=== PATIENT | male | born 1955 | race Caucasian/White ===

== ENCOUNTER 2016-07-04 11:09 | Outpatient (CLI) | payer OTHER ==
[2016-07-04 11:52] LABS: eGFR (African) > 60; eGFR (Non-African) > 60
== END 2016-07-04 11:10 ==
LOC: LAB 11:09
PROVIDERS: ATTEND Family Medicine
DX: E11.9 Type 2 diabetes mellitus without complications (principal)
CPT/HCPCS: 36415; 80053; 82043; 83036

== ENCOUNTER 2017-07-17 10:32 | Outpatient (CLI) | payer OTHER ==
[2017-07-17 11:30] LABS: eGFR (African) > 60; eGFR (Non-African) > 60
== END 2017-07-17 10:33 ==
LOC: LAB 10:32
PROVIDERS: ATTEND Family Medicine
DX: E11.9 Type 2 diabetes mellitus without complications (principal); I10 Essential (primary) hypertension; R73.9 Hyperglycemia, unspecified
CPT/HCPCS: 36415; 80053; 80061; 82043; 83036

== ENCOUNTER 2017-11-18 13:50 | Outpatient (CLI) | payer OTHER ==
[2017-11-18 14:02] LABS: BASOPHILS % 0.3 (0.0-1.5); EOSINOPHILS % 0.8 % (0.0-6.8); MEAN CORPUSCULAR HEMOGLOBIN 30.3 pg (28.0-34.0); MEAN CORPUSCULAR VOLUME 90.9 fl (80.0-100.0); MONOCYTES % 5.7 % (0.0-11.0); NEUTROPHILS # 8.9 # k/uL (1.4-7.7)
== END 2017-11-18 13:52 ==
LOC: LAB 13:50
PROVIDERS: ATTEND Family Medicine
DX: L03.115 Cellulitis of right lower limb (principal)
CPT/HCPCS: 36415; 85025

== ENCOUNTER 2017-11-21 11:54 | Inpatient (IN) | payer OTHER ==
[2017-11-21] MEDS ORDERED: INSULIN LISPRO 100 UNIT/ML 3ML VIAL SQ SCH ×2 (12:00→15:15)
[2017-11-21] MEDS ORDERED: LISINOPRIL 5 MG TABLET PO ONE (12:16)
[2017-11-21] MEDS ORDERED: VANCOMYCIN PHARMACY TO DOSE IV SCH ×2 (13:00→14:00)
[2017-11-21] MEDS ORDERED: INSULIN DETEMIR 100 UNIT/ML 3ML PEN.INJCTR SQ SCH (13:00)
[2017-11-21] MEDS: DULoxetine HCL 30 MG CAPSULE.DR PO SCH ×2 (13:41→20:17)
[2017-11-21] MEDS: ENOXAPARIN SODIUM 40 MG/0.4 ML DISP.SYRIN SQ SCH (13:43)
[2017-11-21] MEDS: PRAVASTATIN SODIUM 20 MG TABLET PO SCH ×2 (13:44→20:20)
[2017-11-21] MEDS: FUROSEMIDE 20 MG TABLET PO SCH (13:44)
[2017-11-21 15:52] LABS: BASOPHILS % 0.5 (0.0-1.5); EOSINOPHILS % 2.8 % (0.0-6.8); MEAN CORPUSCULAR HEMOGLOBIN 29.7 pg (28.0-34.0); MEAN CORPUSCULAR VOLUME 87.9 fl (80.0-100.0); NEUTROPHILS # 8.9 # k/uL (1.4-7.7)
[2017-11-21 16:02] LABS: eGFR (African) > 60; eGFR (Non-African) 54
[2017-11-21] MEDS: INSULIN LISPRO 100 UNIT/ML 3ML VIAL SQ SCH (17:04)
[2017-11-21] MEDS: VANCOMYCIN HCL 2 GM in 0.9 % SODIUM CHLORIDE 500 ML IV SCH (17:59)
[2017-11-21 19:56] VITALS: BMI 35.2
[2017-11-21] MEDS: NAPROXEN 250 MG TABLET PO SCH (20:18)
[2017-11-21] MEDS: CARVEDILOL 12.5 MG TABLET PO SCH (20:19)
[2017-11-21] MEDS: GABAPENTIN 100 MG CAPSULE PO SCH (20:19)
[2017-11-21] MEDS: GABAPENTIN 300 MG CAPSULE PO SCH (20:20)
[2017-11-21] MEDS: SALINE FLUSH 10 ML DISP.SYRIN IV SCH (20:24)
[2017-11-21] MEDS: INSULIN DETEMIR 100 UNIT/ML 3ML PEN.INJCTR SQ SCH (20:25)
[2017-11-21] MEDS ORDERED: CARVEDILOL 25 MG TABLET PO SCH (21:00)
[2017-11-22] MEDS: PIPERACILLIN SODIUM/TAZOBACTAM 3.375 GM VIAL IV SCH ×4 (00:04→23:00)
[2017-11-22] MEDS ORDERED: ASPIRIN 81 MG CHEW TAB ONE (00:32)
[2017-11-22] MEDS ORDERED: FUROSEMIDE 40 MG TABLET PO ONE (00:33)
[2017-11-22] MEDS ORDERED: LISINOPRIL 5 MG TABLET ONE (00:36)
[2017-11-22] MEDS ORDERED: CHOLECALCIFEROL (VIT D3) 1,000 UNIT TABLET PO ONE (00:37)
[2017-11-22 07:46] LABS: BASOPHILS % 0.3 (0.0-1.5); EOSINOPHILS % 1.9 % (0.0-6.8); MEAN CORPUSCULAR VOLUME 88.5 fl (80.0-100.0); NEUTROPHILS # 8.2 # k/uL (1.4-7.7)
[2017-11-22] MEDS: INSULIN LISPRO 100 UNIT/ML 3ML VIAL SQ SCH ×2 (07:59→16:55)
[2017-11-22] MEDS: ASPIRIN 81 MG CHEW TAB PO SCH (08:50)
[2017-11-22] MEDS: FUROSEMIDE 40 MG TABLET PO SCH (08:50)
[2017-11-22] MEDS: CARVEDILOL 12.5 MG TABLET PO SCH ×2 (08:50→20:25)
[2017-11-22] MEDS: NAPROXEN 250 MG TABLET PO SCH ×2 (08:50→20:25)
[2017-11-22] MEDS: SALINE FLUSH 10 ML DISP.SYRIN IV SCH ×2 (08:52→20:26)
[2017-11-22] MEDS: GABAPENTIN 100 MG CAPSULE PO SCH ×2 (08:52→20:26)
[2017-11-22] MEDS: LISINOPRIL 5 MG TABLET PO SCH (08:53)
[2017-11-22] MEDS: CHOLECALCIFEROL (VIT D3) 1,000 UNIT TABLET PO SCH (08:54)
--- NOTE | 2017-11-22 08:55 | History and Physical Report ---
History of Present Illnes - History of Present Illness Reason for Visit: cellulitis to RLE History of Present Illness: Patient is a 62-year-old white male who three days prior to admission was seen in the office and started on Levaquin for cellulitis to the right lower extremity. Patient was seen again on the day of admission in the office and stated that he felt that the infection was getting worse. Patient denied having any fever or chills. Patient has been developing some blisters on his leg with some serious thing when a slightly purulent drainage. Patient does have a history of diabetes mellitus. Patient has had problems with venous stasis ulcers healing on his right lower extremity. Patient was subsequently admitted to the hospital for further care and evaluation. Patient will be started on IV antibiotic therapy. 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 negative: Fever, Chills, Weakness Eyes: negative: vision change ENT: negative: Ear Pain, Ear Discharge, Nose Pain, Nose Discharge, Nose Congestion Respiratory: Shortness of Breath, SOB with Excertion. negative: Cough, Dry, Hemoptysis, Pleuritic Pain, Sputum, Wheezing Cardiovascular: Edema. negative: Chest Pain, Palpitations, Orthopnea, Paroxysmal Noc. Dyspnea Gastrointestinal: negative: Nausea, Vomiting, Abdominal Pain, Diarrhea, Constipation, Melena, Hematochezia Genitourinary: negative: Dysuria, Frequency, Incontinence, Hematuria Musculoskeletal: negative: Neck Pain Skin: negative: Rash Neurological: Numbness. negative: Weakness, Incoordination - Medications/Allergies Allergies/Adverse Reactions: Allergies Allergy/AdvReac Type Severity Reaction Status Date / Time No Known Drug Allergies Allergy Unverified 09/23/12 14:42 Current Inpatient Medications: Current Inpatient Medications Aspirin (Aspirin) 81 mg PO DAILY [facility] Carvedilol (Coreg) 37.5 mg PO BID [facility] Last Admin: 11/21/17 20:19 Dose: 37.5 mg Cholecalciferol (Vitamin D-3) 1,000 unit PO DAILY [facility] Duloxetine HCl (Cymbalta) 30 mg PO [facility] Last Admin: 11/21/17 20:17 Dose: 30 mg Enoxaparin Sodium (Lovenox) 40 mg SQ QD [facility] Stop: 12/05/17 12:59 Last Admin: 11/21/17 13:43 Dose: 40 mg Fenofibrate (Tricor) 160 mg PO DAILY [facility] Furosemide (Lasix) 40 mg PO DAILY [facility] Furosemide (Lasix) 20 mg PO 1400 [facility] Last Admin: 11/21/17 13:44 Dose: 20 mg Gabapentin (Neurontin) 100 mg PO BID [facility] Last Admin: 11/21/17 20:19 Dose: 100 mg Gabapentin (Neurontin) 300 mg PO HS [facility] Last Admin: 11/21/17 20:20 Dose: 300 mg Vancomycin HCl 2 gm/ Sodium (Chloride) 500 mls @ 250 mls/hr IV Q24H [facility] Stop: 12/05/17 16:59 Last Admin: 11/21/17 17:59 Dose: 250 mls/hr Insulin Detemir (Levemir Flex-Pen) 80 unit SQ [facility] Last Admin: 11/21/17 20:25 Dose: 80 units Insulin Human Lispro (Humalog) 36 unit SQ 0730 [facility] Last Admin: 11/22/17 07:59 Dose: 36 units Insulin Human Lispro (Humalog) 50 unit SQ 17 [facility] PRN Reason: Protocol Last Admin: 11/21/17 17:04 Dose: 50 units Insulin Human Lispro (Humalog) 36 unit SQ 1200 [facility] Insulin Human Lispro (Humalog) 36 unit SQ 1T [facility] Lisinopril (Prinivil) 10 mg PO DAILY [facility] Magnesium Oxide (Mag-Oxide) 400 mg PO DAILY [facility] Metformin HCl (Glucophage) [place] [id number] [facility] Last Admin: 11/22/17 07:57 Dose: 500 mg Miscellaneous (Chem Sticks) 1 each CHEMQID [facility] Last Admin: 11/22/17 07:43 Dose: 1 each Miscellaneous (Vancomycin Pharmacy To Dose) 1 each IV NOW [facility] Naproxen (Naprosyn) 375 mg PO BID [facility] Last Admin: 11/21/17 20:18 Dose: 375 mg Piperacillin Sod/Tazobactam Sod (Zosyn) 3.375 gm IV Q6 [facility] Last Admin: 11/22/17 06:18 Dose: 3.375 gm Pravastatin Sodium (Pravachol) 80 mg PO HS [facility] Last Admin: 11/21/17 20:20 Dose: 80 mg Sodium Chloride (Normal Saline Flush) 3 ml IV BID [facility] Last Admin: 11/21/17 20:24 Dose: 3 ml Exam - Exam Vital Signs: Vital Signs (72 hours) 11/21/17 11/21/17 11/21/17 12:46 14:00 16:46 Temperature 98.1 F 98.4 F 98.4 F Pulse Rate [ 69 72 72 Apical] Respiratory 16 16 16 Rate Blood Pressure 113/64 115/65 115/65 [Right Arm] O2 Sat by Pulse 97 98 98 Oximetry 11/21/17 11/21/17 11/21/17 18:00 20:00 22:00 Temperature 98.4 F 98.8 F 98.8 F Pulse Rate [ 72 78 78 Apical] Respiratory 16 18 18 Rate Blood Pressure 115/65 137/70 137/70 [Right Arm] O2 Sat by Pulse 98 97 97 Oximetry 11/22/17 11/22/17 11/22/17 00:00 02:00 04:00 Temperature 99.1 F 99.1 F 99.1 F Pulse Rate [ 62 62 62 Apical] Respiratory 14 14 14 Rate Blood Pressure 109/59 109/59 109/59 [Right Arm] O2 Sat by Pulse 97 97 97 Oximetry 11/22/17 06:00 Temperature 99.1 F Pulse Rate [ 62 Apical] Respiratory 14 Rate Blood Pressure 109/59 [Right Arm] O2 Sat by Pulse 97 Oximetry General: Alert, Oriented to Person, Oriented to Place, Oriented to Time, Cooperative, Mild distress HEENT: Atraumatic, PERRLA, EOMI, Mouth Mucous membr. moist/Almyra, Nose Mucous membr. moist/Almyra, Dentition Normal, Hearing Grossly Normal Neck: Normal Range of Motion Carotids: WNL Thyroid: WNL Lungs: Clear to auscultation, Normal air movement, Speaks full Sentences. No: Wheezes, Rales, Rhonchi Cardiovascular: Regular rate, Normal S1, Normal S2, No murmurs. No: Murmur Abdomen: Normal bowel sounds, Soft, No tenderness, No hepatospenomegaly, No masses, Other (obese) Integumentary: Normal, Almyra, Warm, Dry, Cellulitis, Erythema (invilving most fo the Rt lower leg, some blisters noted) Extremities: No clubbing, No cyanosis Neurological: Normal gait, Normal speech, Strength Equal Bilat, Normal tone, Sensation intact, Cranial nerves 3-12 NL, Reflexes 2+ Psych/Mental Status: Mental status NL, Mood NL, Appropriate Affect, Intact Judgment - Laboratory Results Laboratory Results: Laboratory Results 11/21/17 11/21/17 11/22/17 15:45 15:45 07:35 WBC 11.60 10.20 RBC 3.87 L 3.81 L Hgb 11.5 L 11.4 L Hct 34.0 L 33.7 L MCV 87.9 88.5 MCH 29.7 30.0 MCHC 33.8 33.9 RDW 13.4 13.5 Plt Count 346 321 Neut % (Auto) 76.2 80.4 H Lymph % (Auto) 15.1 L 12.1 L Harper % (Auto) 4.0 4.0 Eos % (Auto) 2.8 1.9 Baso % (Auto) 0.5 0.3 Neut # (Auto) 8.9 H 8.2 H Lymph # (Auto) 1.8 1.2 Harper # (Auto) 0.5 0.4 Eos # (Auto) 0.3 0.2 Baso # (Auto) 0.1 0.0 Reactive Lymphs % 1.4 1.3 Reactive Lymphs # 0.2 0.1 Sodium 133 L Potassium 4.6 Chloride 96 L Carbon Dioxide 30 BUN 21 H Creatinine 1.40 H Est GFR ( Amer) > 60 Est GFR (Non-Af Amer) 54 L Glucose 270 H Calcium 9.4 Total Bilirubin 0.4 AST 15 ALT 27 Alkaline Phosphatase 83 Total Protein 8.1 Albumin 3.7 Assessment/Plan - Assessment/Plan (1) Cellulitis of right lower leg Status: Acute Current Visit: Yes Assessment: Patient will have blood cultures drawn. Patient will be started on vancomycin and Zosyn. Will culture the patient blister on his foot. (2) Diabetes type 2, uncontrolled Status: Chronic Current Visit: Yes Qualifiers: Diabetes mellitus alf insulin use: with termite treater use Diabetes mellitus complication status: with neurologic complications Diabetes mellitus complication detail: with polyneuropathy Qualified Code(s): E11.42 - Type 2 diabetes mellitus with diabetic polyneuropathy; E11.65 - Type 2 diabetes mellitus with hyperglycemia; E11.65 - Type 2 diabetes mellitus with hyperglycemia; E11.65 - Type 2 diabetes mellitus with hyperglycemia; E11.65 - Type 2 diabetes mellitus with hyperglycemia; Z79.4 - termite treater (current) use of insulin; Z79.4 - termite treater (current) use of insulin; Z79.4 - termite treater (current ) use of insulin; Z79.4 - termite treater (current) use of insulin Plan: Patient will be continued on his home medications and insulin. Will start the patient on a sliding scale. (3) Chronic kidney disease (CKD) stage G3a/A1, moderately decreased glomerular filtration rate (GFR) between 45-59 mL/min/1.73 square meter and albuminuria creatinine ratio less than 30 mg/g Status: Acute Current Visit: Yes Plan: Will monitor patient renal status. (4) Cardiomyopathy Status: Acute Current Visit: Yes Assessment: Last ejection fraction with 35%. Will continue with home medications. (5) Obesity Status: Acute Current Visit: Yes Qualifiers: Body mass index: BMI 35.0-35.9 (6) Obstructive sleep apnea Status: Acute Current Visit: Yes Assessment: Continue with home CPAP (7) Essential hypertension Status: Chronic Current Visit: Yes Assessment: Continue with home medications. (8) Generalized osteoarthritis Status: Chronic Current Visit: Yes VTE Assessment - RISK FACTOR SCORE VTE RISK FACTOR SCORES: AGE OVER 60 YEARS, ACUTE INFECTION OTHER THEN SEPSIS, ANTICIPATED BED CONFINEMENT OR IMMOBILIZATION > 24 HOURS - RISK VTE HIGH RISK: SCORE OF 3-4 (RISK PROXIMAL DVT 4-8%) PROPHYLAXIS NEEDED
[2017-11-22] MEDS: FENOFIBRATE 160 MG TABLET PO SCH (09:06)
[2017-11-22] MEDS: MAGNESIUM OXIDE 400 MG TABLET PO SCH (09:06)
[2017-11-22] MEDS ORDERED: INSULIN LISPRO 100 UNIT/ML 3ML VIAL SQ SCH (12:00)
[2017-11-22] MEDS: ENOXAPARIN SODIUM 40 MG/0.4 ML DISP.SYRIN SQ SCH (13:14)
[2017-11-22] MEDS: FUROSEMIDE 20 MG TABLET PO SCH (13:14)
[2017-11-22] MEDS: VANCOMYCIN HCL 2 GM in 0.9 % SODIUM CHLORIDE 500 ML IV SCH (17:32)
[2017-11-22] MEDS: DULoxetine HCL 30 MG CAPSULE.DR PO SCH (20:25)
[2017-11-22] MEDS: PRAVASTATIN SODIUM 20 MG TABLET PO SCH (20:26)
[2017-11-22] MEDS: GABAPENTIN 300 MG CAPSULE PO SCH (20:26)
[2017-11-22] MEDS: INSULIN DETEMIR 100 UNIT/ML 3ML PEN.INJCTR SQ SCH (20:30)
[2017-11-23] MEDS: PIPERACILLIN SODIUM/TAZOBACTAM 3.375 GM VIAL IV SCH ×2 (00:12→05:05)
[2017-11-23 05:07] VITALS: BP 109/60
[2017-11-23] MEDS: INSULIN LISPRO 100 UNIT/ML 3ML VIAL SQ SCH (07:32)
--- NOTE | 2017-11-23 08:20 | Inpatient Progress Note ---
Subjective - Required Recertification Statement I anticipate X number of days because-include discharge plan: 2 days - Review of Systems Events since last encounter: Patient leg appears to be improving at the time. Erythema or warmth are starting to resolve some.Diabetes mellitus has been fairly stable. Objective - Exam Vitals and I&O: Vital Signs Temp 98 F 11/23/17 05:05 Pulse 56 L 11/23/17 05:05 Resp 18 11/23/17 05:05 BP 109/60 11/23/17 05:05 Pulse Ox 100 11/23/17 05:05 Intake & Output 11/22/17 11/22/17 11/23/17 11:59 23:59 11:59 Intake Total 540 800 Output Total 600 450 Balance 540 200 -450 Intake: IV 300 Left Forearm 300 Oral 240 800 Output: Urine 600 450 Other: Voiding Method Toilet Toilet Toilet # Voids 2 General: Alert, Oriented to Person, Oriented to Place, Oriented to Time, Cooperative, No acute distress Lungs: Clear to auscultation, Speaks full Sentences. No: Wheezes, Rales, Rhonchi Cardiovascular: Regular rate, Normal S1, Normal S2 Abdomen: Normal bowel sounds Extremities: No clubbing, No cyanosis, No edema Skin: Normal, Earth, Warm, Dry Neurological: Normal gait, Normal speech, Strength Equal Bilat, Normal tone Psych/Mental Status: Mental status NL, Mood NL - Results Results: Laboratory Results WBC 10.20 K/ul (4.00-12.00) 11/22/17 07:35 RBC 3.81 M/ul (3.90-5.20) L 11/22/17 07:35 Hgb 11.4 g/dL (12.0-18.0) L 11/22/17 07:35 Hct 33.7 % (37.0-53.0) L 11/22/17 07:35 MCV 88.5 fl (80.0-100.0) 11/22/17 07:35 MCH 30.0 pg (28.0-34.0) 11/22/17 07:35 MCHC 33.9 g/dL (30.0-36.0) 11/22/17 07:35 RDW 13.5 % (11.3-14.3) 11/22/17 07:35 Plt Count 321 K/mm3 (130-400) 11/22/17 07:35 Neut % (Auto) 80.4 % (39.0-79.0) H 11/22/17 07:35 Lymph % (Auto) 12.1 % (16.0-50.0) L 11/22/17 07:35 Rice % (Auto) 4.0 % (0.0-11.0) 11/22/17 07:35 Eos % (Auto) 1.9 % (0.0-6.8) 11/22/17 07:35 Baso % (Auto) 0.3 (0.0-1.5) 11/22/17 07:35 Neut # (Auto) 8.2 # k/uL (1.4-7.7) H 11/22/17 07:35 Lymph # (Auto) 1.2 # k/uL (0.6-4.0) 11/22/17 07:35 Rice # (Auto) 0.4 # k/uL (0.0-0.9) 11/22/17 07:35 Eos # (Auto) 0.2 # k/uL (0.0-0.6) 11/22/17 07:35 Baso # (Auto) 0.0 # k/uL (0.0-0.5) 11/22/17 07:35 Reactive Lymphs % 1.3 % (0.0-5.0) 11/22/17 07:35 Reactive Lymphs # 0.1 # k/uL (0.0-0.8) 11/22/17 07:35 Sodium 133 mmol/L (136-145) L 11/21/17 15:45 Potassium 4.6 mmol/L (3.5-5.1) 11/21/17 15:45 Chloride 96 mmol/L (98-107) L 11/21/17 15:45 Carbon Dioxide 30 mmol/L (22-30) 11/21/17 15:45 BUN 21 mg/dL (9-20) H 11/21/17 15:45 Creatinine 1.40 mg/dL (0.66-1.25) H 11/21/17 15:45 Est GFR ( Amer) > 60 (60-) 11/21/17 15:45 Est GFR (Non-Af Amer) 54 (60-) L 11/21/17 15:45 Glucose 270 mg/dL (74-106) H 11/21/17 15:45 Calcium 9.4 mg/dL (8.4-10.2) 11/21/17 15:45 Total Bilirubin 0.4 mg/dL (0.2-1.3) 11/21/17 15:45 AST 15 U/L (15-46) 11/21/17 15:45 ALT 27 U/L (13-69) 11/21/17 15:45 Alkaline Phosphatase 83 U/L (38-126) 11/21/17 15:45 Total Protein 8.1 g/dL (6.3-8.2) 11/21/17 15:45 Albumin 3.7 g/dL (3.5-5.0) 11/21/17 15:45 Assessment/Plan - Assessment/Plan (1) Cellulitis of right lower leg Status: Acute Assessment: improved (2) Diabetes type 2, uncontrolled Status: Chronic Qualifiers: Diabetes mellitus crisis worker insulin use: with detention use Diabetes mellitus complication status: with neurologic complications Diabetes mellitus complication detail: with polyneuropathy Qualified Code(s): E11.42 - Type 2 diabetes mellitus with diabetic polyneuropathy; E11.65 - Type 2 diabetes mellitus with hyperglycemia; E11.65 - Type 2 diabetes mellitus with hyperglycemia; E11.65 - Type 2 diabetes mellitus with hyperglycemia; E11.65 - Type 2 diabetes mellitus with hyperglycemia; Z79.4 - car repair supervisor (current) use of insulin; Z79.4 - car repair supervisor (current) use of insulin; Z79.4 - car repair supervisor (current ) use of insulin; Z79.4 - intermediate (current) use of insulin Assessment: stable (3) Chronic kidney disease (CKD) stage G3a/A1, moderately decreased glomerular filtration rate (GFR) between 45-59 mL/min/1.73 square meter and albuminuria creatinine ratio less than 30 mg/g Status: Chronic Assessment: stable (4) Cardiomyopathy Status: Chronic Assessment: stable (5) Obesity Status: Chronic Qualifiers: Body mass index: BMI 35.0-35.9 (6) Obstructive sleep apnea Status: Chronic Assessment: on CPAP (7) Essential hypertension Status: Chronic (8) Generalized osteoarthritis Status: Chronic
--- NOTE | 2017-11-23 08:21 | Discharge Summary ---
Discharge Summary - Discharge Sumary History of Present Illness: Coded Patient is a 62-year-old white male who three days prior to admission was seen in the office and started on Levaquin for cellulitis to the right lower extremity. Patient was seen again on the day of admission in the office and stated that he felt that the infection was getting worse. Patient denied having any fever or chills. Patient has been developing some blisters on his leg with some serious thing when a slightly purulent drainage. Patient does have a history of diabetes mellitus. Patient has had problems with venous stasis ulcers healing on his right lower extremity. Patient was subsequently admitted to the hospital for further care and evaluation. Patient will be started on IV antibiotic therapy. Condition at Discharge: Stable Allergies/Adverse Reactions: Allergies Allergy/AdvReac Type Severity Reaction Status Date / Time No Known Drug Allergies Allergy Verified 11/23/17 14:39 Discharge Summary: Patient was started on vancomycin and Piprocillin to provide wide coverage antibiotics. Blood cultures were drawn was subsequently came back no growth. Over the course of his hospital stay patient cellulitis did improve with decreasing redness erythema and warmth to the right lower extremity. Patient continues to have some swelling but it did improve. Patient was noted to have developed an abscess to the right pre-tibial area. Incision and drainage of the abscess with done. Wound was culturedAnd subsequently throughout a staph aureus species. Patient was transitioned over to an oral antibiotics - Final Diagnosis (1) Cellulitis of right lower leg Problems: improved (2) Diabetes type 2, uncontrolled Problems: stable (3) Chronic kidney disease (CKD) stage G3a/A1, moderately decreased glomerular filtration rate (GFR) between 45-59 mL/min/1.73 square meter and albuminuria creatinine ratio less than 30 mg/g Problems: stable (4) Cardiomyopathy Problems: stable (6) Obstructive sleep apnea Problems: stable (7) Essential hypertension Problems: stable (8) Generalized osteoarthritis Problems: stable
[2017-11-23] MEDS: FUROSEMIDE 40 MG TABLET PO SCH (08:24)
[2017-11-23] MEDS: CHOLECALCIFEROL (VIT D3) 1,000 UNIT TABLET PO SCH (08:24)
[2017-11-23] MEDS: MAGNESIUM OXIDE 400 MG TABLET PO SCH (08:25)
[2017-11-23] MEDS: FENOFIBRATE 160 MG TABLET PO SCH (08:25)
[2017-11-23] MEDS: CARVEDILOL 12.5 MG TABLET PO SCH (08:25)
[2017-11-23] MEDS: GABAPENTIN 100 MG CAPSULE PO SCH (08:25)
[2017-11-23] MEDS: NAPROXEN 250 MG TABLET PO SCH (08:25)
[2017-11-23] MEDS: ASPIRIN 81 MG CHEW TAB PO SCH (08:25)
[2017-11-23] MEDS: LISINOPRIL 5 MG TABLET PO SCH (08:25)
== END 2017-11-23 08:41 | DRG 603 ==
LOC: SOUTH 11:54
PROVIDERS: ADMIT Family Medicine; ATTEND Family Medicine
DX: L03.115 Cellulitis of right lower limb (principal); I13.0 Hypertensive heart and chronic kidney disease with heart failure and stage 1 through stage 4 chronic kidney disease, or unspecified chronic kidney disease; I42.9 Cardiomyopathy, unspecified; E11.42 Type 2 diabetes mellitus with diabetic polyneuropathy; E11.65 Type 2 diabetes mellitus with hyperglycemia; Z79.4 Long term (current) use of insulin; E11.22 Type 2 diabetes mellitus with diabetic chronic kidney disease; N18.3 Chronic kidney disease, stage 3 (moderate); E66.9 Obesity, unspecified; Z68.35 Body mass index [BMI] 35.0-35.9, adult; M17.0 Bilateral primary osteoarthritis of knee
CPT/HCPCS: 36415; 80053; 85025; 87040; 87070; 87186; J1650; J1815; J2543; J3370; J7060; 99223; 99232; 99238; S1016

== ENCOUNTER 2017-11-23 08:45 | Inpatient (IN) | payer OTHER ==
[2017-11-23] MEDS ORDERED: GABAPENTIN 100 MG CAPSULE PO SCH (09:00)
[2017-11-23] MEDS ORDERED: FUROSEMIDE 20 MG TABLET PO SCH (09:00)
[2017-11-23] MEDS ORDERED: VANCOMYCIN HCL 1 GM VIAL IV ONE (12:09)
[2017-11-23] MEDS ORDERED: CARVEDILOL 12.5 MG TABLET PO ONE (12:13)
[2017-11-23] MEDS: ASPIRIN 81 MG CHEW TAB PO SCH (12:41)
[2017-11-23] MEDS: CARVEDILOL 25 MG TABLET PO SCH ×2 (12:42→20:06)
[2017-11-23] MEDS: DULoxetine HCL 30 MG CAPSULE.DR PO SCH ×2 (12:42→20:06)
[2017-11-23] MEDS: INSULIN LISPRO 100 UNIT/ML 3ML VIAL SQ SCH ×3 (12:43→18:07)
[2017-11-23] MEDS: CHOLECALCIFEROL (VIT D3) 1,000 UNIT TABLET PO SCH (12:43)
[2017-11-23] MEDS: SALINE FLUSH 10 ML DISP.SYRIN IV SCH ×2 (12:52→20:07)
[2017-11-23] MEDS: ENOXAPARIN SODIUM 40 MG/0.4 ML DISP.SYRIN SQ SCH (12:52)
[2017-11-23] MEDS: PIPERACILLIN SODIUM/TAZOBACTAM 3.375 GM VIAL IV SCH ×3 (12:52→19:01)
[2017-11-23] MEDS: FUROSEMIDE 20 MG TABLET PO SCH (14:49)
[2017-11-23 15:26] VITALS: BMI 35.2
[2017-11-23] MEDS ORDERED: INSULIN LISPRO 100 UNIT/ML 3ML VIAL SQ SCH ×3 (17:00→21:00)
[2017-11-23 17:07] LABS: eGFR (African) > 60; eGFR (Non-African) 50
[2017-11-23] MEDS: GABAPENTIN 100 MG CAPSULE PO SCH (17:12)
[2017-11-23] MEDS: VANCOMYCIN HCL IV SCH (17:15)
[2017-11-23] MEDS: SODIUM CHLORIDE 0.9% IV SCH (17:15)
[2017-11-23] MEDS: INSULIN DETEMIR 100 UNIT/ML 3ML PEN.INJCTR SQ SCH ×2 (18:06→20:10)
[2017-11-23] MEDS: NAPROXEN 250 MG TABLET PO SCH (20:06)
[2017-11-23] MEDS: GABAPENTIN 300 MG CAPSULE PO SCH (20:06)
[2017-11-24] MEDS: PIPERACILLIN SODIUM/TAZOBACTAM 3.375 GM VIAL IV SCH ×3 (00:12→13:13)
[2017-11-24] MEDS ORDERED: CARVEDILOL 12.5 MG TABLET PO ONE ×2 (01:39→13:16)
[2017-11-24] MEDS: ASPIRIN 81 MG CHEW TAB PO SCH (08:20)
[2017-11-24] MEDS: CARVEDILOL 25 MG TABLET PO SCH ×2 (08:21→20:18)
[2017-11-24] MEDS: FUROSEMIDE 40 MG TABLET PO SCH (08:22)
[2017-11-24] MEDS: MAGNESIUM OXIDE 400 MG TABLET PO SCH (08:22)
[2017-11-24] MEDS: NAPROXEN 250 MG TABLET PO SCH ×2 (08:22→20:18)
[2017-11-24] MEDS: ENOXAPARIN SODIUM 40 MG/0.4 ML DISP.SYRIN SQ SCH (08:22)
[2017-11-24] MEDS: GABAPENTIN 100 MG CAPSULE PO SCH ×3 (08:23→17:36)
[2017-11-24] MEDS: SALINE FLUSH 10 ML DISP.SYRIN IV SCH ×2 (08:23→20:19)
[2017-11-24] MEDS: CHOLECALCIFEROL (VIT D3) 1,000 UNIT TABLET PO SCH (08:24)
[2017-11-24] MEDS: FENOFIBRATE 160 MG TABLET PO SCH (08:24)
[2017-11-24] MEDS: INSULIN LISPRO 100 UNIT/ML 3ML VIAL SQ SCH ×3 (08:25→17:38)
[2017-11-24] MEDS ORDERED: INSULIN REGULAR, HUMAN 100 UNIT/ML 3ML VIAL ONE (08:27)
[2017-11-24] MEDS: FUROSEMIDE 20 MG TABLET PO SCH (13:08)
[2017-11-24] MEDS: VANCOMYCIN HCL IV SCH (13:58)
[2017-11-24] MEDS: SODIUM CHLORIDE 0.9% IV SCH (13:58)
[2017-11-24] MEDS ORDERED: SODIUM CHLORIDE 0.9% IV SCH (17:00)
[2017-11-24] MEDS ORDERED: VANCOMYCIN HCL IV SCH (17:00)
[2017-11-24] MEDS: DULoxetine HCL 30 MG CAPSULE.DR PO SCH (20:18)
[2017-11-24] MEDS: GABAPENTIN 300 MG CAPSULE PO SCH (20:19)
[2017-11-24] MEDS: INSULIN DETEMIR 100 UNIT/ML 3ML PEN.INJCTR SQ SCH (20:22)
[2017-11-25] MEDS: PIPERACILLIN SODIUM/TAZOBACTAM 3.375 GM VIAL IV SCH ×4 (00:06→12:47)
[2017-11-25] MEDS ORDERED: CARVEDILOL 12.5 MG TABLET PO ONE ×2 (01:24→12:50)
[2017-11-25] MEDS: INSULIN LISPRO 100 UNIT/ML 3ML VIAL SQ SCH ×3 (07:36→16:18)
[2017-11-25 07:46] LABS: BASOPHILS % 0.2 (0.0-1.5); EOSINOPHILS % 3.1 % (0.0-6.8); MEAN CORPUSCULAR HEMOGLOBIN 29.7 pg (28.0-34.0); MEAN CORPUSCULAR VOLUME 89.8 fl (80.0-100.0); MONOCYTES % 4.7 % (0.0-11.0); NEUTROPHILS # 4.5 # k/uL (1.4-7.7)
[2017-11-25] MEDS: CHOLECALCIFEROL (VIT D3) 1,000 UNIT TABLET PO SCH (09:03)
[2017-11-25] MEDS: CARVEDILOL 25 MG TABLET PO SCH (09:03)
[2017-11-25] MEDS: FENOFIBRATE 160 MG TABLET PO SCH (09:03)
[2017-11-25] MEDS: ASPIRIN 81 MG CHEW TAB PO SCH (09:03)
[2017-11-25] MEDS: ENOXAPARIN SODIUM 40 MG/0.4 ML DISP.SYRIN SQ SCH (09:03)
[2017-11-25] MEDS: SALINE FLUSH 10 ML DISP.SYRIN IV SCH ×2 (09:04→19:51)
[2017-11-25] MEDS: FUROSEMIDE 40 MG TABLET PO SCH (09:04)
[2017-11-25] MEDS: NAPROXEN 250 MG TABLET PO SCH ×2 (09:04→20:59)
[2017-11-25] MEDS: GABAPENTIN 100 MG CAPSULE PO SCH ×2 (09:04→16:16)
[2017-11-25] MEDS: MAGNESIUM OXIDE 400 MG TABLET PO SCH (09:04)
[2017-11-25] MEDS: FUROSEMIDE 20 MG TABLET PO SCH (12:59)
[2017-11-25] MEDS: VANCOMYCIN HCL 2 GM in 0.9 % SODIUM CHLORIDE 500 ML IV SCH (16:26)
[2017-11-25] MEDS: PIPERACILLIN SODIUM/TAZOBACTAM 3.375 GM in 0.9 % SODIUM CHLORIDE 50 ML IV SCH (18:56)
[2017-11-25] MEDS: DULoxetine HCL 30 MG CAPSULE.DR PO SCH (21:00)
[2017-11-25] MEDS: GABAPENTIN 300 MG CAPSULE PO SCH (21:00)
[2017-11-25] MEDS: CARVEDILOL 12.5 MG TABLET PO SCH (21:00)
[2017-11-25] MEDS: INSULIN DETEMIR 100 UNIT/ML 3ML PEN.INJCTR SQ SCH (21:01)
[2017-11-25] MEDS ORDERED: PIPERACILLIN SODIUM/TAZOBACTAM 3.375 GM VIAL IV ONE (21:18)
[2017-11-26] MEDS: PIPERACILLIN SODIUM/TAZOBACTAM 3.375 GM in 0.9 % SODIUM CHLORIDE 50 ML IV SCH ×5 (00:25→23:29)
[2017-11-26] MEDS: INSULIN LISPRO 100 UNIT/ML 3ML VIAL SQ SCH ×3 (07:33→16:31)
[2017-11-26] MEDS: FENOFIBRATE 160 MG TABLET PO SCH (09:08)
[2017-11-26] MEDS: CARVEDILOL 12.5 MG TABLET PO SCH ×2 (09:08→20:02)
[2017-11-26] MEDS: NAPROXEN 250 MG TABLET PO SCH ×2 (09:09→20:02)
[2017-11-26] MEDS: MAGNESIUM OXIDE 400 MG TABLET PO SCH (09:10)
[2017-11-26] MEDS: GABAPENTIN 100 MG CAPSULE PO SCH ×2 (09:10→16:30)
[2017-11-26] MEDS: FUROSEMIDE 40 MG TABLET PO SCH (09:11)
[2017-11-26] MEDS: ASPIRIN 81 MG CHEW TAB PO SCH (09:11)
[2017-11-26] MEDS: CHOLECALCIFEROL (VIT D3) 1,000 UNIT TABLET PO SCH (09:13)
[2017-11-26] MEDS: ENOXAPARIN SODIUM 40 MG/0.4 ML DISP.SYRIN SQ SCH (09:13)
[2017-11-26] MEDS: SALINE FLUSH 10 ML DISP.SYRIN IV SCH ×2 (09:14→20:04)
[2017-11-26] MEDS: FUROSEMIDE 20 MG TABLET PO SCH (13:56)
[2017-11-26] MEDS: VANCOMYCIN HCL 2 GM in 0.9 % SODIUM CHLORIDE 500 ML IV SCH (16:57)
[2017-11-26] MEDS: DULoxetine HCL 30 MG CAPSULE.DR PO SCH (20:02)
[2017-11-26] MEDS: GABAPENTIN 300 MG CAPSULE PO SCH (20:02)
[2017-11-26] MEDS: INSULIN DETEMIR 100 UNIT/ML 3ML PEN.INJCTR SQ SCH (20:05)
[2017-11-26] MEDS ORDERED: PIPERACILLIN SODIUM/TAZOBACTAM 3.375 GM VIAL IV ONE (23:14)
[2017-11-27] MEDS ORDERED: PIPERACILLIN SODIUM/TAZOBACTAM 3.375 GM VIAL IV ONE ×4 (00:57→21:47)
[2017-11-27] MEDS: PIPERACILLIN SODIUM/TAZOBACTAM 3.375 GM in 0.9 % SODIUM CHLORIDE 50 ML IV SCH ×3 (05:02→20:44)
[2017-11-27] MEDS: INSULIN LISPRO 100 UNIT/ML 3ML VIAL SQ SCH ×3 (08:35→17:16)
[2017-11-27] MEDS: CARVEDILOL 12.5 MG TABLET PO SCH ×2 (08:50→20:42)
[2017-11-27] MEDS: CHOLECALCIFEROL (VIT D3) 1,000 UNIT TABLET PO SCH (08:50)
[2017-11-27] MEDS: MAGNESIUM OXIDE 400 MG TABLET PO SCH (08:50)
[2017-11-27] MEDS: GABAPENTIN 100 MG CAPSULE PO SCH ×2 (08:50→17:15)
[2017-11-27] MEDS: SALINE FLUSH 10 ML DISP.SYRIN IV SCH ×2 (08:51→20:46)
[2017-11-27] MEDS: FENOFIBRATE 160 MG TABLET PO SCH (08:51)
[2017-11-27] MEDS: FUROSEMIDE 40 MG TABLET PO SCH (08:51)
[2017-11-27] MEDS: ASPIRIN 81 MG CHEW TAB PO SCH (08:51)
[2017-11-27] MEDS: ENOXAPARIN SODIUM 40 MG/0.4 ML DISP.SYRIN SQ SCH (08:52)
[2017-11-27] MEDS: NAPROXEN 250 MG TABLET PO SCH ×2 (08:52→20:41)
[2017-11-27] MEDS: FUROSEMIDE 20 MG TABLET PO SCH (13:17)
[2017-11-27] MEDS: VANCOMYCIN HCL 2 GM in 0.9 % SODIUM CHLORIDE 500 ML IV SCH (17:15)
[2017-11-27] MEDS: DULoxetine HCL 30 MG CAPSULE.DR PO SCH (20:41)
[2017-11-27] MEDS: GABAPENTIN 300 MG CAPSULE PO SCH (20:42)
[2017-11-27] MEDS: INSULIN DETEMIR 100 UNIT/ML 3ML PEN.INJCTR SQ SCH (20:46)
[2017-11-28] MEDS: PIPERACILLIN SODIUM/TAZOBACTAM 3.375 GM in 0.9 % SODIUM CHLORIDE 50 ML IV SCH ×2 (00:12→05:36)
[2017-11-28] MEDS: INSULIN LISPRO 100 UNIT/ML 3ML VIAL SQ SCH ×2 (07:23→11:16)
[2017-11-28 08:06] VITALS: BP 140/75
[2017-11-28] MEDS: CHOLECALCIFEROL (VIT D3) 1,000 UNIT TABLET PO SCH (08:46)
[2017-11-28] MEDS: NAPROXEN 250 MG TABLET PO SCH (08:46)
[2017-11-28] MEDS: GABAPENTIN 100 MG CAPSULE PO SCH (08:46)
[2017-11-28] MEDS: FUROSEMIDE 40 MG TABLET PO SCH (08:46)
[2017-11-28] MEDS: ENOXAPARIN SODIUM 40 MG/0.4 ML DISP.SYRIN SQ SCH (08:46)
[2017-11-28] MEDS: MAGNESIUM OXIDE 400 MG TABLET PO SCH (08:46)
[2017-11-28] MEDS: ASPIRIN 81 MG CHEW TAB PO SCH (08:46)
[2017-11-28] MEDS: FENOFIBRATE 160 MG TABLET PO SCH (08:46)
[2017-11-28] MEDS: CARVEDILOL 12.5 MG TABLET PO SCH (08:47)
[2017-11-28] MEDS: SALINE FLUSH 10 ML DISP.SYRIN IV SCH (08:47)
--- NOTE | 2017-12-14 14:26 | Discharge Summary ---
Discharge Summary - Discharge Sumary History of Present Illness: coded (SNF) 62-year-old white male who is developed some erythema swelling along with warmth to the right lower extremity. Patient is a known diabetic. Patient recently has had a wound to the lateral aspect of the right ankle which took a long time to heal but has healed completely. Patient was felt to be developing some cellulitis. Patient was started on oral antibiotic therapy. However cellulitis continue to progress. Patient was subsequently admitted to the hospital for IV antibiotic therapy. Patient was started on vancomycin and pepper saline. Blood cultures were done and were negative. Patient was subsequently transferred to [facility] for further completion of his IV anabiotic. Condition at Discharge: Stable Consultations this Visit: None Procedures this Visit: I & D Allergies/Adverse Reactions: Allergies Allergy/AdvReac Type Severity Reaction Status Date / Time No Known Drug Allergies Allergy Verified 11/23/17 14:39 Discharge Summary: Patient was continued on to pipracillin and and vancomycin for his IV antibiotic therapy. Vancomycin trough levels were followed and dosage was adjusted. Patient was continued on his home medications for of diabetes mellitus and hypertension rhythm which remain stable. Patient did developed a flexion went area to the right pre-tibial area felt to be related to an abscess. Incision and drainage with done. Wound was cultures and subsequently came back staph aureus. Patient was subsequently discharged home on Augmentin. Patient with discharged in stable condition. - Final Diagnosis (1) Cellulitis of right lower leg Problems: Improved, patient with discharged home on Augmentin therapy. (2) Cardiomyopathy Problems: Stable on home medications. (3) Diabetes type 2, uncontrolled Problems: Stable on home medications. (4) Essential hypertension Problems: Stable on home medications. (5) Obstructive sleep apnea Problems: Stable on home medications.
--- NOTE | 2017-12-14 14:27 | History and Physical Report ---
History of Present Illnes - History of Present Illness Reason for Visit: iv antibiotics History of Present Illness: 62-year-old white male who is developed some erythema swelling along with warmth to the right lower extremity. Patient is a known diabetic. Patient recently has had a wound to the lateral aspect of the right ankle which took a long time to heal but has healed completely. Patient was felt to be developing some cellulitis. Patient was started on oral antibiotic therapy. However cellulitis continue to progress. Patient was subsequently admitted to the hospital for IV antibiotic therapy. Patient was started on vancomycin and pepper saline. Blood cultures were done and were negative. Patient was subsequently transferred to [facility] for further completion of his IV anabiotic. 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 Alcohol: None Drugs: None Lives: With Family Domestic Violence: Negative - Health Maintenance Health Maintenance: Cholesterol, Pneumococcal Vaccine Influenza Vaccine: Current for this Influenza Season Pneumonia Vaccine: Yes Resuscitation Status: Resusciation Status Resuscitation Status Full Code - Unable to Obtain History Unable to Obtain: No Review of Systems - Review of Systems Constitutional: negative: Fever, Chills, Sweats, Weakness Eyes: negative: pain, vision change ENT: negative: Ear Pain, Ear Discharge, Nose Pain, Nose Discharge, Nose Congestion, Mouth Pain, Mouth Swelling Respiratory: SOB with Excertion, Other ([place]). negative: Cough, Dry, Shortness of Breath, Hemoptysis, Pleuritic Pain Cardiovascular: negative: Chest Pain, Palpitations, Orthopnea, Edema Gastrointestinal: negative: Nausea, Vomiting, Abdominal Pain, Diarrhea, Constipation, Melena, Hematochezia Genitourinary: negative: Dysuria Musculoskeletal: negative: Neck Pain, Shoulder Pain Skin: negative: Rash Neurological: negative: Weakness, Numbness, Incoordination - Medications/Allergies Allergies/Adverse Reactions: Allergies Allergy/AdvReac Type Severity Reaction Status Date / Time No Known Drug Allergies Allergy Verified 11/23/17 14:39 Exam - Exam General: Alert, Oriented to Person, Oriented to Place, Oriented to Time, Cooperative HEENT: Atraumatic, PERRLA, EOMI, Mouth Mucous membr. moist/[place], Nose Mucous membr. moist/[place] Neck: Normal Range of Motion Carotids: WNL Thyroid: WNL Lungs: Clear to auscultation, Normal air movement, Speaks full Sentences Cardiovascular: Regular rate, Normal S1, Normal S2, No murmurs Abdomen: Normal bowel sounds, Soft, No tenderness, No hepatospenomegaly, No masses Integumentary: Normal, [place], Warm, Dry, Erythema (RLE) Extremities: No clubbing, No cyanosis, Normal pulses, No tenderness/swelling, Other (edema to lower exremeties bilat, R>L) Neurological: Normal gait, Normal speech, Strength Equal Bilat, Normal tone, Sensation intact, Cranial nerves 3-12 NL, Reflexes 2+ Psych/Mental Status: Mental status NL, Mood NL, Appropriate Affect, Intact Judgment - Laboratory Results Laboratory Results: Laboratory Results 11/23/17 11/23/17 11/25/17 16:51 16:51 08:20 WBC 6.50 RBC 3.86 L Hgb 11.5 L Hct 34.7 L MCV 89.8 MCH 29.7 MCHC 33.0 RDW 13.5 Plt Count 404 H Neut % (Auto) 69.6 Lymph % (Auto) 21.5 [place] % (Auto) 4.7 Eos % (Auto) 3.1 Baso % (Auto) 0.2 Neut # (Auto) 4.5 Lymph # (Auto) 1.4 [place] # (Auto) 0.3 Eos # (Auto) 0.2 Baso # (Auto) 0.0 Reactive Lymphs % 0.9 Reactive Lymphs # 0.1 Sodium 136 Potassium 4.0 Chloride 100 Carbon Dioxide 28 BUN 26 H Creatinine 1.50 H Estimated Creat Clear 93 Est GFR ( Amer) > 60 Est GFR (Non-Af Amer) 50 L Glucose 98 Calcium 8.9 Vancomycin Trough 9.8 L Assessment/Plan - Assessment/Plan (1) Cellulitis of right lower leg Status: Acute Plan: Patient will be continued on antibiotic therapy with vancomycin and pipracillin (2) Cardiomyopathy Status: Chronic Qualifiers: Cardiomyopathy type: unspecified Qualified Code(s): I42.9 - Cardiomyopathy , unspecified (3) Chronic kidney disease (CKD) stage G3a/A1, moderately decreased glomerular filtration rate (GFR) between 45-59 mL/min/1.73 square meter and albuminuria creatinine ratio less than 30 mg/g Status: Chronic Assessment: Will monitor patient creatinine BUN. (4) Diabetes type 2, uncontrolled Status: Chronic Qualifiers: Diabetes mellitus [facility] insulin use: with terminal gauger use Diabetes mellitus complication status: with neurologic complications Diabetes mellitus complication detail: with polyneuropathy Qualified Code(s): E11.42 - Type 2 diabetes mellitus with diabetic polyneuropathy; E11.65 - Type 2 diabetes mellitus with hyperglycemia; E11.65 - Type 2 diabetes mellitus with hyperglycemia; E11.65 - Type 2 diabetes mellitus with hyperglycemia; E11.65 - Type 2 diabetes mellitus with hyperglycemia; Z79.4 - intermodal customer service (current) use of insulin; Z79.4 - [facility]DC (current) use of insulin; Z79.4 - intermodal customer service (current ) use of insulin; Z79.4 - [facility] (current) use of insulin (5) Essential hypertension Status: Chronic (6) Generalized osteoarthritis Status: Chronic (7) Obstructive sleep apnea Status: Chronic Assessment: Will continue with CPAP VTE Assessment - RISK FACTOR SCORE VTE RISK FACTOR SCORES: AGE OVER 60 YEARS, ANTICIPATED BED CONFINEMENT OR IMMOBILIZATION > 24 HOURS - RISK VTE MODERATE RISK: SCORE OF 2 (RISK PROXIMAL DVT 2-4%) PROPHYAXIS NEEDED
--- NOTE | 2017-12-14 14:29 | Inpatient Progress Note ---
Subjective - Required Recertification Statement I anticipate X number of days because-include discharge plan: 3 days - Review of Systems Events since last encounter: Patient continues to have improvement with his cellulitis in his right lower extremity. Erythema and warmth are resolving. Patient is having less pain in his legs. Swelling to the right lower extremity appeared to be improved. Diabetes mellitus has been stable. Renal function to have been stable. Patient continues on vancomycin ampicillin General: Denies: Chills, Night Sweats Pulmonary: Denies: Dyspnea, Cough Gastrointestinal: Denies: Nausea, Vomiting, Abdominal Pain Objective - Exam Vitals and I&O: Vital Signs Temp 97 F L 11/28/17 09:32 Pulse 63 11/28/17 09:32 Resp 20 11/28/17 09:32 BP 140/75 11/28/17 09:32 Pulse Ox 97 11/28/17 08:04 General: Alert, Oriented to Person HEENT: Mouth Mucous membr. moist/[place], Nose Mucous membr. moist/[place] Lungs: Clear to auscultation, Normal air movement, Speaks full Sentences Cardiovascular: Regular rate, Normal S1, Normal S2, No murmurs Abdomen: Normal bowel sounds, Soft, No tenderness, No hepatospenomegaly, No masses Extremities: Normal pulses Skin: Normal, [place], Warm, Dry, Other (Erythema and warmth to the right lower extremity continue to improve. Patient is developing some mild swelling to the mid pre-tibial area.) Neurological: Normal gait, Normal speech, Strength Equal Bilat, Normal tone, Sensation intact, Cranial nerves 3-12 NL, Reflexes 2+ Psych/Mental Status: Mental status NL, Mood NL, Appropriate Affect, Intact Judgment - Results Results: Laboratory Results WBC 6.50 K/ul (4.00-12.00) 11/25/17 08:20 RBC 3.86 M/ul (3.90-5.20) L 11/25/17 08:20 Hgb 11.5 g/dL (12.0-18.0) L 11/25/17 08:20 Hct 34.7 % (37.0-53.0) L 11/25/17 08:20 MCV 89.8 fl (80.0-100.0) 11/25/17 08:20 MCH 29.7 pg (28.0-34.0) 11/25/17 08:20 MCHC 33.0 g/dL (30.0-36.0) 11/25/17 08:20 RDW 13.5 % (11.3-14.3) 11/25/17 08:20 Plt Count 404 K/mm3 (130-400) H 11/25/17 08:20 Neut % (Auto) 69.6 % (39.0-79.0) 11/25/17 08:20 Lymph % (Auto) 21.5 % (16.0-50.0) 11/25/17 08:20 [place] % (Auto) 4.7 % (0.0-11.0) 11/25/17 08:20 Eos % (Auto) 3.1 % (0.0-6.8) 11/25/17 08:20 Baso % (Auto) 0.2 (0.0-1.5) 11/25/17 08:20 Neut # (Auto) 4.5 # k/uL (1.4-7.7) 11/25/17 08:20 Lymph # (Auto) 1.4 # k/uL (0.6-4.0) 11/25/17 08:20 [place] # (Auto) 0.3 # k/uL (0.0-0.9) 11/25/17 08:20 Eos # (Auto) 0.2 # k/uL (0.0-0.6) 11/25/17 08:20 Baso # (Auto) 0.0 # k/uL (0.0-0.5) 11/25/17 08:20 Reactive Lymphs % 0.9 % (0.0-5.0) 11/25/17 08:20 Reactive Lymphs # 0.1 # k/uL (0.0-0.8) 11/25/17 08:20 Sodium 136 mmol/L (136-145) 11/23/17 16:51 Potassium 4.0 mmol/L (3.5-5.1) 11/23/17 16:51 Chloride 100 mmol/L (98-107) 11/23/17 16:51 Carbon Dioxide 28 mmol/L (22-30) 11/23/17 16:51 BUN 26 mg/dL (9-20) H 11/23/17 16:51 Creatinine 1.50 mg/dL (0.66-1.25) H 11/23/17 16:51 Estimated Creat Clear 93 11/23/17 16:51 Est GFR ( Amer) > 60 (60-) 11/23/17 16:51 Est GFR (Non-Af Amer) 50 (60-) L 11/23/17 16:51 Glucose 98 mg/dL (74-106) 11/23/17 16:51 Calcium 8.9 mg/dL (8.4-10.2) 11/23/17 16:51 Vancomycin Trough 9.8 ug/mL (10.0-20.0) L 11/23/17 16:51 Assessment/Plan - Assessment/Plan (1) Cellulitis of right lower leg Status: Acute Assessment: Continue at present antibiotic therapy. (2) Diabetes type 2, uncontrolled Status: Chronic Qualifiers: Diabetes mellitus oil heaterman insulin use: with snf use Diabetes mellitus complication status: with neurologic complications Diabetes mellitus complication detail: with polyneuropathy Qualified Code(s): E11.42 - Type 2 diabetes mellitus with diabetic polyneuropathy; E11.65 - Type 2 diabetes mellitus with hyperglycemia; E11.65 - Type 2 diabetes mellitus with hyperglycemia; E11.65 - Type 2 diabetes mellitus with hyperglycemia; E11.65 - Type 2 diabetes mellitus with hyperglycemia; Z79.4 - care home (current) use of insulin; Z79.4 - oil heaterman (current) use of insulin; Z79.4 - care home (current ) use of insulin; Z79.4 - oil heaterman (current) use of insulin Assessment: stable (3) Essential hypertension Status: Chronic Assessment: stable
== END 2017-11-28 13:00 | disposition home or self-care (01) | DRG 603 ==
LOC: SOUTH 08:45
PROVIDERS: ADMIT Family Medicine; ATTEND Family Medicine
DX: L03.115 Cellulitis of right lower limb (principal); I42.9 Cardiomyopathy, unspecified; E11.42 Type 2 diabetes mellitus with diabetic polyneuropathy; E11.65 Type 2 diabetes mellitus with hyperglycemia; Z79.4 Long term (current) use of insulin; I10 Essential (primary) hypertension; M19.90 Unspecified osteoarthritis, unspecified site; G47.33 Obstructive sleep apnea (adult) (pediatric)
CPT/HCPCS: 80048; 80202; 85025; 87070; 87186; J1650; J1815; J2543; J3370; J7050; J7060; S1016

== ENCOUNTER 2017-12-10 10:52 | Outpatient (CLI) | payer OTHER ==
--- NOTE | 2017-12-10 16:31 | Diagnostic Imaging Report ---
[facility] [id number] [id number] Report Submission Date: Dec 10, 2017 1:48:58 PM CDT Patient Study Name: VIRGEN VICTORIA Date: Dec 10, 2017 11:07:40 AM CDT Modality Type: US Gender: M Description: : 53 Institution: [facility] Physician: [facility]ARR[facility]LL MEJIA UNILATERAL RIGHT VENOUS DUPLEX History: Right leg swelling Duplex and color flow imaging was performed through the right lower extremity femoral-popliteal venous system revealing normal compressibility and normal augmentation response from the common femoral vein to the popliteal vein. The calf veins are poorly visualized. IMPRESSION: No evidence for DVT from the common femoral vein to the popliteal vein. The calf veins of the right lower extremity are poorly visualized. Electronically signed on Dec 10, 2017 1:48:58 PM CDT by: Christie CASTILLO
== END 2017-12-10 10:53 ==
LOC: RAD 10:52
PROVIDERS: ATTEND Family Medicine
DX: R60.0 Localized edema (principal); L03.119 Cellulitis of unspecified part of limb; L02.419 Cutaneous abscess of limb, unspecified
CPT/HCPCS: 93971

== ENCOUNTER 2017-12-11 11:10 | Outpatient (CLI) | payer OTHER ==
[2017-12-11 12:02] LABS: eGFR (African) > 60; eGFR (Non-African) > 60
== END 2017-12-11 11:13 ==
LOC: LABRHC 11:10
PROVIDERS: ATTEND Family Medicine
DX: I10 Essential (primary) hypertension (principal)
CPT/HCPCS: 80048

== ENCOUNTER 2018-01-09 13:15 | Outpatient (CLI) | payer OTHER ==
[2018-01-09 14:01] LABS: BASOPHILS % 0.4 (0.0-1.5); EOSINOPHILS % 2.6 % (0.0-6.8); MEAN CORPUSCULAR HEMOGLOBIN 29.8 pg (28.0-34.0); MEAN CORPUSCULAR VOLUME 91.5 fl (80.0-100.0); MONOCYTES % 4.2 % (0.0-11.0); NEUTROPHILS # 5.1 # k/uL (1.4-7.7)
[2018-01-09 14:15] LABS: eGFR (African) > 60; eGFR (Non-African) > 60
--- NOTE | 2018-01-09 18:52 | Diagnostic Imaging Report ---
BRIAN MACIAS [facility] [address] [facility] [address] [address] Report Submission Date: Jan 09, 2018 2:15:05 PM CDT Patient Study Name: VIRGEN VICTORIA Date: Jan 09, 2018 1:35:56 PM CDT Modality Type: DX Gender: M Description: LOWER EXTREMITY : 53 Institution: [facility] Physician: BRIAN MACIAS Right ankle History: Big toe wound Three views of the right ankle demonstrate no osseous abnormalities of the ankle. The talar dome and ankle mortise are intact. There is a large plantar calcaneal spur. Impression: No osseous abnormalities of the ankle. Large plantar calcaneal spur. Electronically signed on Jan 09, 2018 2:15:05 PM CDT by: Christie CASTILLO
--- NOTE | 2018-01-09 18:52 | Diagnostic Imaging Report ---
BRIAN MACIAS [facility] [address] [facility] [address] Report Submission Date: Jan 09, 2018 2:22:45 PM CDT Patient Study Name: VIRGEN VICTORIA Date: Jan 09, 2018 1:40:25 PM CDT Modality Type: DX Gender: M Description: LOWER EXTREMITY : 53 Institution: [facility] Physician: BRIAN MACIAS Right foot History: Wound of the big toe Three views of the right foot were obtained. There is diffuse soft tissue swelling of the midfoot. There is a large plantar calcaneal spur. There is pes planus. There is a small 3 mm calcification dorsally along the plantar fascia. There is a radiodense object projecting on the skin at the plantar surface of the great toe. On the oblique and AP projections, this object overlaps with the bone, limiting assessment of the bone. No osseous abnormalities are apparent on the lateral radiograph, however. Impression: Soft tissue swelling diffusely of the midfoot, most pronounced dorsally. Large plantar calcaneal spur. Small calcification posteriorly of the plantar fascia. Pes planus. No osseous abnormality of the great toe is evident. However, noted on the lateral radiograph, there is a radiodense object upon the plantar surface of the skin of the great toe which summates with the bone on the AP and oblique projections, relatively limiting assessment of the bone at the first distal phalanx. Electronically signed on Jan 09, 2018 2:22:45 PM CDT by: Christie CASTILLO
== END 2018-01-09 13:27 ==
LOC: LAB 13:15
PROVIDERS: ATTEND Podiatrist Foot & Ankle Surgery
DX: E11.9 Type 2 diabetes mellitus without complications (principal); L03.115 Cellulitis of right lower limb; L08.9 Local infection of the skin and subcutaneous tissue, unspecified; S81.801A Unspecified open wound, right lower leg, initial encounter; X58.XXXA Exposure to other specified factors, initial encounter; Y92.9 Unspecified place or not applicable; Y93.9 Activity, unspecified; Y99.9 Unspecified external cause status
CPT/HCPCS: 36415; 73610; 73630; 80048; 83036; 85025; 85651; 86140

== ENCOUNTER 2018-01-13 14:35 | Outpatient (CLI) | payer OTHER | END 2018-01-13 14:36 | LOC: POD 14:35 | PROVIDERS: ATTEND Podiatrist Foot & Ankle Surgery | DX: L08.9 Local infection of the skin and subcutaneous tissue, unspecified (principal); E11.9 Type 2 diabetes mellitus without complications | CPT/HCPCS: 11042; 99213 ==

== ENCOUNTER 2018-01-29 15:20 | Outpatient (CLI) | payer OTHER ==
--- NOTE | 2018-01-30 12:23 | OP Clinic Progress Note ---
SUBJECTIVE: Chris Kinney is a 62-year-old male who presents today for a follow up of his right great toe wound and right distal anterior lower leg wound. The patient has been applying triple antibiotic ointment to the right great toe wound, as well as to the distal leg wound daily since his last visit except for they switched the antibiotic ointment to [facility] once they were able to obtain that this past Saturday. The patient denies any other further issues or complications. He states that he feels a little bit off today or tired at this time. He denies any painful urination, fever, chills, nausea, vomiting, shortness of breath or chest pain at this time. The patient is here to find out results of the MRI as well. OBJECTIVE: Vascular: Palpable DP pulse with perhaps faintly palpable PT pulse of the right foot. Capillary refill time is less than 3 seconds to the toes of the right foot. Mild edema noted to the right great toe. Derm: Right great toe medial interphalangeal joint has a small hyperkeratosis which was debrided down to the level of a very small open lesion. This measured 0.3 x 0.2 x 0.1 cm deep. This was free of erythema, purulence, or malodor. There is a nice granular base noted. This appears to be healing very well. The right lower leg anterior wound was debrided with a curette down to the level of subcutaneous tissue and still goes a little bit deep but seems to be improving and is now measuring 0.4 x 0.4 x 0.7 cm. This seems to be slightly improved in terms of depth, but we will continue to watch it carefully. There is no erythema, purulence, or malodor from this area as well. Musculoskeletal: There is mild pain on palpation minimally to the right great toe a wound area, as well as to the right distal anterior leg. There is a limited first metatarsophalangeal joint range of motion with the forefoot not loaded and more limited with the forefoot loaded. The patient also has a noted adducted forefoot in relation to the rearfoot and obvious rearfoot eversion noted with very limited range of motion with inversion and eversion of the subtalar joint and moderate range of motion in dorsiflexion and plantar flexion of the right ankle. It should be noted that there is some pain noted with ankle and subtalar joint range of motion of the right lower extremity. Neurological: Light touch sensation is decreased to the entire right foot. ASSESSMENT: 1. Open wound of right lower leg, subsequent encounter. 2. Open wound of toe, subsequent encounter. 3. Diabetes mellitus type 2. 4. Diabetic peripheral neuropathy. 5. Edema of lower extremity. DIAGNOSTIC STUDIES: The MRI results were discussed with the patient and a copy of the results were given to them. There is extension/periosteal inflammation down to the level of the bone; however, there is no signs of edema suggestive of osteomyelitis at this time. There is concern that it could develop into a bone infection in the future. The patient understands this and the patient understands we will continue forward with local wound care to both wounds and see if we can heal these wound appropriately. They both seem to be healing in an appropriate fashion so far and we will continue to go that direction. PROCEDURE #1: The right great toe was debrided with a number 15 blade through the hyperkeratotic tissue and down to the level of the subcutaneous tissues revealing and debriding a granular base measuring 0.3 x 0.2 x 0.1 cm. Hemostasis was obtained via pressure and triple antibiotic ointment and a Band- Aid were applied. PROCEDURE #2: The right distal leg wound also was debrided with a curette and this was debrided down to the level of the subcutaneous tissue and measured 0.4 x 0.4 x 0.7 cm. Minimal bleeding was noted. There was no malodor or purulence. This was dressed with triple antibiotic ointment and a Band-Aid. Instructions were given to the patient regarding continuing Medihoney and a Band-Aid to the leg wound and triple antibiotic ointment and a Band-Aid to the great toe wound. PLAN: The patient understands that the plan is to strive to heal these wounds and after that, we will look into either surgical intervention for the hallux limitus, which is causing this wound at the interphalangeal joint of the great toe, consisting of a Morrow-type surgery. We will discuss this as needed. At that time, we will discuss that, as well as the possibility of instead just an accommodative orthotic through [employer] and we will assess the need for the braces that he uses currently on his shoes or if we can switch him to something like an [employer] or Elver brace at that time. The patient is not on any antibiotics at this time. The patient will continue local wound care at home as described above. We will see the patient in 2 weeks and the patient should return to clinic to see Dr. Lynch sooner if needed if any signs of infection ensue. There is no further questions by the patient and they are happy with this plan going forward at this time. cc: Dr. Jorge L CASTILLO
== END 2018-01-29 15:22 ==
LOC: POD 15:20
PROVIDERS: ATTEND Podiatrist Foot & Ankle Surgery
DX: S81.801D Unspecified open wound, right lower leg, subsequent encounter (principal); S91.109D Unspecified open wound of unspecified toe(s) without damage to nail, subsequent encounter; E11.42 Type 2 diabetes mellitus with diabetic polyneuropathy; R60.0 Localized edema
CPT/HCPCS: 11042

== ENCOUNTER 2018-02-24 12:19 | Inpatient (IN) | payer OTHER ==
--- NOTE | 2018-02-24 12:53 | ED Physician Documentation ---
General Adult - HISTORIAN Historian: patient, spouse - HPI Stated Complaint: cellulitis Chief Complaint: General Adult Additional Information: Cellulitis right lower leg first noted in November. Treated with IV antibiotics. Says leg never returned to baseline appearance. Began to bother him with increased swelling and redness on 02/21. Saw Dr. Lynch today and is to be admitted for treatment of cellulitis. Temp 100.9 in clinic today. IDDM. FSG 387 in ER. 300+ at home this am. Usually runs between 200-300. Sees Dr. Diaz for wound care of lesion R lower leg (present since November) and says he also has callus on R 1st toe. - ROS CONST: fever (above) - PAST HX Past History: other (IDDM, cellulitis) Allergies/Adverse Reactions: Allergies Allergy/AdvReac Type Severity Reaction Status Date / Time No Known Drug Allergies Allergy Verified 11/23/17 14:39 - SOCIAL HX Smoking History: non-smoker Alcohol Use: none Drug Use: none - FAMILY HX Family History: No - VITAL SIGNS Vital Signs: Vital Signs Temp Pulse Resp BP Pulse Ox 140/75 11/28/17 09:32 - REVIEWED ASSESSMENTS Nursing Assessment Reviewed: Yes Vitals Reviewed: Yes ED Results Lab/Radiology - Orders Orders: ED Orders Category Date Time Status Place IV Lock 1T Care 02/24/18 12:24 Active BLOOD CULTURE Stat Lab 02/24/18 12:40 Received CBC/PLATELET/DIFF Routine Lab 02/24/18 Ordered CMP Routine Lab 02/24/18 Ordered URINALYSIS Routine Lab 02/24/18 Ordered General Adult Physical Exam - PHYSICAL EXAM GENERAL APPEARANCE: obese (RLLeg red and weeping) EENT: eye inspection normal, pharynx normal NECK: normal inspection, supple RESPIRATORY: breath sounds normal CVS: reg rate & rhythm, heart sounds normal, no murmur ABDOMEN: soft, normal bowel sounds BACK: normal inspection, other (no vertebral tenderness) SKIN: warm/dry, normal color (except right lower leg which is red, swollen, weeping from several sites. pitting edema ankle and foot. Bandage right distal medial lower leg just above ankle. Bandage on 1st toe. ), other (has 1 cm oval ulcer right medial distal leg just above ankle. Has white filled blister on callu on right first dorsal toe) EXTREMITIES: other (see above) NEURO: CN's nml as tested, motor nml, sensation nml, cognition normal Discharge Clincal Impression: Cellulitis of right lower leg, Diabetes type 2, uncontrolled Clincal Impression: (Ruled Out): Cellulitis Referrals: Jorge L Lynch MD [Primary Care Provider] - 2 Days Condition: Fair Disposition: ADMITTED INPATIENT Decision to Admit: [id number] Decision Time: 13:00
[2018-02-24 13:14] LABS: eGFR (Non-African) > 60
[2018-02-24 13:20] LABS: APPEARANCE,URINE CLEAR (CLEAR); COLOR,URINE AMBER (YELLOW); OCCULT BLOOD,URINE 3+ (NEGATIVE); UROBILINOGEN URINE 0.2 Eu (0.2-1.0)
[2018-02-24] MEDS ORDERED: VANCOMYCIN HCL 1 GM in 0.9 % SODIUM CHLORIDE 500 ML IV ONE (13:20)
[2018-02-24] MEDS ORDERED: SILVER SULFADIAZINE TP ONE (13:38)
[2018-02-24] MEDS ORDERED: cefTRIAXone SODIUM 1 GM in 0.9 % SODIUM CHLORIDE 50 ML IV SCH ×2 (14:00→15:00)
[2018-02-24 14:31] LABS: BASO % 0.2 % (0.0-1.5); EOS % 0.4 % (0.0-6.8); LYMPH ABS # 1.52 thou/uL (0.60-4.00); MCH. 29.8 pg (28.0-34.0); MCV 90.7 fL (80.0-100.0); MONOCYTE % 6.9 % (0.0-11.0); MONOCYTE ABS # 0.98 thou/uL (0.00-0.90); PLATELET COUNT 253 thou/uL (130-400)
[2018-02-24] MEDS ORDERED: cefTRIAXone SODIUM 1 GM VIAL ONE (14:42)
[2018-02-24] MEDS ORDERED: cefTRIAXone SODIUM 1 GM in 0.9 % SODIUM CHLORIDE 100 ML IV SCH (15:00)
[2018-02-24] MEDS ORDERED: FUROSEMIDE 20 MG TABLET PO SCH (15:04)
[2018-02-24] MEDS ORDERED: LORATADINE 10 MG TABLET PO PRN (15:04)
[2018-02-24] MEDS: VANCOMYCIN PHARMACY TO DOSE IV SCH (16:06)
[2018-02-24] MEDS ORDERED: PATIENT OWN MED 1 EACH EACH SQ SCH ×2 (17:00)
[2018-02-24] MEDS ORDERED: VANCOMYCIN HCL 1.5 GM in DEXTROSE 5 % IN WATER 500 ML IV SCH ×2 (17:00)
[2018-02-24] MEDS: SODIUM CHLORIDE 0.9% IV SCH (17:02)
[2018-02-24] MEDS: VANCOMYCIN HCL IV SCH (17:02)
[2018-02-24] MEDS: INSULIN LISPRO 100 UNIT/ML 3ML VIAL SQ SCH ×2 (17:03→20:03)
[2018-02-24] MEDS ORDERED: CARVEDILOL 12.5 MG TABLET PO ONE ×2 (19:23→22:35)
[2018-02-24] MEDS: CARVEDILOL 25 MG TABLET PO SCH (19:59)
[2018-02-24] MEDS: GABAPENTIN 100 MG CAPSULE PO SCH (20:00)
[2018-02-24] MEDS: SALINE FLUSH 10 ML DISP.SYRIN IV SCH (20:00)
[2018-02-24] MEDS: DULoxetine HCL 30 MG CAPSULE.DR PO SCH (20:00)
[2018-02-24] MEDS: SIMVASTATIN 40 MG TABLET PO SCH (20:04)
[2018-02-24] MEDS: SILVER SULFADIAZINE 400GM TUBE TP SCH (20:04)
[2018-02-24] MEDS: PATIENT OWN MED 1 EACH EACH SQ SCH (20:04)
[2018-02-24 20:09] VITALS: BMI 41.6
[2018-02-24] MEDS ORDERED: HYDROmorphone HCL/PF 2 MG/ML DISP.SYRIN IVP PRN (20:16)
[2018-02-24] MEDS: ACETAMINOPHEN 325 MG TABLET PO PRN (20:42)
[2018-02-24] MEDS: HYDROmorphone HCL/PF 1 MG/ML DISP.SYRIN IVP PRN (20:44)
[2018-02-24] MEDS ORDERED: SILVER SULFADIAZINE TP SCH (21:00)
[2018-02-24] MEDS ORDERED: DULoxetine HCL 30 MG CAPSULE.DR PO SCH (21:00)
[2018-02-24] MEDS ORDERED: METFORMIN HCL 500 MG PO SCH (21:00)
[2018-02-24] MEDS ORDERED: GABAPENTIN 100 MG CAPSULE PO SCH (21:00)
[2018-02-24] MEDS ORDERED: CARVEDILOL 25 MG TABLET PO SCH (21:00)
[2018-02-24] MEDS ORDERED: ASPIRIN EC 81 MG TABLET.DR ONE (22:34)
[2018-02-24] MEDS ORDERED: MAGNESIUM OXIDE 400 MG TABLET PO ONE (22:35)
[2018-02-24] MEDS ORDERED: LISINOPRIL 20 MG TABLET ONE (22:36)
[2018-02-24] MEDS ORDERED: FUROSEMIDE 40 MG/4 ML VIAL ONE (22:37)
[2018-02-24] MEDS ORDERED: FENOFIBRATE 160 MG TABLET ONE (22:39)
[2018-02-25] MEDS: SODIUM CHLORIDE 0.9% IV SCH ×2 (03:55→17:03)
[2018-02-25] MEDS: VANCOMYCIN HCL IV SCH ×2 (03:55→17:03)
[2018-02-25] MEDS: HYDROmorphone HCL/PF 1 MG/ML DISP.SYRIN IVP PRN ×2 (05:11→20:39)
[2018-02-25] MEDS: FUROSEMIDE 40 MG/4 ML VIAL IVP SCH ×2 (05:59→14:34)
--- NOTE | 2018-02-25 06:49 | History and Physical Report ---
History of Present Illnes - History of Present Illness Reason for Visit: leg swollen and red History of Present Illness: 61-year-old white male who presented to the office complaining of increasing swelling erythema and warmth to his right lower extremity. Patient has an open wound on the distal aspect of his leg that we have been trying to get to heal for some time. Patient also has an open wound to his right great toe that is been slowly healing. Patient has a history of diabetes mellitus. Patient states that two days ago he developed some increasing business warmth. Patient is been having a low-grade fever associated with some mild chills. Patient was seen in the office felt that is developing side a lot of was transferred to the emergency room for further evaluation. Patient was diagnosed with a cellulitis will an elevated WBC count. Patient was subsequently admitted to acute care for further treatment. 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 negative: Sweats, Weakness Eyes: negative: pain, Deferred ENT: negative: Ear Pain, Nose Pain, Nose Discharge, Nose Congestion Respiratory: negative: Cough, Shortness of Breath, Hemoptysis, SOB with Excertion, Pleuritic Pain, Wheezing Cardiovascular: Edema. negative: Chest Pain, Palpitations, Orthopnea, Light Headedness Gastrointestinal: negative: Nausea, Vomiting, Abdominal Pain, Diarrhea, Constipation, Melena, Hematochezia Genitourinary: negative: Dysuria, Frequency, Incontinence, Hematuria, Retention Musculoskeletal: Back Pain, Leg Pain, Foot Pain. negative: Neck Pain, Shoulder Pain, Arm Pain Skin: negative: Rash Neurological: negative: Weakness, Numbness, Incoordination, Change in Speech, Confusion - Medications/Allergies Allergies/Adverse Reactions: Allergies Allergy/AdvReac Type Severity Reaction Status Date / Time No Known Drug Allergies Allergy Verified 10/08/18 12:57 Home Medications: Home Medications Alpha Lipoic Acid 600 mg PO QDAY 02/24/18 Carvedilol [Coreg] 25 mg PO 02/24/18 Furosemide 20 mg PO QDAY 02/24/18 Gabapentin 300 mg PO HS 02/24/18 Insulin Degludec [Tresiba Flextouch U-100] 82 unit SQ HS 02/24/18 Metformin HCl 1,000 mg PO BID 02/24/18 Naproxen 250 mg PO QDAY 02/24/18 Current Inpatient Medications: Current Inpatient Medications Acetaminophen (Tylenol) 650 mg PO Q4H PRN PRN Reason: PAIN OR TEMPERATURE > 101 Last Admin: 02/24/18 20:42 Dose: 650 mg Aspirin (Aspirin) 81 mg PO DAILY [facility] Carvedilol (Coreg) 25 mg PO BID [facility] Last Admin: 02/24/18 19:59 Dose: 25 mg Cholecalciferol (Vitamin D-3) 1,000 unit PO DAILY [facility] Duloxetine HCl (Cymbalta) 30 mg PO HS [facility] Last Admin: 02/24/18 20:00 Dose: 30 mg Fenofibrate (Tricor) 160 mg PO DAILY [facility] Furosemide (Lasix) 40 mg IVP 714 [facility] Last Admin: 02/25/18 05:59 Dose: 40 mg Gabapentin (Neurontin) 100 mg PO BID [facility] Last Admin: 02/24/18 20:00 Dose: 100 mg Hydromorphone HCl (Dilaudid) 1 - 2 mg IVP Q2 PRN PRN Reason: PAIN Last Admin: 02/25/18 05:11 Dose: 1 mg Ceftriaxone Sodium 1 gm/ (Sodium Chloride) 100 mls @ 200 mls/hr IV Q24H [facility] Last Admin: 02/24/18 16:03 Dose: 200 mls/hr Vancomycin HCl 1.75 gm/ Sodium (Chloride) 500 mls @ 250 mls/hr IV Q12H [facility] Stop: 03/10/18 15:59 Last Admin: 02/25/18 03:55 Dose: 250 mls/hr Insulin Human Lispro (Humalog) 0 unit SQ ACHS [facility] Last Admin: 02/24/18 20:03 Dose: 8 units Lisinopril (Prinivil) 10 mg PO D [facility] Loratadine (Claritin) 10 mg PO DAILY PRN PRN Reason: Allergy Symptoms Magnesium Oxide (Mag-Oxide) 200 mg PO DAILY [facility] Metformin HCl (Glucophage) 1,[place] [id number] [facility] Last Admin: 02/24/18 17:02 Dose: 1,000 mg Miscellaneous (Vancomycin Pharmacy To Dose) 1 each IV DAILY [facility] Last Admin: 02/24/18 16:06 Dose: 1 each Miscellaneous (Patient Own Med) 80 each SQ HS [facility] Last Admin: 02/24/18 20:04 Dose: 80 each Miscellaneous (Chem Sticks) 1 each MC CHEMQID [facility] Last Admin: 02/24/18 20:01 Dose: 1 each Silver Sulfadiazine (Thermazene) 0 gm TP BID [facility] Last Admin: 02/24/18 20:04 Dose: 400 gm Simvastatin (Zocor) 80 mg PO HS [facility] Last Admin: 02/24/18 20:04 Dose: 80 mg Sodium Chloride (Normal Saline Flush) 3 ml IV BID [facility] Last Admin: 02/24/18 20:00 Dose: 3 ml Exam - Exam Vital Signs: Vital Signs (72 hours) 02/24/18 02/24/18 02/24/18 12:19 13:53 13:57 Temperature 97.6 F 97.6 F 97.6 F Pulse Rate [ 81 Left] Pulse Rate [ 80 80 Pulse ox] Respiratory 22 20 20 Rate Blood Pressure 115/58 99/59 115/58 [Left Arm] O2 Sat by Pulse 97 96 Oximetry 02/24/18 02/24/18 02/25/18 17:53 21:00 01:00 Temperature 98.8 F 102.2 F H 97.6 F Pulse Rate [ 88 Left] Pulse Rate [ 89 81 Pulse ox] Respiratory 20 18 18 Rate Blood Pressure 108/58 116/52 105/53 [Left Arm] O2 Sat by Pulse 97 98 98 Oximetry 02/25/18 05:00 Temperature 98.8 F Pulse Rate [ Left] Pulse Rate [ 75 Pulse ox] Respiratory 18 Rate Blood Pressure 113/61 [Left Arm] O2 Sat by Pulse 94 Oximetry General: Alert, Oriented to Person, Oriented to Place, Oriented to Time, Cooperative, No acute distress HEENT: Atraumatic, PERRLA, Mouth Mucous membr. moist/Ventana, Nose Mucous membr. moist/Ventana, Hearing Grossly Normal Neck: Normal Range of Motion. No: Stridor, Lymphadenopathy Carotids: WNL Thyroid: wnl Lungs: Clear to auscultation, Normal air movement, Speaks full Sentences. No: Wheezes, Rales, Rhonchi Cardiovascular: Regular rate, Normal S1, Normal S2, No murmurs Abdomen: Normal bowel sounds, Soft, No tenderness, No hepatospenomegaly, No masses, Other (obese) Integumentary: Other (patient has a lot of edema to the right lower extremity. Patient developed several blisters two of them which have opened up to the right lower extremity related to his edema.) Extremities: Normal pulses Neurological: Normal speech, Strength Equal Bilat. No: Normal gait Psych/Mental Status: Mental status NL, Mood NL, Appropriate Affect, Intact Judgment (limping) - Laboratory Results Laboratory Results: Laboratory Results 02/24/18 02/24/18 02/24/18 12:40 12:40 12:40 WBC Comment 14.23 H RBC 4.09 Hemoglobin (Send Out) 12.2 Hct (Send Out) 37.1 MCV (Send Out) 90.7 MCH 29.8 MCHC (Send Out) 32.9 RDW Coeff of Jessica 13.9 Plt Count 253 Absolute Lymphs (auto) 1.52 Absolute Monos (auto) 0.98 H Absolute Basos (auto) 0.03 Neutrophils % 81.7 H Absolute Neutrophils 11.63 H Lymphocytes 10.7 L Monocytes 6.9 Absolute Eosinophils 0.06 Basophilia % 0.2 Eosinophil Count 0.4 Sodium 128 L Potassium 4.6 Chloride 96 L Carbon Dioxide 25 BUN 20 Creatinine 1.20 Estimated Creat Clear 138 Est GFR ( Amer) > 60 Est GFR (Non-Af Amer) > 60 Glucose 362 H Calcium 8.6 Total Bilirubin 1.3 AST 12 L ALT 20 Alkaline Phosphatase 95 Total Protein 7.2 Albumin 3.4 L Urine Color Abby Urine Appearance Clear Urine pH 5.0 Ur Specific [place] 1.010 Urine Protein Negative Urine Ketones Negative Urine Occult Blood 3+ H Urine Nitrite Negative Urine Bilirubin Negative Urine Urobilinogen 0.2 Ur Leukocyte Esterase Negative Urine RBC 0-2 Urine Glucose 3+ H Assessment/Plan - Assessment/Plan (1) Cellulitis of right lower leg Status: Acute Current Visit: Yes Assessment: Patient will be started on Rocephin and vancomycin. Will have pharmacy to recognize and doesn't because of patient chronic kidney disease. Will have the patient keep his legs elevated will dress wounds with triple antibiotic ointment at this time. (2) Diabetes type 2, uncontrolled Status: Chronic Current Visit: Yes Qualifiers: Assessment: Patient will be continued on home medications and will be started on a sliding scale insulin (3) Cardiomyopathy Status: Chronic Current Visit: No Qualifiers: Cardiomyopathy type: unspecified Qualified Code(s): I42.9 - Cardiomyopathy, unspecified Assessment: Continue with home medications. (4) Chronic kidney disease (CKD) stage G3a/A1, moderately decreased glomerular filtration rate (GFR) between 45-59 mL/min/1.73 square meter and albuminuria creatinine ratio less than 30 mg/g Status: Chronic Current Visit: No (5) Essential hypertension Status: Chronic Current Visit: No Assessment: Will monitor patient BUN and creatinine. (6) Generalized osteoarthritis Status: Chronic Current Visit: No Assessment: General supportive care. (7) Obstructive sleep apnea Status: Chronic Current Visit: No Assessment: Patient will continue to use his CPAP machine while hospitalized. VTE Assessment - RISK FACTOR SCORE VTE RISK FACTOR SCORES: AGE OVER 60 YEARS, ACUTE INFECTION OTHER THEN SEPSIS, ANTICIPATED BED CONFINEMENT OR IMMOBILIZATION > 24 HOURS - RISK VTE HIGH RISK: SCORE OF 3-4 (RISK PROXIMAL DVT 4-8%) PROPHYLAXIS NEEDED
[2018-02-25] MEDS: INSULIN LISPRO 100 UNIT/ML 3ML VIAL SQ SCH ×4 (07:35→20:31)
[2018-02-25] MEDS: ACETAMINOPHEN 325 MG TABLET PO PRN (07:36)
[2018-02-25] MEDS: CARVEDILOL 25 MG TABLET PO SCH ×2 (08:20→20:33)
[2018-02-25] MEDS: GABAPENTIN 100 MG CAPSULE PO SCH ×2 (08:21→20:33)
[2018-02-25] MEDS: MAGNESIUM OXIDE 400 MG TABLET PO SCH (08:22)
[2018-02-25] MEDS: FENOFIBRATE 160 MG TABLET PO SCH (08:23)
[2018-02-25] MEDS: CHOLECALCIFEROL (VIT D3) 1,000 UNIT TABLET PO SCH (08:23)
[2018-02-25] MEDS: SALINE FLUSH 10 ML DISP.SYRIN IV SCH ×2 (08:26→20:33)
[2018-02-25] MEDS: LISINOPRIL 5 MG TABLET PO SCH (08:31)
[2018-02-25] MEDS: ASPIRIN 81 MG CHEW TAB PO SCH (08:31)
[2018-02-25] MEDS ORDERED: LISINOPRIL 10 MG PO SCH (09:00)
[2018-02-25] MEDS ORDERED: MAGNESIUM OXIDE 400 MG TABLET PO SCH (09:00)
[2018-02-25] MEDS ORDERED: FENOFIBRATE 160 MG TABLET PO SCH (09:00)
[2018-02-25] MEDS ORDERED: MAGNESIUM OXIDE 250 MG PO SCH (09:00)
[2018-02-25] MEDS ORDERED: PATIENT OWN MED 1 EACH EACH SQ SCH (09:00)
[2018-02-25] MEDS ORDERED: PRAVASTATIN SODIUM 80 MG PO SCH (09:00)
--- NOTE | 2018-02-25 09:03 | Inpatient Progress Note ---
Subjective - Required Recertification Statement I anticipate X number of days because-include discharge plan: 4 DAYS - Review of Systems Events since last encounter: Patient stated he is feeling some better today. Patient did have a low-grade fever last night. Patient denies any chills. Blood sugars have been running better than at home but still in the 200 range. Patient is not had a hypoglycemic episodes. Cardiovascular: Denies: Chest Pain, Palpitations Gastrointestinal: Denies: Nausea, Vomiting, Abdominal Pain Objective - Exam Vitals and I&O: Vital Signs Temp 98.8 F 02/25/18 05:00 Pulse 75 02/25/18 05:00 Resp 20 02/25/18 08:35 BP 113/61 02/25/18 05:00 Pulse Ox 94 02/25/18 05:00 Intake & Output 02/24/18 02/24/18 02/25/18 11:59 23:59 11:59 Intake Total 1420 1570 Output Total 1100 1000 Balance 320 570 Weight 155.129 kg Intake: IV 120 770 Right Forearm 120 770 Oral 1300 800 Output: Urine 1100 1000 Other: Voiding Method Urinal Urinal # Voids 2 General: Alert, Oriented to Person, Oriented to Place, Oriented to Time, Cooperative, Mild distress Lungs: Clear to auscultation, Normal air movement, Speaks full Sentences. No: Respiratory Distress, Wheezes, Rales, Rhonchi Cardiovascular: Regular rate, Normal S1, Normal S2, No murmurs Abdomen: Normal bowel sounds, Soft, No tenderness Skin: Cellulitis, Other (Erythema to the upper leg has improved some. Patient continues to have erythema tenderness over the patella area and lower extremity. Peel edema does seem to be a little bit better.) Neurological: Normal speech, Strength Equal Bilat Psych/Mental Status: Mental status NL, Mood NL, Appropriate Affect, Intact Judgment - Results Results: Laboratory Results WBC Comment 14.23 thou/uL (4.00-12.00) H 02/24/18 12:40 RBC 4.09 mil/uL (3.80-5.80) 02/24/18 12:40 Hemoglobin (Send Out) 12.2 g/dL (12.0-18.0) 02/24/18 12:40 Hct (Send Out) 37.1 % (37.0-53.0) 02/24/18 12:40 MCV (Send Out) 90.7 fL (80.0-100.0) 02/24/18 12:40 MCH 29.8 pg (28.0-34.0) 02/24/18 12:40 MCHC (Send Out) 32.9 g/dL (30.0-36.0) 02/24/18 12:40 RDW Coeff of Jessica 13.9 % (11.3-14.7) 02/24/18 12:40 Plt Count 253 thou/uL (130-400) 02/24/18 12:40 Absolute Lymphs (auto) 1.52 thou/uL (0.60-4.00) 02/24/18 12:40 Absolute Monos (auto) 0.98 thou/uL (0.00-0.90) H 02/24/18 12:40 Absolute Basos (auto) 0.03 thou/uL (0.00-0.50) 02/24/18 12:40 Neutrophils % 81.7 % (39.0-79.0) H 02/24/18 12:40 Absolute Neutrophils 11.63 thou/uL (1.50-7.70) H 02/24/18 12:40 Lymphocytes 10.7 % (16.0-50.0) L 02/24/18 12:40 Monocytes 6.9 % (0.0-11.0) 02/24/18 12:40 Absolute Eosinophils 0.06 thou/uL (0.00-0.60) 02/24/18 12:40 Basophilia % 0.2 % (0.0-1.5) 02/24/18 12:40 Eosinophil Count 0.4 % (0.0-6.8) 02/24/18 12:40 Sodium 128 mmol/L (136-145) L 02/24/18 12:40 Potassium 4.6 mmol/L (3.5-5.1) 02/24/18 12:40 Chloride 96 mmol/L (98-107) L 02/24/18 12:40 Carbon Dioxide 25 mmol/L (22-30) 02/24/18 12:40 BUN 20 mg/dL (9-20) 02/24/18 12:40 Creatinine 1.20 mg/dL (0.66-1.25) 02/24/18 12:40 Estimated Creat Clear 138 02/24/18 12:40 Est GFR ( Amer) > 60 (60-) 02/24/18 12:40 Est GFR (Non-Af Amer) > 60 (60-) 02/24/18 12:40 Glucose 362 mg/dL (74-106) H 02/24/18 12:40 Calcium 8.6 mg/dL (8.4-10.2) 02/24/18 12:40 Total Bilirubin 1.3 mg/dL (0.2-1.3) 02/24/18 12:40 AST 12 U/L (15-46) L 02/24/18 12:40 ALT 20 U/L (13-69) 02/24/18 12:40 Alkaline Phosphatase 95 U/L (38-126) 02/24/18 12:40 Total Protein 7.2 g/dL (6.3-8.2) 02/24/18 12:40 Albumin 3.4 g/dL (3.5-5.0) L 02/24/18 12:40 Urine Color Abby (YELLOW) 02/24/18 12:40 Urine Appearance Clear (CLEAR) 02/24/18 12:40 Urine pH 5.0 (5.0 - 8.0) 02/24/18 12:40 Ur Specific [place] 1.010 (1.010-1.030) 02/24/18 12:40 Urine Protein Negative mg/dL (NEGATIVE) 02/24/18 12:40 Urine Ketones Negative mg/dL (NEGATIVE) 02/24/18 12:40 Urine Occult Blood 3+ (NEGATIVE) H 02/24/18 12:40 Urine Nitrite Negative (NEGATIVE) 02/24/18 12:40 Urine Bilirubin Negative (NEGATIVE) 02/24/18 12:40 Urine Urobilinogen 0.2 Eu (0.2-1.0) 02/24/18 12:40 Ur Leukocyte Esterase Negative (NEGATIVE) 02/24/18 12:40 Urine RBC 0-2 (0-2 HPF) 02/24/18 12:40 Urine Glucose 3+ mg/dL (NEGATIVE) H 02/24/18 12:40 Assessment/Plan - Assessment/Plan (1) Cellulitis of right lower leg Status: Acute Current Visit: Yes Assessment: Patient is currently on Rocephin vancomycin. Will continue with antibiotic therapy. Patient does have a trough vancomycin level ordered for tomorrow. (2) Diabetes type 2, uncontrolled Status: Chronic Current Visit: Yes Qualifiers: Assessment: Will continue to monitor patient blood sugars to make adjustments in his insulin as needed. (3) Cardiomyopathy Status: Chronic Current Visit: No Qualifiers: Cardiomyopathy type: unspecified Qualified Code(s): I42.9 - Cardiomyopathy, unspecified Assessment: Appears to be stable on his home medications. (4) Chronic kidney disease (CKD) stage G3a/A1, moderately decreased glomerular filtration rate (GFR) between 45-59 mL/min/1.73 square meter and albuminuria creatinine ratio less than 30 mg/g Status: Chronic Current Visit: No Assessment: Patient BUN and creatinine appear to be stable at this time will continue to monitor. (5) Essential hypertension Status: Chronic Current Visit: No Assessment: Stable on home medications. (6) Generalized osteoarthritis Status: Chronic Current Visit: No (7) Obstructive sleep apnea Status: Chronic Current Visit: No Assessment: Patient is wearing his CPAP at night time.
[2018-02-25] MEDS: ENOXAPARIN SODIUM 40 MG/0.4 ML DISP.SYRIN SQ SCH (10:35)
[2018-02-25] MEDS: VANCOMYCIN PHARMACY TO DOSE IV SCH (10:35)
[2018-02-25] MEDS ORDERED: MAG HYDROX/ALUMINUM HYD/SIMETH 30 ML UDC PO ONE (13:19)
[2018-02-25] MEDS ORDERED: SILVER SULFADIAZINE 400GM TUBE TP PRN ×2 (14:00→15:00)
[2018-02-25] MEDS ORDERED: cefTRIAXone SODIUM 1 GM in 0.9 % SODIUM CHLORIDE 100 ML IV SCH (14:00)
[2018-02-25] MEDS: SILVER SULFADIAZINE 400GM TUBE TP SCH (14:50)
--- NOTE | 2018-02-25 17:40 | Diagnostic Imaging Report ---
CARROLL MEJIA [facility] [address] [id number] Report Submission Date: Feb 25, 2018 4:12:00 PM CDT Patient Study Name: VIRGEN VICTORIA Date: Feb 25, 2018 3:27:11 PM CDT Modality Type: US Gender: M Description: RLEV : 53 Institution: [facility] Physician: CARROLL MEJIA Examination: Ultrasound right vein History: Leg discomfort Findings: Sonographic evaluation of the right lower extremity venous system from the groin to the proximal superficial femoral vein - unable to visualize remaining venous structures. Normal compressibility in the venous structures identified. No luminal filling defect. Normal waveforms and response to augmentation. Impression: Limited study with only the proximal venous structures identified. No evidence for thrombus within the common femoral vein to proximal superficial vein. Electronically signed on Feb 25, 2018 4:12:00 PM CDT by: Darron CASTILLO
[2018-02-25] MEDS ORDERED: CARVEDILOL 12.5 MG TABLET PO ONE (20:20)
[2018-02-25] MEDS: DULoxetine HCL 30 MG CAPSULE.DR PO SCH (20:33)
[2018-02-25] MEDS: PATIENT OWN MED 1 EACH EACH SQ SCH (20:33)
[2018-02-25] MEDS: SIMVASTATIN 40 MG TABLET PO SCH (20:34)
[2018-02-26] MEDS: HYDROmorphone HCL/PF 1 MG/ML DISP.SYRIN IVP PRN ×3 (02:48→17:24)
[2018-02-26] MEDS ORDERED: CARVEDILOL 12.5 MG TABLET PO ONE (02:51)
[2018-02-26] MEDS: VANCOMYCIN HCL IV SCH ×2 (05:15→18:07)
[2018-02-26] MEDS: SODIUM CHLORIDE 0.9% IV SCH ×2 (05:15→18:07)
[2018-02-26] MEDS: FUROSEMIDE 40 MG/4 ML VIAL IVP SCH ×2 (06:03→14:44)
--- NOTE | 2018-02-26 06:43 | Diagnostic Imaging Report ---
CARROLL MEJIA [facility] [address] [facility].[address] [address] Report Submission Date: Feb 25, 2018 9:52:06 PM CDT Patient Study Name: VIRGEN VICTORIA Date: Feb 25, 2018 5:03:25 PM CDT Modality Type: DX Gender: M Description: LOWER EXTREMITY : 53 Institution: [facility] Physician: CARROLL MEJIA 3 views right lower lobe leg Clinical history: Cellulitis Findings: No acute fracture or dislocation is identified. There is periosteal reaction seen along the posterior margin of the proximal tibia. No subcutaneous gas identified. Impression: Periosteal reaction along the posterior margin of the tibia which could reflect osteomyelitis. MRI should be obtained for further evaluation if indicated No subcutaneous gas Electronically signed on Feb 25, 2018 9:52:06 PM CDT by: Syed CASTILLO
[2018-02-26 07:54] LABS: eGFR (Non-African) > 60
[2018-02-26] MEDS: INSULIN LISPRO 100 UNIT/ML 3ML VIAL SQ SCH ×4 (07:55→20:23)
[2018-02-26] MEDS: SALINE FLUSH 10 ML DISP.SYRIN IV SCH ×2 (07:59→20:18)
[2018-02-26] MEDS: LISINOPRIL 5 MG TABLET PO SCH (08:30)
[2018-02-26] MEDS: MAGNESIUM OXIDE 400 MG TABLET PO SCH (08:30)
[2018-02-26] MEDS: GABAPENTIN 100 MG CAPSULE PO SCH ×2 (08:30→20:26)
[2018-02-26] MEDS: ASPIRIN 81 MG CHEW TAB PO SCH (08:30)
[2018-02-26] MEDS: CARVEDILOL 25 MG TABLET PO SCH (08:30)
[2018-02-26] MEDS: FENOFIBRATE 160 MG TABLET PO SCH (08:30)
[2018-02-26] MEDS: CHOLECALCIFEROL (VIT D3) 1,000 UNIT TABLET PO SCH (08:31)
[2018-02-26 08:34] LABS: BASO % 0.4 % (0.0-1.5); EOS % 1.1 % (0.0-6.8); MCH. 29.7 pg (28.0-34.0); MCV 91.2 fL (80.0-100.0); MONOCYTE ABS # 1.05 thou/uL (0.00-0.90); PLATELET COUNT 307 thou/uL (130-400)
[2018-02-26] MEDS: VANCOMYCIN PHARMACY TO DOSE IV SCH (10:52)
[2018-02-26] MEDS: CARVEDILOL 12.5 MG TABLET PO SCH ×2 (10:58→20:17)
[2018-02-26] MEDS: ENOXAPARIN SODIUM 40 MG/0.4 ML DISP.SYRIN SQ SCH (11:06)
[2018-02-26] MEDS: cefTRIAXone SODIUM 1 GM in 0.9 % SODIUM CHLORIDE 100 ML IV SCH (13:33)
[2018-02-26] MEDS: ACETAMINOPHEN 325 MG TABLET PO PRN (17:24)
[2018-02-26] MEDS: PATIENT OWN MED 1 EACH EACH SQ SCH (20:25)
[2018-02-26] MEDS: SIMVASTATIN 40 MG TABLET PO SCH (20:25)
[2018-02-26] MEDS: DULoxetine HCL 30 MG CAPSULE.DR PO SCH (20:30)
--- NOTE | 2018-02-26 21:12 | Inpatient Progress Note ---
Subjective - Required Recertification Statement I anticipate X number of days because-include discharge plan: 3 DAYS - Review of Systems General: Denies: Chills Pulmonary: Denies: Dyspnea, Cough Cardiovascular: Denies: Chest Pain, Palpitations, Orthopnea Gastrointestinal: Denies: Nausea, Vomiting, Abdominal Pain, Constipation Objective - Exam Vitals and I&O: Vital Signs Temp 98 F 02/26/18 17:00 Pulse 90 02/26/18 17:00 Resp 18 02/26/18 17:00 BP 114/64 02/26/18 17:00 Pulse Ox 97 02/26/18 17:00 Intake & Output 02/25/18 02/26/18 02/26/18 23:59 11:59 23:59 Intake Total 2089 1140 720 Output Total 1999 950 475 Balance 90 190 245 Intake: IV 10 260 Right Forearm 10 260 Oral 2079 880 720 Output: Urine 1999 950 475 Other: Voiding Method Toilet Toilet Toilet # Voids 1 2 # Bowel Movements 1 General: Alert, Oriented to Person, Oriented to Place, Oriented to Time, Cooperative Neck: Supple, No JVD, No thyromegaly Lungs: Clear to auscultation, Normal air movement, Speaks full Sentences Cardiovascular: Regular rate, Normal S1, Normal S2, No murmurs Abdomen: Normal bowel sounds, Soft, No tenderness, No hepatospenomegaly, No masses Skin: Cellulitis (Patient appears to have a little bit more erythema to the medial thigh area today. Otherwise felt that the erythema and warmth does appear to be slightly improved. Patient WBC count however is higher today at 17,000. Patient temperature appears. Normalized.) - Results Results: Laboratory Results WBC Comment 17.56 thou/uL (4.00-12.00) H 02/26/18 06:00 RBC 3.84 mil/uL (3.80-5.80) 02/26/18 06:00 Hemoglobin (Send Out) 11.4 g/dL (12.0-18.0) L 02/26/18 06:00 Hct (Send Out) 35.0 % (37.0-53.0) L 02/26/18 06:00 MCV (Send Out) 91.2 fL (80.0-100.0) 02/26/18 06:00 MCH 29.7 pg (28.0-34.0) 02/26/18 06:00 MCHC (Send Out) 32.6 g/dL (30.0-36.0) 02/26/18 06:00 RDW Coeff of Jessica 14.1 % (11.3-14.7) 02/26/18 06:00 Plt Count 307 thou/uL (130-400) 02/26/18 06:00 Absolute Lymphs (auto) 1.70 thou/uL (0.60-4.00) 02/26/18 06:00 Absolute Monos (auto) 1.05 thou/uL (0.00-0.90) H 02/26/18 06:00 Absolute Basos (auto) 0.07 thou/uL (0.00-0.50) 02/26/18 06:00 Neutrophils % 82.9 % (39.0-79.0) H 02/26/18 06:00 Absolute Neutrophils 14.56 thou/uL (1.50-7.70) H 02/26/18 06:00 Lymphocytes 9.7 % (16.0-50.0) L 02/26/18 06:00 Monocytes 6.0 % (0.0-11.0) 02/26/18 06:00 Absolute Eosinophils 0.19 thou/uL (0.00-0.60) 02/26/18 06:00 Basophilia % 0.4 % (0.0-1.5) 02/26/18 06:00 Eosinophil Count 1.1 % (0.0-6.8) 02/26/18 06:00 Sodium 129 mmol/L (136-145) L 02/26/18 06:00 Potassium 4.2 mmol/L (3.5-5.1) 02/26/18 06:00 Chloride 96 mmol/L (98-107) L 02/26/18 06:00 Carbon Dioxide 26 mmol/L (22-30) 02/26/18 06:00 BUN 22 mg/dL (9-20) H 02/26/18 06:00 Creatinine 1.20 mg/dL (0.66-1.25) 02/26/18 06:00 Estimated Creat Clear 138 02/26/18 06:00 Est GFR ( Amer) > 60 (60-) 10/10/18 06:00 Est GFR (Non-Af Amer) > 60 (60-) 02/26/18 06:00 Glucose 274 mg/dL (74-106) H 02/26/18 06:00 Calcium 8.1 mg/dL (8.4-10.2) L 02/26/18 06:00 Total Bilirubin 0.4 mg/dL (0.2-1.3) 02/26/18 06:00 AST 11 U/L (15-46) L 02/26/18 06:00 ALT 23 U/L (13-69) 02/26/18 06:00 Alkaline Phosphatase 97 U/L (38-126) 02/26/18 06:00 Total Protein 6.6 g/dL (6.3-8.2) 02/26/18 06:00 Albumin 3.0 g/dL (3.5-5.0) L 02/26/18 06:00 Urine Color Abby (YELLOW) 02/24/18 12:40 Urine Appearance Clear (CLEAR) 02/24/18 12:40 Urine pH 5.0 (5.0 - 8.0) 02/24/18 12:40 Ur Specific [place] 1.010 (1.010-1.030) 02/24/18 12:40 Urine Protein Negative mg/dL (NEGATIVE) 02/24/18 12:40 Urine Ketones Negative mg/dL (NEGATIVE) 02/24/18 12:40 Urine Occult Blood 3+ (NEGATIVE) H 02/24/18 12:40 Urine Nitrite Negative (NEGATIVE) 02/24/18 12:40 Urine Bilirubin Negative (NEGATIVE) 02/24/18 12:40 Urine Urobilinogen 0.2 Eu (0.2-1.0) 02/24/18 12:40 Ur Leukocyte Esterase Negative (NEGATIVE) 02/24/18 12:40 Urine RBC 0-2 (0-2 HPF) 02/24/18 12:40 Urine Glucose 3+ mg/dL (NEGATIVE) H 02/24/18 12:40 Vancomycin Trough 12.9 ug/mL (10.0-20.0) 02/25/18 16:38 Assessment/Plan - Assessment/Plan (1) Cellulitis of right lower leg Status: Acute Current Visit: Yes Assessment: stable.I am concerned that the patient white blood cell count has increased some. Will recheck this tomorrow. Patient had a vancomycin level drawn and was within therapeutic range. Patient will be continued on current antibiotic therapy. Patient did have clean x-ray done of the lower extremity which did not show any gas formation. Ultrasound did not show any evidence of DVT. (2) Diabetes type 2, uncontrolled Status: Chronic Current Visit: Yes Qualifiers: Assessment: Blood sugars continue to be running a little bit high. Patient insulin was adjusted today. (3) Cardiomyopathy Status: Chronic Current Visit: No Qualifiers: Cardiomyopathy type: unspecified Qualified Code(s): I42.9 - Cardiomyopathy, unspecified (4) Chronic kidney disease (CKD) stage G3a/A1, moderately decreased glomerular filtration rate (GFR) between 45-59 mL/min/1.73 square meter and albuminuria creatinine ratio less than 30 mg/g Status: Chronic Current Visit: No (5) Essential hypertension Status: Chronic Current Visit: No Assessment: Stable on home medications (6) Generalized osteoarthritis Status: Chronic Current Visit: No (7) Obstructive sleep apnea Status: Chronic Current Visit: No
[2018-02-27] MEDS: VANCOMYCIN HCL IV SCH (05:19)
[2018-02-27] MEDS: SODIUM CHLORIDE 0.9% IV SCH (05:19)
[2018-02-27 07:42] LABS: eGFR (Non-African) > 60
[2018-02-27] MEDS: INSULIN LISPRO 100 UNIT/ML 3ML VIAL SQ SCH ×4 (08:26→20:08)
[2018-02-27] MEDS: SALINE FLUSH 10 ML DISP.SYRIN IV SCH ×2 (08:33→20:15)
[2018-02-27] MEDS: GABAPENTIN 100 MG CAPSULE PO SCH ×2 (08:33→20:16)
[2018-02-27] MEDS: ASPIRIN 81 MG CHEW TAB PO SCH (08:34)
[2018-02-27] MEDS: FENOFIBRATE 160 MG TABLET PO SCH (08:35)
[2018-02-27] MEDS ORDERED: FUROSEMIDE 40 MG/4 ML VIAL ONE (08:47)
[2018-02-27] MEDS: LISINOPRIL 5 MG TABLET PO SCH (08:49)
[2018-02-27] MEDS: CHOLECALCIFEROL (VIT D3) 1,000 UNIT TABLET PO SCH (08:49)
[2018-02-27] MEDS: CARVEDILOL 12.5 MG TABLET PO SCH ×2 (08:49→20:16)
[2018-02-27] MEDS: MAGNESIUM OXIDE 400 MG TABLET PO SCH (08:50)
[2018-02-27] MEDS: HYDROmorphone HCL/PF 1 MG/ML DISP.SYRIN IVP PRN (10:02)
[2018-02-27] MEDS: VANCOMYCIN PHARMACY TO DOSE IV SCH (11:06)
[2018-02-27] MEDS: ENOXAPARIN SODIUM 40 MG/0.4 ML DISP.SYRIN SQ SCH (11:19)
[2018-02-27] MEDS: FUROSEMIDE 40 MG TABLET PO SCH (11:40)
[2018-02-27] MEDS: cefTRIAXone SODIUM 1 GM in 0.9 % SODIUM CHLORIDE 100 ML IV SCH (14:50)
[2018-02-27] MEDS ORDERED: cefTRIAXone SODIUM 1 GM VIAL ONE (14:53)
[2018-02-27 16:41] LABS: BASO % 0.7 % (0.0-1.5); EOS % 1.9 % (0.0-6.8); MCH. 29.7 pg (28.0-34.0); MCV 90.8 fL (80.0-100.0); MONOCYTE % 6.3 % (0.0-11.0); PLATELET COUNT 327 thou/uL (130-400)
[2018-02-27] MEDS: VANCOMYCIN HCL 2 GM in 0.9 % SODIUM CHLORIDE 500 ML IV SCH (17:00)
[2018-02-27] MEDS: ACETAMINOPHEN 325 MG TABLET PO PRN (17:52)
[2018-02-27] MEDS: DULoxetine HCL 30 MG CAPSULE.DR PO SCH (20:16)
[2018-02-27] MEDS: PATIENT OWN MED 1 EACH EACH SQ SCH (20:16)
[2018-02-27] MEDS: SIMVASTATIN 40 MG TABLET PO SCH (20:16)
[2018-02-28] MEDS: HYDROmorphone HCL/PF 1 MG/ML DISP.SYRIN IVP PRN ×2 (00:48→05:47)
[2018-02-28] MEDS: VANCOMYCIN HCL 2 GM in 0.9 % SODIUM CHLORIDE 500 ML IV SCH ×2 (05:19→17:30)
[2018-02-28 07:28] LABS: MEAN CORPUSCULAR HEMOGLOBIN 29.9 pg (28.0-34.0)
[2018-02-28 07:29] LABS: BASOPHILS % 0.5 (0.0-1.5); EOSINOPHILS % 2.7 % (0.0-6.8); MONOCYTES % 8.1 % (0.0-11.0); NEUTROPHILS # 9.3 # k/uL (1.4-7.7)
[2018-02-28] MEDS: INSULIN LISPRO 100 UNIT/ML 3ML VIAL SQ SCH ×4 (07:52→20:31)
--- NOTE | 2018-02-28 08:27 | Diagnostic Imaging Report ---
[facility]G [facility] [address] [facility].[address] [id number] Report Submission Date: Feb 27, 2018 4:43:59 PM CDT Patient Study Name: VIRGEN VICTORIA Date: Feb 27, 2018 2:24:08 PM CDT Modality Type: CT\SR Gender: M Description: CT LEG W/ CONTRAST : 53 Institution: [facility] Physician: [facility] SURG Examination: CT History: PAIN/SWELLING/REDNESS IN RT KNEE, WORSENING (Hx) Comparison exams: Plain film dated 25 February 2018 Technique: Axial imaging with sagittal coronal reconstruction. Findings: Degenerative changes involving the knee articulation, medial greater than lateral. Subchondral cyst formation. Patellar spurring. Remaining cortical margins without acute appearing disruption. Soft tissue fullness anterior to the inferior patellar margin with what appears to be an ill defined fluid collection measuring 2.9 x 1.4 cm. Remaining soft tissue structures without acute appearing process. No obvious deep fascial irregularity. Impression: Significant infrapatellar soft tissue inflammation with likely fluid pocket - can be confirmed with ultrasound or MRI. Articular degenerative changes without CT evidence for overt osseous inflammatory process though this also would be better evaluated with MRI. Electronically signed on Feb 27, 2018 4:43:59 PM CDT by: Darron CASTILLO
[2018-02-28] MEDS: ASPIRIN 81 MG CHEW TAB PO SCH (08:33)
[2018-02-28] MEDS: FUROSEMIDE 40 MG TABLET PO SCH (08:34)
[2018-02-28] MEDS: MAGNESIUM OXIDE 400 MG TABLET PO SCH (08:34)
[2018-02-28] MEDS: CARVEDILOL 12.5 MG TABLET PO SCH ×2 (08:34→20:39)
[2018-02-28] MEDS: SALINE FLUSH 10 ML DISP.SYRIN IV SCH ×2 (08:35→20:39)
[2018-02-28] MEDS: GABAPENTIN 100 MG CAPSULE PO SCH ×2 (08:35→20:39)
[2018-02-28] MEDS: CHOLECALCIFEROL (VIT D3) 1,000 UNIT TABLET PO SCH (08:38)
[2018-02-28] MEDS: LISINOPRIL 5 MG TABLET PO SCH (08:38)
[2018-02-28] MEDS: FENOFIBRATE 160 MG TABLET PO SCH (08:38)
[2018-02-28 09:26] LABS: eGFR (Non-African) > 60
[2018-02-28] MEDS: ENOXAPARIN SODIUM 40 MG/0.4 ML DISP.SYRIN SQ SCH (10:04)
[2018-02-28] MEDS: VANCOMYCIN PHARMACY TO DOSE IV SCH (10:49)
[2018-02-28] MEDS ORDERED: cefTRIAXone SODIUM 1 GM VIAL ONE (13:33)
[2018-02-28] MEDS: cefTRIAXone SODIUM 1 GM in 0.9 % SODIUM CHLORIDE 100 ML IV SCH (13:44)
[2018-02-28] MEDS: DULoxetine HCL 30 MG CAPSULE.DR PO SCH (20:39)
[2018-02-28] MEDS: SIMVASTATIN 40 MG TABLET PO SCH (20:39)
[2018-02-28] MEDS: PATIENT OWN MED 1 EACH EACH SQ SCH (20:40)
--- NOTE | 2018-02-28 23:58 | Inpatient Progress Note ---
Subjective - Required Recertification Statement I anticipate X number of days because-include discharge plan: 3 days - Review of Systems Events since last encounter: Patient stated he is feeling fairly well at this time. Patient is not had any further fever or chills that he is aware. Patient continues to have some mild tenderness to palpation to the right lower extremity. General: Denies: Chills Cardiovascular: Denies: Chest Pain Gastrointestinal: Denies: Abdominal Pain Objective - Exam Vitals and I&O: Vital Signs Temp 98.6 F 02/28/18 21:00 Pulse 83 02/28/18 21:00 Resp 18 02/28/18 21:00 BP 116/65 02/28/18 21:00 Pulse Ox 98 02/28/18 21:00 Intake & Output 02/27/18 02/28/18 02/28/18 23:59 11:59 23:59 Intake Total 2274 256 7868 Output Total 1100 Balance 1810 480 260 Weight 149.685 kg 147.418 kg Intake: IV 250 Right Forearm 250 Oral 5083 415 1157 Output: Urine 1100 Other: Voiding Method Toilet Toilet Toilet # Voids 1 1 1 # Bowel Movements 1 General: Alert, Oriented to Person, Oriented to Place, Cooperative Neck: Supple Lungs: Clear to auscultation, Normal air movement, Speaks full Sentences. No: Respiratory Distress, Wheezes, Rales, Rhonchi Cardiovascular: Regular rate, Normal S1, Normal S2, No murmurs Abdomen: Normal bowel sounds, Soft, No tenderness Extremities: Other (The erythema to the right upper leg and lower leg appear to be improved. Erythema over the knee is starting to become less red and warm but still tnder to palpaation.) Skin: Normal, [place], Warm, Other (The right lower legs continue to slowly improve.) Neurological: Normal gait, Normal speech, Strength Equal Bilat, Normal tone - Results Results: Laboratory Results WBC 12.10 K/ul (4.00-12.00) H 02/28/18 Unknown WBC Comment 14.26 thou/uL (4.00-12.00) H 02/27/18 06:15 RBC 3.84 M/ul (3.90-5.20) L 02/28/18 Unknown Hgb 11.5 g/dL (12.0-18.0) L 02/28/18 Unknown Hemoglobin (Send Out) 10.8 g/dL (12.0-18.0) L 02/27/18 06:15 Hct 34.7 % (37.0-53.0) L 02/28/18 Unknown Hct (Send Out) 33.1 % (37.0-53.0) L 02/27/18 06:15 MCV 90.0 fl (80.0-100.0) 02/28/18 Unknown MCV (Send Out) 90.8 fL (80.0-100.0) 02/27/18 06:15 MCH 29.9 pg (28.0-34.0) 02/28/18 Unknown MCHC 33.1 g/dL (30.0-36.0) 02/28/18 Unknown MCHC (Send Out) 32.7 g/dL (30.0-36.0) 02/27/18 06:15 RDW 13.8 % (11.3-14.3) 02/28/18 Unknown RDW Coeff of Jessica 13.8 % (11.3-14.7) 02/27/18 06:15 Plt Count 348 K/mm3 (130-400) 02/28/18 Unknown Neut % (Auto) 76.8 % (39.0-79.0) 02/28/18 Unknown Lymph % (Auto) 11.9 % (16.0-50.0) L 02/28/18 Unknown [place] % (Auto) 8.1 % (0.0-11.0) 02/28/18 Unknown Eos % (Auto) 2.7 % (0.0-6.8) 02/28/18 Unknown Baso % (Auto) 0.5 (0.0-1.5) 02/28/18 Unknown Neut # (Auto) 9.3 # k/uL (1.4-7.7) H 02/28/18 Unknown Lymph # (Auto) 1.4 # k/uL (0.6-4.0) 02/28/18 Unknown [place] # (Auto) 1.0 # k/uL (0.0-0.9) H 02/28/18 Unknown Eos # (Auto) 0.3 # k/uL (0.0-0.6) 02/28/18 Unknown Baso # (Auto) 0.1 # k/uL (0.0-0.5) 02/28/18 Unknown Absolute Lymphs (auto) 1.50 thou/uL (0.60-4.00) 02/27/18 06:15 Absolute Monos (auto) 0.90 thou/uL (0.00-0.90) 02/27/18 06:15 Absolute Basos (auto) 0.10 thou/uL (0.00-0.50) 02/27/18 06:15 Neutrophils % 80.5 % (39.0-79.0) H 02/27/18 06:15 Reactive Lymphs % 0.0 % (0.0-5.0) 02/28/18 Unknown Absolute Neutrophils 11.48 thou/uL (1.50-7.70) H 02/27/18 06:15 Lymphocytes 10.5 % (16.0-50.0) L 02/27/18 06:15 Reactive Lymphs # 0.0 # k/uL (0.0-0.8) 02/28/18 Unknown Monocytes 6.3 % (0.0-11.0) 02/27/18 06:15 Absolute Eosinophils 0.27 thou/uL (0.00-0.60) 02/27/18 06:15 Basophilia % 0.7 % (0.0-1.5) 02/27/18 06:15 Eosinophil Count 1.9 % (0.0-6.8) 02/27/18 06:15 Sodium 129 mmol/L (136-145) L 02/28/18 Unknown Potassium 4.4 mmol/L (3.5-5.1) 02/28/18 Unknown Chloride 98 mmol/L (98-107) 02/28/18 Unknown Carbon Dioxide 23 mmol/L (22-30) 02/28/18 Unknown BUN 21 mg/dL (9-20) H 02/28/18 Unknown Creatinine 1.00 mg/dL (0.66-1.25) 02/28/18 Unknown Estimated Creat Clear 157 02/28/18 Unknown Est GFR ( Amer) > 60 (60-) 02/28/18 Unknown Est GFR (Non-Af Amer) > 60 (60-) 02/28/18 Unknown Glucose 192 mg/dL (74-106) H 02/28/18 Unknown Calcium 8.2 mg/dL (8.4-10.2) L 02/28/18 Unknown Total Bilirubin 0.5 mg/dL (0.2-1.3) 02/28/18 Unknown AST 17 U/L (15-46) 02/28/18 Unknown ALT 27 U/L (13-69) 02/28/18 Unknown Alkaline Phosphatase 83 U/L (38-126) 02/28/18 Unknown Total Protein 6.0 g/dL (6.3-8.2) L 02/28/18 Unknown Albumin 2.6 g/dL (3.5-5.0) L 02/28/18 Unknown Urine Color Abby (YELLOW) 02/24/18 12:40 Urine Appearance Clear (CLEAR) 02/24/18 12:40 Urine pH 5.0 (5.0 - 8.0) 02/24/18 12:40 Ur Specific [place] 1.010 (1.010-1.030) 02/24/18 12:40 Urine Protein Negative mg/dL (NEGATIVE) 02/24/18 12:40 Urine Ketones Negative mg/dL (NEGATIVE) 02/24/18 12:40 Urine Occult Blood 3+ (NEGATIVE) H 02/24/18 12:40 Urine Nitrite Negative (NEGATIVE) 02/24/18 12:40 Urine Bilirubin Negative (NEGATIVE) 02/24/18 12:40 Urine Urobilinogen 0.2 Eu (0.2-1.0) 02/24/18 12:40 Ur Leukocyte Esterase Negative (NEGATIVE) 02/24/18 12:40 Urine RBC 0-2 (0-2 HPF) 02/24/18 12:40 Urine Glucose 3+ mg/dL (NEGATIVE) H 02/24/18 12:40 Vancomycin Trough 19.0 ug/mL (10.0-20.0) 02/28/18 17:30 Assessment/Plan - Assessment/Plan (1) Cellulitis of right lower leg Status: Acute Current Visit: Yes Assessment: I have spoke with Dr. Rodriguez who is an infection disease specialist at the [place]. Advised that since these fluid collection around the knee appear to be not associated with the joint to continue with present antibiotic therapy. (2) Diabetes type 2, uncontrolled Status: Chronic Current Visit: Yes Qualifiers: Assessment: Blood sugars have improved and have been running in the 100 range at this time. Patient denies any hypoglycemic episodes. (3) Cardiomyopathy Status: Chronic Current Visit: No Qualifiers: Cardiomyopathy type: unspecified Qualified Code(s): I42.9 - Cardiomyopathy, unspecified Assessment: stble (4) Chronic kidney disease (CKD) stage G3a/A1, moderately decreased glomerular filtration rate (GFR) between 45-59 mL/min/1.73 square meter and albuminuria creatinine ratio less than 30 mg/g Status: Chronic Current Visit: No Assessment: stable (5) Essential hypertension Status: Chronic Current Visit: No Assessment: stable (6) Generalized osteoarthritis Status: Chronic Current Visit: No Assessment: stable
--- NOTE | 2018-03-01 00:07 | Inpatient Progress Note ---
Subjective - Required Recertification Statement I anticipate X number of days because-include discharge plan: 4 days - Review of Systems Subjective: 62-year-old white male who stated he is been doing fairly well. Patient did run a low-grade fever last night but seemed to be doing better this a.m. Patient blood sugars have improved some. Patient denies any chest pain chest pressure or orthopnea symptoms. Objective - Exam Vitals and I&O: Vital Signs Temp 98.6 F 02/28/18 21:00 Pulse 83 02/28/18 21:00 Resp 18 02/28/18 21:00 BP 116/65 02/28/18 21:00 Pulse Ox 98 02/28/18 21:00 Intake & Output 02/28/18 02/28/18 03/01/18 11:59 23:59 11:59 Intake Total 480 1360 Output Total 1100 Balance 480 260 Weight 147.418 kg Intake: Oral 480 1360 Output: Urine 1100 Other: Voiding Method Toilet Toilet # Voids 1 1 # Bowel Movements 1 General: Alert, Oriented to Person, Oriented to Place, Oriented to Time, Cooperative Neck: Supple, No JVD Lungs: Clear to auscultation, Normal air movement, Speaks full Sentences Cardiovascular: Regular rate, Normal S1, Normal S2, No murmurs Abdomen: Normal bowel sounds Extremities: No clubbing Skin: Cellulitis (The erythema to the fly area. To be clear and at this time. Patient continues to have some swelling tenderness and redness over the patella area. Blisters to the lower extremity appear to be improved some. The erythema to the lower leg also appears to be clearing.) - Results Results: Laboratory Results WBC 12.10 K/ul (4.00-12.00) H 02/28/18 Unknown WBC Comment 14.26 thou/uL (4.00-12.00) H 02/27/18 06:15 RBC 3.84 M/ul (3.90-5.20) L 02/28/18 Unknown Hgb 11.5 g/dL (12.0-18.0) L 02/28/18 Unknown Hemoglobin (Send Out) 10.8 g/dL (12.0-18.0) L 02/27/18 06:15 Hct 34.7 % (37.0-53.0) L 02/28/18 Unknown Hct (Send Out) 33.1 % (37.0-53.0) L 02/27/18 06:15 MCV 90.0 fl (80.0-100.0) 02/28/18 Unknown MCV (Send Out) 90.8 fL (80.0-100.0) 02/27/18 06:15 MCH 29.9 pg (28.0-34.0) 02/28/18 Unknown MCHC 33.1 g/dL (30.0-36.0) 02/28/18 Unknown MCHC (Send Out) 32.7 g/dL (30.0-36.0) 02/27/18 06:15 RDW 13.8 % (11.3-14.3) 02/28/18 Unknown RDW Coeff of Jessica 13.8 % (11.3-14.7) 02/27/18 06:15 Plt Count 348 K/mm3 (130-400) 02/28/18 Unknown Neut % (Auto) 76.8 % (39.0-79.0) 02/28/18 Unknown Lymph % (Auto) 11.9 % (16.0-50.0) L 02/28/18 Unknown [place] % (Auto) 8.1 % (0.0-11.0) 02/28/18 Unknown Eos % (Auto) 2.7 % (0.0-6.8) 02/28/18 Unknown Baso % (Auto) 0.5 (0.0-1.5) 02/28/18 Unknown Neut # (Auto) 9.3 # k/uL (1.4-7.7) H 02/28/18 Unknown Lymph # (Auto) 1.4 # k/uL (0.6-4.0) 02/28/18 Unknown [place] # (Auto) 1.0 # k/uL (0.0-0.9) H 02/28/18 Unknown Eos # (Auto) 0.3 # k/uL (0.0-0.6) 02/28/18 Unknown Baso # (Auto) 0.1 # k/uL (0.0-0.5) 02/28/18 Unknown Absolute Lymphs (auto) 1.50 thou/uL (0.60-4.00) 02/27/18 06:15 Absolute Monos (auto) 0.90 thou/uL (0.00-0.90) 02/27/18 06:15 Absolute Basos (auto) 0.10 thou/uL (0.00-0.50) 02/27/18 06:15 Neutrophils % 80.5 % (39.0-79.0) H 02/27/18 06:15 Reactive Lymphs % 0.0 % (0.0-5.0) 02/28/18 Unknown Absolute Neutrophils 11.48 thou/uL (1.50-7.70) H 02/27/18 06:15 Lymphocytes 10.5 % (16.0-50.0) L 02/27/18 06:15 Reactive Lymphs # 0.0 # k/uL (0.0-0.8) 02/28/18 Unknown Monocytes 6.3 % (0.0-11.0) 02/27/18 06:15 Absolute Eosinophils 0.27 thou/uL (0.00-0.60) 02/27/18 06:15 Basophilia % 0.7 % (0.0-1.5) 02/27/18 06:15 Eosinophil Count 1.9 % (0.0-6.8) 02/27/18 06:15 Sodium 129 mmol/L (136-145) L 02/28/18 Unknown Potassium 4.4 mmol/L (3.5-5.1) 02/28/18 Unknown Chloride 98 mmol/L (98-107) 02/28/18 Unknown Carbon Dioxide 23 mmol/L (22-30) 02/28/18 Unknown BUN 21 mg/dL (9-20) H 02/28/18 Unknown Creatinine 1.00 mg/dL (0.66-1.25) 02/28/18 Unknown Estimated Creat Clear 157 02/28/18 Unknown Est GFR ( Amer) > 60 (60-) 02/28/18 Unknown Est GFR (Non-Af Amer) > 60 (60-) 02/28/18 Unknown Glucose 192 mg/dL (74-106) H 02/28/18 Unknown Calcium 8.2 mg/dL (8.4-10.2) L 02/28/18 Unknown Total Bilirubin 0.5 mg/dL (0.2-1.3) 02/28/18 Unknown AST 17 U/L (15-46) 02/28/18 Unknown ALT 27 U/L (13-69) 02/28/18 Unknown Alkaline Phosphatase 83 U/L (38-126) 02/28/18 Unknown Total Protein 6.0 g/dL (6.3-8.2) L 02/28/18 Unknown Albumin 2.6 g/dL (3.5-5.0) L 02/28/18 Unknown Urine Color Abby (YELLOW) 02/24/18 12:40 Urine Appearance Clear (CLEAR) 02/24/18 12:40 Urine pH 5.0 (5.0 - 8.0) 02/24/18 12:40 Ur Specific [place] 1.010 (1.010-1.030) 02/24/18 12:40 Urine Protein Negative mg/dL (NEGATIVE) 02/24/18 12:40 Urine Ketones Negative mg/dL (NEGATIVE) 02/24/18 12:40 Urine Occult Blood 3+ (NEGATIVE) H 02/24/18 12:40 Urine Nitrite Negative (NEGATIVE) 02/24/18 12:40 Urine Bilirubin Negative (NEGATIVE) 02/24/18 12:40 Urine Urobilinogen 0.2 Eu (0.2-1.0) 02/24/18 12:40 Ur Leukocyte Esterase Negative (NEGATIVE) 02/24/18 12:40 Urine RBC 0-2 (0-2 HPF) 02/24/18 12:40 Urine Glucose 3+ mg/dL (NEGATIVE) H 02/24/18 12:40 Vancomycin Trough 19.0 ug/mL (10.0-20.0) 02/28/18 17:30 Assessment/Plan - Assessment/Plan (1) Cellulitis of right lower leg Status: Acute Current Visit: Yes Assessment: Make a myosin trough is adequate at this time. CT scan of the knee area does show a collection of fluid that appeared to be anterior to the in fear aspect of the patella. I will talk with a infections disease person about this. Otherwise patient leg does appear to be improving some. (2) Diabetes type 2, uncontrolled Status: Chronic Current Visit: Yes Qualifiers: (3) Cardiomyopathy Status: Chronic Current Visit: No Qualifiers: Cardiomyopathy type: unspecified Qualified Code(s): I42.9 - Cardiomyopathy, unspecified (4) Chronic kidney disease (CKD) stage G3a/A1, moderately decreased glomerular filtration rate (GFR) between 45-59 mL/min/1.73 square meter and albuminuria creatinine ratio less than 30 mg/g Status: Chronic Current Visit: No (5) Essential hypertension Status: Chronic Current Visit: No (6) Generalized osteoarthritis Status: Chronic Current Visit: No
[2018-03-01] MEDS: VANCOMYCIN HCL 2 GM in 0.9 % SODIUM CHLORIDE 500 ML IV SCH ×2 (05:54→17:26)
[2018-03-01] MEDS: INSULIN LISPRO 100 UNIT/ML 3ML VIAL SQ SCH ×4 (07:37→20:51)
[2018-03-01] MEDS: ACETAMINOPHEN 325 MG TABLET PO PRN (07:39)
[2018-03-01] MEDS: FUROSEMIDE 40 MG TABLET PO SCH (08:22)
[2018-03-01] MEDS: CARVEDILOL 12.5 MG TABLET PO SCH ×2 (08:22→20:43)
[2018-03-01] MEDS: ASPIRIN 81 MG CHEW TAB PO SCH (08:22)
[2018-03-01] MEDS: MAGNESIUM OXIDE 400 MG TABLET PO SCH (08:22)
[2018-03-01] MEDS: SALINE FLUSH 10 ML DISP.SYRIN IV SCH ×2 (08:23→20:43)
[2018-03-01] MEDS: FENOFIBRATE 160 MG TABLET PO SCH (08:23)
[2018-03-01] MEDS: GABAPENTIN 100 MG CAPSULE PO SCH ×2 (08:23→20:43)
[2018-03-01] MEDS: VANCOMYCIN PHARMACY TO DOSE IV SCH (08:24)
[2018-03-01] MEDS: LISINOPRIL 5 MG TABLET PO SCH (08:24)
[2018-03-01] MEDS: CHOLECALCIFEROL (VIT D3) 1,000 UNIT TABLET PO SCH (08:24)
[2018-03-01] MEDS: ENOXAPARIN SODIUM 40 MG/0.4 ML DISP.SYRIN SQ SCH (10:04)
--- NOTE | 2018-03-01 11:22 | Inpatient Progress Note ---
Subjective - Required Recertification Statement I anticipate X number of days because-include discharge plan: 5 - Review of Systems Events since last encounter: Mr. Kinney is doing much better. He redness continues to recede. He is afebrile. His white count has continued to decrease. Dr. Lynch checked him out to me yesterday and we went over his phone consult with Dr. Rodriguez in infectious disease who did NOT recommend incision and drainage of his knee as per CT, it does not appear to be contiguous with the knee joint, but appears to be confined to the soft tissue anterior to the knee. His pain is well controlled, and he has not taken any Dilaudid since yesterday. General: Fatigue. Denies: Chills, Night Sweats HEENT: Denies: Head Aches Pulmonary: Cough (rare). Denies: Dyspnea Cardiovascular: Denies: Chest Pain, Palpitations Gastrointestinal: Denies: Nausea, Vomiting, Constipation (had a BM last night) Genitourinary: Denies: Dysuria, Frequency Musculoskeletal: Leg Pain (improving). Denies: Neck Pain, Shoulder Pain Neurological: Denies: Weakness, Numbness, Incoordination Objective - Exam Vitals and I&O: Vital Signs Temp 97.9 F 03/01/18 09:00 Pulse 72 03/01/18 09:00 Resp 16 03/01/18 09:00 BP 120/67 03/01/18 09:00 Pulse Ox 97 03/01/18 09:00 Intake & Output 02/28/18 02/28/18 03/01/18 11:59 23:59 11:59 Intake Total 480 1360 720 Output Total 1100 Balance 480 260 720 Weight 147.418 kg Intake: Oral 480 1360 720 Output: Urine 1100 Other: Voiding Method Toilet Toilet Urinal # Voids 1 1 # Bowel Movements 1 General: Alert, Oriented to Person, Oriented to Place, Oriented to Time, Cooperative HEENT: Atraumatic, PERRLA, EOMI Neck: Supple, No JVD Lungs: Clear to auscultation, Normal air movement, Speaks full Sentences. No: Respiratory Distress, Prolonged Expiration Cardiovascular: Regular rate Abdomen: Normal bowel sounds, Soft, No tenderness Extremities: No clubbing, Other (Ulcer on the plantar aspect of the right great toe. Swelling of the RLE is noted and some redness, but no warmth is noted on the anterior aspect of the right knee. ) Skin: Normal Neurological: Normal speech Psych/Mental Status: Mental status NL - Results Results: Laboratory Results WBC 12.10 K/ul (4.00-12.00) H 02/28/18 Unknown WBC Comment 14.26 thou/uL (4.00-12.00) H 02/27/18 06:15 RBC 3.84 M/ul (3.90-5.20) L 02/28/18 Unknown Hgb 11.5 g/dL (12.0-18.0) L 02/28/18 Unknown Hemoglobin (Send Out) 10.8 g/dL (12.0-18.0) L 02/27/18 06:15 Hct 34.7 % (37.0-53.0) L 02/28/18 Unknown Hct (Send Out) 33.1 % (37.0-53.0) L 02/27/18 06:15 MCV 90.0 fl (80.0-100.0) 02/28/18 Unknown MCV (Send Out) 90.8 fL (80.0-100.0) 02/27/18 06:15 MCH 29.9 pg (28.0-34.0) 02/28/18 Unknown MCHC 33.1 g/dL (30.0-36.0) 02/28/18 Unknown MCHC (Send Out) 32.7 g/dL (30.0-36.0) 02/27/18 06:15 RDW 13.8 % (11.3-14.3) 02/28/18 Unknown RDW Coeff of Jessica 13.8 % (11.3-14.7) 02/27/18 06:15 Plt Count 348 K/mm3 (130-400) 02/28/18 Unknown Neut % (Auto) 76.8 % (39.0-79.0) 02/28/18 Unknown Lymph % (Auto) 11.9 % (16.0-50.0) L 02/28/18 Unknown [place] % (Auto) 8.1 % (0.0-11.0) 02/28/18 Unknown Eos % (Auto) 2.7 % (0.0-6.8) 02/28/18 Unknown Baso % (Auto) 0.5 (0.0-1.5) 02/28/18 Unknown Neut # (Auto) 9.3 # k/uL (1.4-7.7) H 02/28/18 Unknown Lymph # (Auto) 1.4 # k/uL (0.6-4.0) 02/28/18 Unknown [place] # (Auto) 1.0 # k/uL (0.0-0.9) H 02/28/18 Unknown Eos # (Auto) 0.3 # k/uL (0.0-0.6) 02/28/18 Unknown Baso # (Auto) 0.1 # k/uL (0.0-0.5) 02/28/18 Unknown Absolute Lymphs (auto) 1.50 thou/uL (0.60-4.00) 02/27/18 06:15 Absolute Monos (auto) 0.90 thou/uL (0.00-0.90) 02/27/18 06:15 Absolute Basos (auto) 0.10 thou/uL (0.00-0.50) 02/27/18 06:15 Neutrophils % 80.5 % (39.0-79.0) H 02/27/18 06:15 Reactive Lymphs % 0.0 % (0.0-5.0) 02/28/18 Unknown Absolute Neutrophils 11.48 thou/uL (1.50-7.70) H 02/27/18 06:15 Lymphocytes 10.5 % (16.0-50.0) L 02/27/18 06:15 Reactive Lymphs # 0.0 # k/uL (0.0-0.8) 02/28/18 Unknown Monocytes 6.3 % (0.0-11.0) 02/27/18 06:15 Absolute Eosinophils 0.27 thou/uL (0.00-0.60) 02/27/18 06:15 Basophilia % 0.7 % (0.0-1.5) 02/27/18 06:15 Eosinophil Count 1.9 % (0.0-6.8) 02/27/18 06:15 Sodium 129 mmol/L (136-145) L 02/28/18 Unknown Potassium 4.4 mmol/L (3.5-5.1) 02/28/18 Unknown Chloride 98 mmol/L (98-107) 02/28/18 Unknown Carbon Dioxide 23 mmol/L (22-30) 02/28/18 Unknown BUN 21 mg/dL (9-20) H 02/28/18 Unknown Creatinine 1.00 mg/dL (0.66-1.25) 02/28/18 Unknown Estimated Creat Clear 157 02/28/18 Unknown Est GFR ( Amer) > 60 (60-) 02/28/18 Unknown Est GFR (Non-Af Amer) > 60 (60-) 02/28/18 Unknown Glucose 192 mg/dL (74-106) H 02/28/18 Unknown Calcium 8.2 mg/dL (8.4-10.2) L 02/28/18 Unknown Total Bilirubin 0.5 mg/dL (0.2-1.3) 02/28/18 Unknown AST 17 U/L (15-46) 02/28/18 Unknown ALT 27 U/L (13-69) 02/28/18 Unknown Alkaline Phosphatase 83 U/L (38-126) 02/28/18 Unknown Total Protein 6.0 g/dL (6.3-8.2) L 02/28/18 Unknown Albumin 2.6 g/dL (3.5-5.0) L 02/28/18 Unknown Urine Color Abby (YELLOW) 02/24/18 12:40 Urine Appearance Clear (CLEAR) 02/24/18 12:40 Urine pH 5.0 (5.0 - 8.0) 02/24/18 12:40 Ur Specific [place] 1.010 (1.010-1.030) 02/24/18 12:40 Urine Protein Negative mg/dL (NEGATIVE) 02/24/18 12:40 Urine Ketones Negative mg/dL (NEGATIVE) 02/24/18 12:40 Urine Occult Blood 3+ (NEGATIVE) H 02/24/18 12:40 Urine Nitrite Negative (NEGATIVE) 02/24/18 12:40 Urine Bilirubin Negative (NEGATIVE) 02/24/18 12:40 Urine Urobilinogen 0.2 Eu (0.2-1.0) 02/24/18 12:40 Ur Leukocyte Esterase Negative (NEGATIVE) 02/24/18 12:40 Urine RBC 0-2 (0-2 HPF) 02/24/18 12:40 Urine Glucose 3+ mg/dL (NEGATIVE) H 02/24/18 12:40 Vancomycin Trough 19.0 ug/mL (10.0-20.0) 02/28/18 17:30 Assessment/Plan - Assessment/Plan (1) Cellulitis of right lower leg Status: Acute Current Visit: Yes Assessment: Improved Plan: Continue vancomycin and ceftriaxone (2) Diabetes type 2, uncontrolled Status: Chronic Current Visit: Yes Qualifiers: Diabetes mellitus complication status: with circulatory complication Diabetes mellitus complication detail: with peripheral angiopathy without gangrene Assessment: BS well controlled (3) Cardiomyopathy Status: Chronic Current Visit: No Qualifiers: Cardiomyopathy type: unspecified Qualified Code(s): I42.9 - Cardiomyopathy, unspecified Assessment: Stable (4) Chronic kidney disease (CKD) stage G3a/A1, moderately decreased glomerular filtration rate (GFR) between 45-59 mL/min/1.73 square meter and albuminuria creatinine ratio less than 30 mg/g Status: Chronic Current Visit: No Assessment: Labs yestereday show GFR >60 (5) Essential hypertension Status: Chronic Current Visit: No Assessment: Well controlled
[2018-03-01] MEDS: HYDROmorphone HCL/PF 1 MG/ML DISP.SYRIN IVP PRN ×3 (12:25→20:48)
[2018-03-01] MEDS ORDERED: cefTRIAXone SODIUM 1 GM VIAL ONE (13:55)
[2018-03-01] MEDS: cefTRIAXone SODIUM 1 GM in 0.9 % SODIUM CHLORIDE 100 ML IV SCH (14:17)
[2018-03-01] MEDS: DULoxetine HCL 30 MG CAPSULE.DR PO SCH (20:43)
[2018-03-01] MEDS: SIMVASTATIN 40 MG TABLET PO SCH (20:50)
[2018-03-01] MEDS: PATIENT OWN MED 1 EACH EACH SQ SCH (20:52)
[2018-03-02] MEDS: VANCOMYCIN HCL 2 GM in 0.9 % SODIUM CHLORIDE 500 ML IV SCH ×2 (05:00→18:16)
[2018-03-02] MEDS: INSULIN LISPRO 100 UNIT/ML 3ML VIAL SQ SCH ×4 (08:18→21:43)
[2018-03-02] MEDS: FENOFIBRATE 160 MG TABLET PO SCH (09:00)
[2018-03-02] MEDS: CARVEDILOL 12.5 MG TABLET PO SCH ×2 (09:00→21:41)
[2018-03-02] MEDS: ASPIRIN 81 MG CHEW TAB PO SCH (09:00)
[2018-03-02] MEDS: FUROSEMIDE 40 MG TABLET PO SCH (09:00)
[2018-03-02] MEDS: GABAPENTIN 100 MG CAPSULE PO SCH ×2 (09:01→21:41)
[2018-03-02] MEDS: LISINOPRIL 5 MG TABLET PO SCH (09:01)
[2018-03-02] MEDS: MAGNESIUM OXIDE 400 MG TABLET PO SCH (09:01)
[2018-03-02] MEDS: SALINE FLUSH 10 ML DISP.SYRIN IV SCH ×2 (09:02→21:41)
[2018-03-02] MEDS: CHOLECALCIFEROL (VIT D3) 1,000 UNIT TABLET PO SCH (09:03)
[2018-03-02] MEDS: VANCOMYCIN PHARMACY TO DOSE IV SCH (09:05)
[2018-03-02] MEDS: ENOXAPARIN SODIUM 40 MG/0.4 ML DISP.SYRIN SQ SCH (09:39)
[2018-03-02] MEDS: ACETAMINOPHEN 325 MG TABLET PO PRN (10:44)
[2018-03-02] MEDS ORDERED: cefTRIAXone SODIUM 1 GM VIAL ONE (13:37)
[2018-03-02] MEDS: cefTRIAXone SODIUM 1 GM in 0.9 % SODIUM CHLORIDE 100 ML IV SCH (13:44)
--- NOTE | 2018-03-02 13:55 | Inpatient Progress Note ---
Subjective - Required Recertification Statement I anticipate X number of days because-include discharge plan: 5 - Review of Systems Events since last encounter: Chris is doing well. He still has not been up and in a chair and has not ambulated. His vancomycin trough is 19 (normal). He is not having any fever. His appetite is good. He says that his pain is well controlled. General: Fatigue, Malaise. Denies: Chills HEENT: Denies: Head Aches Pulmonary: Denies: Dyspnea, Cough Cardiovascular: Denies: Chest Pain Gastrointestinal: Denies: Nausea, Vomiting, Abdominal Pain Genitourinary: Denies: Dysuria Musculoskeletal: Leg Pain. Denies: Neck Pain Neurological: Weakness, Other (fatigue) Objective - Exam Vitals and I&O: Vital Signs Temp 97.2 F L 03/02/18 09:00 Pulse 77 03/02/18 09:00 Resp 18 03/02/18 09:00 BP 137/69 03/02/18 09:00 Pulse Ox 96 03/02/18 09:00 Intake & Output 03/01/18 03/02/18 03/02/18 23:59 11:59 23:59 Intake Total 1440 720 Output Total 700 Balance 740 720 Intake: Oral 840 720 Tube Feeding 600 Output: Urine 700 Other: Voiding Method Urinal Urinal # Voids 2 1 General: Alert, Oriented to Person, Oriented to Place, Obese HEENT: Atraumatic, PERRLA, EOMI Neck: Supple, No JVD Lungs: Clear to auscultation, Normal air movement, Speaks full Sentences. No: Respiratory Distress Cardiovascular: Regular rate, Normal S1, Normal S2 Abdomen: Normal bowel sounds, Soft, No tenderness Extremities: No clubbing, No edema (RLE. Diabetic ulcer on the plantar aspect of the right great toe. ), Other (swelling over the right knee with an effusion. It is smaller and less red than yesterday.) Skin: Normal, [place], Warm, Dry - Results Results: Laboratory Results WBC 12.10 K/ul (4.00-12.00) H 02/28/18 Unknown WBC Comment 14.26 thou/uL (4.00-12.00) H 02/27/18 06:15 RBC 3.84 M/ul (3.90-5.20) L 02/28/18 Unknown Hgb 11.5 g/dL (12.0-18.0) L 02/28/18 Unknown Hemoglobin (Send Out) 10.8 g/dL (12.0-18.0) L 02/27/18 06:15 Hct 34.7 % (37.0-53.0) L 02/28/18 Unknown Hct (Send Out) 33.1 % (37.0-53.0) L 02/27/18 06:15 MCV 90.0 fl (80.0-100.0) 02/28/18 Unknown MCV (Send Out) 90.8 fL (80.0-100.0) 02/27/18 06:15 MCH 29.9 pg (28.0-34.0) 02/28/18 Unknown MCHC 33.1 g/dL (30.0-36.0) 02/28/18 Unknown MCHC (Send Out) 32.7 g/dL (30.0-36.0) 02/27/18 06:15 RDW 13.8 % (11.3-14.3) 02/28/18 Unknown RDW Coeff of Jessica 13.8 % (11.3-14.7) 02/27/18 06:15 Plt Count 348 K/mm3 (130-400) 02/28/18 Unknown Neut % (Auto) 76.8 % (39.0-79.0) 02/28/18 Unknown Lymph % (Auto) 11.9 % (16.0-50.0) L 02/28/18 Unknown [place] % (Auto) 8.1 % (0.0-11.0) 02/28/18 Unknown Eos % (Auto) 2.7 % (0.0-6.8) 02/28/18 Unknown Baso % (Auto) 0.5 (0.0-1.5) 02/28/18 Unknown Neut # (Auto) 9.3 # k/uL (1.4-7.7) H 02/28/18 Unknown Lymph # (Auto) 1.4 # k/uL (0.6-4.0) 02/28/18 Unknown [place] # (Auto) 1.0 # k/uL (0.0-0.9) H 02/28/18 Unknown Eos # (Auto) 0.3 # k/uL (0.0-0.6) 02/28/18 Unknown Baso # (Auto) 0.1 # k/uL (0.0-0.5) 02/28/18 Unknown Absolute Lymphs (auto) 1.50 thou/uL (0.60-4.00) 02/27/18 06:15 Absolute Monos (auto) 0.90 thou/uL (0.00-0.90) 02/27/18 06:15 Absolute Basos (auto) 0.10 thou/uL (0.00-0.50) 02/27/18 06:15 Neutrophils % 80.5 % (39.0-79.0) H 02/27/18 06:15 Reactive Lymphs % 0.0 % (0.0-5.0) 02/28/18 Unknown Absolute Neutrophils 11.48 thou/uL (1.50-7.70) H 02/27/18 06:15 Lymphocytes 10.5 % (16.0-50.0) L 02/27/18 06:15 Reactive Lymphs # 0.0 # k/uL (0.0-0.8) 02/28/18 Unknown Monocytes 6.3 % (0.0-11.0) 02/27/18 06:15 Absolute Eosinophils 0.27 thou/uL (0.00-0.60) 02/27/18 06:15 Basophilia % 0.7 % (0.0-1.5) 02/27/18 06:15 Eosinophil Count 1.9 % (0.0-6.8) 02/27/18 06:15 Sodium 129 mmol/L (136-145) L 02/28/18 Unknown Potassium 4.4 mmol/L (3.5-5.1) 02/28/18 Unknown Chloride 98 mmol/L (98-107) 02/28/18 Unknown Carbon Dioxide 23 mmol/L (22-30) 02/28/18 Unknown BUN 21 mg/dL (9-20) H 02/28/18 Unknown Creatinine 1.00 mg/dL (0.66-1.25) 02/28/18 Unknown Estimated Creat Clear 157 02/28/18 Unknown Est GFR ( Amer) > 60 (60-) 02/28/18 Unknown Est GFR (Non-Af Amer) > 60 (60-) 02/28/18 Unknown Glucose 192 mg/dL (74-106) H 02/28/18 Unknown Calcium 8.2 mg/dL (8.4-10.2) L 02/28/18 Unknown Total Bilirubin 0.5 mg/dL (0.2-1.3) 02/28/18 Unknown AST 17 U/L (15-46) 02/28/18 Unknown ALT 27 U/L (13-69) 02/28/18 Unknown Alkaline Phosphatase 83 U/L (38-126) 02/28/18 Unknown Total Protein 6.0 g/dL (6.3-8.2) L 02/28/18 Unknown Albumin 2.6 g/dL (3.5-5.0) L 02/28/18 Unknown Urine Color Abby (YELLOW) 02/24/18 12:40 Urine Appearance Clear (CLEAR) 02/24/18 12:40 Urine pH 5.0 (5.0 - 8.0) 02/24/18 12:40 Ur Specific [place] 1.010 (1.010-1.030) 02/24/18 12:40 Urine Protein Negative mg/dL (NEGATIVE) 02/24/18 12:40 Urine Ketones Negative mg/dL (NEGATIVE) 02/24/18 12:40 Urine Occult Blood 3+ (NEGATIVE) H 02/24/18 12:40 Urine Nitrite Negative (NEGATIVE) 02/24/18 12:40 Urine Bilirubin Negative (NEGATIVE) 02/24/18 12:40 Urine Urobilinogen 0.2 Eu (0.2-1.0) 02/24/18 12:40 Ur Leukocyte Esterase Negative (NEGATIVE) 02/24/18 12:40 Urine RBC 0-2 (0-2 HPF) 02/24/18 12:40 Urine Glucose 3+ mg/dL (NEGATIVE) H 02/24/18 12:40 Vancomycin Trough 19.0 ug/mL (10.0-20.0) 02/28/18 17:30 Assessment/Plan - Assessment/Plan (1) Cellulitis of right lower leg Status: Acute Current Visit: Yes Assessment: Improved Plan: Ambulate and shower today (2) Diabetes type 2, uncontrolled Status: Chronic Current Visit: Yes Qualifiers: Diabetes mellitus complication status: with circulatory complication Diabetes mellitus complication detail: with peripheral angiopathy without gangrene Assessment: Well controlled (3) Cardiomyopathy Status: Chronic Current Visit: No Qualifiers: Cardiomyopathy type: unspecified Qualified Code(s): I42.9 - Cardiomyopathy, unspecified (4) Chronic kidney disease (CKD) stage G3a/A1, moderately decreased glomerular filtration rate (GFR) between 45-59 mL/min/1.73 square meter and albuminuria creatinine ratio less than 30 mg/g Status: Chronic Current Visit: No Assessment: Stable (5) Essential hypertension Status: Chronic Current Visit: No Plan: Well controlled
[2018-03-02] MEDS: DULoxetine HCL 30 MG CAPSULE.DR PO SCH (21:41)
[2018-03-02] MEDS: SIMVASTATIN 40 MG TABLET PO SCH (21:42)
[2018-03-02] MEDS: PATIENT OWN MED 1 EACH EACH SQ SCH (21:43)
[2018-03-02] MEDS: HYDROmorphone HCL/PF 1 MG/ML DISP.SYRIN IVP PRN (21:46)
[2018-03-03] MEDS: VANCOMYCIN HCL 2 GM in 0.9 % SODIUM CHLORIDE 500 ML IV SCH ×2 (05:23→17:30)
[2018-03-03 07:38] LABS: eGFR (Non-African) > 60
[2018-03-03] MEDS: INSULIN LISPRO 100 UNIT/ML 3ML VIAL SQ SCH ×4 (08:17→21:21)
[2018-03-03] MEDS: VANCOMYCIN PHARMACY TO DOSE IV SCH (08:20)
[2018-03-03] MEDS: GABAPENTIN 100 MG CAPSULE PO SCH ×2 (08:21→21:15)
[2018-03-03] MEDS: SALINE FLUSH 10 ML DISP.SYRIN IV SCH ×2 (08:21→21:15)
[2018-03-03] MEDS: ASPIRIN 81 MG CHEW TAB PO SCH (08:22)
[2018-03-03] MEDS: MAGNESIUM OXIDE 400 MG TABLET PO SCH (08:22)
[2018-03-03] MEDS: FENOFIBRATE 160 MG TABLET PO SCH (08:23)
[2018-03-03] MEDS: CARVEDILOL 12.5 MG TABLET PO SCH ×2 (08:24→21:14)
[2018-03-03] MEDS: FUROSEMIDE 40 MG TABLET PO SCH (08:24)
[2018-03-03] MEDS: LISINOPRIL 5 MG TABLET PO SCH (08:27)
[2018-03-03] MEDS: CHOLECALCIFEROL (VIT D3) 1,000 UNIT TABLET PO SCH (08:27)
[2018-03-03] MEDS: ENOXAPARIN SODIUM 40 MG/0.4 ML DISP.SYRIN SQ SCH (08:28)
[2018-03-03 09:35] LABS: MEAN CORPUSCULAR HEMOGLOBIN 29.7 pg (28.0-34.0)
[2018-03-03 09:37] LABS: BASOPHILS % 0 % (0-2); EOSINOPHILS % 1 % (0-7); HYPOCHROMASIA 1+ (NEGATIVE); MONOCYTES % 5 % (0-11); SEGMENTED NEUTROPHILS % 67 % (39-79)
[2018-03-03] MEDS ORDERED: HYDROmorphone HCL/PF 2 MG/ML DISP.SYRIN ONE (12:49)
[2018-03-03] MEDS: HYDROmorphone HCL/PF 1 MG/ML DISP.SYRIN IVP PRN (12:54)
[2018-03-03] MEDS ORDERED: cefTRIAXone SODIUM 1 GM VIAL ONE (15:38)
[2018-03-03] MEDS: cefTRIAXone SODIUM 1 GM in 0.9 % SODIUM CHLORIDE 100 ML IV SCH (15:52)
--- NOTE | 2018-03-03 18:08 | Inpatient Progress Note ---
Subjective - Required Recertification Statement I anticipate X number of days because-include discharge plan: 2 - Review of Systems Events since last encounter: Juvenal continues to improve slowly. It is my hope that we can engage either home health or consider a skilled stay for Juvenal with outpatient evaluation by orthopedics. His pain is pretty well control. General: Denies: Chills, Night Sweats, Fatigue HEENT: Denies: Head Aches Pulmonary: Denies: Dyspnea, Cough Cardiovascular: Denies: Chest Pain, Palpitations Gastrointestinal: Denies: Nausea, Vomiting Genitourinary: Denies: Dysuria, Frequency Musculoskeletal: Leg Pain (improved) Neurological: Denies: Weakness, Numbness, Incoordination Objective - Exam Vitals and I&O: Vital Signs Temp 97.6 F 03/03/18 17:00 Pulse 78 03/03/18 17:00 Resp 18 03/03/18 17:00 BP 97/51 03/03/18 17:00 Pulse Ox 96 03/03/18 17:00 Intake & Output 03/02/18 03/03/18 03/03/18 23:59 11:59 23:59 Intake Total 5172 917 4709 Output Total 800 Balance 1500 -320 1840 Weight 140.16 kg Intake: IV 100 Right Forearm 100 Oral 9183 410 6131 Tube Feeding 600 Output: Urine 800 Other: Voiding Method Urinal Urinal Urinal # Voids 3 3 General: Alert, Oriented to Person, Oriented to Place, Oriented to Time, [place] tive HEENT: Atraumatic, PERRLA, EOMI Neck: Supple, No JVD Lungs: Clear to auscultation, Normal air movement, Speaks full Sentences, Respiratory Distress Cardiovascular: Regular rate, Normal S1, Normal S2 Abdomen: Normal bowel sounds, Soft, No tenderness Extremities: No clubbing, No cyanosis, Other (redness is abating, ulcer on the plantar aspect of the right great toe is noted.) Skin: Normal, [place], Warm, Dry Neurological: Normal speech Psych/Mental Status: Mental status NL - Results Results: Laboratory Results WBC 11.60 K/ul (4.00-12.00) 03/03/18 06:00 WBC Comment 14.26 thou/uL (4.00-12.00) H 02/27/18 06:15 RBC 4.21 M/ul (3.90-5.20) 03/03/18 06:00 Hgb 12.5 g/dL (12.0-18.0) 03/03/18 06:00 Hemoglobin (Send Out) 10.8 g/dL (12.0-18.0) L 02/27/18 06:15 Hct 37.9 % (37.0-53.0) 03/03/18 06:00 Hct (Send Out) 33.1 % (37.0-53.0) L 02/27/18 06:15 MCV 90.0 fl (80.0-100.0) 03/03/18 06:00 MCV (Send Out) 90.8 fL (80.0-100.0) 02/27/18 06:15 MCH 29.7 pg (28.0-34.0) 03/03/18 06:00 MCHC 32.9 g/dL (30.0-36.0) 03/03/18 06:00 MCHC (Send Out) 32.7 g/dL (30.0-36.0) 02/27/18 06:15 RDW 13.2 % (11.3-14.3) 03/03/18 06:00 RDW Coeff of Jessica 13.8 % (11.3-14.7) 02/27/18 06:15 Plt Count 445 K/mm3 (130-400) H 03/03/18 06:00 Neut % (Auto) Etl Tester 03/03/18 06:00 Lymph % (Auto) Etl Tester 03/03/18 06:00 [place] % (Auto) Etl Tester 03/03/18 06:00 Eos % (Auto) Etl Tester 03/03/18 06:00 Baso % (Auto) Etl Tester 03/03/18 06:00 Neut # (Auto) Etl Tester 03/03/18 06:00 Lymph # (Auto) Etl Tester 03/03/18 06:00 [place] # (Auto) Etl Tester 03/03/18 06:00 Eos # (Auto) Etl Tester 03/03/18 06:00 Baso # (Auto) Etl Tester 03/03/18 06:00 Absolute Lymphs (auto) 1.50 thou/uL (0.60-4.00) 02/27/18 06:15 Absolute Monos (auto) 0.90 thou/uL (0.00-0.90) 02/27/18 06:15 Absolute Basos (auto) 0.10 thou/uL (0.00-0.50) 02/27/18 06:15 Neutrophils % 80.5 % (39.0-79.0) H 02/27/18 06:15 Seg Neutrophils % 67 % (39-79) 03/03/18 06:00 Band Neutrophils % 9 % (0-12) 03/03/18 06:00 Lymphocytes % 14 % (16-50) L 03/03/18 06:00 Reactive Lymphs % 0.0 % (0.0-5.0) 02/28/18 Unknown Monocytes % 5 % (0-11) 03/03/18 06:00 Eosinophils % 1 % (0-7) 03/03/18 06:00 Basophils % 0 % (0-2) 03/03/18 06:00 Metamyelocytes % 0 % (0-0) 03/03/18 06:00 Myelocytes % 4 % (0-0) H 03/03/18 06:00 Absolute Neutrophils 11.48 thou/uL (1.50-7.70) H 02/27/18 06:15 Lymphocytes 10.5 % (16.0-50.0) L 02/27/18 06:15 Reactive Lymphs # 0.0 # k/uL (0.0-0.8) 02/28/18 Unknown Monocytes 6.3 % (0.0-11.0) 02/27/18 06:15 Absolute Eosinophils 0.27 thou/uL (0.00-0.60) 02/27/18 06:15 Basophilia % 0.7 % (0.0-1.5) 02/27/18 06:15 Hypochromasia 1+ (NEGATIVE) H 03/03/18 06:00 Eosinophil Count 1.9 % (0.0-6.8) 02/27/18 06:15 Sodium 135 mmol/L (136-145) L 03/03/18 06:00 Potassium 4.8 mmol/L (3.5-5.1) 03/03/18 06:00 Chloride 98 mmol/L (98-107) 03/03/18 06:00 Carbon Dioxide 24 mmol/L (22-30) 03/03/18 06:00 BUN 22 mg/dL (9-20) H 03/03/18 06:00 Creatinine 1.10 mg/dL (0.66-1.25) 03/03/18 06:00 Estimated Creat Clear 136 03/03/18 06:00 Est GFR ( Amer) > 60 (60-) 03/03/18 06:00 Est GFR (Non-Af Amer) > 60 (60-) 03/03/18 06:00 Glucose 208 mg/dL (74-106) H 03/03/18 06:00 Calcium 8.7 mg/dL (8.4-10.2) 03/03/18 06:00 Total Bilirubin 0.2 mg/dL (0.2-1.3) 03/03/18 06:00 AST 21 U/L (15-46) 03/03/18 06:00 ALT 31 U/L (13-69) 03/03/18 06:00 Alkaline Phosphatase 84 U/L (38-126) 03/03/18 06:00 Total Protein 7.0 g/dL (6.3-8.2) 03/03/18 06:00 Albumin 3.0 g/dL (3.5-5.0) L 03/03/18 06:00 Urine Color Abby (YELLOW) 02/24/18 12:40 Urine Appearance Clear (CLEAR) 02/24/18 12:40 Urine pH 5.0 (5.0 - 8.0) 02/24/18 12:40 Ur Specific [place] 1.010 (1.010-1.030) 02/24/18 12:40 Urine Protein Negative mg/dL (NEGATIVE) 02/24/18 12:40 Urine Ketones Negative mg/dL (NEGATIVE) 02/24/18 12:40 Urine Occult Blood 3+ (NEGATIVE) H 02/24/18 12:40 Urine Nitrite Negative (NEGATIVE) 02/24/18 12:40 Urine Bilirubin Negative (NEGATIVE) 02/24/18 12:40 Urine Urobilinogen 0.2 Eu (0.2-1.0) 02/24/18 12:40 Ur Leukocyte Esterase Negative (NEGATIVE) 02/24/18 12:40 Urine RBC 0-2 (0-2 HPF) 02/24/18 12:40 Urine Glucose 3+ mg/dL (NEGATIVE) H 02/24/18 12:40 Vancomycin Trough 19.0 ug/mL (10.0-20.0) 02/28/18 17:30 Assessment/Plan - Assessment/Plan (1) Cellulitis of right lower leg Status: Acute Current Visit: Yes Assessment: Slowly improving Plan: Will discuss with social work nurse tomorrow to see what we can do to either skill him, or arrange for home IV therapy and home health. (2) Diabetes type 2, uncontrolled Status: Chronic Current Visit: Yes Qualifiers: Diabetes mellitus complication status: with circulatory complication Diabetes mellitus complication detail: with peripheral angiopathy without gangrene Assessment: With poor compliance (3) Cardiomyopathy Status: Chronic Current Visit: No Qualifiers: Cardiomyopathy type: unspecified Qualified Code(s): I42.9 - Cardiomyopathy, unspecified (4) Chronic kidney disease (CKD) stage G3a/A1, moderately decreased glomerular filtration rate (GFR) between 45-59 mL/min/1.73 square meter and albuminuria creatinine ratio less than 30 mg/g Status: Chronic Current Visit: No Assessment: Stable (5) Essential hypertension Status: Chronic Current Visit: No Assessment: Well controlled
[2018-03-03] MEDS: DULoxetine HCL 30 MG CAPSULE.DR PO SCH (21:15)
[2018-03-03] MEDS: SIMVASTATIN 40 MG TABLET PO SCH (21:15)
[2018-03-03] MEDS: PATIENT OWN MED 1 EACH EACH SQ SCH (21:19)
[2018-03-04] MEDS: VANCOMYCIN HCL 2 GM in 0.9 % SODIUM CHLORIDE 500 ML IV SCH ×2 (05:00→18:27)
[2018-03-04] MEDS: INSULIN LISPRO 100 UNIT/ML 3ML VIAL SQ SCH ×4 (07:59→21:19)
[2018-03-04] MEDS: ASPIRIN 81 MG CHEW TAB PO SCH (08:35)
[2018-03-04] MEDS: FUROSEMIDE 40 MG TABLET PO SCH (08:35)
[2018-03-04] MEDS: CARVEDILOL 12.5 MG TABLET PO SCH ×2 (08:35→21:24)
[2018-03-04] MEDS: GABAPENTIN 100 MG CAPSULE PO SCH ×2 (08:36→21:17)
[2018-03-04] MEDS: MAGNESIUM OXIDE 400 MG TABLET PO SCH (08:36)
[2018-03-04] MEDS: SALINE FLUSH 10 ML DISP.SYRIN IV SCH ×2 (08:37→21:17)
[2018-03-04] MEDS: LISINOPRIL 5 MG TABLET PO SCH (08:37)
[2018-03-04] MEDS: FENOFIBRATE 160 MG TABLET PO SCH (08:38)
[2018-03-04] MEDS: CHOLECALCIFEROL (VIT D3) 1,000 UNIT TABLET PO SCH (08:38)
[2018-03-04] MEDS: VANCOMYCIN PHARMACY TO DOSE IV SCH (08:38)
[2018-03-04] MEDS: ENOXAPARIN SODIUM 40 MG/0.4 ML DISP.SYRIN SQ SCH (10:09)
[2018-03-04] MEDS ORDERED: cefTRIAXone SODIUM 1 GM VIAL ONE (13:34)
[2018-03-04] MEDS: cefTRIAXone SODIUM 1 GM in 0.9 % SODIUM CHLORIDE 100 ML IV SCH (14:03)
[2018-03-04] MEDS: DULoxetine HCL 30 MG CAPSULE.DR PO SCH (21:17)
[2018-03-04] MEDS: PATIENT OWN MED 1 EACH EACH SQ SCH (21:21)
[2018-03-04] MEDS: SIMVASTATIN 40 MG TABLET PO SCH (21:27)
[2018-03-05] MEDS: VANCOMYCIN HCL 2 GM in 0.9 % SODIUM CHLORIDE 500 ML IV SCH (05:08)
[2018-03-05] MEDS: INSULIN LISPRO 100 UNIT/ML 3ML VIAL SQ SCH (07:28)
[2018-03-05] MEDS: CHOLECALCIFEROL (VIT D3) 1,000 UNIT TABLET PO SCH (09:18)
[2018-03-05] MEDS: ASPIRIN 81 MG CHEW TAB PO SCH (09:18)
[2018-03-05] MEDS: MAGNESIUM OXIDE 400 MG TABLET PO SCH (09:18)
[2018-03-05] MEDS: FUROSEMIDE 40 MG TABLET PO SCH (09:18)
[2018-03-05] MEDS: CARVEDILOL 12.5 MG TABLET PO SCH (09:18)
[2018-03-05] MEDS: FENOFIBRATE 160 MG TABLET PO SCH (09:19)
[2018-03-05] MEDS: GABAPENTIN 100 MG CAPSULE PO SCH (09:21)
[2018-03-05] MEDS: ENOXAPARIN SODIUM 40 MG/0.4 ML DISP.SYRIN SQ SCH (09:21)
[2018-03-05] MEDS: LISINOPRIL 5 MG TABLET PO SCH (09:21)
[2018-03-05] MEDS: SALINE FLUSH 10 ML DISP.SYRIN IV SCH (09:23)
[2018-03-05 09:25] VITALS: BP 112/60
--- NOTE | 2018-03-05 15:47 | Discharge Summary ---
DATE OF ADMISSION: February 24, 2018 DATE OF DISCHARGE: March 05, 2018 DIAGNOSES ON THIS HOSPITALIZATION: 1. Prepatellar cellulitis of right knee. 2. Diabetes mellitus type 2. 3. Obesity. 4. Cardiomyopathy. 5. Chronic renal insufficiency. 6. Essential hypertension. 7. Generalized arthritis. 8. Obstructive sleep apnea. SUMMARIZATION OF ADMISSION HISTORY AND PHYSICAL: This is a 62-year-old male patient of Dr. Lynch's who Dr. Lynch had admitted initially on February 24, 2018, with an open wound on the distal aspect of his leg that they had been having some difficulty getting to heal. He noted some increasing warmth around his knee and had some low-grade fevers. He was taken to the emergency room for an evaluation. He was diagnosed with cellulitis and had an elevated white blood cell count of 14,000 on admission. He was placed on IV vancomycin and ceftriaxone. Blood cultures did not grow out any pathogens all the way through day 4 on either sample. Clinically, he continued to improve. He was continued on his IV vancomycin at 2 grams IV every 12 hours and actually did pretty well. Blood sugars were still a little bit elevated but he was markedly incompliant with his diet. Today, March 05, he was transferred to skilled care for continued IV antibiotic therapy, as well as for occupational and physical therapy. MEDICATIONS ON TRANSFER TO SKILLED CARE: 1. Tylenol 650 mg every 4 hours p.r.n pain or fever. 2. Aspirin 81 mg daily. 3. Carvedilol 25 mg p.o. b.i.d. 4. Ceftriaxone 1 gram IV every 24 hours. 5. Sliding scale insulin with NovoLog. 6. Vitamin D3, 1000 units p.o. daily. 7. Duloxetine 30 mg p.o. daily. 8. Enoxaparin 40 mg daily subcutaneous. 9. Fenofibrate 160 mg p.o. daily. 10. Lasix 40 mg p.o. daily. 11. Gabapentin 100 mg p.o. b.i.d. 12. Lisinopril 10 mg daily. 13. Loratadine 10 mg p.o. daily. 14. Magnesium oxide 200 mg p.o. daily. 15. Metformin 1000 mg p.o. b.i.d. 16. Continue Vancomycin 2000 mg IV every 12 hours. CONDITION ON DISCHARGE: He is in improved condition. DISCHARGE INSTRUCTIONS: Occupational therapy and physical therapy were consulted on discharge. [id number]
== END 2018-03-05 08:32 | DRG 603 ==
LOC: ED 12:19 → SOUTH 13:30
PROVIDERS: ADMIT Family Medicine; ATTEND Family Medicine
DX: L03.115 Cellulitis of right lower limb (principal); I42.9 Cardiomyopathy, unspecified; E11.8 Type 2 diabetes mellitus with unspecified complications; E66.9 Obesity, unspecified; N18.9 Chronic kidney disease, unspecified; G47.33 Obstructive sleep apnea (adult) (pediatric); M15.9 Polyosteoarthritis, unspecified
CPT/HCPCS: 36415; 73590; 73701; 80053; 80202; 81002; 85025; 87040; 93971; 99222; 99231; 99232; 99233; 99238; J0696; J1170; J1650; J1815; J1940; J3370; J7060; Q9967; J7030; S1016

== ENCOUNTER 2018-02-26 13:19 | Outpatient (CLI) | payer OTHER ==
[2018-02-26 10:28] VITALS: BP 102/56
--- NOTE | 2018-02-28 10:42 | OP Clinic Progress Note ---
SUBJECTIVE: The patient, Chris Kinney, was scheduled for an outpatient clinic visit today for right lower leg wound and right great toe plantar wound follow up. The patient was seen at bedside in the hospital today due to the fact that he was just admitted in the last couple of days. The patient states that on Saturday, he began having significant pain and blisters developing on his right lower extremity. The patient came into the clinic earlier this week on Saturday and the patient was seen by his primary care provider and admitted by Dr. Lynch to the hospital for significant cellulitis to the right lower extremity. He was placed on antibiotics and is currently on vancomycin and Rocephin. The patient states that he still has significant pain to the right lower extremity and has pain with range of motion of the knee, as well as in the ankle. The patient had a line of demarcation drawn where the erythema had extended, approximately half way up the thigh and this has improved and is down to the level of the knee and further down. The erythema seems to be pretty significant and focused at the prepatellar area mainly but is fairly significant throughout the right lower extremity from just above the ankle proximal to the knee. The patient, at this time, denies any fever, chills, nausea, vomiting, shortness of breath or chest pain. It should be noted that he has had significant fevers while in the hospital so far but he is good at this time. The patient also has had blood cultures which are negative at this time and a CBC x2 has been performed demonstrating elevation and increasing white blood cell count level currently at 17.56. It should be noted that this patient's vitals included today a temperature of 98.6 degrees Fahrenheit orally, blood pressure of 100/56 with a second blood pressure reading at 106/57, heart rate 84, respiration rate 20. The blood pressure was discussed with Dr. Lynch after our visit today and he is aware of the low blood pressure readings and the fact that the patient is receiving Lasix as well and is not on any saline drip at this time. He will look into this and make adjustments as needed he said. OBJECTIVE: Vascular: Palpable pulses at DP and PT of the right foot. Moderate swelling of the right foot and severe swelling located from the knee distal down to the ankle of the right lower extremity. Dermatologic: Right great toe plantar wound has a hyperkeratosis noted overlying what was I believe, a previous wound. This has no erythema, but it does have a small blister with serosanguineous fluid that was drained today. Right lower extremity from the knee distal has significant erythema and warmth with improved erythema now from the knee most proximal and down to the ankle. The patient has multiple bullae formation and several with fluid inside that seems to be mostly serosanguineous in nature with some darker discoloration. These were debrided today at the most prominent areas of fluid collection to reveal underlying damaged tissue with a granular base. The patient has a significant amount of Silvadene all over his leg which some of it was able to be removed today during cleaning of the wounds. There is no erythema about the right foot. Erythema seems to be significantly strongest at the prepatellar area. Musculoskeletal: There is fluctuance with palpation at the prepatellar area of the right knee. There is also a small amount of fluctuance located just proximal lateral to the lateral malleolus area. This is located at the distal lateral lower leg. This is measuring approximately 1 square centimeter in size. There is pain on palpation throughout the right lower extremity lower leg area. There is also pain with range of motion of the knee and the ankle. Neurologic: There is significant increase in pain with light palpation to the right lower leg. Light touch sensation is intact to the lower leg but fairly limited to the toes of the right foot. PROCEDURE: The right lower extremity had all dressings removed. Sharp debridement of several bullae about the right lower leg with drainage of fluid, which is serosanguineous in color. There was no malodor noted. There was significant erythema and warmth, however. These were then rinsed with normal saline with a copious amount. This was then dried with a sterile gauze and dressings were applied consisting of Adaptic 4 x 4 gauze impregnated with Betadine, Nicki 4 x 4 gauze, ABD pad, and 2 rolls of 4-inch Kerlix. The patient will leave this dressing intact and we will see him again tomorrow to see if any improvement at that time. ASSESSMENT: 1. Severe cellulitis of right lower extremity. 2. Possible prepatellar abscess. 3. Possible lower leg abscess. 4. Possible osteomyelitis of the right tibia. PLAN: X-rays were reviewed last night after ordering x-rays of the lower leg to check for soft tissue emphysema. There was no evidence of gas in the tissue, however, there was evidence of periosteal reaction about the posterior proximal aspect of the tibia. This is concerning for possible osteomyelitis in light of the fact that there is severe cellulitis happening in his right lower extremity. This is something we will have to explore further. We are unable to obtain an MRI here, so we will have to have him get an MRI in the very near future. At this time, we are focused on trying to calm down the infection/cellulitis with vancomycin and Rocephin ordered by Dr. Lynch. Dr. Lynch is managing these medications for antibiotics and is adjusting them today more accordingly to the patients weight and size. We believe that he should have a little bit higher dose of vancomycin for example, but he is checking the peaks and troughs. I am concerned that there is a prepatellar abscess due to the fluctuance and significant erythema and warmth noted at that location, as well as concerned about the slight fluctuance at the distal lateral lower right leg. A CT scan with contrast of the right lower extremity in totality is to be performed today stat. We will then visualize the exam and radiology read as well and make a decision going forward. I am concerned that if there is any sort of prepatellar abscess, that it will likely that we need to consider transferring the patient to [place] where the patient can receive Orthopedic care to have this incision and drainage performed or tapped, or whatever they feel needs to be done. If there is no abscess noted, we will discuss further medical plans with Dr. Lynch at that time. We will follow the patient at this time and will look for results of the imaging later on today. cc: Dr. Syed CASTILLO
== END 2018-02-26 13:20 ==
LOC: POD 13:19
PROVIDERS: ATTEND Podiatrist Foot & Ankle Surgery
DX: L03.115 Cellulitis of right lower limb (principal)
CPT/HCPCS: 99213

== ENCOUNTER 2018-03-05 08:35 | Inpatient (IN) | payer OTHER ==
[2018-03-05] MEDS ORDERED: CARVEDILOL 12.5 MG TABLET PO ONE (13:46)
[2018-03-05] MEDS: L. ACIDOPHILUS/LACTOBAC SPOR 1 EACH CAP PO SCH ×2 (13:57→20:47)
[2018-03-05] MEDS ORDERED: VANCOMYCIN HCL 2 GM in 0.9 % SODIUM CHLORIDE 500 ML IV SCH (14:00)
[2018-03-05] MEDS ORDERED: ENOXAPARIN SODIUM 30 MG/0.3 ML DISP.SYRIN SQ SCH (14:00)
[2018-03-05 14:59] VITALS: BMI 38.2
[2018-03-05] MEDS: INSULIN LISPRO 100 UNIT/ML 3ML VIAL SQ SCH ×2 (16:37→20:51)
[2018-03-05] MEDS: ACETAMINOPHEN 325 MG TABLET PO SCH ×2 (16:39→20:40)
[2018-03-05] MEDS: CARVEDILOL 12.5 MG TABLET PO SCH (20:40)
[2018-03-05] MEDS: SIMVASTATIN 40 MG TABLET PO SCH (20:40)
[2018-03-05] MEDS: GABAPENTIN 100 MG CAPSULE PO SCH (20:41)
[2018-03-05] MEDS: DULoxetine HCL 30 MG CAPSULE.DR PO SCH (20:41)
[2018-03-05] MEDS ORDERED: CARVEDILOL 25 MG TABLET PO SCH (21:00)
[2018-03-05] MEDS: PATIENT OWN MED 1 EACH EACH SQ SCH (21:13)
[2018-03-05] MEDS ORDERED: FUROSEMIDE 40 MG TABLET PO ONE (23:24)
[2018-03-05] MEDS ORDERED: MAGNESIUM OXIDE 400 MG TABLET PO ONE (23:25)
[2018-03-05] MEDS ORDERED: FENOFIBRATE 160 MG TABLET ONE (23:27)
[2018-03-06] MEDS: ACETAMINOPHEN 325 MG TABLET PO SCH ×6 (00:07→21:19)
[2018-03-06 06:01] LABS: BASOPHILS % 0.4 (0.0-1.5); EOSINOPHILS % 3.6 % (0.0-6.8); MEAN CORPUSCULAR HEMOGLOBIN 29.4 pg (28.0-34.0); MONOCYTES % 6.7 % (0.0-11.0)
[2018-03-06 06:02] LABS: NEUTROPHILS # 4.5 # k/uL (1.4-7.7)
[2018-03-06 06:09] LABS: eGFR (Non-African) > 60
[2018-03-06] MEDS: INSULIN LISPRO 100 UNIT/ML 3ML VIAL SQ SCH ×4 (08:54→21:14)
[2018-03-06] MEDS: SODIUM CHLORIDE 0.9% IV SCH (08:55)
[2018-03-06] MEDS: CHOLECALCIFEROL (VIT D3) 1,000 UNIT TABLET PO SCH (08:55)
[2018-03-06] MEDS: VANCOMYCIN HCL IV SCH (08:55)
[2018-03-06] MEDS: FENOFIBRATE 160 MG TABLET PO SCH (08:55)
[2018-03-06] MEDS: FUROSEMIDE 40 MG TABLET PO SCH (08:56)
[2018-03-06] MEDS: CARVEDILOL 12.5 MG TABLET PO SCH ×2 (08:56→21:19)
[2018-03-06] MEDS: L. ACIDOPHILUS/LACTOBAC SPOR 1 EACH CAP PO SCH ×2 (08:56→21:19)
[2018-03-06] MEDS: LORATADINE 10 MG TABLET PO SCH (08:56)
[2018-03-06] MEDS: MAGNESIUM OXIDE 400 MG TABLET PO SCH (08:56)
[2018-03-06] MEDS: GABAPENTIN 100 MG CAPSULE PO SCH ×2 (08:57→21:19)
[2018-03-06] MEDS: LISINOPRIL 5 MG TABLET PO SCH (08:57)
[2018-03-06] MEDS: ENOXAPARIN SODIUM 40 MG/0.4 ML DISP.SYRIN SQ SCH (16:49)
[2018-03-06] MEDS: DULoxetine HCL 30 MG CAPSULE.DR PO SCH (21:19)
[2018-03-06] MEDS: SIMVASTATIN 40 MG TABLET PO SCH (21:19)
[2018-03-06] MEDS: PATIENT OWN MED 1 EACH EACH SQ SCH (21:19)
[2018-03-07] MEDS: ACETAMINOPHEN 325 MG TABLET PO SCH ×6 (00:21→21:43)
[2018-03-07] MEDS: INSULIN LISPRO 100 UNIT/ML 3ML VIAL SQ SCH ×4 (08:17→21:50)
[2018-03-07] MEDS ORDERED: diphenhydrAMINE HCL 25 MG TABLET PO ONE (08:19)
[2018-03-07] MEDS: LORATADINE 10 MG TABLET PO SCH (08:26)
[2018-03-07] MEDS: CARVEDILOL 12.5 MG TABLET PO SCH ×2 (08:26→21:44)
[2018-03-07] MEDS: MAGNESIUM OXIDE 400 MG TABLET PO SCH (08:27)
[2018-03-07] MEDS: FENOFIBRATE 160 MG TABLET PO SCH (08:27)
[2018-03-07] MEDS: L. ACIDOPHILUS/LACTOBAC SPOR 1 EACH CAP PO SCH ×2 (08:27→21:44)
[2018-03-07] MEDS: CHOLECALCIFEROL (VIT D3) 1,000 UNIT TABLET PO SCH (08:28)
[2018-03-07] MEDS: FUROSEMIDE 40 MG TABLET PO SCH (08:28)
[2018-03-07] MEDS: LISINOPRIL 5 MG TABLET PO SCH (08:28)
[2018-03-07] MEDS: GABAPENTIN 100 MG CAPSULE PO SCH ×2 (08:28→21:44)
[2018-03-07] MEDS: SODIUM CHLORIDE 0.9% IV SCH (08:41)
[2018-03-07] MEDS: VANCOMYCIN HCL IV SCH (08:41)
[2018-03-07] MEDS: ENOXAPARIN SODIUM 40 MG/0.4 ML DISP.SYRIN SQ SCH (17:40)
[2018-03-07] MEDS: DULoxetine HCL 30 MG CAPSULE.DR PO SCH (21:44)
[2018-03-07] MEDS: SIMVASTATIN 40 MG TABLET PO SCH (21:45)
[2018-03-07] MEDS: PATIENT OWN MED 1 EACH EACH SQ SCH (21:51)
[2018-03-08] MEDS: ACETAMINOPHEN 325 MG TABLET PO SCH ×6 (00:14→20:48)
[2018-03-08] MEDS: INSULIN LISPRO 100 UNIT/ML 3ML VIAL SQ SCH ×4 (07:22→20:44)
[2018-03-08] MEDS: SODIUM CHLORIDE 0.9% IV SCH (08:45)
[2018-03-08] MEDS: VANCOMYCIN HCL IV SCH (08:45)
[2018-03-08] MEDS: FUROSEMIDE 40 MG TABLET PO SCH (09:17)
[2018-03-08] MEDS: MAGNESIUM OXIDE 400 MG TABLET PO SCH (09:17)
[2018-03-08] MEDS: LORATADINE 10 MG TABLET PO SCH (09:17)
[2018-03-08] MEDS: FENOFIBRATE 160 MG TABLET PO SCH (09:17)
[2018-03-08] MEDS: CARVEDILOL 12.5 MG TABLET PO SCH ×2 (09:17→20:47)
[2018-03-08] MEDS: CHOLECALCIFEROL (VIT D3) 1,000 UNIT TABLET PO SCH (09:17)
[2018-03-08] MEDS: LISINOPRIL 5 MG TABLET PO SCH (09:18)
[2018-03-08] MEDS: L. ACIDOPHILUS/LACTOBAC SPOR 1 EACH CAP PO SCH ×2 (09:18→20:50)
[2018-03-08] MEDS: GABAPENTIN 100 MG CAPSULE PO SCH ×2 (09:18→20:46)
[2018-03-08] MEDS: ENOXAPARIN SODIUM 40 MG/0.4 ML DISP.SYRIN SQ SCH (16:46)
[2018-03-08] MEDS: DULoxetine HCL 30 MG CAPSULE.DR PO SCH (20:48)
[2018-03-08] MEDS: SIMVASTATIN 40 MG TABLET PO SCH (20:49)
[2018-03-08] MEDS: PATIENT OWN MED 1 EACH EACH SQ SCH (20:51)
[2018-03-09] MEDS: ACETAMINOPHEN 325 MG TABLET PO SCH ×7 (01:19→21:09)
[2018-03-09] MEDS: INSULIN LISPRO 100 UNIT/ML 3ML VIAL SQ SCH ×4 (07:44→21:19)
[2018-03-09] MEDS: CARVEDILOL 12.5 MG TABLET PO SCH ×2 (08:39→21:07)
[2018-03-09] MEDS: CHOLECALCIFEROL (VIT D3) 1,000 UNIT TABLET PO SCH (08:39)
[2018-03-09] MEDS: GABAPENTIN 100 MG CAPSULE PO SCH ×2 (08:39→21:08)
[2018-03-09] MEDS: LORATADINE 10 MG TABLET PO SCH (08:39)
[2018-03-09] MEDS: FENOFIBRATE 160 MG TABLET PO SCH (08:40)
[2018-03-09] MEDS: LISINOPRIL 5 MG TABLET PO SCH (08:40)
[2018-03-09] MEDS: SODIUM CHLORIDE 0.9% IV SCH (08:40)
[2018-03-09] MEDS: FUROSEMIDE 40 MG TABLET PO SCH (08:40)
[2018-03-09] MEDS: VANCOMYCIN HCL IV SCH (08:40)
[2018-03-09] MEDS: L. ACIDOPHILUS/LACTOBAC SPOR 1 EACH CAP PO SCH ×2 (08:40→21:07)
[2018-03-09] MEDS: MAGNESIUM OXIDE 400 MG TABLET PO SCH (08:40)
[2018-03-09] MEDS ORDERED: SIMVASTATIN 20 MG TABLET ONE (15:56)
[2018-03-09] MEDS: ENOXAPARIN SODIUM 40 MG/0.4 ML DISP.SYRIN SQ SCH (17:46)
[2018-03-09] MEDS: DULoxetine HCL 30 MG CAPSULE.DR PO SCH (21:07)
[2018-03-09] MEDS: PATIENT OWN MED 1 EACH EACH SQ SCH (21:08)
[2018-03-09] MEDS: SIMVASTATIN 40 MG TABLET PO SCH (21:11)
[2018-03-10] MEDS: ACETAMINOPHEN 325 MG TABLET PO SCH ×6 (01:00→20:24)
[2018-03-10] MEDS: INSULIN LISPRO 100 UNIT/ML 3ML VIAL SQ SCH ×4 (07:44→20:26)
[2018-03-10] MEDS: SODIUM CHLORIDE 0.9% IV SCH ×2 (08:09→20:26)
[2018-03-10] MEDS: VANCOMYCIN HCL IV SCH ×2 (08:09→20:26)
[2018-03-10] MEDS: CARVEDILOL 12.5 MG TABLET PO SCH ×2 (09:40→20:24)
[2018-03-10] MEDS: LORATADINE 10 MG TABLET PO SCH (09:40)
[2018-03-10] MEDS: L. ACIDOPHILUS/LACTOBAC SPOR 1 EACH CAP PO SCH ×2 (09:41→20:24)
[2018-03-10] MEDS: MAGNESIUM OXIDE 400 MG TABLET PO SCH (09:42)
[2018-03-10] MEDS: FUROSEMIDE 40 MG TABLET PO SCH (09:42)
[2018-03-10] MEDS: GABAPENTIN 100 MG CAPSULE PO SCH ×2 (09:44→20:25)
[2018-03-10] MEDS: LISINOPRIL 5 MG TABLET PO SCH (09:44)
[2018-03-10] MEDS: FENOFIBRATE 160 MG TABLET PO SCH (09:44)
[2018-03-10] MEDS: CHOLECALCIFEROL (VIT D3) 1,000 UNIT TABLET PO SCH (09:45)
[2018-03-10] MEDS: ENOXAPARIN SODIUM 40 MG/0.4 ML DISP.SYRIN SQ SCH (16:55)
[2018-03-10] MEDS: diphenhydrAMINE HCL 25 MG TABLET PO PRN (19:31)
[2018-03-10] MEDS: SIMVASTATIN 40 MG TABLET PO SCH (20:24)
[2018-03-10] MEDS: DULoxetine HCL 30 MG CAPSULE.DR PO SCH (20:24)
[2018-03-10] MEDS: PATIENT OWN MED 1 EACH EACH SQ SCH (20:25)
[2018-03-11] MEDS: ACETAMINOPHEN 325 MG TABLET PO SCH ×6 (02:05→20:39)
[2018-03-11] MEDS: INSULIN LISPRO 100 UNIT/ML 3ML VIAL SQ SCH ×4 (07:24→20:34)
[2018-03-11] MEDS: diphenhydrAMINE HCL 25 MG TABLET PO PRN (07:33)
[2018-03-11] MEDS: SODIUM CHLORIDE 0.9% IV SCH (08:27)
[2018-03-11] MEDS: VANCOMYCIN HCL IV SCH (08:27)
[2018-03-11] MEDS: FUROSEMIDE 40 MG TABLET PO SCH (09:38)
[2018-03-11] MEDS: L. ACIDOPHILUS/LACTOBAC SPOR 1 EACH CAP PO SCH ×2 (09:38→20:39)
[2018-03-11] MEDS: CHOLECALCIFEROL (VIT D3) 1,000 UNIT TABLET PO SCH (09:38)
[2018-03-11] MEDS: CARVEDILOL 12.5 MG TABLET PO SCH ×2 (09:38→20:40)
[2018-03-11] MEDS: LORATADINE 10 MG TABLET PO SCH (09:39)
[2018-03-11] MEDS: FENOFIBRATE 160 MG TABLET PO SCH (09:39)
[2018-03-11] MEDS: MAGNESIUM OXIDE 400 MG TABLET PO SCH (09:40)
[2018-03-11] MEDS: GABAPENTIN 100 MG CAPSULE PO SCH ×2 (09:45→20:39)
[2018-03-11] MEDS: LISINOPRIL 5 MG TABLET PO SCH (09:45)
[2018-03-11 14:13] LABS: BASOPHILS % 0.2 (0.0-1.5); EOSINOPHILS % 2.3 % (0.0-6.8); MEAN CORPUSCULAR HEMOGLOBIN 29.2 pg (28.0-34.0); MONOCYTES % 5.9 % (0.0-11.0); NEUTROPHILS # 4.5 # k/uL (1.4-7.7)
--- NOTE | 2018-03-11 14:32 | Inpatient Progress Note ---
Subjective - Required Recertification Statement I anticipate X number of days because-include discharge plan: 1 day - Review of Systems Events since last encounter: Patient has been doing well. Voices no complaints. Has been afebrile. BM OK. Bs have been in the 150 range. No hypoglycemic episodes. Still having some pain in his leg but is improved. Pulmonary: Denies: Dyspnea, Cough Cardiovascular: Denies: Chest Pain Gastrointestinal: Denies: Nausea, Vomiting, Abdominal Pain, Diarrhea, Melena, Hematochezia Objective - Exam Vitals and I&O: Vital Signs Temp 97 F L 03/11/18 08:20 Pulse 96 H 03/11/18 09:00 Resp 14 03/11/18 09:00 BP 120/74 03/11/18 08:20 Pulse Ox 96 03/11/18 08:20 Intake & Output 03/10/18 03/11/18 03/11/18 23:59 11:59 23:59 Intake Total 2900 480 1340 Balance 2900 480 1340 Weight 142.428 kg Intake: IV 1040 500 Right Antecubital 1040 500 Oral 1860 480 840 Other: Voiding Method Toilet Toilet # Voids 1 2 2 General: Alert, Oriented to Person, Oriented to Place, Oriented to Time, Cooperative, No acute distress Neck: Supple, No JVD Lungs: Clear to auscultation, Normal air movement, Speaks full Sentences. No: Respiratory Distress, Wheezes, Rales, Rhonchi Cardiovascular: Regular rate, Normal S1, Normal S2, No murmurs Abdomen: Normal bowel sounds, Soft Skin: Normal, Other (pealing skin to the R lower extremity, erythema has improved, no warmth noted. ) Neurological: Normal speech, Strength Equal Bilat, Normal tone, Sensation intact Psych/Mental Status: Mental status NL, Mood NL, Appropriate Affect, Intact Judgment - Results Results: Laboratory Results WBC 6.80 K/ul (4.00-12.00) 03/11/18 14:00 RBC 4.06 M/ul (3.90-5.20) 03/11/18 14:00 Hgb 11.9 g/dL (12.0-18.0) L 03/11/18 14:00 Hct 36.3 % (37.0-53.0) L 03/11/18 14:00 MCV 89.0 fl (80.0-100.0) 03/11/18 14:00 MCH 29.2 pg (28.0-34.0) 03/11/18 14:00 MCHC 32.7 g/dL (30.0-36.0) 03/11/18 14:00 RDW 13.5 % (11.3-14.3) 03/11/18 14:00 Plt Count 401 K/mm3 (130-400) H 03/11/18 14:00 Neut % (Auto) 66.9 % (39.0-79.0) 03/11/18 14:00 Lymph % (Auto) 24.7 % (16.0-50.0) 03/11/18 14:00 [place] % (Auto) 5.9 % (0.0-11.0) 03/11/18 14:00 Eos % (Auto) 2.3 % (0.0-6.8) 03/11/18 14:00 Baso % (Auto) 0.2 (0.0-1.5) 03/11/18 14:00 Neut # (Auto) 4.5 # k/uL (1.4-7.7) 03/11/18 14:00 Lymph # (Auto) 1.7 # k/uL (0.6-4.0) 03/11/18 14:00 [place] # (Auto) 0.4 # k/uL (0.0-0.9) 03/11/18 14:00 Eos # (Auto) 0.2 # k/uL (0.0-0.6) 03/11/18 14:00 Baso # (Auto) 0.0 # k/uL (0.0-0.5) 03/11/18 14:00 Sodium 137 mmol/L (136-145) 03/06/18 05:53 Potassium 4.6 mmol/L (3.5-5.1) 03/06/18 05:53 Chloride 100 mmol/L (98-107) 03/06/18 05:53 Carbon Dioxide 25 mmol/L (22-30) 03/06/18 05:53 BUN 20 mg/dL (9-20) 03/06/18 05:53 Creatinine 1.10 mg/dL (0.66-1.25) 03/06/18 05:53 Estimated Creat Clear 138 03/06/18 05:53 Est GFR ( Amer) > 60 (60-) 03/06/18 05:53 Est GFR (Non-Af Amer) > 60 (60-) 03/06/18 05:53 Glucose 169 mg/dL (74-106) H 03/06/18 05:53 Calcium 8.9 mg/dL (8.4-10.2) 03/06/18 05:53 Total Bilirubin 0.3 mg/dL (0.2-1.3) 03/06/18 05:53 AST 20 U/L (15-46) 03/06/18 05:53 ALT 31 U/L (13-69) 03/06/18 05:53 Alkaline Phosphatase 71 U/L (38-126) 03/06/18 05:53 Total Protein 6.9 g/dL (6.3-8.2) 03/06/18 05:53 Albumin 3.0 g/dL (3.5-5.0) L 03/06/18 05:53 Vancomycin Trough 18.0 ug/mL (10.0-20.0) 03/10/18 07:15 Assessment/Plan - Assessment/Plan (1) Cellulitis of right lower leg Status: Acute Current Visit: No Assessment: vancomycin level within therapeutic range. Renal functions stable (2) Diabetes type 2, uncontrolled Status: Chronic Current Visit: No Qualifiers: Diabetes mellitus complication status: with circulatory complication Diabetes mellitus complication detail: with peripheral angiopathy without gangrene Assessment: BS stable (3) Essential hypertension Status: Chronic Current Visit: No Assessment: BP stable
[2018-03-11] MEDS: ENOXAPARIN SODIUM 40 MG/0.4 ML DISP.SYRIN SQ SCH (17:53)
[2018-03-11] MEDS: SIMVASTATIN 40 MG TABLET PO SCH (20:38)
[2018-03-11] MEDS: DULoxetine HCL 30 MG CAPSULE.DR PO SCH (20:40)
[2018-03-11] MEDS: PATIENT OWN MED 1 EACH EACH SQ SCH (20:43)
[2018-03-12] MEDS: ACETAMINOPHEN 325 MG TABLET PO SCH ×6 (03:32→21:43)
[2018-03-12] MEDS: INSULIN LISPRO 100 UNIT/ML 3ML VIAL SQ SCH ×4 (07:29→21:48)
[2018-03-12] MEDS: CHOLECALCIFEROL (VIT D3) 1,000 UNIT TABLET PO SCH (09:16)
[2018-03-12] MEDS: L. ACIDOPHILUS/LACTOBAC SPOR 1 EACH CAP PO SCH ×2 (09:18→21:45)
[2018-03-12] MEDS: CARVEDILOL 12.5 MG TABLET PO SCH ×2 (09:19→21:44)
[2018-03-12] MEDS: FENOFIBRATE 160 MG TABLET PO SCH (09:20)
[2018-03-12] MEDS: GABAPENTIN 100 MG CAPSULE PO SCH ×2 (09:20→21:45)
[2018-03-12] MEDS: MAGNESIUM OXIDE 400 MG TABLET PO SCH (09:21)
[2018-03-12] MEDS: LORATADINE 10 MG TABLET PO SCH (09:21)
[2018-03-12] MEDS: FUROSEMIDE 40 MG TABLET PO SCH (09:25)
[2018-03-12] MEDS: SODIUM CHLORIDE 0.9% IV SCH ×2 (09:28→09:33)
[2018-03-12] MEDS: VANCOMYCIN HCL IV SCH ×2 (09:28→09:33)
[2018-03-12] MEDS: LISINOPRIL 5 MG TABLET PO SCH (09:31)
[2018-03-12] MEDS: ENOXAPARIN SODIUM 40 MG/0.4 ML DISP.SYRIN SQ SCH (16:47)
[2018-03-12] MEDS: SIMVASTATIN 40 MG TABLET PO SCH (21:44)
[2018-03-12] MEDS: DULoxetine HCL 30 MG CAPSULE.DR PO SCH (21:45)
[2018-03-12] MEDS: PATIENT OWN MED 1 EACH EACH SQ SCH (21:46)
[2018-03-13] MEDS: ACETAMINOPHEN 325 MG TABLET PO SCH ×3 (05:50→08:50)
[2018-03-13] MEDS: INSULIN LISPRO 100 UNIT/ML 3ML VIAL SQ SCH ×2 (07:49→12:03)
[2018-03-13] MEDS: LISINOPRIL 5 MG TABLET PO SCH (08:45)
[2018-03-13] MEDS: LORATADINE 10 MG TABLET PO SCH (08:47)
[2018-03-13] MEDS: L. ACIDOPHILUS/LACTOBAC SPOR 1 EACH CAP PO SCH (08:48)
[2018-03-13] MEDS: FENOFIBRATE 160 MG TABLET PO SCH (08:48)
[2018-03-13] MEDS: CHOLECALCIFEROL (VIT D3) 1,000 UNIT TABLET PO SCH (08:48)
[2018-03-13] MEDS: MAGNESIUM OXIDE 400 MG TABLET PO SCH (08:48)
[2018-03-13] MEDS: CARVEDILOL 12.5 MG TABLET PO SCH (08:48)
[2018-03-13] MEDS: GABAPENTIN 100 MG CAPSULE PO SCH (08:49)
[2018-03-13] MEDS: FUROSEMIDE 40 MG TABLET PO SCH (08:49)
[2018-03-13 13:02] VITALS: BP 105/58
--- NOTE | 2018-03-17 08:01 | Discharge Summary ---
Discharge Summary - Discharge Sumary Condition at Discharge: Stable Home Medications: Ambulatory Orders Medication Instructions Recorded Alpha Lipoic Acid 600 mg PO QDAY 02/24/18 Furosemide 20 mg PO QDAY 02/24/18 Gabapentin 300 mg PO HS 02/24/18 Insulin Degludec [Tresiba 82 unit SQ HS 02/24/18 Flextouch U-100] Naproxen 250 mg PO QDAY 02/24/18 Acetaminophen [Tylenol] 650 mg PO Q4 tablet 03/13/18 Consultations this Visit: None Allergies/Adverse Reactions: Allergies Allergy/AdvReac Type Severity Reaction Status Date / Time No Known Drug Allergies Allergy Verified 02/24/18 12:57 Discharge Summary: On admission to SNF patient was continued on vancomycin IV antibiotic therapy for his cellulitis. Patient was started on physical and occupational therapy to help with ambulation. Patient diabetes mellitus remain stable during his hospital stay. At the time to discharge patient cellulitis appear to have resolved. However patient continued to be weak and have difficulties with a mbulation. Patient was started on home health therapy to continue with physical and occupational therapy. - Final Diagnosis (1) Cellulitis of right lower leg Problems: improved (2) Diabetes type 2, uncontrolled Problems: Stable on home medications. (3) Essential hypertension Problems: Stable on home medications.
== END 2018-03-13 12:45 | disposition home health service (06) | DRG 603 ==
LOC: SOUTH 08:35
PROVIDERS: ADMIT Family Medicine; ATTEND Family Medicine
DX: L03.115 Cellulitis of right lower limb (principal); R26.89 Other abnormalities of gait and mobility; E66.9 Obesity, unspecified; I13.10 Hypertensive heart and chronic kidney disease without heart failure, with stage 1 through stage 4 chronic kidney disease, or unspecified chronic kidney disease; E11.22 Type 2 diabetes mellitus with diabetic chronic kidney disease; N18.9 Chronic kidney disease, unspecified; M15.9 Polyosteoarthritis, unspecified; G47.33 Obstructive sleep apnea (adult) (pediatric)
CPT/HCPCS: 36415; 80053; 80202; 85025; 85651; 99231; 99232; 99238; J1650; J3370; J7060; Q0163

== ENCOUNTER 2018-04-02 15:07 | Outpatient (CLI) | payer OTHER ==
--- NOTE | 2018-04-03 10:45 | OP Clinic Progress Note ---
SUBJECTIVE: Chris Kinney is a 62-year-old male presenting today for right foot and right lower leg wounds. The patient has a recent history of a DVT for which he is on Xarelto and states he has his last pill coming up he believes tomorrow. The patient was encouraged to call Dr. Lynch or the [place] where he was prescribed the Xarelto and find out today or tomorrow at the latest if he is to be continuing blood thinner medications going forward. The patient also has an appointment with Dr. Monroy, his pot room supervisor, next week or rather her nurse practitioner, and states he will let her know at that time as well about the DVT. The patient admits he is a little tired today and that there are other things going on in his life that have been stressful. The patient does not admit to any fevers, chills, nausea, vomiting, shortness of breath or chest pain today. The patient is applying antibiotic ointment to the great toe of the right foot and a Band-Aid, as well as Medihoney and a Band-Aid to the right lower leg daily. OBJECTIVE: VITAL SIGNS: T: 97.3 degrees Fahrenheit, R: 20, heart rate 72, BP: 135/73, oxygen saturation is 97% on room air. VASCULAR: DP and PT pulses are 2+ of the right foot. Capillary refill time is immediate to the toes of the right foot. There is severe edema of the right lower extremity and foot, greater than the left lower extremity. DERMATOLOGIC: The right lower leg still has mild warmth and erythema noted about the lower leg. It is also still severely swollen, as well as the right foot. There is improved/almost zero erythema over the anterior right knee at this time. The right lower leg has a small ulcer that has a mild fibrous plug which was debrided revealing a wound measuring 0.5 x 0.15 x 0.2 cm deep. The patient has no erythema or malodor or purulence noted there. The wound appears to be healing well. It is almost completely healed at this time. Right plantar IPJ wound of the hallux demonstrates a hyperkeratosis, which was debrided to reveal again a small ulcer with a granular base measuring 0.3 x 0.2 x 0.1 cm deep. This was an improvement from the last visit as well. There is mild erythema and slight warmth about the great toe but it is the same as everywhere else on the right lower extremity. I believe that the warmth is still due to the edema and previous DVT. There is no purulence or malodor noted to the right hallux wound. There are no other open lesions noted about the right foot. We will assess the left foot more on the next visit. MUSCULOSKELETAL: There is mild pain on palpation noted about the right lower leg wound. There is no pain on palpation noted to the right hallux wound. There is limited dorsiflexion of the 1st metatarsophalangeal joint of the right foot with the forefoot loaded, noted on previous visit. There is virtually zero range of motion about the subtalar joint of right lower extremity. There is limited ankle joint range of motion of the right ankle. The foot has a severely abducted position noted with collapse of the mid-foot area. NEUROLOGIC: Light touch sensation is absent to the toes of the right foot but present at the distal right lower leg. ASSESSMENT: 1. Open wound of right lower leg, subsequent encounter. 2. Open wound of toe, subsequent encounter. 3. Diabetes mellitus type 2. 4. Diabetic peripheral neuropathy. 5. Peripheral edema bilaterally. PROCEDURE #1: Sharp debridement of right leg wound to subcutaneous tissue less than 20 square cm to granular base performed with a #15 blade. This wound is improving. Bleeding was controlled with pressure, which was mild. The wound was dressed with triple antibiotic ointment and a Band-Aid. PROCEDURE #2: Sharp debridement of right sub hallux IPJ hyperkeratosis and subsequent granular base less than 20 square cm to reveal a wound. This wound is also improving. Bleeding was controlled with pressure, which was mild. The wound was dressed with triple antibiotic ointment and a Band-Aid. The patient seems to be improving well on both wounds and we will hold off on obtaining a new surgical shoe, as the patient is nearly healed. The patient was fit for a custom AFO, ankle foot orthosis, by [facility] yesterday and should be receiving them by the end of the month. We will hopefully have these wounds healed by then and he can go into diabetic shoes and the AFO that he will be getting from [facility]. The patient is finishing his antibiotic and I do not believe he needs anymore at this time. The patient states [facility]. The patient was encouraged strongly to speak with Dr. Lynch or his nurse today or tomorrow to get an answer for continuing DVT treatment after he finishes his Xarelto tomorrow. The patient will do this or contact the doctor from the [place] where was prescribed the Xarelto. The patient is meeting with Dr. Monroy's nurse practitioner next week and will speak with them about approval/clearance for aggressive multi-layer compressive wraps to begin on the patient's right lower extremity to improve swelling and work toward more aggressive compression stockings at that time, perhaps from [employer]. The patient, due to the previous DVT, however, may not be allowed to have aggressive compression for a little while. The patient is currently using his compressive stockings on his right lower extremity that he was already wearing previously. PLAN: Return to clinic next week on Saturday for wound debridement x2 and evaluation of both lower extremities. I do not believe we will be able to do aggressive compression due to the previous DVT and we will follow up with his visits with other physicians at that time. MATERIALS USED: 4 x 4 gauze package. cc: Dr. Jorge L CASTILLO
== END 2018-04-02 15:10 ==
LOC: POD 15:07
PROVIDERS: ATTEND Podiatrist Foot & Ankle Surgery
DX: L97.818 Non-pressure chronic ulcer of other part of right lower leg with other specified severity (principal); L97.518 Non-pressure chronic ulcer of other part of right foot with other specified severity; E11.42 Type 2 diabetes mellitus with diabetic polyneuropathy; R60.0 Localized edema; Z86.718 Personal history of other venous thrombosis and embolism
CPT/HCPCS: 11042

== ENCOUNTER 2018-04-07 14:45 | Outpatient (CLI) | payer OTHER ==
--- NOTE | 2018-04-11 11:55 | OP Clinic Progress Note ---
SUBJECTIVE: Chris Kinney is a 62-year-old male who presents today for follow up of the right lower leg wound and right great toe wound. The patient denies any problems or concerns over this last week and overall, his leg is looking better. The patient denies any fevers, chills, nausea, vomiting, shortness of breath or chest pain at this time. The patient is continuing to utilize DVT prophylactic medication as prescribed by Dr. Lynch. The patient went and saw him last week after I encouraged this to make sure that the patient continued appropriate DVT treatment due to the history of a DVT recently in the right lower extremity. The patient also admits that he will be seeing Dr. Monory next week for cardiology. The patient may be able to speak with Dr. Monroy about possible aggressive compression at that time. OBJECTIVE: VITAL SIGNS: T: 97.2 degrees Fahrenheit, heart rate 66, R: 20, BP: 141/75, pulse oximetry is 95%. VASCULAR: DP and PT pulses are 2+ of the right foot. Capillary refill time is immediate to the toes of the right foot. There is severe edema still noted about the right lower extremity and foot. The patient also has a slight discoloration and somewhat curvilinear irritation that is more of a purplish color about the right proximal medial foot which may have been from a strap of the shoe or the compression stockings he uses. This was noticed on the patient today when the compression stockings were removed. DERMATOLOGIC: Small purplish curvilinear irritation in the skin as noted above. Also, there is no erythema, purulence, or malodor noted. Right lower leg ulcer with small fibrous plug debrided today to reveal a healing ulcer measuring 0.65 x 0.2 x 0.1 cm deep. I believe this is overall improving in appearance even though measurements do not quite demonstrate that completely today. Right plantar IPJ wound of hallux demonstrates hyperkeratotic tissue which was debrided to reveal better a small ulcer with a granular base measuring today 0.35 x 0.3 x 0.15 cm deep. Again, this seems to be looking fairly similar to our last visit. There is no erythema, malodor, or purulence noted. There is no erythema noted to the right lower extremity at this time. That has definitely improved since the last visit. MUSCULOSKELETAL: There is mild pain on palpation noted to the right lower leg wound. There is no pain on palpation noted to the right hallux wound. There is virtually no range of motion about the subtalar joint of the right lower extremity noted from previous exam. There is also limited ankle joint range of motion of the right ankle from previous exam. The right foot still has a severely abducted position noted with collapse of the mid-foot area. The left lower extremity was not evaluated today. NEUROLOGIC: Light touch sensation is absent to the toes of the right foot but present at the distal right lower leg. ASSESSMENT: 1. Open wound of right lower leg, subsequent encounter. 2. Open wound of toe, subsequent encounter. 3. Diabetes mellitus type 2. 4. Diabetic peripheral neuropathy. 5. Peripheral edema bilaterally. PROCEDURE #1: Sharp debridement of the right leg wound to subcutaneous tissue less than 20 square cm to the granular base was performed with a #15 blade. This wound definitely seems to be improving despite measurements. Bleeding was controlled with pressure, which was mild. The wound was dressed with triple antibiotic ointment and a Band-Aid. The patient will continue utilizing Medihoney and a Band-Aid daily. PROCEDURE #2: Sharp debridement of right sub hallux IPJ hyperkeratosis and subsequent granular base less then 20 square cm to reveal a wound. The wound does not seem to be improving much at all since last week. Bleeding was controlled with pressure, which was mild. The wound was dressed with triple antibiotic ointment and a Band-Aid. The patient will continue doing the same with triple antibiotic ointment and a Band-Aid daily. The patient seems to be overall improving still, as I feel like the wounds in general look better. We will still hold off on obtaining a new surgical shoe. The patient is planning on picking up the custom AFOs at the end of the month and I told the patient he may begin utilizing that on on the left lower extremity but to still use the surgical shoe on the right until these are healed. The patient should get his MRI sometime this week I believe. As mentioned before, the patient is going to continue his DVT medication which I believe is Xarelto still. He will likely be on it for 3 to 6 months I believe I heard. The patient will meet with Dr. Monroy sometime next week I believe or this week and if he speaks with her about aggressive multi-layer compression wraps on the right lower extremity, we will consider it. I really do not think it is a great idea though any time soon due to the recent history of a DVT. I will likely not plan on that at this time. Due to the possible irritation from the compression stockings, I discontinued those for a week on the right lower extremity and just applied a very light Issa wrap and showed the patient's how to apply it lightly. I do not want to do any aggressive compression at all due to the recent DVT. The patient and his understand this plan. PLAN: Return to clinic next week on Saturday for wound debridement x2 and evaluation of the lower extremity. MATERIALS USED: 1. 4 x 4 gauze package. 2. 4-inch elastic bandage. 3. 6-inch elastic bandage. cc: Dr. Jorge L CASTILLO
== END 2018-04-07 14:46 ==
LOC: POD 14:45
PROVIDERS: ATTEND Podiatrist Foot & Ankle Surgery
DX: L97.818 Non-pressure chronic ulcer of other part of right lower leg with other specified severity (principal); L97.518 Non-pressure chronic ulcer of other part of right foot with other specified severity; E11.42 Type 2 diabetes mellitus with diabetic polyneuropathy; R60.0 Localized edema; Z86.718 Personal history of other venous thrombosis and embolism
CPT/HCPCS: 11042

== ENCOUNTER 2018-04-14 14:27 | Outpatient (CLI) | payer OTHER ==
--- NOTE | 2018-04-16 10:26 | OP Clinic Progress Note ---
SUBJECTIVE: Chris Kinney is a 62-year-old male patient seen today for a follow up of 2 wounds on the right lower extremity. The patient says that they are following directions as prescribed previously with triple antibiotic ointment, Medihoney, and Band-Aids to those wounds. He does not admit to any concerns except for the fact that he finished his Xarelto last Saturday and is having difficulty with [facility] getting the medication to him to continue his Xarelto. Immediate conversation with [place] and Dr. Syed estes at the [facility] began at the beginning of the appointment by Crhistie oneill nurse and we were able to obtain some samples for the patient in the meantime while they work on getting this approved. Specifics regarding dose and how much to take is being obtained by Christie our nurse here from [place] and Dr. Lynch over at the [facility] and will be given to the patient prior to leaving today. The patient does not admit to any fevers, chills, nausea, vomiting, shortness of breath, or chest pain at this time. OBJECTIVE: VITAL SIGNS: BP: 130/75, heart rate 72, R: 20, T: 97.2 degrees Fahrenheit, pulse oximetry is 95% on room air. VASCULAR: DP and PT pulses of the right foot and left foot are 2+. Capillary refill is immediate to the toes of bilateral feet. There is severe edema still noted about the right lower extremity and foot. The patient no longer has the somewhat curvilinear discoloration noted about the right proximal medial foot like he did before. The patient admits that this is still slightly tender however. DERMATOLOGIC: There is no small purplish curvilinear irritation in the skin noted above this week. There is also no erythema, purulence, or malodor noted. The right lower leg ulcer appears to be closed with a very small fibrous plug. This was debrided with a #15 blade today to reveal a very small wound with some depth still measuring today of 0.7 x 0.1 x 0.1 cm deep. Overall, this seems to be improved. There is some drainage of serous color coming from the wound during the remainder of the appointment and this is likely due to the large amount of swelling in the leg having an exit route. This was discussed with the patient today. There is no purulence or erythema noted. Right plantar IPJ wound of the hallux demonstrates hyperkeratotic tissue which was debrided today to reveal a small ulcer still present measuring 0.4 x 0.3 x 0.15 cm deep. This is about the same as last time. There is no erythema, purulence, or malodor noted. Left foot and ankle were visualized today and free of any evidence of erythema or pre-ulcerative concern or hyperkeratosis. There are no open lesions on the left lower extremity. MUSCULOSKELETAL: There is mild pain on palpation noted to the right lower leg wound. There is no pain on palpation to the right hallux wound however. Range of motion is still noted as being very limited to the subtalar joint of the right foot, as well as the ankle of the right foot, as well as limited range of motion about the ankle and subtalar joint of the left lower extremity. NEUROLOGIC: Light touch sensation is absent to the toes of the right foot but present at the distal right lower leg. ASSESSMENT: 1. Open wound of right lower leg, subsequent encounter. 2. Open wound of toe, subsequent encounter. 3. Diabetes mellitus type 2. 4. Diabetic peripheral neuropathy. 5. Peripheral edema bilaterally. PROCEDURE #1: Sharp debridement of the right lower leg wound to the subcutaneous tissue less than 20 square cm to the granular base was performed with a #15 blade today. This wound seems very close to healing but seems to be prevented due to consistent drainage from the wound. Bleeding was controlled with pressure, which was mild. The wound was dressed with triple antibiotic ointment and a Band-Aid. The patient will continue utilizing Medihoney and a Band-Aid daily for this wound. PROCEDURE #2: Sharp debridement of the right sub hallux IPJ hyperkeratosis and subsequent granular base less then 20 square cm to reveal a wound. This wound base was debrided with a #15 blade. The wound measurement seemed to be about the same as last week. Bleeding was controlled with pressure, which was mild. The wound was dressed with triple antibiotic ointment and a Band-Aid. The patient will continue utilizing triple antibiotic ointment and a Band-Aid daily. I believe the patient is struggling to finish healing the lower leg wound due to swelling and I will work to contact the rail track layer or the nurse practitioner under the rail track layer to confirm and obtain written agreement to aggressive compression if they are for sure okay with this at this time. I am slightly concerned about doing this after a recent DVT; however, I will leave it up to them to make that decision and give us written confirmation of this. I will make sure that they understand the nature of the compression I am hoping to do. The right hallux wound I believe may be slowing from healing all the way due to continued pressure. Upon evaluation of the surgical shoe, the padding seems to be excessive on the lateral aspect of the foot likely causing the foot to cause more pressure medially. This was removed almost in its entirety from the lateral aspect of the surgical shoe and more padding was placed on the medial aspect in an off-loading pattern to off-load the IPJ. We will see if this helps next week. The toenails were also trimmed today just to help the patient as a few of them were sharp. A light Issa wrap 4-inch and 6-inch were applied to the right lower extremity to help with swelling without any sort of aggressive compression due to the recent DVT. The patient and his understand this plan also. PLAN: Return to the clinic next week on Saturday or Saturday for wound debridement x2 and evaluation of the lower extremity. Hopefully, I will have a response from the Dr. Monroy or the nurse practitioner, Savana, about whether or not we can do aggressive compression with Profore wraps. We will see if this is approved. If this is approved, we will do this until the swelling has improved and consider newly fitting the patient for aggressive compression socks. We also discussed the possibility of surgery to release the pressure of the IPJ of the right hallux but I am also having concern for doing this due to struggles to heal already. Patient understands this. We will see the patient next week. cc: Dr. Jorge L CASTILLO
== END 2018-04-14 14:30 ==
LOC: POD 14:27
PROVIDERS: ATTEND Podiatrist Foot & Ankle Surgery
DX: L97.818 Non-pressure chronic ulcer of other part of right lower leg with other specified severity (principal); L97.518 Non-pressure chronic ulcer of other part of right foot with other specified severity; E11.42 Type 2 diabetes mellitus with diabetic polyneuropathy; R60.0 Localized edema; Z86.718 Personal history of other venous thrombosis and embolism
CPT/HCPCS: 11042; A6402

== ENCOUNTER 2018-04-21 13:25 | Outpatient (CLI) | payer OTHER ==
--- NOTE | 2018-05-06 14:50 | OP Clinic Progress Note ---
SUBJECTIVE: Chris Kinney is a 62-year-old male who presented to the clinic today for follow up on his right lower extremity distal lower leg wound, as well as right hallux wound. The patient has been utilizing Issa wraps and these Issa wraps were only about residential up the right lower leg. The patient received his ankle/foot orthosis from [employer] for both feet, as well as diabetic shoes. He is utilizing them at this time. The patient was told by Training And Quality Manager to go ahead and use them as they provide a pocket for protection underneath the interphalangeal joint of the right hallux where the wound is. I agreed that we will continue trying to use these as long as the compressive wraps fit inside. The patient does not admit to any fevers, chills, nausea, vomiting, shortness of breath, or chest pain at this time. OBJECTIVE: VITAL SIGNS: T: 97.0 degrees Fahrenheit, heart rate: 72, R: 21, BP: 125/65, oxygen saturation is 97% on room air. VASCULAR: DP and PT pulses of the right foot are 2+. The left foot is 2+ from her previous exam. The left foot was not examined today. Capillary refill time is immediate to the toes of the right foot. There is still severe edema noted about the right lower extremity and leg, especially just proximal to where his AFO and Issa wraps reach, as well as over the distal forefoot. The ankle itself seemed to be fairly compressed from the Issa wraps and the AFO. DERMATOLOGIC: There is a very mild superficial skin irritation noted just a little bit on the anterior medial aspect of the ankle area. This is likely due to fold of compression wraps previously or it was from his new AFO. We will evaluate this again at a subsequent visit to see if this gets better with a change in not using these Issa wraps. The right lower leg ulcer demonstrates a small open lesion with an eschar covering it for the most part. This eschar/dry fibrous plug was left intact today, even though there is some drainage noted on the bandage overlying this area. It was decided to leave the area intact and to not perform debridement at this time to see if it will continue to close underneath this area. No procedure was done of this area. There is no erythema or purulence noted. The right great toe interphalangeal joint plantarly has an open ulcer with very minimal hyperkeratosis noted. This is less than the usual. This is likely due to having improved shoe gear at this time. The patient has no erythema or purulence noted from this area. The wound and hyperkeratosis were debrided including the subcutaneous tissue to have a granular base measuring 0.4 x 0.3 x 0.15 cm deep, which is the same as last time. There is no erythema, purulence, or malodor noted. It should be noted that the right lower leg wound seems to be measure 0.6 x 0.1 cm in length and width. Depth was not measured today. Lengthwise, this does seem to be healing, however. MUSCULOSKELETAL: There is mild pain on palpation noted over the right lower leg wound. There is no pain on palpation of the right hallux wound. Range of motion is consistent with being limited in the subtalar joint of the right foot, as well as the ankle of the right foot and limited range of motion about the ankle and subtalar joint of the left lower extremity is noted from a previous exam. NEUROLOGIC: Light touch sensation is absent to the toes of the right foot but present in the distal right lower leg. ASSESSMENT: 1. Open wound of right lower leg, subsequent encounter. 2. Open wound of toes, subsequent encounter. 3. Diabetes mellitus type 2. 4. Diabetic peripheral neuropathy. 5. Peripheral edema bilaterally. PROCEDURE #1: Sharp debridement of the right sub hallux IPJ hyperkeratosis and subsequent granular base which was less than 20 square centimeters. This wound base was debrided with a #15 blade. The wound measurement seemed to be about the same as last week again. Bleeding was controlled with pressure, which was mild. The wound was dressed with triple antibiotic ointment and a Band-Aid today. The patient will continue utilizing triple antibiotic ointment and a Band-Aid daily and this was discussed with the patient's . Although the wound measurements seem to be consistent, there is a change in utilizing appropriate diabetic shoe gear which seems to be offloading the area better. We will see if this begins to improve next week with improved shoe gear. We also are working on aggressive compression, which we will discuss further down below, and this may also help with improved healing. PROCEDURE #2: Four-layer compressive wrap was applied to the right lower extremity. Initially, antibiotic ointment and 4 x 4 gauze and 3-inch Nicki wrap was applied over the right lower leg wound to protect it. Following this, the four-layer compression wrap was applied per instructions. The patient was then placed in his AFO and diabetic shoe. This was noted to be a little bit snug but the patient said that it felt about the same as before. We are going to have home health care address and visualize the leg and remove the dressings on the Saturday or this week and potentially apply another 4-layer compression wrap if they have them, but if there is any concern to the leg or they are unable to obtain these 4-layer compressive wraps, the home health person will apply 2-layers of Issa wrap over from the base of the toes to the tibial tuberosity of the right lower extremity. Once we are able to get compression on this leg under control and edema under control, we will consider having the patient fit for appropriate compressive stockings probably from [facility]. The patient is happy with the plan going forward at this time. DuoDERM and gauze was placed over the distal forefoot dorsally to add a little bit more compression underneath the last layer of the 4-layer compression wrap, which was the Coban. An additional 3-inch Coban roll was utilized in the proximal end, as we ran out of Coban for the patient's large edematous leg. It should be noted that a note was returned from Savana Matta, the nurse practitioner with Dr. Monroy who confirmed with Dr. Monroy that the patient is okay to begin aggressive compressive therapy to the right lower extremity despite recent DVT. They were well aware of the patient's DVT and stated that we should be good to go to begin the aggressive compression. This was begun today because of that. PLAN: The patient was instructed today that if he is feeling that the AFO and shoe are too tight, that he may remove those and switch over to his surgical shoe again. Home health will check him on Saturday and and I will see the patient again next Saturday for his return to clinic visit. MATERIALS USED: 1. 4-inch elastic bandage and 6-inch elastic bandage were sent home in case it needed to be used at home if home health cannot do the 4-layer compressive wrap. 2. DuoDERM 4 x 4. 3. 3-inch Coban roll. 4. 4-layer compression wrap kit. 5. 3-inch sterile Nicki. cc: Dr. Jorge L CASTILLO
== END 2018-04-21 13:26 ==
LOC: POD 13:25
PROVIDERS: ATTEND Podiatrist Foot & Ankle Surgery
DX: E11.42 Type 2 diabetes mellitus with diabetic polyneuropathy (principal); L97.511 Non-pressure chronic ulcer of other part of right foot limited to breakdown of skin; L97.521 Non-pressure chronic ulcer of other part of left foot limited to breakdown of skin
CPT/HCPCS: 11042

== ENCOUNTER 2018-04-28 14:44 | Outpatient (CLI) | payer OTHER ==
--- NOTE | 2018-05-08 10:29 | OP Clinic Progress Note ---
SUBJECTIVE: Chris Kinney is a 62-year-old male who has been seen for a right lower leg wound, as well as a right great toe plantar IPJ wound. Last week, this patient was placed in a 4-layer compression wrap for the first time and was seen today to follow up on that. The patient denies any concerns or problems. He states that at times he is wearing his brace and it feels okay but he states that he did not wear his brace today on the right side and got back in his previous surgical shoe instead of the new diabetic shoe he has also been wearing at times lately. The patient does not admit to any fevers, chills, nausea, vomiting, shortness of breath, or chest pain at this time. He seems to be his normal self today. The patient states that they did not change the dressing to the right great toe wound at all this last week as they misunderstood and thought that it was supposed to be left alone. The plan was to have the wound dressing changed daily as it was outside of the 4-layer compression wrap. OBJECTIVE: VITAL SIGNS: BP: 128/66, heart rate: 71, R: 18, T: 97.6 degrees Fahrenheit, oxygen saturation is 97% on room air. VASCULAR: There are 2+ DP and PT pulses of the right foot. Capillary refill time is less than 3 seconds to the toes of the right foot. There is less edema to the right foot and much less edema to the right lower extremity. It should be noted that the home health dressing change that took place once during the week where they were able to apply the 4-layer wrap was not covering the lateral ankle area. DERMATOLOGIC: There were 2 notable dark discolorations just proximal and medial to the right lower leg previous ulcer. These were noted to be blood blisters and were de-roofed and debrided. These were dressed with triple antibiotic ointment and a Band-Aid. There was very mild erythema near these areas, as well as the right great toe, and the right great toe seemed more swollen than usual. The right lower leg ulcer has a stable what appears to be eschar over the area. This was left intact today. We will continue to watch it and make sure that it heals well. The right great toe wound has noted hyperkeratosis and this was debrided with a #15 blade and the base of the wound was debrided with a #15 blade. The granular base was still appearing to measure about the same as before if not slightly bigger. It was not measured directly today. There was no purulence or malodor noted. There is mild erythema to the right great toe but not really any warmth. There were no other gross abnormalities or lesions noted. The left foot and ankle were evaluated today as well and there were no pre-ulcerative or concerning areas and the brace seems to be fitting very well on the left side. MUSCULOSKELETAL: There is mild pain on palpation noted at the blood blister location. There is no pain on palpation elsewhere. There is noted foot and ankle deformity from previous notes. NEUROLOGIC: Light touch sensation is diminished at the toes of the right foot. ASSESSMENT: 1. Heme-filled bulla x2 on right lower leg. 2. Toe ulcer on right hallux. 3. Cellulitis on right hallux. 4. Healing right lower extremity wound. 5. Diabetes mellitus with polyneuropathy. 6. Right foot deformity. PROCEDURE #1: Two heme-filled bullae were de-roofed and the wound site debrided with a #15 blade. The patient tolerated the procedure well but it was slightly painful. Hemostasis was obtained with pressure and these were dressed with triple antibiotic ointment and a Band-Aid at both sites. These measured probably less than 0.2 x 0.2 x 0.2 cm deep. This was for each of them. PROCEDURE #2: Right hallux sub IPJ ulcer and callus debrided, as well as the base debrided with a #15 blade. This was dressed with triple antibiotic ointment and a Band- Aid today. The patient tolerated the procedure well. PLAN: Due to the concern for the 2 blood blisters that formed, I am worried that the patient will not be able to tolerate the 4-layer compression wraps with the ankle/foot orthosis that he is using. I am not sure if it is due to an abnormal prominence in the brace, which he did not bring to the clinic today. The patient has an appointment with [facility] on May 14 and he was encouraged to discuss the right brace with them to see if there is any padding that needs to be done. The patient had a 2-layer compression wrap applied today with 2 layers of 4-inch and 6-inch Issa wrap each applied from the foot up to the knee. This will be done daily with daily dressing changes to those 3 sites. The right lower leg wound that was there previous and has scabbed over is left alone at this time. I am out of town and the patient is not able to see me on my last day here, which would be the 05 of May, and therefore, they will continue dressing changes and have home health come once a week to help with that in the meantime, and I will see the patient again on the 19 of May over at the [facility], as they are not open in the outpatient clinic that day. The patient was advised that if there are any concerns or problems to notify Dr. Lynch immediately while I am out of town. The patient was also encouraged to speak with Dr. Lynch about the Xarelto, as he still has not been able to obtain the prescription for it and is beginning today to utilize the samples that Dr. Lynch got him that should last another 4 weeks if I understood correctly. The patient was encouraged to talk to him as soon as he could about that as well. The patient also had a prescription for clindamycin 300 mg b.i.d. x7 days sent to [facility]. This was called in. This is to address if there is an early cellulitis beginning in the right lower leg and great toe. cc: Dr. Jorge L CASTILLO
== END 2018-04-28 14:46 ==
LOC: POD 14:44
PROVIDERS: ATTEND Podiatrist Foot & Ankle Surgery
DX: E11.42 Type 2 diabetes mellitus with diabetic polyneuropathy (principal); L97.811 Non-pressure chronic ulcer of other part of right lower leg limited to breakdown of skin; L97.511 Non-pressure chronic ulcer of other part of right foot limited to breakdown of skin; L03.116 Cellulitis of left lower limb; L03.115 Cellulitis of right lower limb; R23.8 Other skin changes
CPT/HCPCS: 11042

== ENCOUNTER 2018-05-26 13:25 | Outpatient (CLI) | payer OTHER ==
--- NOTE | 2018-05-27 12:18 | OP Clinic Progress Note ---
SUBJECTIVE: Chris Kinney is a 62-year-old male who presents today to the clinic for follow up of a right great toe ulcer. We have been working on this ulcer for several weeks now and are not getting any improvement at this point. The patient presents today with increased edema and erythema to the right great toe, as well as overall increased edema and purplish discoloration to the right lower extremity and severe edema. The right leg is noticeably different in color and size compared with the left. The patient does not admit to any fevers, chills, nausea, vomiting, shortness of breath, or chest pain at this time. The patient would like to discuss surgical correction, as he is concerned about running out of sick time off he is allowed to have. OBJECTIVE: VITAL SIGNS: T: 97.6 degrees Fahrenheit, heart rate 88, R: 18, pulse oximetry is 97% on room air, BP: 122/64. VASCULAR: There are 2+ DP and PT pulses bilaterally. Capillary refill time is less than 3 seconds to the toes bilaterally. There is moderate to severe edema to the right lower extremity. DERMATOLOGIC: Right great toe IPJ plantar medial ulcer is still present with hyperkeratosis around the edges. This was debrided to still have a notable wound approximately 0.6 x 0.4 x 0.3 cm deep. This toe does not have any purulence or malodor, however, there is significant erythema and edema noted to the right great toe especially. There is also a small excoriation noted just towards the proximal end of his brace on the right anteromedial lower leg. I do not see a place on his brace that is causing this and the place where there is some blood on his brace does not have any sharp points in it. There is no erythema, malodor, or purulence noted about this small superficial excoriation that has minimal bleeding. This was cleansed today with an alcohol wipe. Left foot does not show any evidence of pre-ulcerative concerns or lesions. There is no hyperkeratosis either. MUSCULOSKELETAL: There is obvious foot deformity with a rear foot valgus and a "too many toes" sign. The patient has some pain on palpation noted about the excoriation on the right lower leg, as well as the right great toe wound. There is limited range of motion about the 1st MPJ that has improved slightly with the forefoot not loaded versus limited motion with the forefoot loaded. There is mild pain on palpation of the right lower extremity calf muscles. This may be due to a concern for a blood clot versus solely edema. NEUROLOGIC: Light touch sensation is intact but diminished to the toes of the right foot. ASSESSMENT: 1. Right foot cellulitis. 2. Right lower extremity deep venous thrombosis (DVT)? 3. Right hallux ulcer. 4. Right lower leg excoriation. PLAN: 1. Antibiotic for clindamycin 300 mg 1 tablet by mouth t.i.d. x10 days was sent to [facility]. 2. A prescription for a venous Doppler was also written for and will hopefully be performed tomorrow after prior authorization is obtained today. I am not sure if the patient has a right lower extremity DVT despite being on Xarelto, but due to the significant contrast in lower extremity edema and color on the right side versus the left, I am going to get a venous Doppler performed to make sure we do not have a new DVT of the right lower extremity. The patient understands this and is willing to get this done tomorrow. The patient will also get started on the Clindamycin and will take that to completion. The plan was initially to have the patient prepped for surgery for next week or later this week for an aggressive cheilectomy of the right 1st metatarsophalangeal joint in order to improve range of motion and decrease pressure at the IPJ and heal the wound, with potentially primary closure of the wound. At this time due to the cellulitis, we will hold off on scheduling for surgery until we see the patient next week. We will work on obtaining labs, etc. once we see that he is doing better next week. We will also get whatever clearance we need from Nephrology and primary care physician and Cardiology likely. We will clarify with his primary care physician the plan for surgery as they mentioned in their note that he is clear for surgery for local anesthesia, however, there will still be MAC performed. Return to the Outpatient Clinic next week on and we will see if he has greatly improved at this time and go forward with planning for surgery at that time. cc: Dr. Jorge L CASTILLO
== END 2018-05-26 13:26 ==
LOC: POD 13:25
PROVIDERS: ATTEND Podiatrist Foot & Ankle Surgery
DX: L03.115 Cellulitis of right lower limb (principal); L97.511 Non-pressure chronic ulcer of other part of right foot limited to breakdown of skin; R60.9 Edema, unspecified
CPT/HCPCS: 99212

== ENCOUNTER 2018-06-05 09:27 | Outpatient (CLI) | payer OTHER ==
--- NOTE | 2018-06-11 15:13 | OP Clinic Progress Note ---
SUBJECTIVE: Chris Kinney is a 62-year-old male who presented to the clinic today for a follow up of a right hallux diabetic foot ulcer. The patient has been applying triple antibiotic ointment and a Band-Aid daily to the right great toe. The patient states that his leg if feeling much better since last week or the week before when he was diagnosed with a superficial thrombophlebitis, meaning a superficial blood clot in the great saphenous vein of the right calf and popliteal fossa area. The patient is feeling much better. They are concerned that the toe is looking worse, however. The patient admits having some pain in the toe at this time. The patient does not admit to any fevers, chills, nausea, vomiting, shortness of breath or chest pain at this time. The patient states he has not spoken with Dr. Lynch in the last few days. OBJECTIVE: VITAL SIGNS: T: 98.5 degrees Fahrenheit, heart rate 68, R: 18, BP: 114/67. Pain is 6 out of 10 in the right big toe. VASCULAR: There 2+ DP and PT pulses of the right foot. Capillary refill time is less than 3 seconds to the toes of the right foot. There is mild edema to the right foot with more moderate edema in the right lower leg. There is no purple discoloration or erythema noted in the entire right lower extremity. DERMATOLOGIC: Right lower leg wound remains completely healed. Right plantar medial first toe IPJ: Severe hyperkeratosis noted with minimal undermining again, which was removed with a #15 blade to reveal a granular base which was debrided today. This is not probed to bone. There is no malodor or purulence noted. There is no erythema noted. There are no other open lesions or concerning areas of the right lower extremity. Wound size measuring 1 cm x 0.7 cm x 0.3 cm deep at the IPJ ulcer of the right great toe. MUSCULOSKELETAL: Mild pain on palpation noted to the right great toe ulcer. There is limited range of motion of the great toe metatarsophalangeal joint of the right foot with the forefoot loaded and improved range of motion with the forefoot not loaded. There is a notable fallen arch and rear foot valgus noted as well of the right foot. The left lower extremity was not visualized today. It should be noted that the arch is non-reducible on the right side. NEUROLOGIC: Light touch sensation is diminished to the right foot. ASSESSMENT: 1. Diabetes mellitus type 2. E11.9. 2. Diabetic peripheral neuropathy. E11.42. 3. Chronic kidney disease. N18.9. 4. Open wound of toe, subsequent encounter. S91.109D. 5. Peripheral edema. R60.9. 6. Hallux limitus of right foot. M20.5X1. PROCEDURE #1: Sharp debridement with a #15 blade of the hyperkeratosis and underlying ulcer measuring less than 20 square centimeters of the right great toe. Bleeding was controlled with silver nitrate and pressure. The patient tolerated the procedure well. Triple antibiotic ointment and a Band-Aid were applied. The patient will utilize the same dressing with antibiotic ointment and a Band-Aid daily as instructed. PLAN: We discussed with the patient the importance of bringing his surgical shoe and also beginning wearing his surgical shoe again to help offload the right great toe as his new shoe does not seem to be working well. He can use the new braces that he has in the surgical shoe as long as he feels stable. We may consider 4- layer compression dressings to help with the swelling in the right lower extremity beginning next week and have him use just the 4-layer compression wrap and the surgical shoe that we will modify as needed. We also discussed the inability I have to go forward with surgery until we have clearance. I discussed with Dr. Lynch that his most recent venous Doppler demonstrated a clot in the superficial great saphenous vein near the popliteal fossa and upper calf region. I have looked into this further through the [facility] and they looked at the previous imaging from March 20, where they did not see a clot in the great saphenous vein. This means that either the patient has developed a clot despite being on Xarelto through that time or the patient developed a superficial clot in the great saphenous vein when he was off Xarelto for 4 to 7 days when he ran out at one point. I believe that may have been in the middle of April about the when he sent him for a Doppler that only gave us a couple of pictures due to inability to see much. That Doppler on the only showed a couple of pictures more proximal of the leg and did not show the great saphenous vein, so we were not able to evaluate and check for a clot in the great saphenous vein at that visit when looking back. The patient understands we cannot do surgery until we have clearance. Dr. Lynch is planning on referring the patient to see a vascular doctor to possibly have an IVC filter placed. Once the patient sees the vascular surgeon, I will be happy to request clearance and see if they are okay with us doing surgery or not and what recommendations they have regarding blood thinners and reducing clot formation likelihood and risk. I do believe that this surgery is still important for the patient to allow his wound to heal so that he does not develop a diabetic foot infection that is very likely and a risk for him with an open wound still on his great toe. I believe a procedure to address the range of motion of the great toe joint at the metatarsophalangeal joint will improve the forces, as in decrease the forces to the IPJ. This has all been discussed with the patient and we will do a more further and detailed discussion preoperatively once we know that we have clearance if we obtain it. The patient understands this plan and is happy to go forward at this time and states he will call Dr. Lynch to try and get that set up. They are concerned about running out of sick time and I understand the concern and I am trying to expedite things and I am on hold for surgery until I get clearance from someone else. We want to make sure that he is completely safe and that we do not cause a DVT and a possible pulmonary embolism. The patient understands the plan and willing to go forward. JONATHAN
== END 2018-06-05 09:30 ==
LOC: POD 09:27
PROVIDERS: ATTEND Podiatrist Foot & Ankle Surgery
DX: E11.621 Type 2 diabetes mellitus with foot ulcer (principal); E11.42 Type 2 diabetes mellitus with diabetic polyneuropathy; N18.9 Chronic kidney disease, unspecified; R60.9 Edema, unspecified; M20.5X1 Other deformities of toe(s) (acquired), right foot
CPT/HCPCS: 11042

== ENCOUNTER 2018-06-12 08:30 | Outpatient (CLI) | payer OTHER ==
--- NOTE | 2018-06-12 15:06 | Diagnostic Imaging Report ---
BRIAN MACIAS [facility] [address] [facility] [address] [id number] Report Submission Date: Jun 12, 2018 11:49:02 AM SALON/SPA MANAGER Patient Study Name: VIRGEN VICTORIA Date: Jun 12, 2018 10:30:50 AM SALON/SPA MANAGER Modality Type: US Gender: M Description: [facility] : 53 Institution: [facility] Physician: BRIAN MACIAS Examination: Ultrasound right vein History: Rt leg swelling Findings: Sonographic evaluation of the right lower extremity venous system from the groin to the popliteal fossa inclusive. Normal compressibility. No luminal filling defect. Normal waveforms and response to augmentation. No popliteal region fluid collection. Impression: No evidence for deep venous thrombosis. Electronically signed on Jun 12, 2018 11:49:02 AM SALON/SPA MANAGER by: Darron CASTILLO
--- NOTE | 2018-06-17 10:56 | OP Clinic Progress Note ---
SUBJECTIVE: Chris Kinney is a 62-year-old male who presented to the clinic today for follow up of a right hallux diabetic foot ulcer. The patient still has been following instructions with applying triple antibiotic ointment and a Band-Aid daily to the right great toe. The patient also has switched back to his surgical shoe and is not using his brace, as it does not fit appropriately in there. The patient does not admit to any problems or concerns. No malodor or inappropriate drainage at this time. The patient states that they have spoken with Dr. Lynch about getting into the vascular doctor soon and they are working on getting an appointment now and they have not heard back yet on the appointment time yet. The patient does not admit to any fevers, chills, nausea, vomiting, shortness of breath or chest pain at this time. OBJECTIVE: VITAL SIGNS: Heart rate 82, R: 18, T: 97.1 degrees Fahrenheit, BP: 111/73, oxygen saturation is 98%. Pain is 2 out of 10 in right big toe. VASCULAR: There is 2+ DP and PT pulses of the right foot. Capillary refill time is less than 3 seconds to the toes of the right foot. There is mild to moderate edema overall of the right lower extremity. There is no purple discoloration or erythema noted at all on the right lower extremity. DERMATOLOGIC: Right lower leg wound remains completely healed still at this time and looks great. Right plantar medial hallux IPJ: Severe hyperkeratosis is noted again but without any undermining at this time. There is notable fibrous or necrotic tissue in the base which was debrided with a #15 blade to a more a granular base, which also has a good amount of bleeding. Hemostasis was obtained with pressure and silver nitrate. There is no undermining of the wound nor maceration. Hyperkeratosis was removed to intact skin. There was no erythema, malodor, purulence, nor [id number]-bz-[id number] noted. There are no other open lesions of the right lower extremity. The wound was measured today at 1.0 x 0.7 x 0.3 cm deep again. MUSCULOSKELETAL: Mild to zero pain on palpation noted of the right great toe ulcer. There is limited range of motion of the great toe metatarsophalangeal joint of the right foot with the forefoot loaded and improved range of motion with the forefoot not loaded from previous exam. There is still a notable fallen arch, as well as rear foot valgus of the right foot. When standing, you can definitely see that the arch drops in the foot. The mid-foot falls inward and the heel goes more valgus. The left lower extremity was not visualized today. It should be noted that the arch is nonreducible still to the right side. NEUROLOGIC: Light touch sensation is diminished to the right foot. ASSESSMENT: 1. Diabetes mellitus type 2. E11.9. 2. Diabetic peripheral neuropathy. E11.42. 3. Chronic kidney disease. N18.9. 4. Open wound of toes, subsequent encounter. S91.109D. 5. Peripheral edema. R60.9. 6. Hallux limitus of right foot. M20.5X1. PROCEDURE #1: Sharp debridement of the right great toe ulcer with a #15 blade of the hyperkeratosis, as well as the underlying fibrotic tissue measuring less than 20 square centimeters. Bleeding was controlled with silver nitrate and pressure. Triple antibiotic ointment and 4 x 4 gauze, 2-inch Nicki, and 1-inch Coban were applied to the toe and onto the distal forefoot. The patient will continue dressings in the same fashion every other day going forward at this time. The patient will utilized Medihoney, however, instead of triple antibiotic ointment to see if this improves anything. PLAN: Today, we were able to modify the patient's surgical shoe that is a forefoot offloading surgical shoe still that he has had, to know have appropriate padding to better offload the great toe. This is another effort as we have done it previously but did it even more aggressively today to offload that IPJ ulcer area. This was tested on the patient and seems to be in an appropriate position. We are working on trying to get him a new surgical shoe that may be a little more comfortable to walk in, however, I do like that this is a forefoot offloading shoe. I would rather get the patient probably in something that he feels safe walking in, however. We will continue to wait on any plan for surgery until we have clearance from a vascular doctor. I ordered a venous ultrasound of the right lower extremity to help with getting that moving forward, as Dr. Lynch would like to have a venous Doppler performed again at this time so that he can get the referral going. The patient is continuing on Xarelto at this time. He knows that it may take a few months or longer to get rid of these clots. The right lower extremity seems to be doing much better, however, and has mild to moderate edema but no evidence of fluid breaking through the skin. We will wait longer on surgery until we have clearance and the patient understands this and we will push to do that quickly once we have clearance at that time. The patient was encouraged to utilize an Issa wrap to the foot and lower leg as able in order to help a little bit with swelling without too much compression at all. The patient had no further questions and understands the plan going forward at this time. Return to clinic in 1 week for follow up of the wound to see if it is doing any better with the adjusted offloading of the surgical shoe. We may have a new surgical shoe for him at that time as well, which should be a double XL shoe if we can get one. JONATHAN
== END 2018-06-12 08:32 ==
LOC: POD 08:30
PROVIDERS: ATTEND Podiatrist Foot & Ankle Surgery
DX: S91.109D Unspecified open wound of unspecified toe(s) without damage to nail, subsequent encounter (principal); E11.42 Type 2 diabetes mellitus with diabetic polyneuropathy; M20.5X1 Other deformities of toe(s) (acquired), right foot; M79.89 Other specified soft tissue disorders
CPT/HCPCS: 11055; 93971

== ENCOUNTER 2018-06-19 09:29 | Outpatient (CLI) | payer OTHER ==
--- NOTE | 2018-06-21 10:15 | OP Clinic Progress Note ---
CHRIS KINNEY. ADMISSION#.: [id number] : 1955 DATE OF VISIT: 06/19/2018 SUBJECTIVE: Chris Kinney is a 62-year-old male who presents for follow-up of a right hallux interphalangeal joint wound. This patient is diabetic with neuropathy and has been dealing with this wound for quite some time. The patient also has a significant history of a DVT back in early March which on subsequent Dopplers is no longer visible. The patient also has a history of a more recent superficial venous thrombophlebitis in the great saphenous vein near the upper calf region. The patient is being sent for a Doppler today at [facility] in [place] to compare these images to previous to make sure that this clot is not propagating. The patient otherwise is feeling well but is concerned that the swelling is increasing in his right lower leg. The patient admits he still has some ankle pain in bilateral ankles as well as increased pain in the great toe today. The patient does not admit to any fevers, chills, nausea, vomiting, shortness of breath or chest pain at this time. OBJECTIVE: Vitals: Temperature 97.4 degrees Fahrenheit, heart rate 75, respiration rate 20, blood pressure 132/68. Vascular: DP and PT pulses 2+ of the right foot. Capillary refill time is less than 3 seconds to the toes of the right foot. There is moderate edema noted at the right lower extremity. There is no purple discoloration, bulla or erythema noted at this time at all. There is no warmth noted that is of concern to the right leg. Dermatologic: Right plantar medial hallux interphalangeal joint: Severe hyperkeratosis is still noted with a bit of eschar in the base of the wound. There is no undermining really at this time. The wound was debrided and the hyperkeratosis debrided to a better slightly granular base but with some fibrous tissue still there. There is good bleeding which was controlled with pressure and silver nitrate. There is no erythema, malodor or purulence nor probe to bone noted today. The measurement of the wound seems to be staying consistent at 1.0 x 0.7 x 0.3 cm deep. There are no open lesions of the leg. The patient does have a tiny dry eschar on the right lower leg anteriorly which may signify that he had opened a small bulla which then dried up. It is dry and stable with no signs of infection at this time. Musculoskeletal: There is mild pain on palpation noted to the right great toe ulcer. It is strange that there is no pain with debridement until certain times where it starts to hurt. There is very limited range of motion of the great toe metatarsophalangeal joint of the right foot with the forefoot loaded, and improved range of motion when the forefoot is not loaded. There is still notable fallen arch as well as rear foot valgus of the right foot. The mid foot still falls inward and the heel is more valgus. We did not visualize the left lower extremity today. It should be noted that the arch is nonreducible to the right side. Neurologic: There is light touch sensation diminished to the right foot. ASSESSMENT AND PLAN: 1. Diabetes mellitus type 2, 11.9. 2. Diabetic peripheral neuropathy, 1142. 3. Chronic kidney disease, N18.9. 4. Open wound of toes, subsequent encounter S91.109D. 5. Peripheral edema, R60.9. 6. Hallux limitus of the right foot, M20.5X1. PROCEDURE #1: Sharp debridement of the right great toe ulcer with a #15 blade as well as the hyperkeratosis was performed revealing some fibrogranular base measuring less than 20 sq. cm. There was no undermining noted. Bleeding was controlled with silver nitrate and pressure. 4x4 gauze, 2 inch Nicki and 1 inch Coban were applied to the toe and onto the distal forefoot for dressings. The patient will continue dressing in the same fashion as he has previously every other day going forward. The patient will utilize Medihoney, however, instead of the triple antibiotic ointment still. A 2-layer compression wrap was applied to the right lower extremity consisting of a 4 inch and a 6 inch Issa wrap and a duplicate of this over the top. This extends from the distal forefoot to just below the knee of the right lower extremity. The patient is to leave this intact except for dressing changes at this time. Of note, a discussion was had with Dr. Lynch regarding compression as it appears that the right lower leg seems to be swelling and on the verge of developing bullae. He is in agreement that we can compress aggressively but due to the fact that he has the patient set up for a venous Doppler at [facility] now today we will just do a 2-layer compression wrap with Issa wraps so they may be removed and reapplied afterward. The patient understands this. We are also calling and discussing with Dr. Senior with Cardiology to confirm that they are okay with aggressive compression. Dr. Lynch has given his approval but we already had called and left a message for Dr. Senior. The patient understands that in order to get clearance for surgery we need to do a follow-up Doppler at the appropriate location in order to have them compare to a previous Doppler where it showed the superficial venous clot in the great saphenous vein. We are looking for propagation, etcetera, and it sounds like if it is not propagating and is stable we may able to get clearance for surgery to be done soon. Clearance will need to come through Dr. Lynch or the vascular doctor he is speaking with about this. The patient is still on Xarelto at this time. He knows that it is at least a 3 or 4 week recovery from surgery once we can do it. We will do our best to get him on the schedule for surgery next week when we see him on for the following week as long as we have clearance by then and good news from the Doppler. We will obtain appropriate labs and imaging at that time and discuss his surgical plan next as long as things are going forward appropriately. If the venous clot is propagating we will not be able to do surgery likely at this time. Return to the clinic in 1 week for follow-up of the wound and possible surgical preop discussion and full physical and History and Physical. We will also plan on giving him a new surgical shoe that is a size XXL which I will need to pad appropriately for the great toe. The patient has no other questions and is happy with the plan going forward as was his in the room. Gala DanielsPNadiaM. (Dictated/Not Signed) [place] Job#: [id number] MTDD
== END 2018-06-19 11:30 ==
LOC: POD 09:29
PROVIDERS: ATTEND Podiatrist Foot & Ankle Surgery
DX: S91.109D Unspecified open wound of unspecified toe(s) without damage to nail, subsequent encounter (principal); E11.42 Type 2 diabetes mellitus with diabetic polyneuropathy; N18.9 Chronic kidney disease, unspecified; M20.5X1 Other deformities of toe(s) (acquired), right foot; R60.9 Edema, unspecified
CPT/HCPCS: 11042; 11045

== ENCOUNTER 2018-06-25 14:02 | Outpatient (CLI) | payer OTHER | END 2018-06-25 14:03 | LOC: LAB 14:02 | PROVIDERS: ATTEND Family Medicine | DX: I82.409 Acute embolism and thrombosis of unspecified deep veins of unspecified lower extremity (principal) | CPT/HCPCS: 36415; 81240; 81241; 81291; 85300; 85302; 85305; 85306 ==

== ENCOUNTER 2018-06-26 09:36 | Outpatient (CLI) | payer OTHER ==
--- NOTE | 2018-06-27 11:03 | OP Clinic Progress Note ---
CHRIS KINNEY ADMISSION#.: [id number] : 1955 DATE OF VISIT: 06/26/2018 SUBJECTIVE: Chris Kinney is a 62-year-old male who presented today for follow- up of his right hallux interphalangeal joint wound. This patient is diabetic with neuropathy and has had this wound for awhile. The patient has a history of a DVT and a superficial thrombophlebitis which is notably increasing in size from recent Doppler. The patient states that Dr. Lynch is working on getting him with a vein specialist to look into that further. At this time he is not cleared for surgery with me. The patient does not admit to any fevers, chills, nausea, vomiting, shortness of breath or chest pain at this time. They are concerned that their paid time off is ending at the end of the month. OBJECTIVE: Vitals: Temperature 96.9 degrees Fahrenheit, heart rate 66, respirations 18, blood pressure 123/67. His pain level is 3/10. Vascular: DP and PT pulses 2+, right foot. Capillary refill time is less than 3 seconds to the toes of the right foot. There is almost no edema to the right foot and lower leg but in the upper portion of the lower leg there is definitely more edema noted above where the compression wraps ended. There is no warmth or concerning discoloration to the right lower extremity at this time. Dermatologic: Right interphalangeal joint of the hallux wound has notable mild hyperkeratosis around the wound and a much better looking wound base today. This was debrided with a #15 blade and still has a little bit of fibrous plug in the base. This was debrided as well as we could today. There is good bleeding noted and this was controlled with pressure. There is no erythema, malodor, purulence or [id number]-vk-[id number] noted. The wound measured today a little bit smaller than previous, measuring at 0.9 x 0.6 x 0.3 cm deep. Previous measurement was slightly larger at 1.0 x 0.7 x 0.3 cm deep. There are some mild eschars noted on the right lower leg where it looks like the Issa wrap may have been wrapped inappropriately causing a small injury which is scabbing up appropriately. There are no open lesions, erythema or signs of infection anywhere at this time. Musculoskeletal: There is mild pain on palpation noted to the right great toe ulcer. There is limited range of motion of the first metatarsophalangeal joint of the right foot still with the forefoot loaded, and improved range of motion when the forefoot is not loaded. Of course, there is still notable fallen arch on the right as well as rear foot valgus on the right. We did not visualize the lower extremity today. Neurologic: Light touch sensation is diminished to the right foot. ASSESSMENT AND PLAN: 1. Diabetes mellitus type 2, E11.9. 2. Diabetic peripheral neuropathy, E11.42. 3. Chronic kidney disease, N18.9. 4. Open wound of toes, subsequent encounter S91.109D. 5. Peripheral edema, R60.9. 6. Hallux limitus of the right foot, M20.5X1. PROCEDURE #1: Sharp debridement of the right great toe ulcer with a #15 blade as well as the hyperkeratosis surrounding it was performed revealing some fibrogranular tissue at the base measuring less than 20 sq. cm. There was no undermining noted. There was no avpmq-[id number]. Bleeding was controlled with pressure. The dressings were applied consisting of Medihoney, 4x4 gauze, 2 inch Nicki and 1 inch Coban to the toe and the distal forefoot. The patient tolerated the procedure well. The patient will continue having these dressings changed every other day as we did today. A 2-layer compression wrap was applied with Issa wraps beginning at the end of the foot and going up to almost the knee utilizing 4 inch and a 6 inch Issa wrap. This was demonstrated to the patients who will continue to do this every other day. This seems to be doing well keeping some of the swelling out without excessive compression with the current blood clot that he has. The patient states that Dr. Lynch is working on getting him with a vein specialist and we will hold off on any aggressive compression or surgery plans until we get some sort of clearance for both of the above. Aggressive compression would be from Dr. Senior with Cardiology, and surgery would be from the vein specialist or Dr. Lynch. The patient is still, I believe, on his Xarelto and we will consider surgery once we get appropriate clearance. At this time we will go forward with serial debridements and mild compression so that he does not break out in any venous wounds again. The patient understands this plan at this time. A new diabetic 2XL shoe was dispensed with appropriate padding to offload the interphalangeal joint of the right great toe. The patient feels better standing and safer standing in this at this time. The patient signed paperwork to receive that shoe and will be billed in the mail separately, by a separate company. He is to return to the outpatient clinic in 1 week for serial debridement and evaluation. Gala DanielsPNadiaM. (Dictated/Not Signed) [place] Job#: [id number] MTDD
== END 2018-06-26 09:38 ==
LOC: POD 09:36
PROVIDERS: ATTEND Podiatrist Foot & Ankle Surgery
DX: S91.109D Unspecified open wound of unspecified toe(s) without damage to nail, subsequent encounter (principal); E11.42 Type 2 diabetes mellitus with diabetic polyneuropathy; M20.5X1 Other deformities of toe(s) (acquired), right foot; N18.9 Chronic kidney disease, unspecified; R60.9 Edema, unspecified
CPT/HCPCS: 11042; A4554

== ENCOUNTER 2018-07-03 10:50 | Inpatient (IN) | payer OTHER ==
[2018-07-03] MEDS ORDERED: VANCOMYCIN PHARMACY TO DOSE IV SCH (14:00)
[2018-07-03 14:23] LABS: BASOPHILS % 0.6 (0.0-1.5); EOSINOPHILS % 1.4 % (0.0-6.8); MEAN CORPUSCULAR HEMOGLOBIN 29.7 pg (28.0-34.0); MONOCYTES % 5.8 % (0.0-11.0); NEUTROPHILS # 7.8 # k/uL (1.4-7.7)
[2018-07-03 14:45] VITALS: BMI 39.9
[2018-07-03] MEDS: VANCOMYCIN HCL 1 GM in 0.9 % SODIUM CHLORIDE 250 ML IV SCH ×2 (16:44→21:40)
[2018-07-03] MEDS ORDERED: 0.9 % SODIUM CHLORIDE(MINIBAG+ 100 ML IV ONE (17:38)
[2018-07-03] MEDS ORDERED: PIPERACILLIN SODIUM/TAZOBACTAM 3.375 GM VIAL IV ONE (17:38)
[2018-07-03] MEDS: PIPERACILLIN SODIUM/TAZOBACTAM 3.375 GM in 0.9 % SODIUM CHLORIDE(MINIBAG+ 100 ML IV SCH (17:52)
[2018-07-03] MEDS ORDERED: ACETAMINOPHEN 325 MG TABLET PO PRN (17:53)
--- NOTE | 2018-07-03 18:29 | History and Physical Report ---
History of Present Illnes - History of Present Illness Reason for Visit: cellulitis of the [facility] lower extremity History of Present Illness: Patient is a 62-year-old white male who has a long-standing history of diabetes. Patient has had an open wound to his right great toe that he is been seeing a principal accounts clerk for treatment. It has been slow in healing. Today while seeing the principal accounts clerk it was noted that he was having some purulent drainage from the wound and that his leg was warm to touch and erythematous. It was felt that he was developing a cellulitis and was subsequently admitted to the hospital for further care and evaluation. Patient denies any fever or chills. Patient has had several episodes of cellulitis in the past which required inpatient IV anabiotic. 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 Alcohol: None Drugs: None Lives: With Family Domestic Violence: Negative - Health Maintenance Health Maintenance: Cholesterol, Pneumococcal Vaccine Influenza Vaccine: Current for this Influenza Season Pneumonia Vaccine: Yes Resuscitation Status: Resusciation Status Resuscitation Status Full Code - Unable to Obtain History Unable to Obtain: No Review of Systems - Review of Systems Constitutional: negative: Fever, Chills, Weakness Eyes: negative: pain ENT: negative: Ear Pain, Ear Discharge, Nose Pain, Nose Discharge, Nose Congestion, Mouth Pain, Throat Pain Respiratory: negative: Cough, Shortness of Breath, Hemoptysis, SOB with Excertion, Pleuritic Pain, Wheezing Cardiovascular: Edema. negative: Chest Pain, Palpitations, Light Headedness Gastrointestinal: negative: Nausea, Vomiting, Abdominal Pain, Diarrhea, Constipation, Melena, Hematochezia Genitourinary: negative: Dysuria, Frequency, Incontinence Musculoskeletal: Back Pain, Leg Pain. negative: Neck Pain, Shoulder Pain Skin: negative: Rash Neurological: negative: Weakness, Numbness, Incoordination, Seizures - Medications/Allergies Allergies/Adverse Reactions: Allergies Allergy/AdvReac Type Severity Reaction Status Date / Time No Known Drug Allergies Allergy Verified 02/24/18 12:57 Home Medications: Home Medications Furosemide 20 mg PO 1200 07/03/18 Meloxicam 15 mg PO DAILY 07/03/18 Current Inpatient Medications: Current Inpatient Medications Acetaminophen (Tylenol) 650 mg PO Q4H PRN PRN Reason: Fever >101 Aspirin (Aspirin) 81 mg PO DAILY [facility] Carvedilol (Coreg) 25 mg PO BS [facility] Carvedilol (Coreg) 12.5 mg PO BS [facility] Cholecalciferol (Vitamin D-3) 1,000 unit PO DAILY [facility] Duloxetine HCl (Cymbalta) 30 mg PO HS [facility] Fenofibrate (Tricor) 160 mg PO DAILY [facility] Furosemide (Lasix) 40 mg PO DAILY [facility] Furosemide (Lasix) 20 mg PO 1200 [facility] Gabapentin (Neurontin) 300 mg PO HS [facility] Gabapentin (Neurontin) 100 mg PO BID [facility] Vancomycin HCl 1 gm/ Sodium (Chloride) 250 mls @ 250 mls/hr IV BID@1000,2200 [facility] Stop: 07/17/18 14:59 Last Admin: 07/03/18 16:44 Dose: 250 mls/hr Piperacillin Sod/Tazobactam (Sod 3.375 gm/ Sodium Chloride) 100 mls @ 200 mls/hr IV Q6 [facility] Last Admin: 07/03/18 17:52 Dose: 200 mls/hr Lisinopril (Prinivil) 10 mg PO DAILY [facility] Metformin HCl (Glucophage) 1,[place] [address] [facility] Last Admin: 07/03/18 18:26 Dose: 1,000 mg Miscellaneous (Vancomycin Pharmacy To Dose) 1 each IV NOW [facility] Miscellaneous (Patient Own Med) 41 each SQ 12 [facility] Rivaroxaban (Xarelto) 20 mg PO HS [facility] Simvastatin (Zocor) 40 mg PO HS [facility] Exam - Exam Vital Signs: Vital Signs (72 hours) 07/03/18 07/03/18 07/03/18 12:01 16:01 18:00 Temperature 96.1 F L 98.4 F 98.5 F Pulse Rate [ 72 Apical] Pulse Rate [ 69 68 Left] Respiratory 20 20 20 Rate Blood Pressure 139/84 108/58 110/55 [Left Arm] Blood Pressure 139/84 [Right Arm] O2 Sat by Pulse 98 96 96 Oximetry General: Alert, Oriented to Person, Oriented to Place, Oriented to Time, Cooperative HEENT: Atraumatic, PERRLA, EOMI, Mouth Mucous membr. moist/[place], Nose Mucous membr. moist/[place], Dentition Normal, Hearing Grossly Normal Neck: Normal Range of Motion Carotids: WNL Lungs: Clear to auscultation, Normal air movement, Speaks full Sentences. No: Wheezes, Rales, Rhonchi Cardiovascular: Regular rate, Normal S1, Normal S2, No murmurs. No: Murmur Abdomen: Normal bowel sounds, Soft, No tenderness, No hepatospenomegaly, No masses Integumentary: Normal, [place], Warm, Dry, Other (Patient has some erythema and warmth to the right lower extremity/foot. Patient does have some purulent drainage from the open wound on the toe.) Extremities: No clubbing, No cyanosis, No edema, Normal pulses, No tenderness/swelling, Other Neurological: Normal gait, Normal speech, Strength Equal Bilat, Normal tone, Sensation intact, Cranial nerves 3-12 NL, Reflexes 2+ Psych/Mental Status: Mental status NL, Mood NL, Appropriate Affect, Intact Judgment - Laboratory Results Laboratory Results: Laboratory Results 07/03/18 07/03/18 13:56 13:57 WBC 10.70 RBC 4.10 Hgb 12.2 Hct 36.6 L MCV 89.0 MCH 29.7 MCHC 33.3 RDW 14.1 Plt Count 273 Neut % (Auto) 72.8 Lymph % (Auto) 19.4 [place] % (Auto) 5.8 Eos % (Auto) 1.4 Baso % (Auto) 0.6 Neut # (Auto) 7.8 H Lymph # (Auto) 2.1 [place] # (Auto) 0.6 Eos # (Auto) 0.2 Baso # (Auto) 0.1 Sodium 141 Potassium 4.3 Chloride 101 Carbon Dioxide 27 BUN 22 H Creatinine 1.79 H Estimated Creat Clear 195 Est GFR ( Amer) 50 L Est GFR (Non-Af Amer) 41 L Glucose 105 Calcium 9.3 Total Bilirubin 0.9 AST 26 ALT 16 Alkaline Phosphatase 52 Total Protein 7.8 Albumin 4.4 Assessment/Plan - Assessment/Plan (1) Cellulitis of right lower leg Status: Acute Current Visit: No Assessment: Patient will be started on victimizing and Zosyn until we get culture report back. (2) Chronic kidney disease (CKD) stage G3a/A1, moderately decreased glomerular filtration rate (GFR) between 45-59 mL/min/1.73 square meter and albuminuria creatinine ratio less than 30 mg/g Status: Chronic Current Visit: No Assessment: Patient BUN and creatinine a little bit elevated above baseline. Patient may be mildly dehydrated. Will go ahead and start some IV fluids. (3) Diabetes type 2, uncontrolled Status: Chronic Current Visit: No Assessment: Patient diabetic care is be managed by a hull molder. Will continue with home medications. (4) Essential hypertension Status: Chronic Current Visit: No Assessment: Appears to be stable at this time. Will continue at home medications. (5) Generalized osteoarthritis Status: Chronic Current Visit: No Assessment: Stable (6) Obstructive sleep apnea Status: Chronic Current Visit: No Assessment: Patient will continue to wear his CPAP (7) DVT of axillary vein, acute right Status: Acute Current Visit: Yes Assessment: Patient will be continued on anticoagulation therapy. (8) Cardiomyopathy Status: Chronic Current Visit: No Qualifiers: Cardiomyopathy type: unspecified Qualified Code(s): I42.9 - Cardiomyopathy, unspecified Assessment: Will continue with home medications. VTE Assessment - RISK FACTOR SCORE VTE RISK FACTOR SCORES: AGE OVER 60 YEARS, ACUTE INFECTION OTHER THEN SEPSIS - RISK VTE HIGH RISK: SCORE OF 3-4 (RISK PROXIMAL DVT 4-8%) PROPHYLAXIS NEEDED (onchronic Eliquis therapy)
[2018-07-03] MEDS: SIMVASTATIN 40 MG TABLET PO SCH (20:33)
[2018-07-03] MEDS: GABAPENTIN 300 MG CAPSULE PO SCH (20:33)
[2018-07-03] MEDS: DULoxetine HCL 30 MG CAPSULE.DR PO SCH (20:33)
[2018-07-03] MEDS: RIVAROXABAN 10 MG TABLET PO SCH (20:33)
[2018-07-03] MEDS: GABAPENTIN 100 MG CAPSULE PO SCH (20:34)
[2018-07-03] MEDS: INSULIN LISPRO 100 UNIT/ML 3ML VIAL SQ SCH (20:38)
--- NOTE | 2018-07-03 20:50 | OP Clinic Progress Note ---
CHRIS KINNEY. ADMISSION#.: [id number] : 1955 DATE OF VISIT: 07/03/2018 SUBJECTIVE: Chris Kinney is a 62-year-old male who presents today for follow-up of a right hallux ulcer and significant history of DVT I believe x2, and superficial thrombophlebitis recently as well. The patient is having workup by a vascular doctor coming up on 07/18/18 due to blood clots forming despite being on Xarelto. The patient presents today with concern that his leg has become more red in the last couple days since the last dressing change which was on Saturday. She utilized Issa wraps as normal protocol but had not changed it until today when it should have been changed yesterday and upon removal of the dressings today we found the right leg to be quite red and concerning. The patient does not admit to any other concerns. The patient does not admit to any fevers, chills, nausea, vomiting, shortness of breath or chest pain at this time. The patient is concerned that he is running out of his sick leave at the end of this month and that is official. They brought in paperwork for me to fill out which I did and we faxed it over where it was supposed to go today. OBJECTIVE: Vitals: Temperature 98.4 degrees Fahrenheit, heart rate 72, respiration rate is 20, blood pressure 123/60. O2 saturation 97% on room air. Vascular: DP and PT pulses are at 2+, right foot. Capillary refill time is less than 3 seconds to the toes of the right foot. There is mild to moderate edema noted to the right great toe as well as the right lower leg. There is also obvious warmth noted at the right great toe and the right lower leg. The right great toe ulcer is demonstrating some purulence and warmth with drainage from the wound. The wound area and toe is warm to the touch and with erythematous changes. This seems to be probing a little bit distal in the most dorsal aspect of the wound and distal aspect of the wound. There is purulence expressed from distal a little bit which was opened up with a blade today to remove any purulence from that small corner. The wound was measured today at 1.6 x 0.8 x 0.6 cm in the deepest portion which is in the distal dorsal aspect of the wound. The right lower leg also is showing significant erythema and dark discoloration and tenderness to palpation and significant edema noted. There are no open wounds on the right lower leg at this time. Musculoskeletal: There is mild pain on palpation noted to the right lower leg. There is also pain with debridement and palpation at the right great toe, more than usual, which is indicative of likely infection. There is hallux limitus noted of the right great toe metatarsophalangeal joint still of course. There is obvious rear foot valgus deformity with the arch collapse on the right foot as well. This has not changed since previous exam. Neurologic: Light touch sensation is absent to the toes right foot but he does seem to have more sensation in the toe with debridement today. ASSESSMENT AND PLAN: 1. Diabetes mellitus type 2, E11.9. 2. Diabetic peripheral neuropathy, 11.42. 3. Chronic kidney disease, N18.9. 4. Open wound of toes, subsequent encounter, S91.109D. 5. Concern for blood clot. 6. Cellulitis, right lower extremity and right hallux. 7. Hallux limitus, right foot. PROCEDURE #1: Debridement of skin and tissue with a #15 blade was performed today without incident. There was also removal of skin tissue in the distal dorsal aspect of the wound to release some purulence noted in that area where it was beginning to track. The wound was debrided and was rinsed with normal saline copiously. An aerobic and aerobic culture were then taken and sent for micro. Dressings were applied consisting of triple antibiotic ointment, 4x4 gauze, 2- inch Nicki and 1-inch [place] to the great toe and extending onto the distal forefoot to hold it on well. The patient tolerated the procedure fairly well but it was a little more painful to him today than usual. I spoke with Dr. Lynch who came and also saw the patient today to also evaluate and he supported by decision in admitting the patient. We are unable to send the patient to the [facility] as they have a hold on beds at this time and so the patient will be admitted here appropriately for further workup and IV antibiotics. Dr. Lynch is admitting the patient and ordering all appropriate labs and studies needed at this time. I believe that a CBC, CMP, ESR, CRP, venous ultrasound of the right lower extremity as well as x-rays of the right foot would be in order at this time. I will try and make sure that Dr. Lynch is aware of my thoughts in order to make sure that we are covering everything we should. Dr. Lynch will put him on appropriate IV antibiotics at this time and will consult me as needed. I would like to see if there is any signs of obvious soft tissue emphysema in the foot but I do not believe that to likely be the case based on clinical exam today. I do not feel any crepitus nor did I feel it was moving proximal in any direction or strongly significant today. We will follow up with the patient hopefully next week in clinic on . I do not believe we will be able to heal this wound by the end of the month as the patient requires and unfortunately I am at a hold of being able to do much with the surgery for the right foot until we have clearance from Vascular which wont come until at least the beginning of July. Based on findings and hospital course we may need to consider more aggressive treatment sooner depending on how he reacts to antibiotics. If he seems to be getting better in the right great toe as well then we wont need to do anything hopefully right away but if it is getting worse or not responsive we may need to send him somewhere for an MRI or consider incision and drainage of the right great toe. I dont believe that will be necessary but we will keep that in mind. Gala DanielsP.M. (Dictated/Not Signed) [place] Job#: [id number] MTDD
[2018-07-04] MEDS: PIPERACILLIN SODIUM/TAZOBACTAM 3.375 GM in 0.9 % SODIUM CHLORIDE(MINIBAG+ 100 ML IV SCH ×4 (00:05→17:29)
--- NOTE | 2018-07-04 04:23 | Diagnostic Imaging Report ---
[place]/MED SURG [facility] [id number] [facility] [address] Report Submission Date: Jul 03, 2018 5:51:41 PM LANDSCAPE SUPERVISOR Patient Study Name: VIRGEN VICTORIA Date: Jul 03, 2018 4:46:11 PM LANDSCAPE SUPERVISOR Modality Type: DX Gender: M Description: FOOT 3 VIEWS OR MORE : 53 Institution: [facility] Physician: YUE GRACE/MED SURG Right foot, three views History: Right great toe with purulence. Findings: The osseous structures are intact without evidence of acute fracture plantar calcaneal enthesophyte is present. No radiographic evidence of osteomyelitis. A bandage superimposes the 1st toe. Impression: 1. No acute osseous abnormality. Electronically signed on Jul 03, 2018 5:51:41 PM LANDSCAPE SUPERVISOR by: Sylvester CASTILLO
[2018-07-04] MEDS: INSULIN LISPRO 100 UNIT/ML 3ML VIAL SQ SCH ×4 (07:28→20:31)
[2018-07-04] MEDS: CARVEDILOL 12.5 MG TABLET PO SCH ×4 (07:29→17:27)
[2018-07-04] MEDS: GABAPENTIN 100 MG CAPSULE PO SCH ×2 (09:14→17:29)
[2018-07-04] MEDS: FENOFIBRATE 160 MG TABLET PO SCH (09:14)
[2018-07-04] MEDS: ASPIRIN 81 MG CHEW TAB PO SCH (09:14)
[2018-07-04] MEDS: CHOLECALCIFEROL (VIT D3) 1,000 UNIT TABLET PO SCH (09:15)
[2018-07-04] MEDS: LISINOPRIL 10 MG TABLET PO SCH (09:15)
[2018-07-04] MEDS: FUROSEMIDE 40 MG TABLET PO SCH (09:15)
[2018-07-04] MEDS: VANCOMYCIN HCL 1 GM in 0.9 % SODIUM CHLORIDE 250 ML IV SCH ×2 (09:16→22:00)
[2018-07-04] MEDS ORDERED: 0.9 % SODIUM CHLORIDE 1,000 ML IV SCH (11:00)
--- NOTE | 2018-07-04 11:03 | Inpatient Progress Note ---
Subjective - Required Recertification Statement I anticipate X number of days because-include discharge plan: 3 days - Review of Systems Events since last encounter: Patient states that his leg is starting to feel some better. It is not quite as tender as it was yesterday. Patient denies any fever or chills. Blood sugars have been stable. Patient denies any chest pain or chest pressure. General: Denies: Chills Cardiovascular: Denies: Chest Pain Gastrointestinal: Denies: Nausea, Vomiting, Abdominal Pain Objective - Exam Vitals and I&O: Vital Signs Temp 97.2 F L 07/04/18 09:08 Pulse 64 07/04/18 09:08 Resp 18 07/04/18 09:08 BP 112/58 07/04/18 09:08 Pulse Ox 97 07/04/18 09:08 Intake & Output 07/03/18 07/03/18 07/04/18 11:59 23:59 11:59 Intake Total 440 360 Balance 440 360 Weight 148.778 kg Intake: Oral 440 360 Other: Voiding Method Toilet Toilet # Voids 2 General: Alert, Oriented to Person, Oriented to Place, Oriented to Time, Cooperative Lungs: Clear to auscultation, Normal air movement, Speaks full Sentences Cardiovascular: Regular rate, Normal S1, Normal S2, No murmurs Skin: Cellulitis (The erythema has decreased some from the leg. His right lower extremity is not as warm to touch as it was yesterday.) Psych/Mental Status: Mental status NL, Intact Judgment - Results Results: Laboratory Results WBC 10.70 K/ul (4.00-12.00) 07/03/18 13:56 RBC 4.10 M/ul (3.90-5.20) 07/03/18 13:56 Hgb 12.2 g/dL (12.0-18.0) 07/03/18 13:56 Hct 36.6 % (37.0-53.0) L 07/03/18 13:56 MCV 89.0 fl (80.0-100.0) 07/03/18 13:56 MCH 29.7 pg (28.0-34.0) 07/03/18 13:56 MCHC 33.3 g/dL (30.0-36.0) 07/03/18 13:56 RDW 14.1 % (11.3-14.3) 07/03/18 13:56 Plt Count 273 K/mm3 (130-400) 07/03/18 13:56 Neut % (Auto) 72.8 % (39.0-79.0) 07/03/18 13:56 Lymph % (Auto) 19.4 % (16.0-50.0) 07/03/18 13:56 [place] % (Auto) 5.8 % (0.0-11.0) 07/03/18 13:56 Eos % (Auto) 1.4 % (0.0-6.8) 07/03/18 13:56 Baso % (Auto) 0.6 (0.0-1.5) 07/03/18 13:56 Neut # (Auto) 7.8 # k/uL (1.4-7.7) H 07/03/18 13:56 Lymph # (Auto) 2.1 # k/uL (0.6-4.0) 07/03/18 13:56 [place] # (Auto) 0.6 # k/uL (0.0-0.9) 07/03/18 13:56 Eos # (Auto) 0.2 # k/uL (0.0-0.6) 07/03/18 13:56 Baso # (Auto) 0.1 # k/uL (0.0-0.5) 07/03/18 13:56 Sodium 141 mmol/L (136-145) 07/03/18 13:57 Potassium 4.3 mmol/L (3.5-5.1) 07/03/18 13:57 Chloride 101 mmol/L (98-107) 07/03/18 13:57 Carbon Dioxide 27 mmol/L (22-30) 07/03/18 13:57 BUN 22 mg/dL (9-20) H 07/03/18 13:57 Creatinine 1.79 mg/dL (0.66-1.25) H 07/03/18 13:57 Estimated Creat Clear 195 07/03/18 13:57 Est GFR ( Amer) 50 (60-) L 07/03/18 13:57 Est GFR (Non-Af Amer) 41 (60-) L 07/03/18 13:57 Glucose 105 mg/dL (74-106) 07/03/18 13:57 Calcium 9.3 mg/dL (8.4-10.2) 07/03/18 13:57 Total Bilirubin 0.9 mg/dL (0.2-1.3) 07/03/18 13:57 AST 26 U/L (15-46) 07/03/18 13:57 ALT 16 U/L (13-69) 07/03/18 13:57 Alkaline Phosphatase 52 U/L (38-126) 07/03/18 13:57 Total Protein 7.8 g/dL (6.3-8.2) 07/03/18 13:57 Albumin 4.4 g/dL (3.5-5.0) 07/03/18 13:57 Assessment/Plan - Assessment/Plan (1) Cellulitis of right lower leg Status: Acute Current Visit: No Assessment: Appears to be improved this morning. Awaiting culture report from his toe wound. (2) Chronic kidney disease (CKD) stage G3a/A1, moderately decreased glomerular filtration rate (GFR) between 45-59 mL/min/1.73 square meter and albuminuria creatinine ratio less than 30 mg/g Status: Chronic Current Visit: No Assessment: will start some IV fluids to see if we can improve kidney function. (3) Diabetes type 2, uncontrolled Status: Chronic Current Visit: No Assessment: Blood sugars in been in the mid 150 range. No hypoglycemic episode noted. (4) Essential hypertension Status: Chronic Current Visit: No Assessment: Stable (5) Obstructive sleep apnea Status: Chronic Current Visit: No (6) DVT of axillary vein, acute right Status: Acute Current Visit: Yes Assessment: stable (7) Cardiomyopathy Status: Chronic Current Visit: No Qualifiers: Cardiomyopathy type: unspecified Qualified Code(s): I42.9 - Cardiomyopathy, unspecified Assessment: stable
[2018-07-04] MEDS: PATIENT OWN MED 1 EACH EACH SQ SCH ×2 (12:14→20:29)
[2018-07-04] MEDS: FUROSEMIDE 20 MG TABLET PO SCH (12:15)
[2018-07-04] MEDS: DULoxetine HCL 30 MG CAPSULE.DR PO SCH (20:42)
[2018-07-04] MEDS: SIMVASTATIN 40 MG TABLET PO SCH (20:42)
[2018-07-04] MEDS: RIVAROXABAN 10 MG TABLET PO SCH (20:43)
[2018-07-04] MEDS: GABAPENTIN 300 MG CAPSULE PO SCH (20:46)
[2018-07-05] MEDS: PIPERACILLIN SODIUM/TAZOBACTAM 3.375 GM in 0.9 % SODIUM CHLORIDE(MINIBAG+ 100 ML IV SCH ×5 (05:32→17:04)
[2018-07-05] MEDS: INSULIN LISPRO 100 UNIT/ML 3ML VIAL SQ SCH ×4 (07:51→22:24)
[2018-07-05] MEDS: CARVEDILOL 12.5 MG TABLET PO SCH ×6 (07:52→17:06)
[2018-07-05] MEDS: GABAPENTIN 100 MG CAPSULE PO SCH ×2 (09:07→17:06)
[2018-07-05] MEDS: FUROSEMIDE 40 MG TABLET PO SCH (09:07)
[2018-07-05] MEDS: PATIENT OWN MED 1 EACH EACH SQ SCH ×2 (09:08→22:27)
[2018-07-05] MEDS: FENOFIBRATE 160 MG TABLET PO SCH (09:08)
[2018-07-05] MEDS: LISINOPRIL 10 MG TABLET PO SCH (09:08)
[2018-07-05] MEDS: CHOLECALCIFEROL (VIT D3) 1,000 UNIT TABLET PO SCH (09:08)
[2018-07-05] MEDS: ASPIRIN 81 MG CHEW TAB PO SCH (09:08)
[2018-07-05] MEDS: VANCOMYCIN HCL 1 GM in 0.9 % SODIUM CHLORIDE 250 ML IV SCH ×2 (09:09→22:44)
[2018-07-05] MEDS: FUROSEMIDE 20 MG TABLET PO SCH (11:38)
--- NOTE | 2018-07-05 12:22 | Inpatient Progress Note ---
Subjective - Required Recertification Statement I anticipate X number of days because-include discharge plan: 1 day - Review of Systems Events since last encounter: Patient seems to be doing better at tihis time. Patient is not complain of any pain in the foot at this time. The swelling and erythema to the left lower extremity has improved. Blood sugars have been stable in the lower 100 range. Patient blood pressure has been stable the diastolic in the 110 range. General: Denies: Chills Cardiovascular: Denies: Chest Pain Gastrointestinal: Denies: Nausea, Vomiting, Abdominal Pain Objective - Exam Vitals and I&O: Vital Signs Temp 97.1 F L 07/05/18 09:39 Pulse 59 L 07/05/18 09:39 Resp 16 07/05/18 09:39 BP 116/64 07/05/18 09:39 Pulse Ox 97 07/05/18 09:39 Intake & Output 07/04/18 07/05/18 07/05/18 23:59 11:59 23:59 Intake Total 490 390 Balance 490 390 Intake: IV 250 150 right forarm 250 150 Oral 240 240 Other: Voiding Method Toilet Toilet # Voids 3 1 # Bowel Movements 1 General: Alert, Oriented to Person, Oriented to Place, Oriented to Time, Cooperative Neck: Supple, No JVD, No thyromegaly Lungs: Clear to auscultation, Normal air movement, Speaks full Sentences Cardiovascular: Regular rate, Normal S1, Normal S2, No murmurs Skin: [place], Other (Patient was lower extremity appeared to be improved. Erythema and swelling have improved. Patient is no longer having any increased warmth to the leg. Awaiting culture report.) - Results Results: Laboratory Results WBC 10.70 K/ul (4.00-12.00) 07/03/18 13:56 RBC 4.10 M/ul (3.90-5.20) 07/03/18 13:56 Hgb 12.2 g/dL (12.0-18.0) 07/03/18 13:56 Hct 36.6 % (37.0-53.0) L 07/03/18 13:56 MCV 89.0 fl (80.0-100.0) 07/03/18 13:56 MCH 29.7 pg (28.0-34.0) 07/03/18 13:56 MCHC 33.3 g/dL (30.0-36.0) 07/03/18 13:56 RDW 14.1 % (11.3-14.3) 07/03/18 13:56 Plt Count 273 K/mm3 (130-400) 07/03/18 13:56 Neut % (Auto) 72.8 % (39.0-79.0) 07/03/18 13:56 Lymph % (Auto) 19.4 % (16.0-50.0) 07/03/18 13:56 [place] % (Auto) 5.8 % (0.0-11.0) 07/03/18 13:56 Eos % (Auto) 1.4 % (0.0-6.8) 07/03/18 13:56 Baso % (Auto) 0.6 (0.0-1.5) 07/03/18 13:56 Neut # (Auto) 7.8 # k/uL (1.4-7.7) H 07/03/18 13:56 Lymph # (Auto) 2.1 # k/uL (0.6-4.0) 07/03/18 13:56 [place] # (Auto) 0.6 # k/uL (0.0-0.9) 07/03/18 13:56 Eos # (Auto) 0.2 # k/uL (0.0-0.6) 07/03/18 13:56 Baso # (Auto) 0.1 # k/uL (0.0-0.5) 07/03/18 13:56 Sodium 141 mmol/L (136-145) 07/03/18 13:57 Potassium 4.3 mmol/L (3.5-5.1) 07/03/18 13:57 Chloride 101 mmol/L (98-107) 07/03/18 13:57 Carbon Dioxide 27 mmol/L (22-30) 07/03/18 13:57 BUN 22 mg/dL (9-20) H 07/03/18 13:57 Creatinine 1.79 mg/dL (0.66-1.25) H 07/03/18 13:57 Estimated Creat Clear 195 07/03/18 13:57 Est GFR ( Amer) 50 (60-) L 07/03/18 13:57 Est GFR (Non-Af Amer) 41 (60-) L 07/03/18 13:57 Glucose 105 mg/dL (74-106) 07/03/18 13:57 Calcium 9.3 mg/dL (8.4-10.2) 07/03/18 13:57 Total Bilirubin 0.9 mg/dL (0.2-1.3) 07/03/18 13:57 AST 26 U/L (15-46) 07/03/18 13:57 ALT 16 U/L (13-69) 07/03/18 13:57 Alkaline Phosphatase 52 U/L (38-126) 07/03/18 13:57 Total Protein 7.8 g/dL (6.3-8.2) 07/03/18 13:57 Albumin 4.4 g/dL (3.5-5.0) 07/03/18 13:57 Assessment/Plan - Assessment/Plan (1) Cellulitis of right lower leg Status: Acute Current Visit: No Assessment: improved (2) Chronic kidney disease (CKD) stage G3a/A1, moderately decreased glomerular filtration rate (GFR) between 45-59 mL/min/1.73 square meter and albuminuria creatinine ratio less than 30 mg/g Status: Chronic Current Visit: No Assessment: stable (3) Diabetes type 2, uncontrolled Status: Chronic Current Visit: No Assessment: stable (4) Essential hypertension Status: Chronic Current Visit: No (5) Obstructive sleep apnea Status: Chronic Current Visit: No Assessment: stable (6) DVT of axillary vein, acute right Status: Acute Current Visit: Yes Assessment: stable (7) Cardiomyopathy Status: Chronic Current Visit: No Qualifiers: Cardiomyopathy type: unspecified Qualified Code(s): I42.9 - Cardiomyopathy, unspecified Assessment: stable
[2018-07-05 13:23] LABS: BASOPHILS % 0.4 (0.0-1.5); MEAN CORPUSCULAR HEMOGLOBIN 29.6 pg (28.0-34.0); MONOCYTES % 5.6 % (0.0-11.0); NEUTROPHILS # 5.2 # k/uL (1.4-7.7)
[2018-07-05] MEDS: DULoxetine HCL 30 MG CAPSULE.DR PO SCH (22:23)
[2018-07-05] MEDS: GABAPENTIN 300 MG CAPSULE PO SCH (22:25)
[2018-07-05] MEDS: SIMVASTATIN 40 MG TABLET PO SCH (22:25)
[2018-07-05] MEDS: RIVAROXABAN 10 MG TABLET PO SCH (22:25)
[2018-07-06] MEDS: PIPERACILLIN SODIUM/TAZOBACTAM 3.375 GM in 0.9 % SODIUM CHLORIDE(MINIBAG+ 100 ML IV SCH ×4 (00:18→19:26)
[2018-07-06] MEDS: INSULIN LISPRO 100 UNIT/ML 3ML VIAL SQ SCH ×4 (07:45→21:31)
[2018-07-06] MEDS: CARVEDILOL 12.5 MG TABLET PO SCH ×4 (09:31→18:21)
[2018-07-06] MEDS: ASPIRIN 81 MG CHEW TAB PO SCH (09:31)
[2018-07-06] MEDS: FUROSEMIDE 40 MG TABLET PO SCH (09:33)
[2018-07-06] MEDS: LISINOPRIL 10 MG TABLET PO SCH (09:33)
[2018-07-06] MEDS: GABAPENTIN 100 MG CAPSULE PO SCH ×2 (09:33→18:21)
[2018-07-06] MEDS: FENOFIBRATE 160 MG TABLET PO SCH (09:34)
[2018-07-06] MEDS: CHOLECALCIFEROL (VIT D3) 1,000 UNIT TABLET PO SCH (09:34)
[2018-07-06] MEDS: PATIENT OWN MED 1 EACH EACH SQ SCH ×2 (09:35→21:32)
[2018-07-06] MEDS: VANCOMYCIN HCL 1 GM in 0.9 % SODIUM CHLORIDE 250 ML IV SCH ×2 (11:37→21:18)
[2018-07-06] MEDS: FUROSEMIDE 20 MG TABLET PO SCH (12:30)
--- NOTE | 2018-07-06 13:27 | Inpatient Progress Note ---
Subjective - Required Recertification Statement I anticipate X number of days because-include discharge plan: 1 day - Review of Systems Events since last encounter: Patient seemed to be doing well at this time. Patient is not had any fever or chills noted. The erythema warmth, and swelling to the right lower extremity appear to be improved. Patient blood sugars been stable in the low to mid 100 range. Patient is not had any hypoglycemic episodes. Other chronic medical problems appear to be stable. General: Denies: Chills Objective - Exam Vitals and I&O: Vital Signs Temp 97.4 F L 07/06/18 13:12 Pulse 64 07/06/18 13:12 Resp 18 07/06/18 13:12 BP 118/60 07/06/18 13:12 Pulse Ox 98 07/06/18 13:12 Intake & Output 07/05/18 07/06/18 07/06/18 23:59 11:59 23:59 Intake Total 1640 220 500 Balance 1640 220 500 Intake: IV 20 right forarm 20 Oral 1640 200 500 Other: Voiding Method Toilet Urinal # Voids 2 2 2 # Bowel Movements 1 General: Alert, Oriented to Person, Oriented to Place, Oriented to Time, Cooperative Neck: Supple, No JVD, No thyromegaly Lungs: Clear to auscultation, Normal air movement, Speaks full Sentences Cardiovascular: Regular rate, Normal S1, Normal S2, No murmurs Extremities: No clubbing, Other (edema R>L but improved) Skin: Normal, [place], Warm, Dry, Other (open wound to the right great toe is stable, no purulent drainage noted.) Psych/Mental Status: Mental status NL, Mood NL, Appropriate Affect, Intact Judgment - Results Results: Laboratory Results WBC 7.80 K/ul (4.00-12.00) 07/05/18 12:45 RBC 4.15 M/ul (3.90-5.20) 07/05/18 12:45 Hgb 12.3 g/dL (12.0-18.0) 07/05/18 12:45 Hct 36.8 % (37.0-53.0) L 07/05/18 12:45 MCV 89.0 fl (80.0-100.0) 07/05/18 12:45 MCH 29.6 pg (28.0-34.0) 07/05/18 12:45 MCHC 33.4 g/dL (30.0-36.0) 07/05/18 12:45 RDW 14.3 % (11.3-14.3) 07/05/18 12:45 Plt Count 282 K/mm3 (130-400) 07/05/18 12:45 Neut % (Auto) 66.4 % (39.0-79.0) 07/05/18 12:45 Lymph % (Auto) 23.6 % (16.0-50.0) 07/05/18 12:45 [place] % (Auto) 5.6 % (0.0-11.0) 07/05/18 12:45 Eos % (Auto) 4.0 % (0.0-6.8) 07/05/18 12:45 Baso % (Auto) 0.4 (0.0-1.5) 07/05/18 12:45 Neut # (Auto) 5.2 # k/uL (1.4-7.7) 07/05/18 12:45 Lymph # (Auto) 1.8 # k/uL (0.6-4.0) 07/05/18 12:45 [place] # (Auto) 0.4 # k/uL (0.0-0.9) 07/05/18 12:45 Eos # (Auto) 0.3 # k/uL (0.0-0.6) 07/05/18 12:45 Baso # (Auto) 0.0 # k/uL (0.0-0.5) 07/05/18 12:45 Sodium 137 mmol/L (136-145) 07/05/18 12:45 Potassium 4.1 mmol/L (3.5-5.1) 07/05/18 12:45 Chloride 97 mmol/L (98-107) L 07/05/18 12:45 Carbon Dioxide 28 mmol/L (22-30) 07/05/18 12:45 BUN 24 mg/dL (9-20) H 07/05/18 12:45 Creatinine 1.82 mg/dL (0.66-1.25) H 07/05/18 12:45 Estimated Creat Clear 87 07/05/18 12:45 Est GFR ( Amer) 49 (60-) L 07/05/18 12:45 Est GFR (Non-Af Amer) 40 (60-) L 07/05/18 12:45 Glucose 129 mg/dL (74-106) H 07/05/18 12:45 Calcium 9.2 mg/dL (8.4-10.2) 07/05/18 12:45 Total Bilirubin 0.8 mg/dL (0.2-1.3) 07/05/18 12:45 AST 26 U/L (15-46) 07/05/18 12:45 ALT 17 U/L (13-69) 07/05/18 12:45 Alkaline Phosphatase 51 U/L (38-126) 07/05/18 12:45 Total Protein 7.5 g/dL (6.3-8.2) 07/05/18 12:45 Albumin 4.2 g/dL (3.5-5.0) 07/05/18 12:45 Assessment/Plan - Assessment/Plan (1) Cellulitis of right lower leg Status: Acute (2) Chronic kidney disease (CKD) stage G3a/A1, moderately decreased glomerular filtration rate (GFR) between 45-59 mL/min/1.73 square meter and albuminuria creatinine ratio less than 30 mg/g Status: Chronic Assessment: stable (3) Diabetes type 2, uncontrolled Status: Chronic Assessment: stable (4) Essential hypertension Status: Chronic Assessment: stable (5) Obstructive sleep apnea Status: Chronic (6) DVT of axillary vein, acute right Status: Acute (7) Cardiomyopathy Status: Chronic Qualifiers: Cardiomyopathy type: unspecified Qualified Code(s): I42.9 - Cardiomyopathy, unspecified Assessment: stable
[2018-07-06] MEDS ORDERED: PIPERACILLIN SODIUM/TAZOBACTAM 3.375 GM VIAL IV ONE (18:21)
[2018-07-06] MEDS ORDERED: 0.9 % SODIUM CHLORIDE(MINIBAG+ 100 ML IV ONE (18:22)
[2018-07-06] MEDS: SIMVASTATIN 40 MG TABLET PO SCH (21:16)
[2018-07-06] MEDS: DULoxetine HCL 30 MG CAPSULE.DR PO SCH (21:16)
[2018-07-06] MEDS: RIVAROXABAN 10 MG TABLET PO SCH (21:17)
[2018-07-06] MEDS: GABAPENTIN 300 MG CAPSULE PO SCH (21:17)
[2018-07-07] MEDS: PIPERACILLIN SODIUM/TAZOBACTAM 3.375 GM in 0.9 % SODIUM CHLORIDE(MINIBAG+ 100 ML IV SCH ×2 (00:08→05:04)
[2018-07-07] MEDS: INSULIN LISPRO 100 UNIT/ML 3ML VIAL SQ SCH ×2 (07:15→12:19)
[2018-07-07 07:55] VITALS: BP 131/73
[2018-07-07] MEDS: CARVEDILOL 12.5 MG TABLET PO SCH ×2 (08:33→08:34)
[2018-07-07] MEDS: CHOLECALCIFEROL (VIT D3) 1,000 UNIT TABLET PO SCH (08:34)
[2018-07-07] MEDS: FUROSEMIDE 40 MG TABLET PO SCH (08:34)
[2018-07-07] MEDS: LISINOPRIL 10 MG TABLET PO SCH (08:34)
[2018-07-07] MEDS: ASPIRIN 81 MG CHEW TAB PO SCH (08:34)
[2018-07-07] MEDS: FENOFIBRATE 160 MG TABLET PO SCH (08:34)
[2018-07-07] MEDS: PATIENT OWN MED 1 EACH EACH SQ SCH (08:35)
[2018-07-07] MEDS: GABAPENTIN 100 MG CAPSULE PO SCH (08:37)
--- NOTE | 2018-07-07 09:19 | CONSULTATION REPORT ---
REFERRING PHYSICIAN: CONSULTING PHYSICIAN: DUSTIN DIAZ DPM; Nancy Nova NP CHRIS KINNEY ADMISSION#.: [id number] : 1955 DATE OF CONSULTATION: 07/04/2018 REFERRING PHYSICIAN: Jorge L Lynch M.D. SUBJECTIVE: Chris Kinney is a 62-year-old male who was seen in the clinic yesterday in outpatient for a visit and was subsequently admitted by Dr. Lynch for cellulitis and infected right great toe ulcer. This patient has a known history of multiple blood clots including 2 DVTs and a superficial thrombophlebitis of the great saphenous vein of the right lower extremity. The patient has been on Xarelto and has a vascular doctor visit coming up on 07/18/18 for further workup regarding continued blood clot formation despite being on blood thinners. The patient, as I said, was admitted by Dr. Lynch yesterday on the and he has placed a consult for me to keep an eye on the patient and come and see him today. The patient has a history of diabetes mellitus with diabetic polyneuropathy. The patient also has chronic kidney disease. The patient today does not admit to any fevers, chills, nausea, vomiting, shortness of breath or chest pain at this time. We have been working on healing this right great toe wound for some time and it has been slow to progress and recently has begun to stall and digress as of yesterday. The patient says that he is feeling pretty well today. OBJECTIVE: Vascular: Pulses right foot are 2+ DP and PT. Capillary refill time is less than 3 seconds to the toes of the right foot. There is mild edema noted in the right great toe as well as moderate edema in the right lower extremity in the lower leg area. Dermatologic: Right great toe ulcer at the medial interphalangeal joint of the right foot demonstrates an improved appearance since yesterday. I do not see any purulence noted. There is mild erythema and warmth still present at the right great toe, however, this is much improved from yesterday. There is mild evidence of perhaps slightly whitley tissue noted in the center of the wound but this is very minor. There is no obvious probe to bone or bone visualized at this time. The right lower leg also has evidence still of erythema and warmth and slight brown discoloration which overall is improved since yesterdays visual exam. Musculoskeletal: The patient still has minor tenderness to palpation at the right lower leg but much improved from yesterday. The patient is also still mildly tender at the right great toe. No other changes in this exam since yesterday. Neurologic: There is still diminished sensation to the toes of the right foot but there is still pain upon palpation today. ASSESSMENT AND PLAN: 1. Open ulcer of right great toe, subsequent encounter, infected. 2. Cellulitis. 3. History of blood clots, right lower extremity. 4. Chronic kidney disease. 5. Diabetes mellitus type 2 with polyneuropathy. The wound was evaluated today and seems to be improving as well as the overall appearance of the right lower extremity. The patient I agree should continue on vancomycin and Zosyn. We are awaiting an ESR and CRP to have results which we sent yesterday. We are still awaiting aerobic and anaerobic cultures from yesterdays outpatient visit. X-rays of the right foot were visualized last night once they were obtained and do not demonstrate any evidence of soft tissue emphysema nor any evidence of osteomyelitis/osseous changes in the right great toe. I have discussed the question with Dr. Lynch whether or not he would like to obtain venous Dopplers, however, we are not sure this would really change the treatment at this time and he has had them done recently and we know that he is developing clots despite being on Xarelto. This will be worked up more at his next visit on 07/18/18, I believe. The wound dressings were changed with triple antibiotic ointment, 4x4 gauze, 3- inch Nicki and 1-inch Coban today. We will continue to have this changed daily. I will keep an eye on the patient as needed as well, per Dr. Reaves request. Overall the patient seems to be improving on antibiotics and will continue to monitor peripherally at this time. Once the patient is discharged, will continue to see him on a weekly basis in the outpatient basis on . The patients knows to continue triple antibiotic ointment, gauze, Nicki and Coban dressings daily once they are gone from the hospital. I do recommend that we get an A1c which I believe Dr. Lynch said that he will order as it has been awhile, I think, since weve had one done on this patient. Dustin Diaz D.P.M. (Dictated/Not Signed) DESIRE/sawyer Job#: [id number] MTDEsme
--- NOTE | 2018-07-07 09:22 | Inpatient Progress Note ---
CHRIS KINNEY. ADMISSION#.: [id number] : 1955 DATE OF VISIT: 07/06/2018 NOTE: The patient is being seen today on rounds in the south wing of the hospital today, 07/06/18. SUBJECTIVE: Chris Kinney is a 62-year-old male who was admitted on the for cellulitis of the right lower extremity and an infected right great toe wound. The patient has been on antibiotics and continues to be on vancomycin and Zosyn I believe at this time. The patient states he was doing well and was found sleeping in his room but his woke him up to speak with me today. The patient denies any fevers, chills, nausea, vomiting, shortness of breath or chest pain at this time. He denies any sort of abdominal discomfort. He does state that he has had diarrhea this morning and after breakfast as well. The patient was encouraged to watch his water intake to manage hydration despite some diarrhea and to keep an eye on that once he goes home as well. The patient does not admit to any pain or concerns at this time. He states that he was seen by Dr. Lynch earlier and they are considering sending him home tomorrow with oral antibiotics once we receive the culture results back from the culture taken on the . OBJECTIVE: Vascular: 2+ pulses, DP and PT, right foot. Capillary refill time is less than 3 seconds to the toes of the right foot. There is zero to mild edema noted in the right foot with mild to moderate edema in the right lower extremity still, compared with the left. Dermatologic: Right great toe ulcer improving with less pressure on it recently. The wound seems to be getting small today upon visual exam and there is no sign of erythema, purulence or malodor noted. There is no visible bone and it appears there is a decent base which is at least partially granular at this time. There is still mild erythema and moderate warmth noted to the right lower extremity. Overall it looks better today but there is still some erythema and warmth concerning for residual cellulitis or effects from a blood clot perhaps. Dr. Lynch stated the other day that he wasnt sure that it was needed to check for a blood clot at this time as we already know the patient has had clots recently. I confirmed with the patient today that he has an appointment with a vascular doctor on 07/18/18 which he will keep. There is a notable quarter size spot of what appears to be ecchymosis or almost a single round area of what looks like a varicose vein. He has no pain on palpation around it but direct pain on palpation is present. I am unsure what that is at this time but will definitely keep an eye on it to make sure it is not changing or worsening. It looks mostly like he had bruised it perhaps. This is new to the patient as well and I did not see that there a couple days ago. There are no other skin lesions or concerning areas, right lower extremity. Musculoskeletal: There is pain on palpation noted as mentioned above to the small round area of what appears to be ecchymosis on the right distal lateral lower leg. There is mild pain on palpation at the great toe wound of the right foot. There are no other changes and gross abnormalities of the foot or leg, right lower extremity. Neurologic: There is diminished light touch sensation to the toes of the right foot. ASSESSMENT AND PLAN: 1. Diabetes mellitus, type 2, E11.9 2. Diabetic peripheral neuropathy, E11.42. 3. Chronic kidney disease, N18.9. 4. Open wound of toes, subsequent encounter, S91.109D. 5. Concern for blood clot. 6. Cellulitis, right lower extremity and right hallux. 7. Hallux limitus, right foot. There were no procedures performed on this patient at this time. The dressings were changed consisting of triple antibiotic ointment, 4x4 gauze, 3-inch Nicki and 1-inch Coban beginning on the great toe and extending onto the distal forefoot to help hold it on appropriately. The patient has been off the toe a lot more lately and states he is on it a lot more at home and I believe that it is improving greatly because of that. I still am of the opinion that the patient will greatly benefit from a first metatarsophalangeal joint cheilectomy in order to improve range of motion at that joint in order to decrease the pressure at that interphalangeal joint where the wound is located, thus allowing it to heal much quicker. We are awaiting culture results in order to place the patient on appropriate oral antibiotics at discharge. This will hopefully happen by tomorrow. Dr. Lynch is over this at this time. The patient was instructed to plan on seeing me on in outpatient clinic and we will continue treatment there. He is to continue planning on his appointment with the vascular doctor on 07/18/18 as well and we will consider surgical intervention only once we have clearance from the vascular doctor, and Dr. Lynch. The patient understands this. I will continue to follow peripherally at this time and help as needed. I will also keep an eye on the round area of what appears to be ecchymosis on the right lateral lower leg that is new today compared with a couple days ago. Esme Daniels.P.M. (Dictated/Not Signed) [place] Job#: [id number] MTDD
[2018-07-07] MEDS: VANCOMYCIN HCL 1 GM in 0.9 % SODIUM CHLORIDE 250 ML IV SCH (11:33)
[2018-07-07] MEDS: FUROSEMIDE 20 MG TABLET PO SCH (12:28)
--- NOTE | 2018-07-10 08:02 | Discharge Summary ---
Discharge Summary - Discharge Sumary History of Present Illness: Patient is a 62-year-old white male who has a long-standing history of diabetes. Patient has had an open wound to his right great toe that he is been seeing a menhaden vessel pilot for treatment. It has been slow in healing. Today while seeing the menhaden vessel pilot it was noted that he was having some purulent drainage from the wound and that his leg was warm to touch and erythematous. It was felt that he was developing a cellulitis and was subsequently admitted to the hospital for further care and evaluation. Patient denies any fever or chills. Patient has had several episodes of cellulitis in the past which required inpatient IV anabiotic. Additional Instructions: F/U in clinic in one week Condition at Discharge: Stable Home Medications: Ambulatory Orders Medication Instructions Recorded Gabapentin 300 mg PO HS 02/24/18 Acetaminophen [Tylenol] 650 mg PO Q4 tablet 03/13/18 Furosemide 20 mg PO 1200 07/03/18 Consultations this Visit: Other (podiatry) Procedures this Visit: None Allergies/Adverse Reactions: Allergies Allergy/AdvReac Type Severity Reaction Status Date / Time No Known Drug Allergies Allergy Verified 02/24/18 12:57 Discharge Summary: Patient was admitted to the hospital and started on IV antibiotic therapy and vancomycin and Zosyn. Patient will function were monitored and remain stable. A wound culture was taken of the purulent drainage from the right great toe prior to antibiotic therapy been initiated. Blood cultures were done and subsequently came back no growth. The patient wound culture came back Staphylococcus aureus which was sensitive to all antibiotics tested. Patient was subsequently discontinued off the IV antibiotics started on doxycycline 100 mg BID. Patient did developed some diarrhea during the hospitalization. A C. difficile sample was obtained and was negative. Patient other chronic medical problems remain stable. Patient was discharged in stable condition. Admission Date: 03 JUL 2018 Level of Care: Acute Dischare Date: 07 JUL 2018 Disposition: Home - Final Diagnosis (1) Cellulitis of right lower leg Problems: Staph aureus, improved Right or Left: Right (2) Chronic kidney disease (CKD) stage G3a/A1, moderately decreased glomerular filtration rate (GFR) between 45-59 mL/min/1.73 square meter and albuminuria creatinine ratio less than 30 mg/g Problems: stable GFR 40 (3) Diabetes type 2, uncontrolled Problems: stable on home insulin and medications (4) Essential hypertension Problems: stable on home medications (5) Obstructive sleep apnea Problems: stable. pt using CPAP (6) DVT of axillary vein, acute right Problems: Stable on Eliquis (7) Cardiomyopathy Problems: stable on home meds (8) Diarrhea Problems: [place] ot be related to antibiotics. Patient encouraged to use probiotics
== END 2018-07-07 13:45 | disposition home or self-care (01) | DRG 949 ==
LOC: POD 10:50 → UNDOADMIN 11:56 → SOUTH 11:56
PROVIDERS: ADMIT Family Medicine; ATTEND Family Medicine
DX: S91.109D Unspecified open wound of unspecified toe(s) without damage to nail, subsequent encounter (principal); I82.421 Acute embolism and thrombosis of right iliac vein; I42.9 Cardiomyopathy, unspecified; E11.42 Type 2 diabetes mellitus with diabetic polyneuropathy; E11.22 Type 2 diabetes mellitus with diabetic chronic kidney disease; I12.9 Hypertensive chronic kidney disease with stage 1 through stage 4 chronic kidney disease, or unspecified chronic kidney disease; N18.3 Chronic kidney disease, stage 3 (moderate); M20.61 Acquired deformities of toe(s), unspecified, right foot; G47.33 Obstructive sleep apnea (adult) (pediatric)
CPT/HCPCS: 11042; 73630; 80053; 80202; 85025; 85651; 86140; 87070; 87493; J1815; J2543; J3370; J7050; 87040; 99223; 99231; 99232; 99238; 99251; A4554; S1016

== ENCOUNTER 2018-07-10 09:06 | Outpatient (CLI) | payer OTHER ==
--- NOTE | 2018-07-11 13:22 | OP Clinic Progress Note ---
CHRIS KINNEY. ADMISSION#.: [id number] : 1955 DATE OF VISIT: 07/10/2018 SUBJECTIVE: Chris Kinney is a 62-year-old male who presents to the clinic today for follow-up of a right great toe ulcer lesion. The patient also has what appears to be a contusion on the right lower lateral leg that was first noticed on this past Saturday on inpatient rounding by myself. The patient is concerned that it looks a little bit larger than previous, referring to the dark contusion on the right lateral lower leg. The patient does not admit to any fevers, chills, nausea, vomiting, shortness of breath or chest pain at this time. He states that nothing is different than the usual. The patient admits pain 3/10. OBJECTIVE: Vitals: Temperature 97.2 degrees Fahrenheit, blood pressure 118/69, heart rate 75, respiration rate 18, pain 3/10. Vascular: 2+ pulses, DP and PT, right foot. Capillary refill time is less than 3 seconds to the toes of the right foot. There is mild to moderate edema noted overall of the right foot and right lower leg which is better than normal. There is no warmth and mild erythema, if any, on the right lower leg. The right leg looks much improved since before. Dermatologic: The right great toe ulcer is demonstrating no purulence and no warmth, malodor or erythema. The wound does appear larger in depth today versus on Saturday when I last saw him. There is increased hyperkeratosis around the wound and more necrotic tissue in the center of the wound. There is mild undermining at the edges of the wound circumferentially. The wound is still measuring about the same but with slightly more depth compared to last time. The right lower leg lateral lesion is slightly elevated today, more than previously, and with a center dark eschar that is very, very slightly mobile. The remaining edge of the eschar area is an extra half centimeter or so of what appears to be a circular ecchymosis. This is slightly elevated, as I mentioned, and I will keep a close eye on this. If it continues to get larger we may need to consider a venous ultrasound to take a look at this. There are no other open lesions or concerning areas on the right lower leg. We did not visualize the left today. There is no obvious pain with palpation except for at the area of the contusion of the right lateral lower leg as well as of the great toe wound. There is hallux limitus noted of the right great toe metatarsophalangeal joint continued. There is still rear foot valgus deformity with arch collapse of the right foot as well. Neurologic: Light touch sensation is absent at the toes right foot but he does have more sensation lately with debridement at the toe. ASSESSMENT AND PLAN: 1. Diabetes mellitus, type 2, E11.9 2. Diabetic peripheral neuropathy, E11.42. 3. Chronic kidney disease, N18.9. 4. Open wound of toes, subsequent encounter, S91.849D. 5. History of blood clots recently. 6. Hallux limitus, right foot. 7. Contusion/skin lesion, right lower lateral leg. PROCEDURE #1: Debridement of ulcer down to subcutaneous tissue, less than 20 sq. cm. with a #15 blade today. The patient tolerated the procedure well. Minimal bleeding was present and controlled with pressure. Medihoney and 4x4 gauze, 2-inch Nicki and 1-inch Coban were applied on the toe and onto the distal forefoot to hold it on well. The patient will continue doing this dressing change every other day. We discussed that if the patient is able to find a horseshoe pad that he is encouraged to do a horseshoe pad with the forks of the horseshoe facing the inside of the foot allowing blood flow to come into the wound area easier and then following that, placing a small amount of Medihoney in the wound base and covering it with a large Band-Aid every day. The patient understands this plan and will see what he can do to find some horseshoe pads. I will continue to monitor carefully the new lesion on the right lateral lower leg. I will likely show a picture of this to Dr. Lynch as well to make sure he is aware. Upon review of the patients ESR and CRP over the last couple days from when it was taken inpatient I noticed that his ESR was understandably elevated in the 30s I believe, but that his CRP was elevated severely at 85.5. This is probably the highest Simi seen his CRP. It is concerning why it is that high and I will talk to Dr. Lynch about this. This may be due to some kidney disease as well as could be due to his blood clot, I imagine, but I need to look into this more. Combining this with the new lesion on the right lateral lower leg I think it is important to keep note of this while monitoring the lower leg and see if it continues to grow. If so, he may require a Doppler and/or biopsy to make sure it is nothing of cancerous origin. I will monitor this carefully. Return to the clinic in 1 week for follow-up of the lesion on the leg as well as the toe ulcer. We are awaiting vascular clearance for any sort of surgery. Due to the elevated CRP I am also considering that we may want to do another MRI of the right great toe to make sure that there is no infection of bone before doing surgery. We will consider that as well. Gala DanielsP.M. (Dictated/Not Signed) [place] Job#: [id number] MTDD
== END 2018-07-10 09:08 ==
LOC: POD 09:06
PROVIDERS: ATTEND Podiatrist Foot & Ankle Surgery
DX: S91.109D Unspecified open wound of unspecified toe(s) without damage to nail, subsequent encounter (principal); S81.811D Laceration without foreign body, right lower leg, subsequent encounter; E11.42 Type 2 diabetes mellitus with diabetic polyneuropathy; M20.61 Acquired deformities of toe(s), unspecified, right foot; N18.9 Chronic kidney disease, unspecified; Z86.718 Personal history of other venous thrombosis and embolism
CPT/HCPCS: 11042; A4554

== ENCOUNTER 2018-07-17 09:29 | Outpatient (CLI) | payer OTHER ==
--- NOTE | 2018-07-18 15:14 | OP Clinic Progress Note ---
SUBJECTIVE: Chris Kinney is a 62-year-old male who presents to the clinic today for follow-up of a right great toe diabetic foot ulcer which we have been treating for quite some time as well as a newly opened sore on the right distal lateral lower leg. This new sore is located at the site where there was some ecchymosis and eschar noted on the previous exam. This has opened and the patient has been applying some antibiotic ointment and dressings to it, at least in the last day or two since it opened, I believe. The patient has not been using any sort of compression at this time on the right leg. He is using his surgical shoe appropriately and doing dressings on the great toe wound as directed. The patient does not admit to any fevers, chills, nausea, vomiting, shortness of breath or chest pain or strong concerns about the right lower leg. He has his appointment with the vascular doctor tomorrow, Saturday, July 18, 2018. The patient is to call us and let us know the name of that physician and where he/she is located so that we may send a medical clearance form and a note describing more detail of what has been going on. He is unable to give us that information at this so we will have to send it after his visit. The patient has no other concerns elsewhere at this time. OBJECTIVE: Vitals: Temperature 98.5 degrees Fahrenheit, heart rate 68, respirations 18, blood pressure 140/65. Vascular: 2+ pulses, DP and PT, right foot. Capillary refill time is less than 3 seconds to the toes of the right foot. There is mild edema noted still about the right foot and right lower leg which is fairly normal for this patient and not excessive like he has had before. There is no warmth or erythema noted, right leg. Dermatologic: The right great toe ulcer on the plantar medial aspect of the IPJ is demonstrating slight improvement in appearance. There is still minor fibrous slough noted in the base which was debrided today with a #15 blade as was a little bit of hyperkeratosis noted on the skin edges. The wound was measuring today 1.0 x 0.6 x 0.3 cm deep in the proximal end. Overall, this looks better since last time. There is no erythema, purulence or malodor noted. The right lower lateral leg new ulcer has a central area of slightly mobile eschar. The wound is super tender to palpation and debridement and so debridement was only able to be minimal today. The wound measured 1.8 x 2.0 x 0.1 cm deep on the peripheral edge of the wound in a circumferential manner. There is yellow slough and a central eschar that is black noted. Some of the yellow slough in the most peripheral edge was able to be removed with a curette today. There was minor bleeding noted. There is no purulence or malodor noted and no erythema extending from the ulcer site. There are no other open lesions or skin lesions noted of concern on the right leg. Musculoskeletal: There is pain to palpation at the new ulcer on the distal right lateral lower leg. There is mild pain with debridement noted at the great toe of the right foot. The patient has obvious foot/ankle deformity of the right foot as noted in previous notes. Neurologic: Light touch sensation is absent/diminished in the toes of the right foot but present in the distal lower leg of the right foot. ASSESSMENT AND PLAN: 1. Diabetes mellitus, type 2, E11.9 2. Diabetic peripheral neuropathy, E11.42. 3. Chronic kidney disease, N18.9. 4. Open wound of toes, subsequent encounter, S91.109D. 5. Venous insufficiency ulcer, initial encounter, right leg. 6. History of blood clots recently. 7. Hallux limitus, right foot. PROCEDURE #1: Debridement of ulcer at the right great toe down to subcutaneous tissue, less than 20 sq. cm. was performed with a #15 blade today. The patient tolerated the procedure well. There was mild bleeding present and it was controlled with pressure. Medihoney and 4x4 gauze, and 2-inch Nicki was applied over the great toe and extended onto the distal forefoot to hold it on well. The patient will continue doing a dressing change here daily with a small amount of Medihoney and a Band-Aid following which the patients will put 2 layers of a U-shaped pad to protect it as they were doing 1 layer previously and it seems to be helping. PROCEDURE #2: Debridement of skin and subcutaneous tissue down to the level of the subcutaneous layer measuring less than 20 sq. cm. at the right distal lateral lower leg wound. Mild bleeding was also noted which was controlled with pressure. Medihoney, Adaptic, 4x4 gauze and a Kerlix wrap was applied for dressings. The patient tolerated the procedure well. We were unable to do any sort of aggressive compression at this time due to previous blood clots recently and therefore only 2-layer mild compression Issa wraps were performed with 2 layers of a 4-inch and 6-inch Issa wrap extending from the forefoot to just below the knee, times 2 layers. There were a total of 4 Issa wraps applied. This is mild compression to try and help with a little bit of the swelling so that this venous insufficiency ulcer can heal. The patient understands that they will continue to do that wrap daily at this time. We will await word from the patient regarding the name of the doctor and the location of the vascular doctor they are seeing tomorrow so that we can send a note regarding what we are hoping to find out from them. We are hoping that a plan can come forward regarding if we can do surgery or not despite the blood clot history. We will follow up with the doctor and seen medical clearance as able in the near future. We may be able to still consider doing an aggressive cheilectomy about the right first metatarsophalangeal joint if we are able to get clearance and feel safe doing so, so that we can get this to heal and stay healed appropriately. I would like to get the patient out of this shoe so that he can be walking normal again in a good diabetic foot shoe. The patient is happy with this plan and we will see him again soon. Return to the clinic in 1 week to the outpatient clinic for debridement of 2 wounds on the right leg and foot, and follow-up of the appointment he had with the vascular doctor. Dustin Diaz D.P.M. (Dictated/Not Signed) [place] Job#: [id number] MTDD
== END 2018-07-17 09:31 ==
LOC: POD 09:29
PROVIDERS: ATTEND Podiatrist Foot & Ankle Surgery
DX: S91.109D Unspecified open wound of unspecified toe(s) without damage to nail, subsequent encounter (principal); I87.2 Venous insufficiency (chronic) (peripheral); L97.818 Non-pressure chronic ulcer of other part of right lower leg with other specified severity; E11.42 Type 2 diabetes mellitus with diabetic polyneuropathy; N18.9 Chronic kidney disease, unspecified
CPT/HCPCS: 11042; A4554

== ENCOUNTER 2018-07-24 09:23 | Outpatient (CLI) | payer OTHER ==
--- NOTE | 2018-07-25 15:28 | OP Clinic Progress Note ---
SUBJECTIVE: Chris Kinney is a 62-year-old male who presents today for follow-up of a right great toe ulcer and right lower lateral leg ulcer. The patient has been doing Medihoney and a pad to the great toe wound with gauze wraps over the top. He has been doing the same thing on the right lateral lower leg wound. The patient admits that there is an increased amount of pain to the right great toe today which is different than normal for him. He does not admit to any fevers, chills, nausea, vomiting, shortness of breath or chest pain at this time or any abnormal leg pain at all at this time. He also states that the leg looks the same as it has been for awhile now despite it seeming slightly more of a rubor color. The patient does not admit to any fevers, chills, nausea, vomiting, shortness of breath or chest pain at this time. He also states that he saw the vascular doctor, Dr. Alfonso Toure, who wants to do some follow-up tests on his leg before giving clearance for surgery. I instructed the patient that I will plan to get a clearance form over there to Dr. Toure soon so that he can let us know when he is cleared for surgery. The patient also clarified to that doctor that we are not planning on a toe amputation but rather a joint cheilectomy of the right first MPJ. OBJECTIVE: Vitals: Blood pressure 109/57, heart rate 81, respiration rate 18, temperature 97.8 degrees Fahrenheit, O2 saturation 97% on room air. Vascular: DP and PT pulses are 2+, right foot. Capillary refill time is less than 3 seconds to the toes of the right foot. There is mild edema noted about the right great toe as well as perhaps very mild to the right foot and lower leg which is pretty normal for this patient and not excessive. There is no warmth noted of the right leg. There is a very mild rubor discoloration about the right lower leg, however. Dermatologic: The right great toe ulcer on the plantar medial aspect of the IPJ is looking fairly consistent with how it looked last week. There is mild clear/white drainage noted but I believe this was just remnants of the Medihoney. The wound was debrided with a curette and found to have a fairly decent granular base with a little bit of fibrosis present. The hyperkeratosis was beginning to form on the proximal wound edge which was debrided with a #15 blade today. The wound today again looked to measure about the same as previously which previously measured 1.0 x 0.6 x 0.3 cm deep. We will measure again at the next visit to see if we are getting improvement. There is no obvious purulence or malodor noted today. The right lower lateral leg ulcer that was new last week still has a small central area of mobile eschar. The wound is still slightly tender to palpation and has a mix of granular and fibrous slough. It was debrided today to produce a mild amount of bleeding and we will measure this on our next visit as well. At this point in time the wound looks to be about the same which last time it measured 1.8 x 2.0 x 0.1 cm deep. The depth was measured on the periphery of the wound in a circumferential manner. There is no purulence and no malodor noted and no erythema extending from the ulcer site. There are no other open lesions or skin lesions noted, right lower extremity. The left leg was not evaluated today. Musculoskeletal: There is pain on palpation to both ulcers today. There is still notable foot and ankle deformity from previous notes. Neurologic: Light touch sensation is absent/diminished in the toes of the right foot but present in the distal lower leg of the right foot. It should be noted that the padding in the right surgical shoe has been flattened enough that more was needed today and was added. ASSESSMENT AND PLAN: 1. Diabetes mellitus, type 2, E11.9 2. Diabetic peripheral neuropathy, E11.42. 3. Chronic kidney disease, N18.9. 4. Open wound of toes, subsequent encounter, S91.109D. 5. Venous insufficiency ulcer, subsequent encounter, right leg. 6. History of blood clots recently. 7. Hallux limitus, right foot. PROCEDURE #1: Debridement of the right great toe wound measuring less than 20 sq. cm. was performed with a #15 blade and curette. This was able to produce some bleeding tissue and a fairly granular but somewhat fibrous base. This was dressed with triple antibiotic ointment today and a U-shaped pad and a large Band-Aid to cover it. The patient tolerated the procedure well. Hemostasis was obtained with pressure. PROCEDURE #2: Debridement of the right lower lateral leg ulcer measuring less than 20 sq. cm. was performed with a curette. The curette was only able to debride around the circumference of the wound but was done so appropriately and the patient tolerated the procedure well although it was mildly to moderately painful to the patient. The patient tolerated it well overall and it was dressed with triple antibiotic ointment and a large Band-Aid. The patient tolerated the procedure well. The patient will continue to do dressing changes daily as we did today but with Medihoney instead of triple antibiotic ointment. We will send a clearance form to Dr. Alfonso Toure for clearance of a right first MPJ cheilectomy. We also discussed that if the patient would like we could consider a great toe amputation to most likely definitively fix this problem but the patient definitely is more leaning toward doing the initial surgery we have discussed together. We only discussed the amputation because he brought it up from a misunderstanding that Dr. Toure had that we were looking to amputate the toe. It is an option but I believe we can get him to heal with the other option as well. This would allow him to keep his toe. Return to the clinic in 1 week at the outpatient clinic for debridement and wound care. Dustin Diaz D.P.M. (Dictated/Not Signed) [place] Job#: [id number] MTDD
== END 2018-07-24 10:45 ==
LOC: POD 09:23
PROVIDERS: ATTEND Podiatrist Foot & Ankle Surgery
DX: S91.109D Unspecified open wound of unspecified toe(s) without damage to nail, subsequent encounter (principal); E11.42 Type 2 diabetes mellitus with diabetic polyneuropathy; N18.9 Chronic kidney disease, unspecified; I87.2 Venous insufficiency (chronic) (peripheral); M20.61 Acquired deformities of toe(s), unspecified, right foot; Z86.718 Personal history of other venous thrombosis and embolism
CPT/HCPCS: 11042; A4554

== ENCOUNTER 2018-07-31 09:02 | Outpatient (CLI) | payer OTHER ==
--- NOTE | 2018-08-01 13:30 | OP Clinic Progress Note ---
SUBJECTIVE: Chris Kinney is a 62-year-old male who is diabetic with peripheral neuropathy presenting for follow-up of a right great toe wound and right lower lateral leg wound. He is doing dressing changes as instructed. He is also doing a single layer of Issa wraps which is keeping swelling down beautifully. The patient does not admit to any fevers, chills, nausea, vomiting, shortness of breath or chest pain at this time. The patient does not admit to any other issues and is here for follow-up. He states that he is having a vascular study coming up this week or next ordered by his vascular doctor. OBJECTIVE: Vitals: Temperature 96.8 degrees Fahrenheit, blood pressure 144/70, heart rate 79, respiration rate 18. Pain 3/10. Vascular: 2+ DP and PT pulses, right foot. Capillary refill time is less than 3 seconds to the toes of the right foot. There is mild edema noted of right lower extremity in general. There is no poly edema of concern on the right great toe this time. Dermatologic: The right great toe ulcer on the plantar medial aspect of the IPJ is improved today. This is measuring 1 x 0.55 x 0.25 cm in size. This is slightly improved from last visit. There is no purulence or malodor or erythema noted. The right lower lateral leg wound is also with a central fibrous/eschar center with a somewhat granular periphery. This was debrided lightly with a curette today. The wound is measuring 1.9 x 1.9 x 0.1 cm which is not better from last week if at all. There is no purulence or malodor noted. There are no other concerning areas on the right leg or foot. Musculoskeletal: There is mild pain on palpation to both ulcers with debridement today. There is still notable ankle deformity and foot deformity from previous notes. Neurologic: Light touch sensation is absent/diminished to the toes of the right foot but present in the distal lower leg of the right foot. ASSESSMENT AND PLAN: 1. Diabetes mellitus, type 2, E11.9. 2. Diabetic peripheral neuropathy, E11.42. 3. Chronic kidney disease, N18.9. 4. Open wound of toes, subsequent encounter, S91.109D. 5. Venous insufficiency ulcer, subsequent encounter, right leg. 6. History of blood clots. 7. Hallux limitus, right foot. 8. Dermatophytosis of nails. PROCEDURE #1: Debridement of the right hallux ulcer measuring less than 20 sq. cm. with a curette to the subcutaneous layer. Bleeding was controlled with hemostasis. Dressings were applied today consisting of triple antibiotic ointment and a U-pad x2 opening proximally and covered with 4x4 gauze, 2-inch Nicki and 1-inch Coban. PROCEDURE #2: Debridement of wound of the right lower lateral leg down to subcutaneous tissue, less than 20 sq. cm. Bleeding was controlled (which was mild) with pressure. Dressings were applied consisting of triple antibiotic ointment and a large Band-Aid. PROCEDURE #3: The nails were trimmed on the right foot x5 without incident. The patient will continue dressings as was being done previously and is encouraged to continue Issa wraps which is helping keep the swelling down in the right leg very well. His will continue using Medihoney. The patient had no further questions and we will await clearance from Vascular to go forward with the procedure that we have been planning for the right first metatarsophalangeal joint. We will see the patient in 1 week. Dustin Diaz D.P.M. (Dictated/Not Signed) [place] Job#: [id number] MTDD
== END 2018-07-31 09:03 ==
LOC: POD 09:02
PROVIDERS: ATTEND Podiatrist Foot & Ankle Surgery
DX: S91.109D Unspecified open wound of unspecified toe(s) without damage to nail, subsequent encounter (principal); E11.42 Type 2 diabetes mellitus with diabetic polyneuropathy; N18.9 Chronic kidney disease, unspecified; M20.60 Acquired deformities of toe(s), unspecified, unspecified foot; B35.8 Other dermatophytoses; I87.2 Venous insufficiency (chronic) (peripheral); Z86.718 Personal history of other venous thrombosis and embolism
CPT/HCPCS: 11042; 11719; 11720; A4554

== ENCOUNTER 2018-08-07 08:54 | Outpatient (CLI) | payer OTHER ==
--- NOTE | 2018-08-11 15:49 | OP Clinic Progress Note ---
SUBJECTIVE: Chris Kinney is a 62-year-old male presenting for follow-up of a right great toe and right lower leg ulcer. The patient does not admit to any concerns or new complications at this time but does state that his foot seems more swollen than previously. The patient does not admit to any fevers, chills, nausea, vomiting, shortness of breath or chest pain at this time. The patient states that his vascular doctor, Dr. Toure, stated that he would be okay to go forward with surgery and was going to fax something over for us. We have not received anything and we encouraged them to call him and let them know that we have not received any clearance yet for surgery. They will do this. OBJECTIVE: Vitals: Temperature 97.3 degrees Fahrenheit, heart rate 80, respiration rate 20. Blood pressure 126/83. Pulse oximetry is 97% on room air. Pain 3/10. Vascular: 2+ DP and PT pulses, right foot, and 2+ DP pulse left foot. Difficulty feeling the PT pulse on the left foot. Capillary refill time is less than 3 seconds to the toes of bilateral feet. There is moderate to severe edema noted of the right foot as well as the right lower leg with mild erythema noted. I believe that based on his history he seems to frequently swell on and off and has a small amount of slight discoloration and warmth associated. There is somewhat greater swelling of the great toe as well at this time. Dermatologic: Right great toe ulcer: Measuring 1.0 x 0.6 x 0.2 cm deep with some hyperkeratotic tissue around the edges. This was all debrided to a granular healthy base that appears to be approximately the same size as before but is looking healthy. There is no purulence or malodor noted from this wound. Right lateral lower leg ulcer: Measuring 2.0 x 2.5 x 0.1 cm deep today. I am unsure how I am getting a larger width today than previous but the yellow slough is being enzymatically broken down from the Medihoney well. More of that was debrided today and the edges, however, are not as granular as I would like to see them yet. There was a small amount of brown fluid released when the yellow slough was trimmed today. I believe this is some fluid that has been held in the yellow slough but I do not believe it is infectious at this time. There is no obvious erythema around the wound that looks like it spreads from the wound. There is still a central yellow slough present that is softening and open wound tissue in the peripheral portion of the circular wound. There are no other open lesions or concerning areas, bilateral feet. The left foot was examined today since we havent in a little while. It is looking healthy and without any concerns whatsoever. Musculoskeletal: There is mild pain on palpation noted to both ulcers with debridement today. There is still notable ankle deformity and foot deformity from previous notes on the right foot. Musculoskeletal: There is light touch sensation absent/diminished to the toes of the right foot but present in the distal lower leg of the right foot. ASSESSMENT AND PLAN: 1. Diabetes mellitus, type 2, E11.9. 2. Diabetic peripheral neuropathy, E11.42. 3. Open wound of toes, subsequent encounter, S91.109D. 4. Venous insufficiency ulcer, subsequent encounter, right leg. 5. History of blood clots. 6. Hallux limitus, right foot. 7. Chronic kidney disease, N18.9. PROCEDURE #1: Debridement of the right hallux ulcer measuring less than 20 sq. cm. with a #15 blade to the subcutaneous layer. Bleeding was controlled with hemostasis. Bleeding was appropriate. Dressings were applied consisting of triple antibiotic ointment and a Band-Aid today. PROCEDURE #2: Debridement of the right lower lateral leg ulcer down to subcutaneous tissue, less than 20 sq. cm. Bleeding was controlled (which was mild to none) with pressure. Dressings were applied consisting of triple antibiotic ointment and a large Band-Aid. The patient was encouraged to continue using a U-pad on the toe and encouraged to greatly reduce the amount of getting around and walking that he is doing currently. He was out working on a ladder this week and I encouraged him to try and keep his leg up as much as he can this week to get the swelling down. They are to continue the Issa wrap on the right lower extremity to help keep the swelling down better. The patient was also encouraged to monitor for any increase in erythema or concerning warmth or pain on the right lower leg and to let us know immediately if there is a concern. The patient is to call Dr. Toure to request that clearance form to be sent to us as we have not received anything yet. We will also look to see if we can get anything from Dr. Lynch regarding clearance and we will consider having the patient back for a preop appointment as soon as we have clearance forms and feel confident that we are ready to go forward with surgery for the cheilectomy of the right first metatarsophalangeal joint in order to try and improve some range of motion at that joint. Return to the clinic in 1 week for either a preop appointment or follow-up further wound care. I believe very strongly that the patient still needs this procedure in order to take pressure off of that wound and based on recent arterial Dopplers that we saw today from Dr. Toure that the patient brought in it looks like he has triphasic flow all the way down and I believe he has a good chance of healing everything but we need to make sure that regarding his history of blood clots we know what Dr. Toure would like us to do perioperatively. We will see the patient next week. Gala [email or web address].MNadia (Dictated/Not Signed) [place] Job#: [id number] MTDD
== END 2018-08-07 08:55 ==
LOC: POD 08:54
PROVIDERS: ATTEND Podiatrist Foot & Ankle Surgery
DX: S91.109D Unspecified open wound of unspecified toe(s) without damage to nail, subsequent encounter (principal); E11.9 Type 2 diabetes mellitus without complications; N18.9 Chronic kidney disease, unspecified; M20.61 Acquired deformities of toe(s), unspecified, right foot; B35.8 Other dermatophytoses
CPT/HCPCS: 11042; A4554

== ENCOUNTER 2018-08-14 09:33 | Outpatient (CLI) | payer OTHER ==
--- NOTE | 2018-08-18 18:33 | OP Clinic Progress Note ---
SUBJECTIVE: Chris Kinney is a 62-year-old male who presents today for follow-up of a right great toe wound as well as a right lower lateral leg wound that we have been following for quite some time now. The patient was told today that I was finally able to reach Dr. Barrera partner, Dr. Bob, on the phone yesterday who was able to give permission to go forward with surgery. I was still awaiting the fax that had an addendum to the most recent note stating that he is okay to go for surgery despite the history of blood clots while on Xarelto. This was discussed with Dr. Bob as the previous note sent over to us a couple days ago did not say anything really much regarding the previous DVTs. It appeared that they just ran Dopplers and stated that his blood flow was good enough to go forward with surgery. He did confirm that he is comfortable having the patient go forward with surgery and a new note was being sent over today since it was not sent yesterday. This note has an addendum describing his desires and confirmation for surgery at this time. The patient has no concerns or issues at this time. The patient does not admit to any fevers, chills, nausea, vomiting, shortness of breath or chest pain at this time. OBJECTIVE: Vitals: Temperature 97.0 degrees Fahrenheit, heart rate 82, respiration rate 20. Blood pressure 120/59. Oxygen saturation is 97% on room air. Vascular: 2+ DP and PT pulses, right foot. Capillary refill time is less than 3 seconds to the toes, right foot. There is still moderate to severe edema noted of the right foot and the right lower leg. There is no erythema noted at this time, however. I believe that the patient continues to have swelling issues and today I encouraged him again that he really should be trying to stay off of this as much as he can to keep the swelling down. Dermatologic: Right great toe ulcer is today measuring 0.5 x 0.7 x 0.3 cm deep. This is improved from last week which measured 1.0 x 0.6 x 0.2 cm deep. There is still mild hyperkeratotic tissue which was debrided today and the base was debrided to a granular healthy base that is bleeding appropriately and hemostasis was obtained with pressure. There is no purulence or malodor noted from the wound. The right lateral lower leg ulcer still has some yellow slough centrally which was debrided today as well. There is no purulence, erythema or malodor noted. The outer edge of the wound seems to be a little bit concerning of blood flow issues as it seems that it is perhaps almost drying up a little bit. We are keeping a wet salve on it daily to try and keep it moist, however. The ulcer on the right lower lateral leg is now measuring 2.5 x 2.1 x 0.3 cm deep centrally. I am worried that this does not seem to be looking any better and may in fact be slightly worse than previous. I worry that we really do need to get the swelling down to get this to heal. I am not able to tell how deep this really goes but I worry it is deepening. Musculoskeletal: There is pain on palpation mild noted at both ulcers with debridement today. There is still notable ankle deformity and foot deformity from the previous notes on the right foot. The left foot was not examined today. Neurologic: There is light touch sensation absent/diminished to the toes of the right foot but still present in the distal lower lateral leg of the right foot. ASSESSMENT AND PLAN: 1. Diabetes mellitus, type 2, E11.9. 2. Diabetic peripheral neuropathy, E11.42. 3. Open wound of toes, subsequent encounter, S91.109D. 4. Venous insufficiency ulcer, subsequent encounter, right leg. 5. History of blood clots. 6. Hallux limitus, right. 7. Chronic kidney disease, N18.9. PROCEDURE #1: Sharp debridement of the right great toe ulcer with a #15 blade was performed for the surrounding hyperkeratotic tissue and the wound base measuring less than 10 sq. cm. Hemostasis was obtained with pressure. Dressings were applied consisting of Santyl and a Band-Aid and a U-pad to offload the wound followed by another Band-Aid. The patient will continue dressing changes similar to today daily. PROCEDURE #2: Sharp debridement with a #15 blade and a pickup of the yellow slough of the right lower lateral leg wound was performed today measuring less than 20 sq. cm. There was no purulence or infectious concern today. The wound was not really bleeding today. It was dressed with Santyl and a Band-Aid today. The patient will continue daily dressings to both of these as we did today except with Medihoney. Two 4-inch layers of Issa wrap were applied to help with some compression today. There was only a single layer, however this should help some. I will call Dr. Barrera office to see about compression wraps and if they are okay to do at this time despite his recent blood clot history. If we can get approval we will begin aggressive compression again as it has seemingly been a couple months since his last blood clot. I believe we are likely okay to begin aggressive compression to try and keep the swelling down in order to get his leg wound to heal. We have now received today at the end of the appointment the addendum to the note from Dr. Bob and Dr. Toure regarding being okay to go forward with surgery. We will go ahead and do a preop appointment next week on and prepare to do surgery on 08/27/18 for a right first metatarsophalangeal joint aggressive cheilectomy. This should improve range of motion of the joint and take pressure therefore off the IPJ wound. The patient understands this is likely the plan and that we will do it under MAC anesthesia with local and we will discuss with him at the next visit regarding the great importance of holding his Xarelto the day before surgery and resuming it the evening after surgery or something close to that I will decide and let him know next week. Return to the clinic in 1 week for preop appointment which will be a 45 minute appointment to do a full History and Physical. The patient will continue daily dressing changes and compression in the meantime. Hopefully we will be able to get him in there for compression wraps starting next week as well. Gala DanielsP.M. (Dictated/Not Signed) [place] Job#: [id number] & [id number] JONATHAN
== END 2018-08-14 09:35 ==
LOC: POD 09:33
PROVIDERS: ATTEND Podiatrist Foot & Ankle Surgery
DX: S91.109D Unspecified open wound of unspecified toe(s) without damage to nail, subsequent encounter (principal); L97.818 Non-pressure chronic ulcer of other part of right lower leg with other specified severity; E11.42 Type 2 diabetes mellitus with diabetic polyneuropathy; N18.9 Chronic kidney disease, unspecified; M20.61 Acquired deformities of toe(s), unspecified, right foot; Z86.718 Personal history of other venous thrombosis and embolism
CPT/HCPCS: 11042; 97597; A4554

== ENCOUNTER 2018-08-21 14:24 | Outpatient (CLI) | payer OTHER ==
--- NOTE | 2018-08-24 16:33 | History and Physical Report ---
CHIEF COMPLAINT: Right great toe ulcer. HISTORY OF PRESENT ILLNESS: The patient is a 62-year-old male who has been seeing me for several months now for a right great toe ulcer. He has been undergoing local wound care for a few months now with improvement and then digression. The patient overall presented today with a malodorous right great toe ulcer with increased drainage and macerated tissue which is not normal for this wound. There was no obvious purulence noted, however. The patient also has some increased swelling on the right lower leg as well as minor redness about the leg somewhat near the right lower leg ulcer on the lateral side as well. The patient developed this ulcer several weeks ago and I believe it is very much related to his venous insufficiency. We have been doing local wound care on both wounds and have been working toward preparing for surgery in order to clean up the right first metatarsophalangeal joint to allow greater motion which should take the pressure off the right great toe ulcer and allow it to heal better and stay healed. The patient has sustained a couple blood clots including at least one DVT and superficial thrombus as well despite being on Xarelto. A workup was required by the vascular doctor, Dr. Toure, who saw the patient and him and his partner agreed that the patient was okay to go forward with surgery if we hold the Xarelto for a day before the surgery and resume within a day after surgery. Dr. Bob who gave the final addendum and approval who is a partner of Dr. Barrera gave approval and is aware of the history of multiple blood clots. His addendum is in the chart. The patient does not admit to any fevers, chills, nausea, vomiting, shortness of breath or chest pain at this time. He would like to go forward with the surgery if that is an okay thing to do and would also like to consider aggressive compression at my suggestion of his right lower leg so that we can try and get this venous wound to heal. PAST MEDICAL HISTORY: The patient has a history of diabetes mellitus type 2 that is not very well controlled. The patient also has a history of an enlarged heart/cardiovascular disease/cardiomyopathy. The patient also has a history of hypertension which he is on lisinopril for. The patient denies any bleeding disorder, AIDS or HIV, hepatitis, anesthesia problems, COPD or pulmonary disease, tobacco use or alcohol use, stroke or substance abuse. PAST SURGICAL HISTORY: The patient admits a hip replacement in 2010, and tonsillectomy back in 196. He denies any surgical issues with anesthesia that he is aware of. FAMILY HISTORY: The patient denies any significant family history. SOCIAL AND OCCUPATIONAL HISTORY: The patient worked at the [employer] until this wound which has kept him from being able to return. REVIEW OF SYSTEMS: Overall, the patient is doing well. Skin: No rashes or skin irritation noted. The patient does have the history of a right great toe ulcer and right lower lateral leg ulcer which has been treated. Eyes: No recent vision change, pain or discomfort. Cardiovascular: No palpitations or chest pain reported. Gastrointestinal: No bowel movement pain, blood in the bowel movements or gut pain. Neurologic: No burning, tingling sensation or numbness noted. Genitourinary: No pain with urination or blood in the urine. Hematologic: The patient has a history of blood clots while on Xarelto which has been discussed with Vascular. Ears, nose and throat: The patient denies any masses, pain or difficulty with the ears, nose or throat at this time. Pulmonary: No shortness of breath issues or history of lung problems. Musculoskeletal: The patient has some pain on palpation with these 2 ulcers on the right lower extremity. He also has posterior tibial tendon dysfunction bilaterally with notable valgus deformity of the right rear foot. Psychiatric: The patient denies any depression or anxiety issues. CURRENT MEDICATIONS: Please see the attached list provided by the patient. The patient states that the only medicine not listed on there was Xarelto which he gave me permission to write on there; he was unsure what the dose was, however, but he is taking it daily in the morning. ALLERGIES AND REACTIONS: THE PATIENT DENIES ANY KNOWN DRUG ALLERGIES. PERTINENT PHYSICAL EXAM: Vitals: Temperature 98.8 degrees Fahrenheit, heart rate 71, respiration rate 20, blood pressure 127/68 and oxygen saturation 97% on room air. Mental status: The patient is awake, alert and oriented x3. Head and neck: The patient is atraumatic, normocephalic. Eyes: Extraocular movements are intact bilaterally. Heart: Normal S1 and S2 rhythm. No signs of atrial fibrillation. Neurologic: There is no numbness or burning or tingling. Light touch sensation is intact and symmetric in the lower legs but diminished in the right foot. Ears, nose and throat: There is no tracheal deviation and the nares seem symmetric. There is no drainage from the ears nor any masses in these areas. Lungs: Clear to auscultation bilaterally but difficult to hear in the upper areas. Vascular: 2+ DP and PT pulses, right foot. Capillary refill time is 3 seconds to the toes, right foot. There is moderate edema noted in the right great toe as well as in the right lower leg. Lymph: There is no palpable lymph nodes underneath the jaw bilaterally nor in front of or behind the ear bilaterally. Musculoskeletal: The patient has right foot rear foot valgus deformity as well as posterior tibial dysfunction noted of the right foot. No other gross abnormalities noted. Dermatologic: The patient has a right great toe ulcer that appears to have some cellulitis beginning. There is no purulence but it is positive for malodor at this time and increased drainage and macerated tissue on the edges of the wound, and increased size of wound today. The patient also has a right lower lateral leg ulcer with fibrous tissue in the base that seems to stay the same if not be slightly worsening. There is moderate serous drainage coming from his venous insufficiency out the wound on the lower lateral leg. There is very mild bleeding with debridement at that wound site today. There is mild erythema near the wound site and mild swelling that is more than the surrounding tissues around the area of the right lower sagittal and lateral leg. There is no probe to bone in either of these wounds at this time. The right great toe ulcer is measuring today at 1.0 x 0.7 x 0.2 cm deep. The right lower lateral leg ulcer is measuring 2.2 cm x 2.4 cm x 0.3 cm deep today. ASSESSMENT AND PLAN: 1. Open wound of toe, subsequent encounter; S91.109D. 2. Venous insufficiency ulcer, subsequent encounter, right leg. 3. Diabetes mellitus type 2; E11.9. 4. Diabetic peripheral neuropathy; E11.42. 5. Cellulitis of right lower leg and foot. 6. History of blood clots. 7. Hallux limitus, right foot. 8. Chronic kidney disease. 9. Cardiomyopathy history. PROCEDURE #1: Sharp debridement of the right great toe ulcer was performed today with a #15 blade. Excessive macerated tissue on the edges was removed and there was a larger wound created from the excess drainage. The wound was wiped down and dressed today with Santyl, a Band-Aid and a U-pad to offload it. The patient tolerated the procedure well. PROCEDURE #2: Sharp debridement of the right lower lateral leg wound with a #15 blade. Minimal bleeding was found with this debridement. Measurements are found above for both wounds. The patient tolerated the procedure well. It is painful for the patient to have debridement performed. In the future we will use lidocaine jelly. A discussion was had with Dr. Lynch regarding the increased swelling and concern for cellulitis versus blood clot again. Dr. Lynch did not feel it was necessary to send the patient for a blood clot at this time after him examining the patient today with me. It was agreed that I would go ahead and perform a 4-layer aggressive compression therapy starting now. This was performed on the right lower leg for procedure #3. We will continue this and see if we can get home health set up beginning once we see the patient again on Saturday to get that happening, so that it is happening at home as well at least one other time in the week. These dressings will be changed over the top of the surgical dressings that will be left alone. The patient understands that this is the plan. A prescription for Bactrim DS 800/160 was sent to [facility] and was already picked up according to a phone call to [facility]. I mistakenly put the wrong dose and called to confirm that they were able to fill it anyway and they stated that all was just fine and that the patient picked up the right Bactrim DS, 800/160 prescription. We will hold off on a venous Doppler at this time based on Dr. Reaves recommendation. We have decided to see the patient back in clinic on Saturday. His is seeing Dr. Lynch and he will grab me to both take a quick look at Chris Kinney as well. I will likely help apply a 4-layer compression dressing at that time and we will need to set him up for home health at that time. We will do that so we can continue having 1 or 2 other dressing changes a week on that leg. As long as the patient is healing well and looking better with swelling, we will continue to plan for surgery on 08/27/18, as long as we can get clearance through his insurance. The patient has a tentative date for 08/27/18 in the morning at around 9 oclock and we will notify the patient with a confirmation of this once we have it. The patient underwent an extensive consent today understanding the risks and benefits of surgery that include but are not limited to bleeding, infection, undercorrection, overcorrection, nonhealing, numbness, loss of limb and loss of life and the patient has agreed both by written and verbal consent to go forward with the procedure at this time consisting of a right first metatarsophalangeal joint cheilectomy. The patient signed the consent and it was placed in the chart. An illustrative consent was also reviewed as well as plans before, during and after surgery and the patient signed that consent as well. A witness was also there to sign all consents and a copy of the illustrative consent was sent with the patient today. All surgical orders will be sent to [facility] for preapproval. The patient had no further concerns or questions at this time. As long as he is healing well and looking better on Saturday, he will continue to plan for surgery on Saturday, August 27. The patient understands that is the plan. We may consider an aggressive debridement of the right lower lateral leg ulcer as well while we have him numb. We will consider this to increase his likelihood of healing that as well. Labs will also be ordered consisting of a CBC, BMP, PT/INR, EKG and chest x-ray. This will be outpatient surgery and will likely be done with a MAC anesthesia with local. I will put orders in for the patient to obtain these labs and we will make an adjustment to the consent and preop approval for a right lower lateral leg ulcer debridement likely as well. Gala DanielsP.M. (Dictated/Not Signed) [place] Job#: [id number] MTDD
== END 2018-08-21 14:25 ==
LOC: POD 14:24
PROVIDERS: ATTEND Podiatrist Foot & Ankle Surgery
DX: S91.109D Unspecified open wound of unspecified toe(s) without damage to nail, subsequent encounter (principal); L97.818 Non-pressure chronic ulcer of other part of right lower leg with other specified severity; E11.42 Type 2 diabetes mellitus with diabetic polyneuropathy; E11.65 Type 2 diabetes mellitus with hyperglycemia; I87.2 Venous insufficiency (chronic) (peripheral); N18.9 Chronic kidney disease, unspecified; Z86.718 Personal history of other venous thrombosis and embolism; Z79.01 Long term (current) use of anticoagulants
CPT/HCPCS: 11042; A4554

== ENCOUNTER 2018-08-25 13:44 | Outpatient (CLI) | payer OTHER ==
[2018-08-25 14:20] LABS: BASOPHILS % 0.6 % (0.0-1.5); EOSINOPHILS % 3.1 % (0.0-6.8); MONOCYTES % 4.7 % (0.0-11.0); NEUTROPHILS # 6.9 # k/uL (1.4-7.7)
--- NOTE | 2018-08-25 14:44 | Diagnostic Imaging Report ---
BRIAN MACIAS [facility] [address] [facility] [address] [address] Report Submission Date: Aug 25, 2018 2:37:51 PM CDT Patient Study Name: VIRGEN VICTORIA Date: Aug 25, 2018 1:58:14 PM CDT Modality Type: DX Gender: M Description: CHEST 2VIEW : 53 Institution: [facility] Physician: BRIAN MACIAS EXAMINATION: CHEST 2VIEW HISTORY: PRE OP (Hx) COMPARISON: None FINDINGS: There is a small hazy airspace opacity in the right lower lobe. There is no focal consolidation in the left lung, pleural effusion, or pneumothorax. The cardiomediastinal silhouette is normal. The visible bony thorax is intact. IMPRESSION: Small hazy airspace opacity in the right lower lobe, which could represent pneumonia in the appropriate clinical setting or possibly atelectasis. CT chest or followup to resolution is recommended. Electronically signed on Aug 25, 2018 2:37:51 PM CDT by: Ross CASTILLO
[2018-08-25 15:15] LABS: eGFR (Non-African) 26
== END 2018-08-25 14:00 ==
LOC: RT 13:44
PROVIDERS: ATTEND Podiatrist Foot & Ankle Surgery
DX: S91.109D Unspecified open wound of unspecified toe(s) without damage to nail, subsequent encounter (principal); E11.42 Type 2 diabetes mellitus with diabetic polyneuropathy; Z01.812 Encounter for preprocedural laboratory examination; Z79.01 Long term (current) use of anticoagulants; Z86.718 Personal history of other venous thrombosis and embolism; Z01.810 Encounter for preprocedural cardiovascular examination
CPT/HCPCS: 36415; 71046; 80053; 85025; 85610; 85730

== ENCOUNTER 2018-08-28 14:27 | Outpatient (CLI) | payer OTHER ==
--- NOTE | 2018-09-02 14:54 | OP Clinic Progress Note ---
SUBJECTIVE: Chris Kinney is a 62-year-old male presenting for follow-up of a right great toe ulcer as well as right lower lateral leg ulcer. The patient had been in 4 layer compression wraps since I last saw him on Saturday as well as the previous . The patient states that he is doing well and does not admit to any issues. He states that he feels this is the smallest his leg has been in a long time upon looking at it after taking off dressings today. The patient does not admit to any fevers, chills, nausea, vomiting, shortness of breath or chest pain at this time. The patient understands the plan of doing surgery on September 17 when I get back into town and leaving the wound to continue to improve as he finishes his antibiotics and make sure he is free of infection when I get back before doing surgery and cutting to bone. OBJECTIVE: Vitals: Temperature 98.8 degrees Fahrenheit, blood pressure 127/65, heart rate 87, respiration rate 24, O2 saturation is 97% on room air. Vascular: 2+ DP and PT pulses, right foot. Capillary refill time is less than 3 seconds to the toes, right foot. There is mild to moderate edema noted of the right lower extremity with a slightly large right great toe still. Dermatologic: Right great toe ulcer: This ulcer is measuring at this visit at 0.8 x 0.4 x 0.1 cm deep. There is no warmth noted, or purulence or drainage. There is still a very mild red discoloration or perhaps more so mild rubor on the right great toe. There is no purulence, undermining or probe to bone noted. There has not ever been any probe to bone on this wound that I have seen. Right lower lateral leg ulcer: Noted to be measuring at 2.1 x 2.0 x 0.2 cm, which is improved from our last visit. The wound is appearing healthier and seems to be closing in from the edge as well. There is still yellow fibrous tissue in the base which we will continue applying Santyl on when I see him, and Medihoney when home health in the future sees him. There is no erythema, purulence or malodor noted. Musculoskeletal: There is mild pain on palpation of the right lower lateral leg ulcer. There was no pain with debridement of the right great toe ulcer today. There are no other gross abnormalities outside of what we discussed in previous notes regarding the overall right foot and ankle. Neurologic: Light touch sensation is diminished to the toes of the right foot. ASSESSMENT AND PLAN: 1. Open wound of toe, subsequent encounter, S91.109D. 2. Venous insufficiency ulcer, subsequent encounter, right leg. 3. Diabetes mellitus type 2, E11.9. 4. Diabetic peripheral neuropathy, E11.42. 5. Cellulitis of right lower leg and foot. 6. History of blood clots. 7. Hallux limitus, right foot. 8. Chronic kidney disease. 9. Cardiomyopathy history. PROCEDURE #1: Sharp debridement of the right great toe ulcer was performed with a #15 blade. There was mild hyperkeratotic tissue on the edges that was debrided but very little was there. The wound was dressed with Santyl and 2 U-Pads to offload it and a Band-Aid. The patient is to continue doing this daily on the great toe. PROCEDURE #2: Sharp debridement of the right lower lateral leg ulcer was also performed but with a curette. There was mild bleeding noted with this light debridement. Measurements are found above still for both wounds. The patient tolerated the procedure well. The patient understands the plan to also debride this wound when we do surgery in order to clean it up the best we can. If it is looking fantastic when I see him again the week of surgery, we may not need to do surgery at that time if it continues to heal well. PROCEDURE #3: 4 layer compression wrap was applied to the right lower extremity after dressing the right lower leg wound first with Santyl, 4x4 gauze and a 4- inch Kerlix. Extra gauze was applied on top of the dorsal right foot to keep swelling down which has been helping. The patient tolerated the procedure well. This is definitely helping keeping the swelling down in order to help him heal. Home health care is being ordered and we will see if they can see the patient Saturday on 09/01/18 for a 4 layer compression wrap and dressing change and then I will see him on Saturday and then they can resume twice weekly 4 layer compression wrap dressing changes on 09/06/18 which is a Saturday and then continue on Tuesdays and Saturdays. Ciarra at the [facility] is arranging this home health care. The patient understands the plan for this. He and his will continue to change dressings on the right great toe ulcer daily as discussed. We will plan on seeing the patient on Saturday09/15/18 for a follow-up after I get back into town. The patient knows I will be gone the through the . We will make sure he is looking good and not infected at all. As long as it is looking good and not infected, we will plan on going forward with surgery as we have checked for any signs of osteomyelitis when I first saw the wound and he has never had any probe to bone and the MRI was negative for any signs of bone marrow edema. I believe we can go forward with surgery for an aggressive cheilectomy. The patient has no further questions at this time. We will see him on 09/03/18. Gala DanielsP.M. (Dictated/Not Signed) [place] Job #: [id number] MTDD
== END 2018-08-28 14:30 ==
LOC: POD 14:27
PROVIDERS: ATTEND Podiatrist Foot & Ankle Surgery
DX: S91.109D Unspecified open wound of unspecified toe(s) without damage to nail, subsequent encounter (principal); L97.818 Non-pressure chronic ulcer of other part of right lower leg with other specified severity; E11.42 Type 2 diabetes mellitus with diabetic polyneuropathy; L03.115 Cellulitis of right lower limb; M20.61 Acquired deformities of toe(s), unspecified, right foot; N18.9 Chronic kidney disease, unspecified; Z86.718 Personal history of other venous thrombosis and embolism
CPT/HCPCS: 11042; 29581; A4554

== ENCOUNTER 2018-09-03 09:25 | Outpatient (CLI) | payer OTHER ==
--- NOTE | 2018-09-06 20:02 | OP Clinic Progress Note ---
SUBJECTIVE: Chris Kinney is a 62-year-old male presenting to the clinic today for follow-up of a right lateral leg ulcer as well as right great toe ulcer that he has had present for quite some time now. The patient also has a history of blood clots and is on Xarelto and states that he has not missed any days recently and just got a refill and is not going to continue to miss any days. The patient has been preparing for surgery which we decided to wait on because he had a recent infection of the right great toe. He appears at this time to be free of any infection and he is looking for the surgery once I get back into town, planned for 09/17/18. On his most recent visit we did a full History and Physical and went over consents, etc. and answered all questions. All questions were again answered today to his satisfaction and he is planning on surgery on 09/17/18. He does not admit to any fevers, chills, nausea, vomiting, shortness of breath or chest pain at this time. The patient is having home health begin to see him and the first visit was yesterday, 09/02/18. They applied a 4 layer compression wrap on top of normal dressing changes on the right lower extremity. They did a good job. They will continue to do home health care visits on Saturday, Saturday and Saturday next week as well as Saturday this week and then I will see the patient beginning on 09/15/18, to see how he is doing at that time. That week of September 15 the home health care team will only need to see him for the right great toe wound and to do dressing changes on that and I will take care of the 4 layer compression wraps that Saturday as well as surgery on Saturday. Dressings will likely be left intact over the weekend. OBJECTIVE: Vitals: Temperature 97.8 degrees Fahrenheit, heart rate 66, respiration rate 20, blood pressure 128/57. Pain is 0/10, and O2 saturation is 95% on room air. Vascular: 2+ DP and PT pulses, right foot. Capillary refill time is less than 3 seconds to the toes, right foot. There is very mild edema only noted of the right lower extremity. The impressive swelling and slight erythema from previous is not seeming to be there anymore. The 4 layer aggressive compression wraps are doing a great job. Dermatologic: The right great toe ulcer is measuring today at 0.8 x 0.4 x 0.2 cm deep. This is still very consistent with what it was previously. There is more hyperkeratotic tissue around the wound today which was debrided to intact skin. The base of the wound was debrided and had some mild bleeding noted. There is no purulence, warmth or erythema noted at this time. The right lower lateral leg ulcer is measuring today at 1.9 x 1.9 x 0.1 cm deep. This is slightly improved from his last visit. There is still a large amount of fibrous tissue stuck in the base of the wound. This is difficult to remove due to sensation and it is painful for the patient when I attempt to debride it. The patient does not show any erythema, purulence or malodor or abnormal drainage from this wound site. It overall seems to be fairly healthy except for the yellow discoloration/fibrous tissue in the wound base. Musculoskeletal: There is mild pain on palpation of the right lower lateral leg ulcer with debridement. There was no pain with debridement of the right great toe ulcer today. There are no other gross abnormalities outside of what we discussed in previous notes regarding the overall right foot and ankle with eversion and pes planovalgus deformity. Neurologic: Light touch sensation is diminished to the toes of the right foot. ASSESSMENT AND PLAN: 1. Open wound of toe, subsequent encounter; S91.109D. 2. Venous insufficiency ulcer, subsequent encounter, right leg. 3. Diabetes mellitus type 2; E11.9. 4. Diabetic peripheral neuropathy; E11.42. 5. Cellulitis of right lower leg and foot resolved. 6. History of blood clots on Xarelto. 7. Hallux limitus, right foot. 8. Chronic kidney disease. 9. Cardiomyopathy history on baby aspirin daily. PROCEDURE #1: Sharp debridement of the right great toe ulcer was performed with a #15 blade. Hyperkeratotic tissue was also removed. The wound was dressed with Santyl and 2 U-Pads and a Band-Aid in order to help offload it. The patient will continue doing this daily on the right great toe. He will do this with Medihoney at home. PROCEDURE #2: Sharp debridement of the right lower lateral leg ulcer was also performed with a curette. This was also performed with a #15 blade to try and get some of the fibrous tissue off. There was very mild bleeding noted with the light debridement. Crosshatching of the wound was also performed with a #15 blade with minor bleeding. The patient understands that we will continue 4 layer compression wraps to try and help this wound to continue to heal. The patient will not do anything with this wound at this time and we may consider doing a wound debridement as part of the surgery if it is still looking fibrous when I see him on 09/15/18. The patient tolerated the procedure well. PROCEDURE #3: A 4 layer compression wrap was applied to the right lower extremity after dressing the right lower leg wound first with Santyl, 4x4 gauze and a 4-inch Kerlix. Extra gauze was applied to the top of the foot as well as extra Kerlix applied to the proximal lower leg where it is still more swollen. The 4 layer compression was applied appropriately and the patient tolerated it well. This is doing great to keep the swelling out of his leg and he is happy with that. Once we get wounds healed we will consider switching to aggressive compression stockings. As mentioned above in the Subjective, Saima with Referrals has spoken with the [employer] that is doing the dressing changes and I discussed with her more in detail about that today, as discussed above. I believe the patient is ready for surgery on 09/17/18 and we will confirm that on 09/15/18 when I see him at our next visit. The patient has no further questions at this time. We have obtained clearance as needed from the primary care doctor as well as vascular doctor. I spoke with the DIGESTER with respect to the patient being on aspirin 81 mg daily. I believe he is on only a baby aspirin. He states that he should be okay for this minor surgery to continue on that baby aspirin for his heart. He was encouraged, however, that he will not be taking Xarelto the morning of surgery. He will have his last dose of Xarelto that Saturday morning, September 16. His next Xarelto dose will be , 09/18/18. The patient understands this and has all the paperwork from previous that we went over before in preparation for surgery. The patient has no further questions and we will see him on 09/15/18 for follow-up to make sure he is ready for surgery. We will confirm the Xarelto and that he is allowed to continue his aspirin at that time. We will make sure the patient knows to continue the aspirin. Gala DanielsPNadiaM. (Dictated/Not Signed) [place] Job #: [id number] MTDD
== END 2018-09-03 09:27 ==
LOC: POD 09:25
PROVIDERS: ATTEND Podiatrist Foot & Ankle Surgery
DX: S91.109D Unspecified open wound of unspecified toe(s) without damage to nail, subsequent encounter (principal); L97.818 Non-pressure chronic ulcer of other part of right lower leg with other specified severity; E11.42 Type 2 diabetes mellitus with diabetic polyneuropathy; M20.61 Acquired deformities of toe(s), unspecified, right foot; N18.9 Chronic kidney disease, unspecified; Z79.82 Long term (current) use of aspirin; Z86.718 Personal history of other venous thrombosis and embolism
CPT/HCPCS: 11042; 29581; A4554

== ENCOUNTER 2018-09-18 10:02 | Outpatient (CLI) | payer OTHER ==
--- NOTE | 2018-09-24 12:45 | OP Clinic Progress Note ---
SUBJECTIVE: Chris Kinney is a 62-year-old male presenting to the clinic today for follow-up of the right lower lateral leg ulcer as well as right great toe ulcer and compression dressings. The patient denies any concerns or complaints over these last few days since we last saw him and states that home health has not been there this week. I informed him that they let us know that they were not coming this week as I saw him earlier this week and again today and apparently they did not let the patient know, unfortunately. The patient does not admit to any fevers, chills, nausea, vomiting, shortness of breath or chest pain at this time. The patient is curious regarding whether we have heard anything from Dr. Monroy or Savana Matta that works with him regarding getting an echo and seeing if we can still get clearance for surgery with an appropriate ejection fraction. We notified him that we have not heard anything yet and we have called multiple times trying to obtain information for them. Hopefully we will hear something soon. In the meantime, we will continue local wound care and compression. OBJECTIVE: Vitals: Temperature 97.9 degrees Fahrenheit, heart rate 78, respiration rate 18, blood pressure 140/79. O2 saturation is 96% on room air. Vascular: 2+ DP and PT pulses, right foot. Capillary refill time is less than 3 seconds to the toes, right foot. There is mild edema still noted about the right foot and right great toe. The severe swelling from before is no longer present in the right lower leg and foot. Dermatologic: The right great toe ulcer today is seeming to measure even smaller than previous upon visual approximation today. The wound has a little bit of fibrous tissue which was debrided with a curette today. There is a little bit of hyperkeratotic tissue also debrided with a #15 blade today about the great toe wound. It is looking like he is doing a great job keeping it offloaded. There is no erythema, purulence or malodor noted from this wound today. There is mild edema still noted about the right great toe with perhaps slight red/pink discoloration to the toe. No warmth really noted today. The right lower lateral leg ulcer is appearing very healthy with still some white/yellow striations in the bed of the wound. This was debrided today with a curette and hemostasis was achieved with pressure. The right lower leg lateral ulcer also seems to be approximately the same in size compared with last upon visual exam. Musculoskeletal: There is mild pain on palpation noted with debridement of the right lower lateral leg ulcer. There was no pain with debridement of the right great toe ulcer. No other gross abnormalities noted except for what is in previous notes regarding the foot and ankle being in eversion and pes planovalgus deformity. There is limited range of motion of the right first metatarsophalangeal joint with the forefoot loaded versus slightly improved range of motion only with the forefoot not loaded. Neurologic: Light touch sensation is diminished to the toes of the right foot. ASSESSMENT AND PLAN: 1. Open wound of toe, subsequent encounter; S91.109D. 2. Venous insufficiency ulcer, subsequent encounter, right leg. 3. Diabetes mellitus type 2; E11.9. 4. Diabetic peripheral neuropathy; E11.42. 5. History of blood clots on Xarelto. 6. Hallux limitus, right foot. 7. Chronic kidney disease. 8. Cardiomyopathy history on baby aspirin daily. PROCEDURE #1: Sharp debridement of right lower lateral leg ulcer with a curette was performed down to the level of subcutaneous tissue. This is less than 20 sq. cm. Hemostasis was obtained with pressure. PROCEDURE #2: Sharp debridement of the right great toe ulcer with a #15 blade and curette was performed down to the subcutaneous tissue less than 20 sq. cm. Hemostasis was obtained with pressure. The patient tolerated the procedure well. Both wounds were dressed with Santyl today and the great toe ulcer was covered with a Band-Aid and U-Pad for offloading. The right lower lateral leg ulcer was covered in 4x4 gauze and a 4-inch Kerlix. PROCEDURE #3: A four-layer aggressive compression wrap was applied to the right lower extremity appropriately. The patient tolerated the procedure well. The patient had no further questions or concerns at this time. We will let him know as soon as we hear something back from Dr. Monroy or Savana Matta regarding getting an echo for follow-up of the ejection fraction. We will be able to consider surgery at that time if the ejection fraction is over 45%. If not, we will need to send him to another provider where that procedure can be performed. We are contacting the patients home health care team notifying them of the plan for continuing Saturday, Saturday, Saturday visits to see the patient. Mondays and Wednesdays they are to do normal dressings to both wounds with Medihoney and offloading the right great toe ulcer with a pad and a Band-Aid and the right lower lateral leg ulcer being dressed with Santyl, 4x4 gauze, and a Kerlix followed by a 4-layer compression wrap to the right lower extremity Saturday and Saturday. On Fridays they are to leave that four-layer compression wrap alone and just change the bandage to the right great toe ulcer and apply Medihoney with a U-Pad and Band-Aid. The home health care team will be notified today by a phone call from Omid, our nurse. The patient understands this and we will plan on seeing him in a return to clinic visit in 1 week from now for continued local wound care and compression. Gala DanielsP.M. (Dictated/Not Signed) [place] Job#: [id number] & [id number] MTDEsme
== END 2018-09-18 10:04 ==
LOC: POD 10:02
PROVIDERS: ATTEND Podiatrist Foot & Ankle Surgery
DX: S91.109D Unspecified open wound of unspecified toe(s) without damage to nail, subsequent encounter (principal); M20.21 Hallux rigidus, right foot; I87.2 Venous insufficiency (chronic) (peripheral); E11.22 Type 2 diabetes mellitus with diabetic chronic kidney disease; N18.9 Chronic kidney disease, unspecified; I42.9 Cardiomyopathy, unspecified
CPT/HCPCS: 11042; 99212; A4554

== ENCOUNTER 2018-09-25 09:37 | Outpatient (CLI) | payer OTHER ==
--- NOTE | 2018-10-07 17:15 | OP Clinic Progress Note ---
SUBJECTIVE: Chris Kinney is a 62-year-old male presenting today for follow-up of a right lower lateral leg venous insufficiency ulcer as well as a right great toe IPJ ulcer. The patient is having home health care doing dressing changes at his home and he is essentially staying home at this time to try and keep off of it. The patient does not admit to any issues or complaints at this time. He understands after an explanation today that due to his ejection fraction being less than 45% on his most recent echo I am unable to plan on surgery here unless I get approval to do it under local. The patient would like me to work on finding that out first before sending him to another surgeon for possible first metatarsophalangeal joint cheilectomy in order to improve range of motion there. The patient would like to do that here if at all possible as he is concerned about his driving to and from [place] if we are able to do it here instead. The patient has no other complaints and concerns, and states that he is feeling well. He does not admit to any fevers, chills, nausea, vomiting, shortness of breath or chest breath at this time. OBJECTIVE: Vitals: Temperature 98.6 degrees Fahrenheit, heart rate 79, respiration rate 18, blood pressure 123/68, O2 saturation is 97% on room air. Vascular: 2+ DP and PT pulses, right foot. Capillary refill time is less than 3 seconds to the toes, right foot. There is mild edema still noted in the distal right foot and right great toe. There is mild to zero swelling in the right lower leg at this time, or ankle. Dermatologic: There is a right great toe ulcer visualized today with very minimal hyperkeratosis around it. This toe wound was debrided and is improving in size measuring today 0.9 x 0.2 x 0.25 cm deep. The wound is looking great and we will continue present management. There is no significant erythema, warmth, purulence or malodor noted at the right great toe. The right lower lateral leg ulcer also is appearing to be fairly healthy and healing and is measuring today after light debridement of the fibrous tissue and crosshatching of the wound to be measuring 1.8 x 1.7 x 0.1 cm deep. I did not do a good measurement last week so we will have to compare next week with how it looks today. Overall the wound appears to be doing well and is either stable or slightly improved today from our last visit. There is no erythema, malodor or purulence noted to that wound either. There is still these white fibrous bands that I am having a hard time getting rid of at this time. Home health is using Medihoney on this and changing it twice weekly with the 4-layer compression wrap. There are no other concerning areas on the right lower extremity and it is looking the best I have seen it in a long time. Musculoskeletal: There is mild pain with debridement of the right lower leg ulcer. There are no other gross abnormalities noted outside of what has been mentioned previously regarding the limited range of motion of the right first metatarsophalangeal joint with the forefoot not loaded and even worse range of motion to almost zero dorsiflexion with the forefoot loaded at the first metatarsophalangeal joint. The patient also has some foot and rear foot deformity and an everted pes planovalgus deformity noted. Neurologic: Light touch sensation is diminished to the toes of the right foot. ASSESSMENT AND PLAN: 1. Open wound of toe, subsequent encounter; S91.09D. 2. Venous insufficiency ulcer, subsequent encounter, right leg. 3. Diabetes mellitus, type 2; E11.9. 4. Diabetic peripheral neuropathy; E11.42. 5. History of blood clots, on Xarelto. 6. Hallux limitus, right foot. 7. Chronic kidney disease. 8. Cardiomyopathy history, on baby aspirin daily. PROCEDURE #1: Sharp debridement of the right lower lateral leg ulcer with a #15 blade was performed down to the level of subcutaneous tissue. Crosshatching was also performed. This was less than 20 sq. cm. Hemostasis was obtained with pressure. The patient tolerated the procedure well. PROCEDURE #2: Sharp debridement of the right great toe ulcer with a #15 blade in the base of the wound as well as the minimal hyperkeratotic tissue on the edge was performed today to the subcutaneous layer less than 20 sq cm. Hemostasis was obtained with pressure. The patient tolerated this procedure as well. PROCEDURE #3: A four-layer aggressive compression wrap with FourFlex was applied to the right lower extremity appropriately. The patient tolerated the procedure well. It should be noted that prior to application of the aggressive compression wrap dressings were applied to the right lower lateral leg ulcer consisting of Santyl and 4x4 gauze and a 4-inch Kerlix. It should also be noted that the right great toe wound was dressed today with Silvadene in the wound base followed by 2 layers of an offloading pad followed by 2-inch gauze in the middle of the U-Pad on the wound and followed by a large Band-Aid to cover it. Two-inch Nicki and 1- inch Coban were also applied on the right great toe in order to try and keep swelling out of that toe. The patient was encouraged to talk to the [facility] people and ask them to also do some compression on that right great toe to try and keep swelling less. The patient had no further questions or concerns at this time. We will see what we can find out regarding doing surgery under local here in the hospital. If the answer is no we will then work on getting a referral sent over to Dr. Holliday at the [facility] or Dr. Brambila on [facility] in [place] for referral for surgery to be performed on the right first metatarsophalangeal joint for an aggressive cheilectomy. I believe this will greatly help improve range of motion at the IPJ of the right great toe and allow this to heal even quicker and stay healed once we are done at this time. We will also consider referring the patient for possible right lower leg ulcer debridement if needed at that time. It should be noted that we are continuing a plan to get the patient on compression stockings once we are done healing these wounds and the leg is still under good compression. The patient has no other concerns or questions and we will have the patient return to clinic in 1 week for local wound care and compression again. Gala DanielsP.Cam. (Dictated/Not Signed) [place] Job#: [id number] MTDD
== END 2018-09-25 09:40 ==
LOC: POD 09:37
PROVIDERS: ATTEND Podiatrist Foot & Ankle Surgery
DX: S91.101D Unspecified open wound of right great toe without damage to nail, subsequent encounter (principal); I87.2 Venous insufficiency (chronic) (peripheral); E11.42 Type 2 diabetes mellitus with diabetic polyneuropathy; E11.22 Type 2 diabetes mellitus with diabetic chronic kidney disease; N18.9 Chronic kidney disease, unspecified; M20.5X1 Other deformities of toe(s) (acquired), right foot
CPT/HCPCS: 11042; 99212; A4554

== ENCOUNTER 2018-10-30 13:02 | Outpatient (CLI) | payer OTHER | END 2018-10-30 13:20 | LOC: POD 13:02 | PROVIDERS: ATTEND Podiatrist Foot & Ankle Surgery | DX: B35.9 Dermatophytosis, unspecified (principal); E11.621 Type 2 diabetes mellitus with foot ulcer; L97.519 Non-pressure chronic ulcer of other part of right foot with unspecified severity; I87.2 Venous insufficiency (chronic) (peripheral); I25.10 Atherosclerotic heart disease of native coronary artery without angina pectoris; I42.9 Cardiomyopathy, unspecified | CPT/HCPCS: 11042; 99213 ==

== ENCOUNTER 2018-11-06 10:24 | Outpatient (CLI) | payer OTHER | END 2018-11-06 10:40 | LOC: POD 10:24 | PROVIDERS: ATTEND Podiatrist Foot & Ankle Surgery | DX: E11.621 Type 2 diabetes mellitus with foot ulcer (principal); L97.519 Non-pressure chronic ulcer of other part of right foot with unspecified severity; I87.2 Venous insufficiency (chronic) (peripheral); G90.09 Other idiopathic peripheral autonomic neuropathy; E11.22 Type 2 diabetes mellitus with diabetic chronic kidney disease; N18.9 Chronic kidney disease, unspecified; G72.9 Myopathy, unspecified ==

== ENCOUNTER 2018-11-13 09:05 | Outpatient (CLI) | payer OTHER ==
--- NOTE | 2018-11-21 07:52 | OP Clinic Progress Note ---
DATE OF VISIT: 11/13/2018 SUBJECTIVE: Chris Kinney is a 63-year-old male presenting to clinic for follow- up of right lower lateral leg ulcer and right great toe ulcer. The patient has been doing home health visits as per prescription. The patient is doing well otherwise. He does not admit to any fevers, chills, nausea, vomiting, shortness of breath or chest pain at this time. He is using the compression wraps as prescribed. The patient has not heard anything further from Dr. Monroy and we are unsure at this time if there will be any possibility of going forward with surgery even at another location, and we may look into this. OBJECTIVE: Vitals: Temperature 97.1, heart rate 77, respiration rate 18, blood pressure 130/72. Vascular: 2+ DP and PT pulses, right foot. Capillary refill time is less than 3 seconds to the toes, right foot. There is moderate edema noted in the distal forefoot of the right foot. The right lower leg, however, has virtually zero edema. Dermatologic: Right lower lateral leg ulcer is measuring 1.0 x 0.8 x 0.1 cm which is improved from last week. There is no erythema, purulent drainage or malodor noted. There is no hyperkeratosis noted. Right great toe ulcer at the plantar medial IPJ is measuring 0.5 x 0.5 x 0.3 cm which is pretty close to the most recent visit measurement but perhaps slightly better. There is no erythema, purulence, malodor noted. There is mild hyperkeratotic tissue and some black necrotic tissue within the base of the wound which was debrided today. Overall it seems to be slightly improved from last week. There are no other open lesions or gross abnormalities noted. There are no skin lesions noted. There is quite a bit of swelling in the distal forefoot of the right foot which we will address with an appropriate compression wrap. Musculoskeletal: There is no pain on palpation or with debridement in the right foot but perhaps mild pain with debridement of the right lower lateral leg ulcer. The left foot was not visualized today. Neurologic: Light touch sensation is diminished in the right foot. ASSESSMENT AND PLAN: 1. Diabetic foot ulcer, right hallux. 2. Venous insufficiency ulcer, right lower leg. 3. Diabetes mellitus, type 2. 4. Peripheral neuropathy in the lower extremity. 5. Chronic kidney disease. 6. Cardiomyopathy. 7. History of blood clots. We will plan to call Dr. Monroy to see if she would consider surgery an option if able to be done at another facility with appropriate safety measures in place regarding his cardiomyopathy and other health conditions. This would definitely help speed up healing in this wound and his heart condition and ejection fraction are likely not going to improve. We will see what she says and discuss possible surgical plan going forward or not. We will contact home healthcare and ask them to not see the patient on Saturday as we will be seeing the patient next week on Saturday. At that point we will leave the dressings alone from Saturday through the following Saturday and we will see how things are looking at that time. My goal at that time is to limit seeing the patient to Mondays by home healthcare to change the leg wrap as well as the toe dressings and us to do it on and then leaving it alone until Saturday again. PROCEDURE #1: Sharp debridement of the right lower lateral leg ulcer with a #15 blade to subcutaneous tissue less than 20 sq. cm. was performed. The patient tolerated the procedure well. This was dressed with Santyl, 4x4 gauze and Kerlix. It should also be noted that several layers of gauze were applied to the distal forefoot on the right side and wrapped fairly snug with a Kerlix roll to help limit swelling there. PROCEDURE #2: Sharp debridement of the right hallux ulcer with a #15 blade less than 20 sq. cm. was performed. Hemostasis was obtained with pressure. This was dressed with Santyl and 2x2 gauze and an offloading quarter-inch felt U-Pad was applied to offload this area. This was covered with 2 large Band-Aids. PROCEDURE #3: Four layer compression wrap of the right lower extremity was performed according to normal instructions. The patient tolerated this procedure well. The patient will return to clinic on Saturday, next week for follow-up and subsequent debridement. Hopefully we will have an answer from Dr. Monroy at that time. At this point we will continue aggressive wound care as he is improving greatly, especially on the lower lateral leg ulcer and we will consider if any other options for the great toe. Gala DanielsP.M. (Dictated/Not Signed) [place] Job#: [id number] MTDD
== END 2018-11-13 09:50 ==
LOC: POD 09:05
PROVIDERS: ATTEND Podiatrist Foot & Ankle Surgery
DX: E11.621 Type 2 diabetes mellitus with foot ulcer (principal); L97.519 Non-pressure chronic ulcer of other part of right foot with unspecified severity; E11.22 Type 2 diabetes mellitus with diabetic chronic kidney disease; N18.9 Chronic kidney disease, unspecified; I42.9 Cardiomyopathy, unspecified; G90.09 Other idiopathic peripheral autonomic neuropathy

== ENCOUNTER 2018-11-19 13:10 | Outpatient (CLI) | payer OTHER ==
--- NOTE | 2018-11-23 15:30 | OP Clinic Progress Note ---
DATE OF VISIT: 11/19/2018 SUBJECTIVE: Chris Kinney presented today for follow-up of right lower lateral leg ulcer and right hallux ulcer with functional hallux limitus. The patient has been treated for quite some time now and has been unable to do surgery due to the fact that he has cardiomyopathy with a poor ejection fraction and other issues that Dr. Monroy does not feel comfortable having him do surgery here at this time. The patient presents today with no complaints or concerns and states that he has done well over this last week. Home health will plan on seeing him again this Saturday and then will begin only seeing him on Mondays and we will see him on . The patient does not admit to any fevers, chills, nausea, vomiting, shortness of breath or chest pain. OBJECTIVE: Vitals: Temperature 98.0, heart rate 86, respiration rate 20, blood pressure 130/74. O2 saturation 94% on room air. Vascular: 2+ DP and PT pulses, right foot. Capillary refill time is less than 3 seconds to the toes, right foot. There is mild to moderate edema noted in the distal lateral forefoot of the right foot as well as the proximal end of the lower leg, right lower extremity. Dermatologic: There is no erythema, ecchymosis or open lesion outside of those listed below. Right lower lateral leg ulcer measures today 0.8 x 0.8 x 0.1 cm deep. This is slightly improved from last week when it measured 1.0 x 0.8 x 0.1 cm. There is a good granular base with mild biofilm which was debrided today with a #15 blade to a good bleeding granular base. Right great toe IPJ ulcer measuring today 0.4 x 0.4 x 0.2 cm deep. This is improved from last week when it measured 0.5 x 0.5 x 0.3 cm deep. There is still some hyperkeratotic tissue and necrotic slough that needed to be debrided today. A good bleeding base was visualized today. There is no purulence or malodor noted. No signs of infection. There is still moderate edema in the great toe. The patient used a good U-Pad that we applied last time. There are no signs or concerns of DVT at this time. There is also slight edema noted on the lateral aspect of the right heel and a little bit of pain on palpation noted but the patient has good strength of plantar flexion against resistance and I do not feel there is any concern for rupture of the Achilles tendon at this time. It does not really bother him unless he has been walking awhile. We will further evaluate this if it continues to be problematic for the patient. No acute concerns at this time. Musculoskeletal: There is continued foot deformity as mentioned in previous notes with eversion and has planovalgus. Otherwise, no gross abnormalities noted. The patient does have decreased or minimal range of motion at the first metatarsophalangeal joint of the right foot with the forefoot loaded versus slightly improved with the forefoot not loaded. There is no pain on palpation noted today, nor really with debridement. Neurologic: Light touch sensation is diminished to the toes, right foot. ASSESSMENT AND PLAN: 1. Right lower extremity venous insufficiency ulcer. 2. Right hallux diabetic foot ulcer. 3. Diabetes mellitus type 2. 4. Peripheral neuropathy, lower extremities, bilateral. 5. Chronic kidney disease. 6. Cardiomyopathy. PROCEDURE #1: Sharp debridement of the right lower lateral leg ulcer with a #15 blade less than 20 sq. cm. to subcutaneous tissue was performed today. Hemostasis was with pressure. This was dressed with Santyl, 4x4 gauze and Kerlix. Additional 4x4 gauze and Kerlix were applied to the distal forefoot to help with some swelling there. PROCEDURE #2: Sharp debridement of the right great toe IPJ ulcer was performed with a #15 blade less than 20 sq. cm. to the subcutaneous tissue level. This ulcer had silver nitrate applied to help with bleeding. Silvadene was applied as well as a U-Pad around it and a 2x2 gauze over the top of the wound. This was then covered with a Band-Aid and the toe wrapped with 2-inch Nicki and 1-inch Coban for compression on the great toe. PROCEDURE #3: Four layer compression wrap was applied to the right lower extremity per normal instructions. We discussed the importance of continuing a normal great toe dressing change on Saturday by home health but after that the home health team will just see him on Mondays for treatment of the toe and the leg with what they normally do on Mondays and we will see the patient on . They will not need to see him otherwise. We will leave the dressings intact from when we do it, through when the patient is seen on Saturday by home health care. The family understands as well. They have no further complaints, concerns or questions and we will plan on seeing the patient for a return to clinic visit in 1 week. Gala DanielsP.MNadia (Dictated/Not Signed) Carolina Job#: [id number] MTDD
== END 2018-11-19 13:35 ==
LOC: POD 13:10
PROVIDERS: ATTEND Podiatrist Foot & Ankle Surgery
DX: I87.2 Venous insufficiency (chronic) (peripheral) (principal); E11.621 Type 2 diabetes mellitus with foot ulcer; L97.519 Non-pressure chronic ulcer of other part of right foot with unspecified severity; E11.40 Type 2 diabetes mellitus with diabetic neuropathy, unspecified; E11.22 Type 2 diabetes mellitus with diabetic chronic kidney disease; N18.9 Chronic kidney disease, unspecified; I42.9 Cardiomyopathy, unspecified
CPT/HCPCS: 11042; 29581; 99213

== ENCOUNTER 2018-12-11 09:33 | Outpatient (CLI) | payer OTHER ==
--- NOTE | 2018-12-16 10:35 | OP Clinic Progress Note ---
DATE OF VISIT: 12/11/2018 SUBJECTIVE: Chris Kinney is a 63-year-old male presenting to clinic for followup of right lower lateral leg venous insufficiency ulcer and right great toe diabetic foot ulcer. The patient does not admit to any concerns or issues over the last week and states that he is feeling fine except that he is having some discomfort in the ankles bilaterally when he stands. He would like to consider addressing this at the next visit. The patient does not admit to any fevers, chills, nausea, vomiting, shortness of breath or chest pain at this time. The patient is planning on seeing Dr. Mcnamraa on December 23 for his second opinion there and referral from Dr. Monroy. OBJECTIVE: Vitals: Temperature 97.2 degrees Fahrenheit, heart rate 80, respiration rate 22, blood pressure 131/79. O2 saturation is 95% on room air. Vascular: 2+ DP and PT pulses, right foot. Capillary refill time is less than 3 seconds to the toes of the right foot. There is no real edema noted in the right forefoot, as well as moderate edema in the proximal aspect of the right lower leg just distal to the knee. There is also moderate edema in the toes, especially the right great toe. Dermatologic: There is some erythema and warmth of the right great toe today. There is no other erythema or purulence or malodor noted anywhere else. There is also some dark discoloration noted on the dorsal medial aspect of the wound of the right great toe where the skin somehow is appearing less healthy and required debridement today. The right great toe interphalangeal joint ulcer today is measuring at 0.7 x 2.0 x 0.6 cm deep. This is definitely worse than it was previously. There was no malodor or purulence noted. There is notable erythema and warmth, however. This is also quite edematous. The right lower lateral leg ulcer has a stable eschar overlying it at this time without any obvious drainage at this time. There is no erythema or ecchymosis or malodor or purulence noted. This is much improved and did not require measurement as it has a stable eschar over it at this time. We will continue to watch it carefully until this eschar has removed itself and there is healthy intact skin underneath. Musculoskeletal: There is pain on palpation noted at the right great toe, but not really any pain with debridement. There is no pain at the right lateral leg eschar. There is no pain noted elsewhere. There is still notable pes planus valgus deformity and eversion noted at the right foot. The patient's left foot again was not visualized today, but we will look at it next week and consider and evaluate whether there is pain in the ankle at that time. Neurologic: Light touch sensation is diminished to the toes, right foot. ASSESSMENT AND PLAN: 1. Right hallux venous insufficiency ulcer. 2. Right hallux cellulitis. 3. Right hallux diabetic foot ulcer. 4. Diabetes mellitus type 2 with peripheral neuropathy. 5. Functional hallux limitus, right foot. 6. Chronic kidney disease. 7. Cardiomyopathy. 8. Foot deformity, right foot. PROCEDURE #1: Short debridement of the right great toe ulcer was performed with a #15 blade down to and including subcutaneous tissue less than 20 cm2. Hemostasis was obtained with pressure. Dressings were applied today consisting of Triple antibiotic ointment, Adaptic, 4x4 gauze, 2-inch Nicki and one-inch Coban beginning on the toe and ending on the distal forefoot. A U pad was not utilized today, as it seemed that there was significant swelling in between the edges of the U pad and that seem to allow the skin to have some injury for some reason where more debridement was required today. There was no debridement of the right lower lateral leg ulcer today. It was still dressed with 4x4 gauze and Kerlix to help protect it for this week. A prescription for doxycycline 100 mg one by mouth daily x10 days was called into [facility] and confirmed with the pharmacist there that there would be no interactions with the other medications that he is on. The patient is in understanding that he is to pick that up and begin taking that right away. We did not use a U pad this week, but we will encourage the home health care team to continue the U pad beginning on Saturday, as they will see him once on Saturday and we will see him again next week. I am concerned still that there could be underlying of signs of infection in the bone. We worked this up several months ago and it was negative and he really has done well without any significant wound or infection that seem to go down to bone, however, he does have continued significant swelling and difficulty healing this wound that most likely is just due to pressure related problems. We will keep trying to fix, but there is still a possibility of underlying bone infection that we may need to look at. Next week, we will likely consider x- rays and possible subsequent MRI to make sure that this is not showing any signs of infection in the bone. Otherwise Dr. Mcnamara when he sees him beginning of December can consider, however, he wants to further that workup with x-rays or MRI. We will discuss this further with the patient next week. We will also look at the left ankle and foot and the right ankle and foot and consider if the patient would be a good candidate for a steroid injection into the joint, as he is having worsened pain in the ankle area bilaterally. I feel that he may be having this on the right due to the fact that he is not in his AFO at this time, but his left is beginning to cause some soreness lately even though he has been in the ankle-foot orthotic. We will consider this at the next visit. I do not feel he is a great candidate for any sort of reconstructive surgery of the foot and ankle due to his diabetes and kidney and heart issues, but perhaps a steroid injection combined with his AFOs provides some relief for a long period of time still. The patient will return to clinic in one week. We will continue to see him at that time and do aggressive wound care and work with Dr. Mcnamara upon their visit on December 23 to know what we can do for continued help unless he would like to take over care at that time. I am happy to continue helping as much as possible. We will send over information hopefully after next week's visit, so that they have updated information from his visits to us. Gala DanielsP.M.(Dictated/not signed) /Accutype [id number] D: /mab MTDD
== END 2018-12-11 09:52 ==
LOC: POD 09:33
PROVIDERS: ATTEND Podiatrist Foot & Ankle Surgery
DX: I87.312 Chronic venous hypertension (idiopathic) with ulcer of left lower extremity (principal); E11.621 Type 2 diabetes mellitus with foot ulcer; L97.519 Non-pressure chronic ulcer of other part of right foot with unspecified severity; L03.031 Cellulitis of right toe; E11.40 Type 2 diabetes mellitus with diabetic neuropathy, unspecified; M20.5X1 Other deformities of toe(s) (acquired), right foot; E11.22 Type 2 diabetes mellitus with diabetic chronic kidney disease; N18.9 Chronic kidney disease, unspecified; I42.9 Cardiomyopathy, unspecified

== ENCOUNTER 2018-12-18 11:14 | Outpatient (CLI) | payer OTHER ==
--- NOTE | 2018-12-23 10:54 | OP Clinic Progress Note ---
DATE OF VISIT: 12/18/2018 SUBJECTIVE: Chris Kinney is a 63-year-old male presenting to the clinic today for follow up of a right great toe wound and previous right lower lateral leg wound with venous insufficiency. The patient has been having these wounds for several months at this time. The patient has been having home health care change the dressings twice a week, but recently we switched to just once a week on Mondays and we see the patient on . The patient has been having four layer compression wraps with appropriate wound care to both wounds and most recently the right lower lateral leg wound has developed a stable eschar over the top, which continues to get smaller as the healing continues underneath the eschar. The patient last week presented with a right great toe wound that was much more odorous and red and irritated and some adjustments were made as well as putting the patient on doxycycline 100 mg daily for 10 days, but unfortunately the patient for some reason did not pickle solution maker the medication until just two days ago. He did start on those and the toe looks fantastic today. The patient has no further questions or concerns, but does state that he is continuing to have ankle pain in both ankles that is difficult to walk around with. He would be interested in a steroid injection today if possible. The patient does not admit to any fever, chills, nausea, vomiting, shortness of breath or chest pain. He has an appointment with Dr. Mcnamara coming up next week on Saturday. OBJECTIVE: Vitals: Temperature 98.3 degrees Fahrenheit, heart rate 76, respiration rate 20, blood pressure 117/63. O2 saturation is 93% on room air. Vascular: A 2+ DP and PT pulses, right foot. Capillary refill time is less than 3 seconds to the toes of the right foot. There is very mild edema only noted in the distal aspect of the forefoot. The rest of the foot and lower leg looks great. Dermatologic: There is no erythema or warmth of the right great toe today. This is much improved from last week when there was erythema and warmth, and an odorous wound. Today the wound appears to have scabbed over for the first time. There was a small area of the eschar that was removed today that was less stable and there is a very small eraser tip size edge of the wound of the plantar medial IPJ of the right great toe that was exposed today. The tissue underneath was much more red and healthy as opposed to the necrotic tissue that we have been seeing previously. There is no erythema or signs of infection in the right great toe at this time. The toe in general is still a little bit swollen mildly, however, much improved from the last time. The small ulcer what is open and remaining open at this time of the right great toe is measuring approximately 0.2 x 0.15 x 0.05 cm deep. Great improvement from last week. I know that there was some change in dressings and the antibiotic and this definitely made a big difference at this time. The right lower lateral leg previous ulcer has a good stable eschar over the top of it still and it is continuing to heal well and is stable and looks great with no open wounds, erythema or malodor noted. Musculoskeletal: There is pain on palpation noted in the anteromedial ankle of the right ankle. There is also some pain with range of motion of the ankle. There is no real pain at the debridement of the right great toe wound today. There is no pain elsewhere. There is still notable pes planovalgus deformity of the right foot and ankle. Left foot was not visualized today, but we will plan on it next week as we decided to focus on the right ankle today and we will focus on the left ankle next time. Neurologic: Light touch sensation is diminished to the toes, right foot. ASSESSMENT AND PLAN: 1. Right lower leg venous insufficiency ulcer. 2. Right hallux diabetic foot ulcer. 3. Right hallux cellulitis - resolved. 4. Right lower extremity venous insufficiency. 5. Diabetes mellitus type 2 with polyneuropathy. 6. Chronic kidney disease. 7. Cardiomyopathy. 8. Right and left ankle pain. Discussion was had with the patient about addressing the right ankle pain to start and see if it brings any relief of the steroid injection. Risk and benefits including but not limited to steroid flare, bleeding and infection and septic joint were discussed with the patient and he agreed both by written and verbal consent to go forward with the steroid injection into the right ankle. PROCEDURE #1: Right ankle steroid injection was performed today. An alcohol swab was utilized to cleanse the anteromedial portion of the right ankle and an injection consisting of 1 cc of 2% Lidocaine plain, 1 cc also of 0.5% Marcaine plain, 0.5 cc of dexamethasone 4 mg/mL and 0.5 cc of Kenalog 40 mg/mL were injected into the right ankle appropriately. Hemostasis was obtained with pressure and a Band-Aid was then applied. PROCEDURE #2: Sharp debridement of the right great toe ulcer was performed with a #15 blade down to and including the subcutaneous tissue less than 20 sq cm. A portion of the hyperkeratotic tissue was also removed, but the small portion of debridement of the wound was performed. The right great toe was dressed with triple antibiotic ointment, Adaptic, 4 x 4 gauze, 2-inch Nicki and 1-inch Coban beginning on the toe and ending on the distal forefoot. The right lower lateral leg stable eschar was dressed with Adaptic 4 x 4 gauze and Kerlix. PROCEDURE #3: Four-layer compression wrap was applied to the right lower extremity per normal instructions. The patient will continue to have home health care see him on Mondays and we will see him on . The patient has an appointment with Dr. Mcnamara next week on Saturday the and the patient is to call us that day or the next on Saturday to let us know how that appointment went and if there is a plan to see us that or not. It will depend on what Dr. Mcnamara does with the patient with compression and wound care, etc. I am very surprised at how much improvement there was in the wound suddenly this week. His leg looks great and the wounds are almost completely healed all of a sudden. I do not want to take him out of the surgical shoe quite yet. An added piece of 0.25-inch felt was applied underneath to offload the IPJ area of the right great toe in order to keep that protected. The previous one applied on the surgical shoe already is getting flattened and I want to keep it protected. Depending on what Dr. Mcnamara suggests and his visit with the patient regarding continued local wound care/compression therapy as well as the possibility of surgery for cleaning up the right first metatarsophalangeal joint with an aggressive cheilectomy to increase range of motion to try and prevent an ulcer in the future will be welcomed from him. I believe that this is probably still a good procedure to perform as the patient has been dealing with the wound for quite some time and it is very difficult to keep offloaded to even to try and get it healed. The patient will see Dr. Mcnamara next week and will call me on Saturday or Saturday to give us an update and we will figure out if we will see him that still likely. The patient had no further questions or concerns and we will see him hopefully next week. The patient was then encouraged to take his antibiotics and finish those as well. We discussed with the patient that if he continues to look great then we may not need to do any sort of further workup for osteomyelitis as a possibility. We are hoping that the toe continues to heal and without any more signs of infection once he is off of the antibiotics. If he gets infected or if this seems to not be healing again then we will likely look into further imaging to see again if there is any possibility of osteomyelitis that has shown up since his last MRI several months ago. Esme Daniels.P.M.(Dictated/not signed) /Accutype [id number] /mab [email or web address]
== END 2018-12-18 11:55 ==
LOC: POD 11:14
PROVIDERS: ATTEND Podiatrist Foot & Ankle Surgery
DX: E11.22 Type 2 diabetes mellitus with diabetic chronic kidney disease (principal); N18.9 Chronic kidney disease, unspecified; I42.9 Cardiomyopathy, unspecified; M25.571 Pain in right ankle and joints of right foot; M25.572 Pain in left ankle and joints of left foot
CPT/HCPCS: 11042; 20610; 29581; 99213

== ENCOUNTER 2018-12-25 09:33 | Outpatient (CLI) | payer OTHER ==
--- NOTE | 2018-12-30 10:24 | OP Clinic Progress Note ---
DATE OF VISIT: 12/25/2018 SUBJECTIVE: Chris Kinney is a 63-year-old male presenting to the clinic today for follow up of a right great toe ulcer and right lower lateral leg ulcer. The patient saw Dr. Mcnamara a couple of days ago for a referral to get a second opinion on possible surgery for a cheilectomy versus toe amputation due to recurrent wound/infection in the right great toe of the right leg. The patient saw Dr. Mcnamara and it sounds like they only discussed possible toe amputation and Dr. Mcnamara felt that the toe was stable and that the risk outweighed the benefits of surgery at this time for an amputation as it seemed to be stable and without any signs of infection on x-ray that he obtained at that time. There is an MRI that was performed several months ago, but nothing recently. The patient was encouraged to continue follow up with me for local wound care as it is stable and doing okay at this time. He did not feel great doing any sort of surgery at this time due to the lack of sign of infection in the bone on x-ray and due to the patient's health status and a poor ejection fraction. The patient presents today for continued wound care and follow up with myself. The patient does not admit to any fevers, chills, nausea, vomiting, shortness of breath or chest pain. The patient does admit that his right ankle is feeling much better after the steroid injection that we did last week and he would like to consider having that done on the left side as he is still having a lot of pain on the left side. OBJECTIVE: Vitals: Temperature 99.2 degrees Fahrenheit, heart rate 74, respiration rate 18, blood pressure 136/68. O2 saturation is 94% on room air. Vascular: 2+ DP and PT pulses, right foot. Capillary refill time is less than 3 seconds to the toes of the right foot. There is still moderate edema noted in the right great toe and in the proximal aspect of the right lower leg. It is obvious the most recent four layer wrap was applied and did not go as high up on the leg as it should. Dermatologic: There is no erythema or warmth to the right great toe or the right lower leg. There are no signs of infection. The right great toe ulcer today still appears to have a good soft scab over the wound that seems to be healing well. There is a small open area of wound that was debrided today as well as a small amount of the eschar/hyperkeratotic tissue on the edge. The wound today is measuring at 0.3 x 0.5 x 0.3 cm deep. This is slightly bigger than it was previously, but still is pretty small at this time. One important note was that with efforts to probe or see if there is any undermining this was negative and the wound seems to have healed well underneath all the eschar area. The patient is doing well. The patient has a stable eschar noted over the right lower lateral leg ulcer that is fairly stable and is left intact today. There are no signs of erythema or infection in that area either. There are no other open wounds or lesions or concerning areas right leg or foot. The patient does not have any open lesions or pre-ulcerative areas noted on the left foot or leg either. Musculoskeletal: There is pain with palpation noted in the left ankle anteriorly. The patient has some pain with range of motion of the ankle and more pain with range of motion of the subtalar joint of the left lower extremity. There is no pain with debridement of the right great toe wound. There is still notable limited range of motion of the right great toe at the first metatarsophalangeal joint with the forefoot loaded and that is slightly improved with the forefoot not loaded. There is also continued notable rear foot deformity and pes planovalgus deformity of the right foot and ankle and also of the left foot, but of a lesser degree. Neurologic: Light touch sensation is diminished to the toes, bilateral feet. ASSESSMENT AND PLAN: 1. Right lower extremity venous insufficiency ulcer. 2. Right hallux diabetic foot ulcer. 3. Right lower extremity venous insufficiency. 4. Diabetes mellitus type 2 with polyneuropathy. 5. Chronic kidney disease. 6. Cardiomyopathy. 7. Left ankle pain. PROCEDURE #1: Sharp debridement of the right great toe ulcer less than 20 sq cm to the subcutaneous tissue level with a #15 blade was performed. Hemostasis was obtained with pressure. This wound is definitely improving overall as the area underneath the stable eschar/hyperkeratotic tissue that is mild is completely healed as there is no probing or undermining beyond the level of the visible wound. The patient tolerated the procedure well. Dressings were applied consisting of triple antibiotic ointment, 4 x 4 gauze, 2-inch Nicki and 1-inch Coban beginning on the toe and ending on the distal forefoot. The patient also had 4 x 4 gauze and Kerlix over the right lower lateral leg stable eschar. Additional 4 x 4 gauze and Kerlix was applied at the distal forefoot to help with some of the swelling there. PROCEDURE #2: Risks and benefits of a steroid injection of the left ankle were discussed with the patient today including but not limited to bleeding and infection and septic joint. The patient agreed that based on these risks and benefits as well as discussion of having pain with palpation at the ankle joint and some pain with range of motion, that even though there was a little bit more pain with range of motion of the subtalar joint, we would go ahead and do an injection in the left ankle joint itself as that provided a lot of relief on the right ankle and they are very similar. He does have pain with range of motion and pain with palpation in the anterior ankle of the left, so a steroid injection was to be performed today. The patient had the option of waiting and he would like to do it today. The risks and benefits were discussed as mentioned above and consent was obtained verbally and by written consent and it was placed in the chart. An alcohol swab was utilized to cleanse the anterior medial aspect of the left ankle and an injection consisting of 1 cc of 2% lidocaine plain, 1 cc of 0.5% Marcaine plain, 0.5 cc of dexamethasone 4 mg/mL and 0.5 cc of Kenalog 40 mg/mL was injected into the left ankle joint through the anteromedial portal. Bleeding was controlled with pressure and a Band-Aid was applied. The patient tolerated the procedure well. PROCEDURE #3: A four layer compression wrap was applied to the right lower extremity today per normal protocol. This is doing a fantastic job keeping swelling down and keeping his wounds improving. The patient has been using compression wraps on the left lower extremity and it has kept his swelling pretty well controlled. Our goal is that once these wounds are healed we are able to get him into compression wrap on the right lower extremity and get him using his AFO braces on both sides and without a surgical shoe. The concern is that if the patient worsens again on the right great toe we will likely need to reach out to Dr. Mcnamara again with increased information as they never requested any records from us on the visit that the patient just had with Dr. Mcnamara this week, and we will need to see if he is interested in considering an aggressive cheilectomy versus a toe amputation if the wound is worsening again. It is definitely improving a lot in the last couple of weeks versus where it has been for the last several months. We will continue local wound care as we are doing currently as it seems to be improving greatly. Normal dressings were applied today. Return to clinic in one week for wound care and follow up of the left ankle injection to see if it is improving as well, also see if the right ankle is feeling well still. Gala DanielsPNadiaM.(Dictated/not signed) /Accutype [id number] /mab MTDD
== END 2018-12-25 10:05 ==
LOC: POD 09:33
PROVIDERS: ATTEND Podiatrist Foot & Ankle Surgery
DX: M25.572 Pain in left ankle and joints of left foot (principal); I87.2 Venous insufficiency (chronic) (peripheral); E11.621 Type 2 diabetes mellitus with foot ulcer; L97.519 Non-pressure chronic ulcer of other part of right foot with unspecified severity; E11.42 Type 2 diabetes mellitus with diabetic polyneuropathy; N18.9 Chronic kidney disease, unspecified; I42.9 Cardiomyopathy, unspecified
CPT/HCPCS: 11042; 20600; 99212; G0463; A4554

== ENCOUNTER 2019-01-01 10:08 | Outpatient (CLI) | payer OTHER ==
--- NOTE | 2019-01-05 13:59 | OP Clinic Progress Note ---
DATE OF VISIT: 01/01/2019 SUBJECTIVE: Chris is a 63-year-old diabetic male presenting to the clinic today for follow up of a right lower lateral leg venous insufficiency ulcer and a right great toe diabetic foot ulcer. The patient has been seen for several months by myself and has been improving most recently on both wounds. The patient is having home health care come and see him on Mondays and we see him on . The patient does not admit to any fevers, chills, nausea, vomiting, shortness of breath or chest pain. He does admit that he has some improvement, about 50% on the left ankle with the steroid injection that was done last week and about 30% improvement overall on the right ankle from a couple of weeks ago injection. The patient may consider further treatment later on, but we will see how much more this improves in the meantime. The patient is using his ankle foot orthotic that is custom for him on the left and is using a surgical shoe on the right. The patient is asking about whether or not he needs to continue his Xarelto as he is running out with one pill left. He was encouraged to call Dr. Lynch and find out what the plan is for that at this time with his history. The patient will do so. OBJECTIVE: Vitals: Temperature 97.7 degrees Fahrenheit, heart rate 78, respiration rate 18, blood pressure 134/75. O2 saturation is 96% on room air. Vascular: 2+ DP and PT pulses, right foot. Capillary refill time is less than 3 seconds to the toes of the right foot. There is much improved edema which is only very mild in the distal forefoot today versus the proximal aspect of the right great toe is quite edematous where the wraps only went on the distal phalanx and not the proximal phalanx for some reason. Overall the right lower leg has mild to no edema now. Dermatologic: There is slight overall mildly red irritation noted on the right great toe still. There is no warmth, however. There is no purulence or drainage noted. The right great toe ulcer has healed in fairly well and has a small opening still remaining after slight debridement that is measuring today at 0.2 x 0.2 x 0.3 cm deep. There is also a small amount of undermining in the proximal direction from the open wound approximately 0.7 cm long. This is improved from last week which measured 0.3 x 0.5 x 0.3 cm deep. There again is no warmth, but there is slight red discoloration to the toe and edema still. The edema is not abnormal for this area, but the redness I worry is still around. There are no other concerning areas or signs of wounds or infection. There is a mild small eschar noted that is stable over the right lower lateral leg ulcer. This eschar is becoming smaller and smaller as it finishes healing underneath. There is no erythema or signs of infection around that area of the right lower lateral leg. Musculoskeletal: There is mild pain to palpation and debridement of the right great toe ulcer. There is continued notable pes planovalgus deformity of bilateral feet as noted previously. There are no other significant osseous abnormalities. Neurologic: Light touch sensation is diminished to the toes bilateral feet. ASSESSMENT AND PLAN: 1. Right lower extremity venous insufficiency ulcer. 2. Right hallux diabetic foot ulcer. 3. Right lower extremity venous insufficiency. 4. Diabetes mellitus type 2 with polyneuropathy. 5. Chronic kidney disease. 6. Cardiomyopathy. 7. Bilateral ankle pain. PROCEDURE #1: Sharp debridement of the right great toe ulcer was performed with a #15 blade to and including the subcutaneous tissue level less than 20 sq cm. This wound is improving from last week. Overall it appears that the proximal aspect of the wound where it is undermined slightly, may open again if we cannot keep pressure off of this. There are no great signs of infection at this time. Dressings were applied consisting of triple antibiotic ointment, 4 x 4 gauze, 2- inch Nicki and 1-inch Coban today beginning on the toe and ending on the distal forefoot. There was 4 x 4 gauze placed over the right lower lateral leg eschar as well and Kerlix wrapped around the foot and leg. PROCEDURE #2: A four layer compression wrap was applied to the right lower extremity per normal protocol. The patient tolerated this well and his wounds are improving. The patient understands that I am concerned that the toe could go south at any time as the pressure is so difficult to keep off of the toe. I also have some concern for if there is a possibility of infection in the bone that is slowing down the possibility of this healing. If at any time this begins to worsen again significantly or show signs of infection then I may strongly consider a repeat MRI to make sure that there are no signs of infection in the bone. It is possible that it was negative several months ago when we checked, but that it could be positive now. We will continue aggressive local wound care as he is improving and make sure that we follow this closely. The patient may need to see Dr. Mcnamara again as needed, but we will see how he improves. The patient again was encouraged to call Dr. Lynch about the Xarelto today to find out what the plan is for that. We will see the patient for a return to clinic visit in two weeks and home health care will see him Saturday and next week. Gala DanielsP.M.(Dictated/not signed) /[employer] [id number] /mab MTDD
== END 2019-01-01 10:40 ==
LOC: POD 10:08
PROVIDERS: ATTEND Podiatrist Foot & Ankle Surgery
DX: I87.2 Venous insufficiency (chronic) (peripheral) (principal); E11.621 Type 2 diabetes mellitus with foot ulcer; L97.519 Non-pressure chronic ulcer of other part of right foot with unspecified severity; E11.40 Type 2 diabetes mellitus with diabetic neuropathy, unspecified; E11.22 Type 2 diabetes mellitus with diabetic chronic kidney disease; N18.9 Chronic kidney disease, unspecified
CPT/HCPCS: 11042; 29581; 99213; A4554

== ENCOUNTER 2019-01-15 09:06 | Outpatient (CLI) | payer OTHER ==
--- NOTE | 2019-01-21 10:50 | OP Clinic Progress Note ---
DATE OF VISIT: 01/15/2019 SUBJECTIVE: Chris Kinney is a 63-year-old male presenting to clinic today for follow up of a right great toe diabetic foot ulcer and right lower extremity venous insufficiency ulcer. We have been working on these wounds for quite some time. The patient does not admit to any issues at home, but does state that he is having more ankle pain bilaterally at this point which is making it painful to walk. The patient is in a custom ankle foot orthotic on the left and is unable to use it on the right as we are doing the compression wraps at this time. The patient is in a surgical shoe which he seems to be wearing out quickly and we will look at getting him a new shoe next week, XXL. The patient does not admit to any fever, chills, nausea, vomiting, shortness of breath or chest pain. He admits to speaking with Dr. Lynch since our last visit and already refilling his Xarelto and being told by Dr. Lynch to finish the Xarelto that he has and then to stop taking it. That was from Dr. Lynch, his primary care provider. OBJECTIVE: Vitals: Temperature 98.6, heart rate 74, no respiration rate was recorded, blood pressure 114/65. O2 sat 94% on room air. Vascular: 2+ DP and PT pulses, right foot. Capillary refill time less than 3 seconds to the toes right foot. There is pretty severe edema noted in the forefoot and toes right foot and much less edema noted in the lower leg right side. Dermatologic: The right lower lateral leg still has a small stable eschar that is getting smaller every week and is without any signs of warmth or erythema or infection at all. The right great toe hallux medial IPJ ulcer had a little bit of malodor today. No significant erythema or warmth. No purulence noted. The medial aspect of the IPJ of the right great toe does have some hyperkeratotic tissue and injury to that skin around it that was causing undermining that needed to be debrided away. The wound at this time has increased in size again measuring 1.2 x 0.6 x 0.2 cm deep. This is digressing again. There is no real concerns or signs of infection at this time. There is still notable edema in the entire forefoot and toes. Nothing too out of the ordinary, but it is digressing again. Musculoskeletal: There is mild pain on palpation and with debridement of the right great toe ulcer. There is still pes planovalgus deformity of the right foot as well as left foot, but that was not visualized today. We did not assess ankle pain today. Neurologic: Light touch sensation is diminished to the toes, right foot ASSESSMENT AND PLAN: 1. Right lower extremity venous insufficiency ulcer. 2. Right hallux diabetic foot ulcer. 3. Right lower extremity venous insufficiency. 4. Diabetes mellitus type 2 with polyneuropathy. 5. Chronic kidney disease. 6. Cardiomyopathy. 7. Bilateral ankle pain. PROCEDURE #1: Sharp debridement less than 20 sq cm down to and including the subcutaneous tissue layer was performed with a #15 blade of the right great toe ulcer. A copious amount of normal saline was utilized to rinse out the wound site. It was measured and then hemostasis obtained with silver nitrate. Dressings were then applied consisting of Silvadene, 4x4 gauze, 2-inch Nicki and 1-inch Coban beginning on the toe and ending on the distal forefoot to help hold it on the toe. It should be noted that some added 4x4 gauze was placed on the distal forefoot to help give some compression in that area with the 2-inch Nicki and Coban that was wrapped there as well. PROCEDURE #2: Four layer compression wrap was applied to the right lower extremity with a piece of Adaptic placed over the stable small eschar on the distal right lower lateral leg to help keep it protected. The patient tolerated the procedure well. The patient and I discussed the encouragement to see Dr. Mcnamara again and to see if he would consider any sort of surgical treatment as the wound has worsened again and will continue to struggle to ever heal due to the limited range of motion in his right first metatarsophalangeal joint. I gave the phone number to the patient to call and see if he can get on a schedule for a repeat opinion as the wound has worsened again. I encouraged him to have him look at the entire leg and can remove the dressings as needed and reapply some Issa wraps for compression until he is seen by home health again. I gave a note with the recommendation for what I believe would be helpful of a first metatarsophalangeal joint aggressive cheilectomy. We will consider a new surgical shoe next week as well as his shoe is beginning to be quite worn. We will look to order him an XXL surgical shoe for next week. We will also strive to notify Dr. Mcnamara of our recommendation and offering of paper work as needed for treatment. We may need him to request info officially, however. Actually, I believe that it needs to be requested from him rather than us just sending info. We will allow him to do that. The patient has no further questions or concerns and knows that we need to continue to see him weekly for local wound care until we can get this healed or we can get him the surgery that I think he needs. The patient has no desire to lose his great toe with an amputation and would rather the aggressive cheilectomy or something of that nature to help improve the range of motion of that toe. I also had discussed with him the possibility of an injection in bilateral ankles. We would do it obviously different from what we did previously. I believe we did ankle joint injections last time, which we would probably switch to subtalar joint injection to see if this provides better relief. We will consider which one we did the last time and do the opposite at our next visit if the patient is interested. The patient knows he is not a good surgical candidate for ankle surgery/flat foot reconstruction with his cardiomyopathy and poor ejection fraction. We can only do conservative care, at least from my perspective. We will see the patient in one week. Gala DanielsPNadiaM.(Dictated/not signed) /[employer] [id number] /mab MTDD
== END 2019-01-15 09:35 ==
LOC: POD 09:06
PROVIDERS: ATTEND Podiatrist Foot & Ankle Surgery
DX: M25.572 Pain in left ankle and joints of left foot (principal); M25.571 Pain in right ankle and joints of right foot; I87.2 Venous insufficiency (chronic) (peripheral); E11.621 Type 2 diabetes mellitus with foot ulcer; L97.519 Non-pressure chronic ulcer of other part of right foot with unspecified severity; E11.42 Type 2 diabetes mellitus with diabetic polyneuropathy; N18.9 Chronic kidney disease, unspecified; I42.9 Cardiomyopathy, unspecified
CPT/HCPCS: 11042; 99212; G0463; A4554

== ENCOUNTER 2019-01-22 09:34 | Outpatient (CLI) | payer OTHER ==
--- NOTE | 2019-01-23 15:57 | OP Clinic Progress Note ---
DATE OF VISIT: 01/22/2019 SUBJECTIVE: Chris Kinney is a 63-year-old diabetic male presenting to clinic today for followup of right lower extremity venous insufficiency ulcer that has been a stable eschar for a while now and improving as well as a right great toe diabetic foot ulcer. The patient has been having home health care see him on Mondays and I see him on for dressing changes including four-layer compression wrap. The patient does not admit to any issues except for some continued ankle pain that he would like to consider an injection in the near future for. The patient has pain in both ankles for that. The patient is also here for a new surgical shoe as his previous one is getting old and broken down. The patient is also interested in dietitian consult after discussing that idea with him today as he states that he is having a hard time keeping his blood sugars very well. The patient does not admit to any fevers, chills, nausea, vomiting, shortness of breath or chest pain at this time. The patient does admit that he got an appointment to see Dr. Mcnamara, the gear room keeper over at the hospital and that appointment is set for February 10, 2019. OBJECTIVE: Vitals: Temperature 98.8 degrees Fahrenheit, heart rate 86, respiration rate 20, blood pressure 140/75. O2 saturation is 95% on room air. Vascular: 2+ DP and PT pulses, right foot. Capillary refill time is less than 3 seconds to the toes of the right foot. Moderate edema noted in the distal forefoot right as well as in the toes. There is virtually no edema in the lower leg right lower extremity. Dermatologic: There is a stable small eschar that is getting smaller and smaller on the right distal lateral lower leg. There is no evidence of fluctuance or wound or drainage of any kind at this time. The stable eschar was left alone today. The right great toe hallux medial IPJ ulcer is improving in visual appearance today from last week. There is still some fibrotic tissue noted, which was debrided today with #15 blade. There is very minimal hyperkeratotic tissue at all on the edges of the wound, which is evidenced that it was offloaded better this last week. The patient had the wound measuring today at 0.8 x 0.2 x 0.1 cm deep. This is improved from last week when it measured 1.2 x 0.6 x 0.2 cm deep. There is very mild red irritation still on the great toe, which has not really gone away. There is no purulence, however, nor any abnormal drainage or signs of any infection or warmth noted at the right great toe. I believe the slight irritation in the toe is the overall discoloration that is noted in the distal forefoot with the swelling. There is nothing too out of the ordinary on the right great toe. There are no other abnormal skin lesions noted. Musculoskeletal: There is mild pain with debridement of the right great toe ulcer. There is of course still pes planovalgus deformity with posterior tibial tendon dysfunction of the right and left feet. The left foot was not visualized, however, today. That is from previous exam. We did not assess the ankle today. The patient knows we will assess that further in two weeks at our next visit and consider possible injection at that time. Neurologic: Light touch sensation is diminished to the toes, right foot. ASSESSMENT AND PLAN: 1. Right lower extremity venous insufficiency ulcer. 2. Right hallux diabetic foot ulcer. 3. Right lower extremity venous insufficiency. 4. Diabetes mellitus type 2 with polyneuropathy. 5. Chronic kidney disease. 6. Cardiomyopathy. 7. Bilateral ankle pain. PROCEDURE #1: Sharp debridement of the right hallux diabetic foot ulcer was performed down to and including the subcutaneous tissue layer less than 20 square cm with a #15 blade. Hemostasis was then obtained with pressure. The wound was then dressed with Santyl, Adaptic, 4x4 gauze, 2 inch Nicki and 1 inch Coban beginning on the toe and ending on the distal forefoot to help hold it on the toe. PROCEDURE #2: Four layer compression wrap was also applied to the right lower extremity. First some extra 4x4 gauze and Kerlix was applied to the distal forefoot on the right foot to help remove some of the swelling. This was followed by that four-layer compression wrap that was applied per normal protocol. The patient is to leave the dressings clean, dry and intact until the home health care team sees him on Saturday. They will see him again on as I will be out of town and unable to see him next week and they will see him again the following week again on Saturday. The patient has an appointment with Dr. Mcnamara on February 10, 2019. At our next visit let us discuss having them ask Dr. Mcnamara to request records officially so that we can send them or we can look at seeing if there is a form that they can sign so that we can send paperwork. Let us make sure we do this in two weeks so that they have that paperwork before he is seen. A surgical shoe was dispensed with appropriate padding to offload the IPJ of the right great toe. The patient seems to fit in this pretty well with his toes just at the very end of the shoe. Return to clinic in two weeks for toenail trimming as well as possible subtalar joint injections. We will determine which joint we injected previously and make sure that we do that opposite to see if that provides better relief than the last one as he is having significant ankle/subtalar joint pain. This will happen in both lower extremities. The patient knows to follow up in two weeks and if there are any issues he will need to see a primary care provider about that. He admits that he is interested in a dietitian consult and the dietitian consult was also placed today to discuss his diabetes and ideas for eating improvement. The patient has no further questions and we will see him in two weeks. Gala DanielsP.M.(Dictated/not signed) /Accutype [id number] /mab MTDD
== END 2019-01-22 10:05 ==
LOC: POD 09:34
PROVIDERS: ATTEND Podiatrist Foot & Ankle Surgery
DX: I87.2 Venous insufficiency (chronic) (peripheral) (principal); E11.621 Type 2 diabetes mellitus with foot ulcer; L97.519 Non-pressure chronic ulcer of other part of right foot with unspecified severity; E11.43 Type 2 diabetes mellitus with diabetic autonomic (poly)neuropathy; E11.22 Type 2 diabetes mellitus with diabetic chronic kidney disease; N18.9 Chronic kidney disease, unspecified; I42.9 Cardiomyopathy, unspecified; M25.572 Pain in left ankle and joints of left foot; M25.571 Pain in right ankle and joints of right foot
CPT/HCPCS: 11042; 99212; G0463; A4554

== ENCOUNTER 2019-02-05 09:32 | Outpatient (CLI) | payer OTHER ==
--- NOTE | 2019-02-09 16:52 | OP Clinic Progress Note ---
DATE OF VISIT: 02/05/2019 SUBJECTIVE: Chris Kinney is a 63-year-old male who presented for followup of a right lower leg venous insufficiency ulcer and right great toe diabetic foot ulcer as well as venous insufficiency bilaterally and ankle pain bilaterally. The patient also states he would like his toenails trimmed as it has been long enough to do so according to him. He had a visit with his dietitian last week, which is great. The patient states he has an appointment coming up with Dr. Mcnamara on Sunday, February 10, 2019 next week and he is okay and gives us a verbal consent to send paperwork over to Dr. Mcnamara in preparation for that appointment. The patient does not admit to any fevers, chills, nausea, vomiting, shortness of breath or chest pain. He states he is feeling good today. No issues with the dressings from previous. OBJECTIVE: Vitals: Temperature 97.3 degrees Fahrenheit, heart rate 74, respiration rate 20, blood pressure 117/64. O2 saturation is 95% on room air. Vascular: 2+ DP and PT pulses, bilaterally. Capillary refill time is less than 3 seconds to the toes bilaterally. There is very mild edema noted in the left lower extremity and no edema noted in the right lower leg except for moderate edema noted in the distal forefoot and the toes right lower extremity. Dermatologic: The previous small eschar noted on the right lower lateral distal leg is no longer present and has a completely healed over skin area. This has been months in the making and he has finally healed this completely. The skin is strong and healthy. There is no evidence of any wound or signs of infection in this area at all. The right great toe has a significant amount of hyperkeratotic tissue as well as some dry blood around the wound from obvious motion and irritation. The patient does not have any erythema or warmth noted about this area. The toe overall looks better but is still quite swollen. The wound itself, however, does not look as great at this time. There is mild granular tissue after debridement that is present. The area was debrided today to a point where the wound was measuring today at 1.1 x 0.4 x 0.2 cm deep. It is a little bit worse again from last week. Last week it measured 0.8 x 0.2 x 0.1 cm deep. There is no purulence or abnormal drainage or malodor or signs of infection noted. The toenails are long, thick and discolored bilaterally. The left great toenail lateral border also has a small area of purple discoloration on the tip of the lateral great toenail where the toenail perhaps has been starting to in grow. It looked great after a small slant back trimming of the nail as well as trimming of all the other nails today. Musculoskeletal: There is pain with range of motion of the subtalar joint bilaterally. The patient has mild pain with ankle range of motion but the pain he states is worse with subtalar joint range of motion. It should also be noted that the subtalar joint is in a strongly everted position and is hardly mobile at all with effort to good range of motion. The ankle joint bilaterally does have some range of motion but it is also limited. The right great toe first metatarsophalangeal joint is with approximately 30 to 40 degrees of range of motion of the forefoot not loaded versus almost 0 range of motion with the forefoot loaded which is increasing pressure to the IPJ area where the wound is located on the right great toe. There are no other areas of discomfort outside of obvious posterior tibial tendon dysfunction with very mild pain on palpation of the bilateral posterior tibial tendons and the feet are in obvious valgus position. Neurologic: Light touch sensation is diminished to the toes bilaterally. ASSESSMENT AND PLAN: 1. Right lower extremity venous insufficiency ulcer - healed officially as of today 02/05/2019. 2. Right hallux diabetic foot ulcer. 3. Right hallux limitus. 4. Bilateral venous insufficiency of the lower extremities. 5. Diabetes mellitus type 2. 6. Polyneuropathy of the lower extremities. 7. Posterior tibial tendon dysfunction bilaterally. 8. Bilateral subtalar joint pain. 9. Chronic kidney disease. 10. Cardiomyopathy. PROCEDURE #1: Sharp debridement less than 20 sq cm of the right hallux ulcer was performed today with the #15 blade down to and including the subcutaneous tissue layer as well as the hyperkeratotic tissue around the wound. Bleeding was controlled with pressure, which was definitely moderate. Dressings were then applied consisting of triple antibiotic ointment, 4 x 4 gauze, 2-inch Nicki and 1-inch Coban beginning on the great toe and extending onto the distal forefoot to help hold it on. PROCEDURE #2: A steroid injection into the right subtalar joint was performed today. Consent was obtained first after having discussed the risks and benefits that include but are not limited to bleeding, infection and a septic joint. The patient had an alcohol swab utilized to cleanse the area of the sinus tarsi area where I would gain entrance into the subtalar joint. An injection consisting of 1 cc of 2% lidocaine plain, 1 cc of 0.5% Marcaine plain, 0.5 cc of dexamethasone for 4 mg/ml and 0.5 cc of Kenalog 40 mg/ml were injected into the subtalar joint area. I did allow myself a couple of different tries to get into the subtalar joint and I believe I was able to get in. The patient tolerated the procedure well. Hemostasis was obtained with pressure. A Band-Aid was applied. PROCEDURE #3: An identical procedure was also performed as well as consent for steroid injection in the left subtalar joint where he is also having quite a bit of pain with walking lately. The same procedure was performed on this side, and consent. PROCEDURE #4: A four-layer compression wrap was applied to the right lower extremity and the patient tolerated it well. PROCEDURE #5: Trimming of toenails 1 through 5 in the bilateral feet including a slant back of the left great toenail lateral distal nail border was performed. The patient has an appointment with Dr. Mcnamara coming up next week on Saturday and he gives permission and consent verbally to send our records to Dr. Mcnamara to help him make an informed decision regarding the desire and what I feel is a very important procedure for Chris. I believe that an aggressive cheilectomy is a good hospital procedure for him in order to increase range of motion of the first metatarsophalangeal joint. I believe he may have a harder time with the bigger procedure such as a fusion of the joint and also I believe that he is probably too young for a Morrow type procedure. The patient does not want to lose his great toe nor do I think that is the best option for him but I believe that an aggressive cheilectomy is probably the best option and would encourage Dr. Mcnamara to consider it if he feels comfortable with the procedure like that for this patient regarding his cardiomyopathy and chronic kidney disease. We are unable to do the procedure here as our facility is not set up for if there are any concerns with that large of a patient here. Therefore, we are sending him to Dr. Mcnamara for a second-time opinion in order to see if he feels that this would be a good procedure for him as the wound has definitely worsened since his last visit again with Dr. Mcnamara. The patient has no further questions or concerns and we will have him return to clinic in one week for followup wound care and to give us an update on his appointment with Dr. Mcnamara. He is to continue using the surgical shoe with the offloading area that has been built in last time with his new shoe. He is also to continue using his ankle foot orthotic on the left. Gala DanielsPNadiaM.(Dictated/not signed) /Accutype [id number].RTF /mab MTDD
== END 2019-02-05 10:02 ==
LOC: POD 09:32
PROVIDERS: ATTEND Podiatrist Foot & Ankle Surgery
DX: E11.621 Type 2 diabetes mellitus with foot ulcer (principal); L97.519 Non-pressure chronic ulcer of other part of right foot with unspecified severity; E11.40 Type 2 diabetes mellitus with diabetic neuropathy, unspecified; M76.821 Posterior tibial tendinitis, right leg; M76.822 Posterior tibial tendinitis, left leg; E11.22 Type 2 diabetes mellitus with diabetic chronic kidney disease; N18.9 Chronic kidney disease, unspecified; I42.9 Cardiomyopathy, unspecified
CPT/HCPCS: A4554; J1100; J2001; J3301; J3490

== ENCOUNTER 2019-02-12 09:08 | Outpatient (CLI) | payer OTHER ==
--- NOTE | 2019-02-16 16:45 | OP Clinic Progress Note ---
DATE OF VISIT: 02/12/2019 SUBJECTIVE: Chris Kinney is a 63-year-old male presenting to clinic for followup of a right hallux diabetic foot ulcer and venous insufficiency bilaterally, lower extremities. The patient had a right lower leg ulcer that healed as of last visit and has continued to look great. The patient states that he is feeling fine and has some improvement in the ankles after the injection, but still has some pain. I do not believe that there is much else I can do with respect to injections and if he wants to consider further treatment it will likely need to be surgical versus continued injections for some mild improvement in pain if he cannot do surgery elsewhere. The patient states that he had his appointment two days ago with Dr. Mcnamara and he is planning on having him meet with the presurgery anesthesia team to see if he is okay to go for surgery there. They are unsure as to what his plan is for the procedure. They are okay with me reaching out to try and find out from his note from two days ago of what the plan is. I am happy to continue helping as much as I can, but he may want to take over care as the leg wound has healed and the toe wound is what they are doing with now. Dr. Mcnamara is aware of his heart problems and is having that worked up to make sure that he is safe to go to surgery. The patient's appointment for the presurgery anesthesia appointment is March 02, I believe he said. The patient does not admit to any fevers, chills, nausea, vomiting, shortness of breath or chest pain. OBJECTIVE: Vitals: Temperature 98.5 degrees Fahrenheit, heart rate 70, respiration rate 16, blood pressure 110/64. O2 saturation is 94% on room air. Vascular: 2+ DP and PT pulses, right foot. Capillary refill time is less than 3 seconds to the toes of the right foot. There is very mild edema in the distal forefoot of the right foot and in the toes, but otherwise the edema is very well controlled in the right lower extremity. The left leg was not visualized today. Dermatologic: The right great toe IPJ ulcer is improved and has some mild hyperkeratotic tissue around the edges, which was debrided today and the wound base was debrided with some bleeding noted, controlled with pressure. The wound today is measuring at 1.0 x 0.2 x 0.3 cm deep. This is perhaps slightly improved from last visit, which was 1.1 x 0.4 x 0.2 cm deep. There is no purulence or erythema or abnormal drainage or malodor or any other warmth or signs of infection noted. The right lower leg ulcer was healed last week, still looks beautiful and the skin looks pretty normal at this time. Musculoskeletal: There is still mild pain with range of motion of the subtalar joint, right foot. There is obvious continued deformity with rearfoot eversion and obvious posterior tibial tendon dysfunction noted. There is very minimal ankle joint range of motion, right foot. The right great toe first metatarsophalangeal joint is with very limited range of motion to almost 0 with the forefoot loaded versus 30 to 40 degrees dorsiflexion with the forefoot not loaded. There are no other gross abnormalities noted. Neurologic: Light touch sensation is diminished to the toes, bilaterally. ASSESSMENT AND PLAN: 1. Right hallux diabetic foot ulcer. 2. Right hallux limitus. 3. Venous insufficiency, bilateral lower extremities. 4. Diabetes mellitus type 2. 5. Peripheral neuropathy, bilateral lower extremities. 6. Posterior tibial tendon dysfunction, bilaterally. 7. Bilateral subtalar joint pain, somewhat improved with injections last week into both subtalar joints. 8. Chronic kidney disease. 9. Cardiomyopathy. PROCEDURE #1: Sharp debridement of the right hallux diabetic foot ulcer less than 20 sq cm down to and including the subcutaneous tissue layer was performed today with a #15 blade. The site was rinsed with a copious amount of normal saline. Hemostasis was controlled with pressure. There was some good bleeding there, which is good. Dressings were applied consisting of Triple Antibiotic Ointment, 4x4 gauze, 2-inch Nicki and one-inch Coban beginning on the toe and ending on the distal forefoot with some added 4x4 gauze on the distal forefoot to help with some of the swelling and compression. PROCEDURE #2: A four-layer compression wrap was applied to the right lower extremity to keep swelling down and continuing a good appearance of the right lower extremity. The patient is doing great keeping swelling out with this four-layer wrap. The patient has no further questions or concerns. He knows that I am happy to continue seeing him until surgery and also after as much as Dr. Anders would like me to. Otherwise, the patient is doing great and I will plan on seeing him in one week for a return to clinic visit. I added a small bit of padding to the surgical shoe in order to try and great a little bit more off-loading of the great toe IPJ area again. The patient has no further questions and we will see him in one week. Gala DanielsP.M. (Dictated/not signed) /Accutype [id number] /mab MTDD
== END 2019-02-12 09:50 ==
LOC: POD 09:08
PROVIDERS: ATTEND Podiatrist Foot & Ankle Surgery
DX: E11.621 Type 2 diabetes mellitus with foot ulcer (principal); L97.519 Non-pressure chronic ulcer of other part of right foot with unspecified severity; M20.5X1 Other deformities of toe(s) (acquired), right foot; I87.2 Venous insufficiency (chronic) (peripheral); E11.42 Type 2 diabetes mellitus with diabetic polyneuropathy; E11.22 Type 2 diabetes mellitus with diabetic chronic kidney disease; N18.9 Chronic kidney disease, unspecified; I42.9 Cardiomyopathy, unspecified; M76.821 Posterior tibial tendinitis, right leg; M76.822 Posterior tibial tendinitis, left leg
CPT/HCPCS: 11042; 29581; 99212; G0463; A4554

== ENCOUNTER 2019-02-19 09:45 | Outpatient (CLI) | payer OTHER ==
--- NOTE | 2019-03-04 11:02 | OP Clinic Progress Note ---
DATE OF VISIT: 02/19/2019 SUBJECTIVE: Chris Kinney presents for followup of right hallux diabetic foot ulcer and venous insufficiency bilateral with diabetes mellitus type 2 with polyneuropathy. The patient has had a progressing and digressing wound for several months on the right great toe. The patient had x-rays and an MRI performed several months ago that did not demonstrate any signs of infection in the bone. The patient has since then had one or two now infections in the toe over the last few months and states that he is overall feeling fine today. He has an appointment a week from today with the Anesthesia Department at the [facility] for discussing possible surgery with Dr. Mcnamara. We have requested records from their last visit, but we have not received anything yet. We will need to request that again as well as speak to their nurse regarding encouragement for possible x-rays and possible MRI based on his recent infection again today. I would like them to be able to follow up with that when they see him to make sure there is no concern for osteomyelitis before surgery. The patient does not admit to any fevers, chills, nausea, vomiting, shortness of breath or chest pain. He is having home health do four-layer compression wraps and toe dressings per protocol. OBJECTIVE: Vitals: Temperature 98.0 degrees Fahrenheit, heart rate 78, respiration rate 18, blood pressure 137/79. O2 saturation is 96% on room air. Vascular: Palpable DP and PT pulses, right foot. Capillary refill time is less than 3 seconds to the toes right foot. There is still [id number] edema in the distal forefoot and toes of the right foot. Otherwise the edema is controlled with the four-layer compression wraps. Dermatologic: Right great toe ulcer has a fair amount of serous drainage, but no purulence. This has mild erythema and warmth around the toe wound as well today. There is a fair amount of undermining going plantarly from the wound and this skin was taken back and opened up without hardly any bleeding noted to open up the wound where it was undermining. There is mild malodor as well. There are no other open lesions or wounds on the right foot. Musculoskeletal: There is mild pain with debridement of the right great toe. There is significant deformity in the foot per normal and has been there for awhile for the patient with posterior tibial tendon dysfunction with rear foot eversion and fallen arch. Neurologic: Light touch sensation is diminished to the toes right foot. ASSESSMENT AND PLAN: 1. Right hallux diabetic foot ulcer. 2. Cellulitis, right hallux. 3. Diabetes mellitus type 2. 4. Peripheral neuropathy. 5. Venous insufficiency bilateral lower extremities. 6. Posterior tibial tendon dysfunction bilaterally. PROCEDURE #1: Sharp debridement with a #15 blade to the right hallux ulcer less than 20 sq cm down to and including the subcutaneous tissue was performed today. The site was rinsed with a copious amount of normal saline. There was no tracking, but there was some undermining which required some debridement of the tissue going plantarly. This overall increased the size of the wound to a measurement today of 1.8 x 2.4 x 0.2 cm deep. This was then dressed with mupirocin 2% ointment, 4x4 gauze, 2-inch Nicki and 1-inch Coban beginning on the toe and ending on the distal forefoot. PROCEDURE #2: Four-layer compression wrap was applied to the right lower extremity. A prescription for doxycycline 100 mg one by mouth twice daily the first day and then one by mouth daily for the next nine days was given to the patient to fill over at [facility] or wherever he would like. The patient knows that this cellulitis needs to be controlled. We will call the nurse with Dr. Mcnamara and request the records as well as suggest a possible x-ray and possible MRI workup for possible osteomyelitis as the patient has had a second infection over the last few months since we last checked for any signs of osteomyelitis. This is not required but it is a suggested option if he would like to work this up further before doing surgery. We did not get x-rays here as I would like him to be able to do that with Dr. Mcnamara if he would like when he sees him or Anesthesia soon. The patient will return to the clinic in one week and we will continue to treat him with local wound care and help however Dr. Mcnamara would like. Esme Daniels.P.M. (Dictated/not signed) /Accutype [id number] /mab MTDD
== END 2019-02-19 10:45 ==
LOC: POD 09:45
PROVIDERS: ATTEND Podiatrist Foot & Ankle Surgery
DX: E11.621 Type 2 diabetes mellitus with foot ulcer (principal); L97.519 Non-pressure chronic ulcer of other part of right foot with unspecified severity; E11.40 Type 2 diabetes mellitus with diabetic neuropathy, unspecified; I87.2 Venous insufficiency (chronic) (peripheral); M76.829 Posterior tibial tendinitis, unspecified leg
CPT/HCPCS: 11042; 99212; A4554

== ENCOUNTER 2019-02-26 14:02 | Outpatient (CLI) | payer OTHER ==
--- NOTE | 2019-03-09 17:22 | OP Clinic Progress Note ---
DATE OF VISIT: 02/26/2019 SUBJECTIVE: Chris presents to clinic today for followup of right foot diabetic foot ulcer to the hallux and cellulitis to the hallux. The patient has been taking doxycycline and is overall feeling well. The patient states he is feeling well, however, we are concerned as there is a little bit more swelling in the right lower extremity than previous. He does not admit to any issues or concerns or injuries. He does not admit to any fevers, chills, nausea, vomiting, shortness of breath or chest pain. The patient admits that he has an appointment tomorrow with the preanesthesia team for surgery that it sounds like will be coming up sometime, but they are not sure what the date is. OBJECTIVE: Vitals: Temperature 98.4 degrees Fahrenheit, heart rate 82, respiration rate 20, blood pressure 138/76. O2 saturation is 95% on room air. Vascular: 2+ DP and PT pulses, right foot. Capillary refill time is less than 3 seconds to the toes right foot. There is severe edema in the forefoot, right foot as well as mild to moderate edema in the right lower leg. Dermatologic: There is still an open lesion with mild hyperkeratotic issue around the edges on the right great toe, plan on medial IPJ area. The base of the wound has filled in beautifully and is with minor slough, which was debrided to a bleeding granular base. The wound today measured 0.7 x 0.8 x 0.1 cm deep. This is much improved from last week where it measured 1.8 x 2.4 x 0.2 cm deep. There is no erythema or malodor or purulence or warmth noted of the great toe. There are no other skin lesions of concern at this time. Musculoskeletal: There is no pain on palpation noted. There is still limited dorsiflexion of the first MPJ of the right foot with the forefoot loaded versus slight improvement of the forefoot not loaded. There is still continued deformity in the rear foot and too many toes sign with an abducted forefoot and obvious fallen arches, right foot. Neurologic: Light touch sensation is diminished to the toes, right foot. ASSESSMENT AND PLAN: 1. Right foot hallux diabetic foot ulcer. 2. Cellulitis of the right hallux - resolved. 3. Diabetes mellitus type 2. 4. Peripheral neuropathy. 5. Venous insufficiency bilateral lower extremities. 6. Posterior tibial tendon dysfunction bilaterally. PROCEDURE #1: Sharp debridement of the right hallux ulcer less than 20 sq cm down to and including the subcutaneous tissue with a #15 blade was performed. Crosshatching of the base was also performed and the site was rinsed with a copious amount of normal saline. This is then dried and dressed with mupirocin 2%, Adaptic 4x4 gauze, Nicki and Coban. PROCEDURE #2: A four layer compression wrap was applied to the right lower extremity per normal protocol. Additional 4x4 gauze was placed over the distal forefoot to try and help add more pressure at that area to keep the swelling down. The patient has a visit with the preanesthesia team tomorrow for possible surgery with Dr. Mcnamara. A list of questions were given to bring with him to the visit and we will strive again to request records from Dr. Mcnamara so that we know what their plan is. The patient is unsure as to what the surgical plan is, nor when surgery would be at this time. We will continue to see the patient weekly for local wound care until surgery and then we will hopefully hear by Dr. Mcnamara what we can do to help going forward so that the patient can be taken care of well after surgery as well as in an appropriate location whether it is here or there with Dr. Mcnamara. I will happily help, however, I can. Return to clinic in one week for a follow up and wound care. Gala DanielsP.M.(Dictated/not signed) /Accutype [id number] /mab MTDD
== END 2019-02-26 14:30 ==
LOC: POD 14:02
PROVIDERS: ATTEND Podiatrist Foot & Ankle Surgery
DX: E11.621 Type 2 diabetes mellitus with foot ulcer (principal); L97.519 Non-pressure chronic ulcer of other part of right foot with unspecified severity; E11.42 Type 2 diabetes mellitus with diabetic polyneuropathy; I87.2 Venous insufficiency (chronic) (peripheral); M76.821 Posterior tibial tendinitis, right leg
CPT/HCPCS: 11042; 29581; 99213; G0463; A4554

== ENCOUNTER 2019-03-05 08:59 | Outpatient (CLI) | payer OTHER ==
--- NOTE | 2019-03-13 12:33 | OP Clinic Progress Note ---
DATE OF VISIT: 03/05/2019 SUBJECTIVE: Chris presents for followup of a right foot great toe diabetic foot ulcer. The patient is doing well and denies any issues over the last week. He met with his preanesthesia appointment and they stated that the surgeon is planning on a first metatarsophalangeal joint cheilectomy of the right foot under MAC anesthesia and there is no date set for surgery. They had instructions for holding certain medications on the morning of surgery, which I discussed with the patient and gave the note back so that they have that as a reminder when the time comes for surgery. The patient does not admit to any fevers, chills, nausea, vomiting, shortness of breath or chest pain. OBJECTIVE: Vitals: Temperature 98.2 degrees Fahrenheit, heart rate 73, respiration rate 18, blood pressure 124/69. O2 saturation is 96% on room air. Vascular: 2+ DP and PT pulses, right foot. Capillary refill time is less than 3 seconds to the toes right foot. There is notable edema in the distal forefoot and toes and just below the knee. The area where the four layer compression wrap was applied is doing great. Dermatologic: The right great toe ulcer has mild hyperkeratotic tissue around the edge and is improving. The wound base is fairly granular at 0.6 x 0.5 x 0.1 cm deep. This is improved from last week where it was 0.7 x 0.8 x 0.1 cm deep. There is no erythema or purulence or malodor noted. There was good bleeding with debridement today. There are no other skin concerns or lesions noted right foot. Musculoskeletal: There is some pain with debridement. There is no other pain on palpation or deformities outside of those that we mention weekly with respect to the rearfoot valgus and posterior tibial tendon dysfunction that is obvious on the right foot and the left. The left was not visualized today however. Neurologic: Light touch sensation is intact to the toes, right foot. ASSESSMENT AND PLAN: 1. Right foot diabetic foot ulcer great toe. 2. Diabetes mellitus type 2. 3. Peripheral neuropathy bilaterally. 4. Venous insufficiency bilateral lower extremities. 5. Posterior tibial tendon dysfunction bilateral lower extremities. PROCEDURE #1: Sharp debridement of the right hallux diabetic foot ulcer less than 20 sq cm down to and including the subcutaneous tissue layer with a #15 blade was performed today. The site was rinsed with copious amount of normal saline. There was good bleeding, which was controlled with pressure. Dressings were applied consisting of triple antibiotic ointment, Adaptic, 4x4 gauze, 2- inch Nicki and 1-inch Coban beginning on the great toe and ending on the distal forefoot to help hold it on the toe. PROCEDURE #2: Four layer compression wrap was then applied to the right lower extremity per normal protocol. This was made sure to extend to just below the knee covering some of the increased swelling area. The patient had his preop appointment with Anesthesia and is still awaiting approval for a date for right foot first metatarsophalangeal joint cheilectomy with Dr. Mcnamara. They will continue to see me in the meantime weekly to continue local wound care. We have not received any information directly from Dr. Mcnamara. We will request records to be informed of what the plan is going forward. We will also reach out to see if they want us to continue seeing the patient after surgery. Return to clinic in one week for follow up. Keep the dressings clean, dry and intact. Gala DanielsPNadiaM. (Dictated/not signed) /Accutype [id number] /mab MTDEsme
== END 2019-03-05 09:30 ==
LOC: POD 08:59
PROVIDERS: ATTEND Podiatrist Foot & Ankle Surgery
DX: E11.621 Type 2 diabetes mellitus with foot ulcer (principal); L97.519 Non-pressure chronic ulcer of other part of right foot with unspecified severity; E11.42 Type 2 diabetes mellitus with diabetic polyneuropathy; I87.2 Venous insufficiency (chronic) (peripheral); M76.822 Posterior tibial tendinitis, left leg; M76.821 Posterior tibial tendinitis, right leg
CPT/HCPCS: 11042; 29581; 99213; G0463; A4554

== ENCOUNTER 2019-03-12 13:02 | Outpatient (CLI) | payer OTHER ==
--- NOTE | 2019-03-17 10:16 | OP Clinic Progress Note ---
DATE OF VISIT: 03/12/2019 SUBJECTIVE: Chris presents to clinic today for follow up of right great toe diabetic foot ulcer and venous insufficiency right lower extremity. The patient is diabetic and with chronic kidney disease and cardiomyopathy and with foot deformity and has been trying to find out information regarding if he is having surgery done by Dr. Mcnamara. He had a recent appointment with the preanesthesia team and was given a topical cleaning agent to use prior to surgery it sounds like based on what the patient is saying today. They do not know anything about a surgery date yet. They are meeting with a shoulder doctor soon as well. The patient does not admit to any fevers, chills, nausea, vomiting, shortness of breath or chest pain and states that he is doing well. OBJECTIVE: Vitals: Temperature 98.4 degrees Fahrenheit, heart rate 70, respiration rate 20, blood pressure 125/55. O2 saturation is 92% on room air. Vascular: 2+ DP and PT pulses, right foot. Capillary refill time is less than 3 seconds to the toes of the right foot. There is moderate edema noted in the distal forefoot and toes distal to the dressings right leg. Dermatologic: The right great toe has a very mild amount of hyperkeratotic tissue and the wound appears even smaller than before. The hyperkeratotic tissue and wound base was debrided today with a #15 blade and rinsed with copious amount of normal saline. There was a good granular base remaining. There was no purulence, malodor or erythema noted. The previous right lower leg ulcer is still healed and looks great. There are no other concerns on the right lower extremity. Musculoskeletal: There is consistent foot deformity as per previous notes with a rearfoot valgus and posterior tibial tendon dysfunction. The patient has too many toe sign and obvious ankle/foot deformity. There is some pain with debridement of the right great toe ulcer. There is also limited dorsiflexion of the right first metatarsophalangeal joint with the forefoot unloaded and worse with the forefoot loaded. The right great toe ulcer is measuring today at 0.5 x 0.6 x 0.1 cm deep. Neurologic: Light touch sensation is diminished to the toes, right foot. ASSESSMENT AND PLAN: 1. Right hallux diabetic foot ulcer. 2. Diabetes mellitus type 2 with polyneuropathy. 3. Chronic kidney disease. 4. Cardiomyopathy. PROCEDURE #1: Sharp debridement of the right hallux diabetic foot ulcer less than 20 sq cm with a #15 blade down to and including the subcutaneous tissue layer was performed today. It was rinsed with a copious amount of normal saline, dried and dressings were applied today consisting of triple antibiotic ointment, Adaptic, 4x4 gauze, 2-inch Nicki and 1-inch Coban beginning on the great toe and ending on the distal forefoot. PROCEDURE #2: Four layer compression wrap was applied to the right lower extremity per normal instructions. The patient tolerated the procedures well. The patient was encouraged to find out more information regarding when surgery will be for the right great toe. We did receive a note back last week with the patient stating that Dr. Mcnamara was planning on a right first metatarsophalangeal joint cheilectomy. Return to clinic in one week. We will continue local wound care and help as much as Dr. Mcnamara would like after surgery as well. Gala DanielsP.M. (Dictated/not signed) /Accut[employer] [id number] & 0260/mab MTDD
== END 2019-03-12 13:32 ==
LOC: POD 13:02
PROVIDERS: ATTEND Podiatrist Foot & Ankle Surgery
DX: E11.621 Type 2 diabetes mellitus with foot ulcer (principal); L97.519 Non-pressure chronic ulcer of other part of right foot with unspecified severity; E11.42 Type 2 diabetes mellitus with diabetic polyneuropathy; E11.22 Type 2 diabetes mellitus with diabetic chronic kidney disease; N18.9 Chronic kidney disease, unspecified; I42.9 Cardiomyopathy, unspecified
CPT/HCPCS: 11042; 29581; 99212; G0463; A4554

== ENCOUNTER 2019-03-19 10:48 | Outpatient (CLI) | payer OTHER ==
--- NOTE | 2019-03-24 11:49 | OP Clinic Progress Note ---
DATE OF VISIT: 03/19/2019 SUBJECTIVE: Chris is a 63-year-old male presenting to the clinic today for followup of a right great toe IPJ diabetic foot ulcer that we have been treating for quite some time now. We are still awaiting more information on whether or not he will have surgery coming up. They have not heard anything else from Dr. Mcnamara and we did obtain the most recent note suggesting that they are planning on possible aggressive cheilectomy of the right first metatarsophalangeal joint, but there was no date set and the patient had his anesthesia appointment I think two weeks ago now. I encouraged them to call and find out more information. The patient denies any issues otherwise with the feet at this time and states that he is doing well and he seems to be using his surgical shoe well. He does not admit to any fevers, chills, nausea, vomiting, shortness of breath or chest pain at this time. OBJECTIVE: Vitals: Temperature 98.0 degrees Fahrenheit, heart rate 67, respiration rate 18, blood pressure 133/75. O2 saturation is 95% on room air. Vascular: 2+ DP and PT pulses, right foot. Capillary refill time is less than 3 seconds to the toes of the right foot. There is still moderate edema noted in the distal forefoot and toes but better today than previous. Dermatologic: The right great toe has very mild hyperkeratotic tissue again and the wound appears even better than last time. The hyperkeratotic tissue and wound base were debrided today with a #15 blade and it has good granulation tissue underneath. The wound is definitely improving and is measuring today at 0.5 x 0.4 x 0.1 cm deep. This is improved from last week where it measured 0.5 x 0.6 x 0.1 cm deep. There are no signs of erythema or purulence or malodor or any other signs of infection. Musculoskeletal: There is mild pain with debridement of the right great toe ulcer. There is still consistent foot deformity as per previous notes with rear foot valgus and posterior tibial tendon dysfunction. The patient also has limited range of motion of the right first metatarsophalangeal joint especially with the forefoot loaded but slight improvement with the forefoot not loaded. The patient does not have any other gross abnormalities noted of the right foot. Neurologic: Light touch sensation is diminished to the toes, right foot. ASSESSMENT AND PLAN: 1. Right hallux IPJ diabetic foot ulcer. 2. Diabetes mellitus type 2 with polyneuropathy. 3. Chronic kidney disease. 4. Cardiomyopathy. PROCEDURE #1: Sharp debridement of less than 20 sq cm down to and including the subcutaneous tissue layer with a #15 blade was performed on the diabetic foot ulcer of the right great toe. This was rinsed with a copious amount of normal saline and dried and dressings were applied consisting of triple antibiotic ointment, 4 x 4 gauze, 2-inch Nicki, 1-inch Coban beginning on the toe and ending on the distal forefoot with added 4 x 4 gauze on the distal forefoot underneath the 2-inch Nicki to help with some swelling there. The patient tolerated the procedure well. PROCEDURE #2: A four-layer compression wrap was applied to the right lower extremity to continue keeping swelling out of the leg so that this toe can continue improving and the leg can continue improving. We may be able to consider switching the patient to a normal compression stocking but I am hesitant to do so while we are continuing to get improvement with this toe. We will wait until next week to find out if there is any more information regarding a planned surgical date for an aggressive cheilectomy. We have been denied approval to do that here at our hospital, therefore we are waiting to see if he gets approval elsewhere. The patient otherwise is doing great and understands the plan going forward that we will continue local wound care and help as much as possible in the meantime while they wait to find out when that surgery will be. I may consider stopping the four-layer compression wrap soon, however, and just compressing the toe if we need to, but I would prefer to keep the swelling down as much as possible until this toe wound has healed as well. The patient will see us in one week for followup. Dustin Diaz D.P.M. /[employer] [id number] /mab MTDEsme
== END 2019-03-19 11:25 ==
LOC: POD 10:48
PROVIDERS: ATTEND Podiatrist Foot & Ankle Surgery
DX: E11.621 Type 2 diabetes mellitus with foot ulcer (principal); L97.519 Non-pressure chronic ulcer of other part of right foot with unspecified severity; E11.42 Type 2 diabetes mellitus with diabetic polyneuropathy; N18.9 Chronic kidney disease, unspecified; I42.9 Cardiomyopathy, unspecified
CPT/HCPCS: 11042; 29581; 99213; G0463; A4554

== ENCOUNTER 2019-03-26 09:02 | Outpatient (CLI) | payer OTHER ==
--- NOTE | 2019-03-30 14:24 | OP Clinic Progress Note ---
DATE OF VISIT: 03/26/2019 SUBJECTIVE: Chris presents to clinic today for follow up of right great toe diabetic foot ulcer. The patient is diabetic with peripheral polyneuropathy, chronic kidney disease and cardiomyopathy. The patient is still awaiting word from Dr. Mcnamara's office regarding when the plan for surgery will be. He has a cystoscopy coming up as there was blood found in the urine on routine urine test recently and he had a CT scan to check the kidneys or bladder and it looked fine, so they are doing a cystoscope. The patient does not admit to any other issues at all in the feet and does not admit to any fevers, chills, nausea, vomiting, shortness of breath or chest pain. OBJECTIVE: Vitals: Temperature 97.0 degrees Fahrenheit, heart rate 66, respiration rate 18, blood pressure 113/68. O2 saturation is 95% on room air. Vascular: 2+ DP and PT pulses, right foot. Capillary refill time is less than 3 seconds to the toes of the right foot. There is mild to moderate edema still noted in the distal forefoot and toes. Dermatologic: The right great toe ulcer has very mild hyperkeratosis around the edge of the very small wound that has a small amount of white fibrous slough that was debrided today to a good bleeding granular base. The wound is measuring today at 0.4 x 0.3 x 0.15 cm deep. This has improved since last visit where it measured 0.5 x 0.4 x 0.1 cm deep. There is no erythema, warmth, abnormal drainage, malodor or any other signs of infection. There are no other skin concerns or problems. Musculoskeletal: There was mild pain with debridement of the right great toe wound. There is still normal foot deformity as per previous notes with rearfoot valgus and posterior tibial tendon dysfunction as well as limited range of motion at the first metatarsophalangeal joint with the forefoot loaded and slight improvement only with the forefoot not loaded. Neurologic: Light touch sensation is diminished to the toes, right foot. ASSESSMENT AND PLAN: 1. Right hallux IPJ diabetic foot ulcer. 2. Diabetes mellitus type 2. 3. Peripheral polyneuropathy. 4. Chronic kidney disease. 5. Cardiomyopathy. PROCEDURE #1: Sharp debridement of the right great toe IPJ ulcer less than 20 sq cm down to and including the subcutaneous tissue layer with a #15 blade was performed today. The hyperkeratotic tissue was also debrided. This had hemostasis with pressure. This was then dressed with triple antibiotic ointment, Adaptic, 4x4 gauze, 2-inch Nicki and 1-inch Coban beginning on the toe and ending on the distal forefoot with some extra gauze placed on the distal forefoot to help with some of the swelling. PROCEDURE #2: A four-layer compression wrap was applied to the right lower extremity. I was considering stopping doing the four-layer compression wraps, but this wound is continuing to improve with current treatment and I worry about stopping the compression and the way that we are doing it that he may start to go backwards with this wound. I would love to try and get this wound closed up before surgery if possible, so that he can have the best chance of having limited risk of infection with an open wound and surgery. The patient understands this and agrees that he would rather continue doing the compression wraps rather than doing compression socks at this time and just compressing the toe. We will continue doing compression on the toe as well as on the leg while we are healing this toe wound. The patient has no further questions or concerns and has an appointment with a surgeon for his shoulder coming up and he plans to go and speak with Dr. Mcnamara's office while there to find out any more information regarding surgery. We will have the patient return to clinic in one week for wound care and follow up at that time. Dustin Diaz D.P.M. /Accutypdelvis [id number].RTF /mab MTDD
== END 2019-03-26 09:35 ==
LOC: POD 09:02
PROVIDERS: ATTEND Podiatrist Foot & Ankle Surgery
DX: E11.621 Type 2 diabetes mellitus with foot ulcer (principal); L97.519 Non-pressure chronic ulcer of other part of right foot with unspecified severity; E11.22 Type 2 diabetes mellitus with diabetic chronic kidney disease; N18.9 Chronic kidney disease, unspecified; E11.43 Type 2 diabetes mellitus with diabetic autonomic (poly)neuropathy; I42.9 Cardiomyopathy, unspecified
CPT/HCPCS: 11042; 29581; 99213; G0463; A4554

== ENCOUNTER 2019-04-02 10:41 | Outpatient (CLI) | payer OTHER ==
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
--- NOTE | 2019-04-10 10:59 | OP Clinic Progress Note ---
DATE OF VISIT: 04/02/2019 SUBJECTIVE: Chris presents to the clinic today for followup of a right great toe ulcer that we have been treating several months. He states that he spoke with Dr. Mcnamara's office and they stated that they will call him back once they speak with Dr. Mcnamara about if the surgery is happening, etc. They did not really have any more information regarding that at this time. The patient does admit that he dropped a mower on top of his knee this last week and is seeing Dr. Lynch right after he sees me today. He also is getting x-rays done today right after he sees me. He has a significant amount of bruising that he is concerned about and quite a bit of pain with walking on that right leg. He does not admit to any other fevers, chills, nausea, vomiting, shortness of breath or chest pain. He is diabetic with polyneuropathy, chronic kidney disease and cardiomyopathy. The patient does not have any issues nor does not admit any issues with his right foot since our last visit. OBJECTIVE: Vitals: Temperature 97.3 degrees Fahrenheit, heart rate 83, respiration rate 18, blood pressure 134/73. O2 saturation is 96% on room air. Vascular: 2+ DP and PT pulses, right foot. Capillary refill time is less than 3 seconds to the toes of the right foot. There is mild edema in the distal forefoot and toes of right foot. There is also significant edema in the right knee area. Dermatologic: The right great toe ulcer is improving with very mild hyperkeratosis around the edge and a small amount of fibrous slough again in the base that was debrided to a bleeding granular base. The wound today is measuring at 0.25 x 0.2 x 0.1 cm deep. This is improved from last week where it measured 0.4 x 0.3 x 0.15 cm deep. This is greatly improving and there is no erythema or other signs of infection at all in this area. There is significant ecchymosis around the right knee especially just proximal to the patella. Musculoskeletal: There is mild pain with debridement of the right great toe ulcer. There is consistent limited range of motion of the first metatarsophalangeal joint of the right foot. There was also noted consistent posterior tibial tendon dysfunction with rear foot valgus deformity of the right foot as well as left from previous exam. Neurologic: Light touch sensation is diminished to the toes, right foot. ASSESSMENT AND PLAN: 1. Right hallux IPJ diabetic foot ulcer. 2. Diabetes mellitus type 2. 3. Peripheral polyneuropathy. 4. Chronic kidney disease. 5. Cardiomyopathy. 6. Right knee injury. The patient is obtaining a knee x-ray as ordered by Dr. Lynch and is seeing Dr. Lynch as soon as he leaves from seeing me today. He has no open lesions noted on the right knee. He did have notable scabbing on the knee but no drainage and nothing open currently above the knee at this time. PROCEDURE #1: Sharp debridement of the right hallux diabetic foot ulcer less than 20 sq cm down to and including the subcutaneous tissue layer with a #15 blade is performed today. Bleeding was controlled with pressure. The site was rinsed with a copious amount of normal saline. Dressings were then applied consisting of Triple Antibiotic ointment, Adaptic, 4x4 gauze, 2-inch Nicki and 1-inch Coban beginning on the toe and ending on the distal forefoot with extra gauze on the distal forefoot to help with swelling. PROCEDURE #2: Four layer compression wrap was applied to the right lower extremity. The patient was sent for x-rays before applying the four-layer compression wrap in order to make sure that there was no chance of anything causing a blurry picture in the proximal aspect of the leg for his x-rays. He had this applied after the x-rays were performed and was sent in a wheelchair to get those x-rays done. The patient is still awaiting a phone call from Dr. Mcnamara's office to see if he will get surgery on this right first metatarsophalangeal joint. I believe that the patient very much requires this surgery, which is an aggressive cheilectomy to make sure that this heals and stays healed as it already has gotten to this point once before and then even better, and then opened right back up after being seen and having surgery deemed not necessary. I am hoping that this will happen soon. Return to the clinic in one week for followup and then we will likely see the patient again the week after on Saturday and then we will definitely arrange for nursing visits while I am out of town during those two weeks. We will likely have him see us on that Saturday and see the home health person on that Saturday, the day after Thanksgi and then switch back to the normal home health visits on Saturday and for nursing visit while I am gone. Gala DanielsPMati /[employer] [id number] R: 04/08/19 /mab MTDD
== END 2019-04-02 11:15 ==
LOC: POD 10:41
PROVIDERS: ATTEND Podiatrist Foot & Ankle Surgery
DX: E11.621 Type 2 diabetes mellitus with foot ulcer (principal); L97.509 Non-pressure chronic ulcer of other part of unspecified foot with unspecified severity; S89.91XD Unspecified injury of right lower leg, subsequent encounter; G62.9 Polyneuropathy, unspecified; N18.9 Chronic kidney disease, unspecified; I42.9 Cardiomyopathy, unspecified; X58.XXXD Exposure to other specified factors, subsequent encounter
CPT/HCPCS: 11042; 73562; 99213; A4554

== ENCOUNTER 2019-04-09 10:04 | Outpatient (CLI) | payer OTHER ==
--- NOTE | 2019-04-14 15:02 | OP Clinic Progress Note ---
DATE OF VISIT: 04/09/2019 SUBJECTIVE: Chris is a 63-year-old male with diabetes and peripheral polyneuropathy presenting to clinic today for followup of a right hallux IPJ ulcer. Most recently, he had that right knee injury and has been treated with compression TANIA wrap from Dr. Lynch. He presented today for followup and with loose TANIA wraps and states that he is not doing anything to clean or apply any dressings to the stable eschars on the leg above the right knee. The patient otherwise states also that he has not heard anything from Dr. Mcnamara regarding surgery. He does not admit to any fevers, chills, nausea, vomiting, shortness of breath or chest pain. He does state that the four-layer compression wrap was not placed as high last time and that it dropped down some being caught in his boot. OBJECTIVE: Vitals: Temperature 97.2 degrees Fahrenheit, heart rate 86, respiration rate 21, blood pressure 142/81. O2 saturation is 97% on room air. Vascular: 2+ DP and PT pulses, right foot. Capillary refill time is less than 3 seconds to the toes of the right foot. There is severe edema noted in the proximal lower leg and distal forefoot, as well as in the upper portion of the right lower extremity. Dermatologic: The stable eschars were visualized today above the right knee, which I am not treating, but we did apply a Benadryl over the top of these today and antibiotic ointment. The right great toe ulcer today had a little bit of undermining, which is debrided and is measuring today slightly larger at 0.4 x 0.3 x 0.2 cm deep. This is slightly larger from last week where there was 0.25 x 0.2 x 0.1 cm deep. There is no erythema or malodor or abnormal drainage noted. Overall, it is still looking great, but just appears slightly larger than last week. The concern is that this will continue to worsen and improve back and forth. There are no other signs of infection or any concerns on the right lower extremity. There is mild red irritation around the stable eschar from healing. There does not appear to be signs of infection at this time. Musculoskeletal: There is no pain on palpation, but mild pain with debridement of the right great toe ulcer. There is significant deformity of the right foot with too many toes sign and rearfoot eversion deformity. There are no other gross abnormalities noted beside significant first metatarsophalangeal joint limitation of motion with the forefoot loaded and not loaded as well. Neurologic: Light touch sensation is diminished, but intact to the toes, right foot. ASSESSMENT AND PLAN: 1. Right hallux IPJ diabetic foot ulcer. 2. Diabetes mellitus type 2. 3. Peripheral polyneuropathy. 4. Chronic kidney disease. 5. Cardiomyopathy. 6. Right knee injury-TANIA wrap by Dr. Lynch. PROCEDURE #1: Sharp debridement of the right hallux IPJ ulcer less than 20 sq cm down to and including the subcutaneous tissue layer with a #15 blade was performed today. Hemostasis was obtained with pressure. A copious amount of normal saline was used to rinse out the site. Dressings were applied consisting of Triple Antibiotic Ointment, 4x4 gauze, 2-inch Nicki and one-inch Coban beginning on the great toe and ending on the distal forefoot. PROCEDURE #2: A four-layer compression wrap was applied to the right lower extremity to help with compression at this time. There was significant edema noted in the first half of the lower leg on the right side, which was covered in a four-layer compression wrap, which should help with that at this time. The patient has no further questions or concerns. He is still awaiting word from Dr. Mcnamara regarding whether he will have surgery. We will continue treating this right great toe ulcer in the meantime and off-loading it with the off-loading pads in a surgical shoe that he is wearing beautifully. He does not have any other questions and we will have him return to clinic next week on Saturday for followup. At that time, we will likely set up for him to continue doing a nursing visit the following week after on Saturday likely and then I will see him the week after that on the normal visit. The patient has no other questions and I will see him on Saturday. Dustin Diaz D.P.M. /[employer] [id number] /mab MTDD
== END 2019-04-09 10:34 ==
LOC: POD 10:04
PROVIDERS: ATTEND Podiatrist Foot & Ankle Surgery
DX: E11.621 Type 2 diabetes mellitus with foot ulcer (principal); L97.519 Non-pressure chronic ulcer of other part of right foot with unspecified severity; E11.42 Type 2 diabetes mellitus with diabetic polyneuropathy; I42.9 Cardiomyopathy, unspecified; E11.22 Type 2 diabetes mellitus with diabetic chronic kidney disease; N18.9 Chronic kidney disease, unspecified; S89.91XD Unspecified injury of right lower leg, subsequent encounter; X58.XXXD Exposure to other specified factors, subsequent encounter
CPT/HCPCS: 11042; 29581; 99213; G0463; A4554

== ENCOUNTER 2019-04-13 10:33 | Outpatient (CLI) | payer OTHER ==
--- NOTE | 2019-04-15 15:09 | OP Clinic Progress Note ---
DATE OF VISIT: 04/13/2019 SUBJECTIVE: Chris is a 63-year-old male presenting to clinic today for follow-up of a right great toe ulcer. The patient is concerned that he has a little bit increased swelling in the leg and foot. He has been having his knee TANIA wrapped on the right and is seeing Dr. Lynch this afternoon for follow-up for his right knee injury/contusion. His x-rays that Dr. Lynch had ordered were supposedly negative. He does not admit to any other issues, nor any fevers, chills, nausea, vomiting, shortness of breath or chest pain. He admits that he has not heard anything from Dr. Mcnamara and states that he is going to try and get another appointment with him to find out what the plan is as he already did a preop appointment and was not given a date, but was given a location for the procedure that was planned at his last visit. OBJECTIVE: Vitals: Temperature 98.3 degrees Fahrenheit, heart rate 76, respiration rate 18, blood pressure 134/74. O2 saturation is 96% on room air. Vascular: Palpable DP and PT pulses, right foot. Capillary refill time is less than 3 seconds to the toes of the right foot. There is moderate edema noted in the distal forefoot and toes as well as in the proximal aspect of the lower leg. There still is significant edema around the knee area as well in the right lower extremity from the injury. The swelling that was in the upper portion of the right lower leg is improved at this time, however, the dressing had slipped down a little bit again that was most recently placed. Dermatologic: There is a small open lesion with some mild hyperkeratosis surrounding the edge of it on the right great toe plantar medial IPJ area. This area was debrided today to an intact bleeding base that was controlled with pressure. The hyperkeratotic tissue was also debrided today. There is no erythema, nor malodor nor any other warmth or signs of infection of the right great toe at this time. It has been staying healthy consistently for several weeks now without any signs of infection. There are no other skin abnormalities or concerns noted on the right lower leg. The right knee was left wrapped for Dr. Lynch to look at this afternoon. Musculoskeletal: There is no pain to palpation but mild pain with debridement of the right great toe ulcer. There is still significant and consistent foot deformity with a pes planovalgus deformity and posterior tibial dysfunction with a fallen arch on the right. Neurologic: Light touch sensation is diminished to the toes, right foot. ASSESSMENT AND PLAN: 1. Right hallux diabetic foot ulcer. 2. Diabetes mellitus, type 2. 3. Peripheral neuropathy. 4. Chronic kidney disease. 5. Cardiomyopathy. 6. Right knee contusion (Dr. Lynch is following). PROCEDURE #1: Sharp debridement less than 20 sq cm down to and including subcutaneous tissue layer with a #15 blade was performed today on the right hallux IPJ ulcer. This was rinsed with a copious amount of normal saline, dried and dressed with triple antibiotic ointment, Adaptic, 4x4 gauze, 2-inch Nicki and 1-inch Coban beginning on the toe and ending on the distal forefoot to help hold it on the toe. There was some extra 4x4 gauze placed in the wrap on the distal forefoot to help increase compression in that area. The patient tolerated the procedure well. The patient requires continued compression therapy and as we did not have 4- layer compression wrap available to us today we modified by applying some gauze to protect the proximal lateral aspect of the foot on the right side where the crease in skin is noted because of foot deformity and then the entire thing was wrapped with 4 layers of 4-inch TANIA wrap beginning on the distal forefoot and ending just distal to the knee on the right lower extremity. We had fairly significant compression but as this continued to slip down we decided to place a Jobst compression sock on the right lower extremity as well which had very little compression and I do not feel will add any significant compression but will help keep things from sliding. The patient knows that Grady will continue seeing him on Saturday this week and then on Saturday and the following week, and Saturday the week after and I will see him April 30, for a next visit with me. He knows I will be out of town Saturday next week through the following entire week and of course if there are any issues, he will have to see Dr. Lynch or go to the emergency room. The patient also knows that Grady is to resume normal 4-layer compression wraps and normal treatment and he does not need to use the Jobst compression hose like we did today. The patient and his were encouraged to press on the toes to make sure several times, about 5 times, today and tomorrow that there is immediate capillary refill time as described to the patient. They understand that if there is, that they need to remove the Jobst compression dressing as well as a layer of TANIA wrap. They do not have any other questions or concerns and we will see them in about 2-1/2 weeks. They will continue their home healthcare dressing changes through [facility] in [place]. Dustin Diaz D.P.M. [place] Job#: [id number] MTDD
== END 2019-04-13 11:05 ==
LOC: POD 10:33
PROVIDERS: ATTEND Podiatrist Foot & Ankle Surgery
DX: E11.621 Type 2 diabetes mellitus with foot ulcer (principal); L97.519 Non-pressure chronic ulcer of other part of right foot with unspecified severity; S80.01XD Contusion of right knee, subsequent encounter; G62.9 Polyneuropathy, unspecified; N18.9 Chronic kidney disease, unspecified; I42.9 Cardiomyopathy, unspecified; X58.XXXD Exposure to other specified factors, subsequent encounter
CPT/HCPCS: 11042; 99213; A4554

== ENCOUNTER 2019-04-30 10:04 | Outpatient (CLI) | payer OTHER ==
--- NOTE | 2019-05-01 09:22 | OP Clinic Progress Note ---
DATE OF VISIT: 04/30/2019 SUBJECTIVE: Chris is a 63-year-old diabetic male presenting to the clinic today for followup of a right great toe ulcer. The patient has been seen by home health care and had issues with a 4-inch TANIA wrap that rolled down and acted almost like a tourniquet causing increased swelling above the TANIA wrap in the leg. This since has been resolved almost completely with the 4-layer compression wraps instead. The patient presents today and as dressings were removed he was surprised to see that there was an issue on his right great toe with a lot of fluid drainage and very large blister. This was not present on Saturday, he says, when he had it changed by Grady from home health. The patient does not admit to any fevers, chills, nausea, vomiting, shortness of breath or chest pain. He states he is feeling fine today. He also states that he has not heard anything from Dr. Mcnamara's office so far. OBJECTIVE: Vitals: Temperature 97.4 degrees Fahrenheit, heart rate 75, respiration rate 18, blood pressure 132/74. O2 saturation is 96% on room air. Vascular: Palpable DP and PT pulses, right foot. Capillary refill time is less than 3 seconds to the toes of the right foot. There is moderate edema noted in the right lower leg and a little bit more edema noted in the forefoot and toes. Dermatologic: There is notable large amount of drainage and a ruptured bulla with fluid upon removal of dressings today on the dorsal aspect of the right great toe. This communicates with the wound that was still present with minor hyperkeratosis around the edge of it on the plantar medial side of the right great toe. There is plenty of malodor as well as warmth at the toe. There is not really any erythema at this time but there is significant serosanguineous drainage that is malodorous and loose skin that was removed revealing a superficial lesion dorsally that is measuring 3.2 x 1.5 cm and essentially two smaller lesions that had some depth measuring on the medial side 0.5 x 0.5 x 0.1 cm deep and more plantar medially the original wound measuring today at 0.7 x 0.6 x 0.2 cm deep. This overall of course looks worse than previous. The infection appears to be fairly superficial at this time. There is no probe to bone nor any tunneling or undermining at all after removing the affected area loose skin. There are no other skin abnormalities or problems noted. Musculoskeletal: There is some pain with debridement and some pain with palpation at the right great toe at this time. There is still consistent and significant foot deformity at pes planovalgus and posterior tibial tendon dysfunction with a fallen arch on the right foot. The patient is continuing to complain of pain in the right ankle and I am between a rock and a hard place in that I cannot have him get back into his brace, or else I cannot offload this toe very well and have him in a surgical shoe. We need to continue to try to protect this toe first before we worry enough about the ankle. The patient understands this. Neurologic: Light touch sensation is diminished to the toes, right foot. ASSESSMENT AND PLAN: 1. Right hallux diabetic foot ulcer. 2. Diabetes mellitus, type 2. 3. Peripheral neuropathy. 4. Chronic kidney disease. 5. Cardiomyopathy. 6. Right knee contusion (Dr. Lynch is following this and it does look much better today). PROCEDURE #1: Sharp debridement of the right great toe ulcers totaling less than 20 sq cm with the #15 blade down to and including the subcutaneous tissue layer was performed today. The site was rinsed with a copious amount of normal saline. PROCEDURE #2: An aerobic and anaerobic culture swab was taken and sent to look for any specific bacteria. The site was then dressed with Triple Antibiotic Ointment, Adaptic, 4 x 4 gauze, Nicki and 1-inch Coban beginning on the toe and ending on the distal forefoot to help hold it on the toe. PROCEDURE #3: A four-layer compression wrap was applied to the right lower extremity to continue keeping swelling out of the leg. I am strongly considering moving to the use of a regular compression stocking to see if this improves some of the swelling in the feet as well. The leg wound has healed beautifully for awhile now and has good strong skin and I wonder if we will be able to have better swelling by getting him out of the four-layer wraps next week once this is more compressed and maybe even be able to get him into an ankle brace and see if I can pad the brace somehow to protect him. We will see if he can safely use the brace and the surgical shoe or not. We will consider the above at our next visit and also we will start to contact Dr. Mcnamara to see if there are any updates. The patient definitely needs something surgically to help him to be able to overcome this problem or else he is going to end up with a significant infection that will cause him to lose his leg, is my concern. The patient understands that he is to continue home health changes as per normal instructions but he will also need the Triple Antibiotic Ointment and Adaptic over the entire dorsal medial and plantar medial aspect of the right great toe followed by normal dressings. Return to clinic in one week and then after that we will see him on Saturday, the and then we will see him a week and half later again. We will arrange home health visits accordingly. Dustin Diaz D.P.M. /Sal [id number] /mab MTDD
== END 2019-04-30 10:34 ==
LOC: POD 10:04
PROVIDERS: ATTEND Podiatrist Foot & Ankle Surgery
DX: I87.2 Venous insufficiency (chronic) (peripheral) (principal); E11.621 Type 2 diabetes mellitus with foot ulcer; L97.919 Non-pressure chronic ulcer of unspecified part of right lower leg with unspecified severity; E11.42 Type 2 diabetes mellitus with diabetic polyneuropathy; E11.22 Type 2 diabetes mellitus with diabetic chronic kidney disease; N18.9 Chronic kidney disease, unspecified; I42.9 Cardiomyopathy, unspecified; S80.01XA Contusion of right knee, initial encounter; X58.XXXA Exposure to other specified factors, initial encounter
CPT/HCPCS: 11042; 29581; 87070; 99213; G0463; A4554

== ENCOUNTER 2019-05-07 09:32 | Outpatient (CLI) | payer OTHER ==
--- NOTE | 2019-05-11 15:26 | OP Clinic Progress Note ---
DATE OF VISIT: 05/07/2019 SUBJECTIVE: Chris is a 63-year-old diabetic male with peripheral neuropathy, chronic kidney disease and cardiomyopathy presenting today for followup of a wound on the right great toe that last week had an infection and had cultures taken. The patient was started on doxycycline and the patient had culture results that came back a few days later that were of an anaerobic bacteria, Finegoldia magna, as well as aerobic bacteria that is MRSA. The patient was on an appropriate antibiotic to start and therefore it was left for him to finish. He was encouraged today to finish that antibiotic. The patient states that he is feeling great except that he is having a lot more pain in all of the toes of the right foot. He feels that it has strongly to do with the swelling that is still very bad in all the toes of the right foot. The patient does not admit to any fevers, chills, nausea, vomiting, shortness of breath or chest pain. The patient has not heard anything from Dr. Mcnamara's office again when asked today. We notified him that we did get word back in a fax stating that the surgery was postponed, but they did not say anything about why or any reason. We notified the patient of this at this time. OBJECTIVE: Vitals: Temperature 97.9 degrees Fahrenheit, heart rate 76, respiration rate 18, blood pressure 136/80. O2 saturation is 95% on room air. Vascular: Palpable DP and PT pulses, right foot. Capillary refill time is less than 3 seconds to the toes of the right foot. There is still moderate edema in the right distal forefoot and toes mainly. The right lower leg is very well compressed with some wrinkle lines. Dermatologic: There is greatly improved appearance of the right toe wound. The dorsal superficial ulcer has almost completely closed over. There is a very small area of pink tissue that is still superficial that is not wet at all and appears to be healing well. There is also at the plantar medial IPJ of the right great toe a small lesion that is 0.6 x 0.4 cm in size. It has a very small amount of depth where it drops down, but it should be noted that it has dry skin covering this area. Debridement was not needed at this time, as it is trying to close over. There is no erythema or warmth or abnormal drainage noted at all on the right great toe. There is no drainage currently. The warmth and any signs of infection are now gone. Musculoskeletal: There is no pain on palpation. There is still significant limitation at range of motion of the first metatarsophalangeal joint especially with the forefoot loaded as per previous exam. The patient still has notable foot and ankle deformity with pes planovalgus and posterior tibial tendon dysfunction. The patient has significant pain in the toes and we are going to try to see if we can help with that at this time. Neurologic: Light touch sensation is diminished to the toes, right foot. ASSESSMENT AND PLAN: 1. Right hallux diabetic foot ulcer. 2. Diabetes mellitus type 2. 3. Peripheral neuropathy. 4. Chronic kidney disease. 5. Cardiomyopathy. We did not do any sort of debridement today. The site was still covered with iodine, Adaptic, 4x4 gauze, 2-inch Nicki and 1-inch Coban beginning on the right great toe and ending on the distal forefoot to help hold it on the toe. We have decided to go forward with switching from four-layer compression wraps to his normal compression stockings to see if this will help get much better compression at the toes to get swelling out of them. I am hoping that this will bring a lot of relief to the patient. We will also see if his toe continues to do well with the wrap on the toe only and leaving it alone until we see him again. Actually, we will need to notify [facility] for home health. He will continue to wrap the toe like normal, but just do the compression stocking instead of the four-layer compression wraps. The patient did not have any sort of four-layer compression wrap applied, as we did the compression stocking instead. This is a good time to try this, as we will see him again on Saturday. Return to clinic on SaturdayMay 11 for followup. The patient is to bring his ankle-foot orthotic, as well as diabetic shoe, as I may look to see if I can off-load the brace and get him back into that, as he is having so much pain in his ankle. I am hoping that we can off-load the brace somewhat to protect the toe and if so that may work better for him than the surgical shoe. The patient understands the plan and knows that he needs to still stay off of his foot, as much as possible this week, as we are switching to a different form of compression and I do not want it to swell up tremendously. The patient will see me on Saturday. It sounds like there is no surgery planned at this time, so we will need to do our best to heal this on its own. If this continues to struggle, I may consider doing an MRI to check again for any infection, but it looks like it is trying to close. Dustin Diaz D.P.M./[employer] [id number] /mab MTDD
== END 2019-05-07 10:03 ==
LOC: POD 09:32
PROVIDERS: ATTEND Podiatrist Foot & Ankle Surgery
DX: E11.621 Type 2 diabetes mellitus with foot ulcer (principal); L97.519 Non-pressure chronic ulcer of other part of right foot with unspecified severity; E11.42 Type 2 diabetes mellitus with diabetic polyneuropathy; E11.22 Type 2 diabetes mellitus with diabetic chronic kidney disease; N18.9 Chronic kidney disease, unspecified; I42.9 Cardiomyopathy, unspecified
CPT/HCPCS: 99213; A4554; G0463

== ENCOUNTER 2019-05-11 11:26 | Outpatient (CLI) | payer OTHER ==
--- NOTE | 2019-05-14 09:21 | OP Clinic Progress Note ---
DATE OF VISIT: 05/11/2019 SUBJECTIVE: Chris is a 63-year-old male presenting to clinic today for follow-up of a right hallux diabetic foot ulcer as well as peripheral neuropathy, chronic kidney disease and cardiomyopathy. The patient has been having this wound treated for quite some time and most recently last week on we saw the patient and switched him to a regular compression stocking and the surgical shoe to see if this would help with some of the pain that he is having in his toes. The patient states he feels the pain is almost the same in the toes but he is having a lot of ankle pain as he has been unable to be in that ankle-foot orthotic brace. The patient otherwise states he is doing well and does not admit to any fevers, chills, nausea, vomiting, shortness of breath or chest pain. He brought his ankle-foot orthotic and regular diabetic shoe in case we wanted to switch to those as I suggested he might try this week. OBJECTIVE: Vitals: Temperature 98.3 degrees Fahrenheit, heart rate 75, respiration rate 18, blood pressure 124/72. O2 saturation is 92% on room air. Vascular: 2+ DP and PT pulses, right foot. Capillary refill time is less than 3 seconds to the toes of the right foot. There is pretty moderate to severe edema noted in the right lower extremity and foot. Dermatologic: The right great toe has a greatly improved wound size measuring 0.15 x 0.2 x 0.15 cm deep. This is improved from last week where it measured 0.6 x 0.4 cm. The patient has no erythema, purulence, malodor, drainage or warmth noted at the right great toe. There are no other skin abnormalities or concerns on the right lower extremity. No concerns for open lesions at this time except that he has increased edema but no signs of breakdown of skin. Musculoskeletal: The patient has consistent fallen arch and posterior tendon dysfunction with rear foot valgus deformity. The patient also has an abducted forefoot deformity as well. The patient does not have any other gross abnormalities noted. Neurologic: Light touch sensation is diminished to the toes, right foot. ASSESSMENT AND PLAN: 1. Right hallux diabetic foot ulcer. 2. Diabetes mellitus, type 2. 3. Peripheral neuropathy. 4. Chronic kidney disease. 5. Cardiomyopathy. PROCEDURE #1: Sharp debridement of the right great toe diabetic foot ulcer less than 20 sq cm with a #15 blade was performed down to and including the subcutaneous tissue layer. The patient had the site rinsed with normal saline, dried and dressed with triple antibiotic ointment, Adaptic, 4x4 gauze, 2-inch Nicki and 1- inch Coban beginning on the great toe and ending on the distal forefoot to help hold it on the toe. We encouraged the patient to stay on the compression stocking and we are going to move him back into his ankle-foot orthotic and a regular shoe to see how he does to see if we can improve his ankle pain as well, or subtalar joint pain. The patient understands that there is a risk that the wound may open up again even though we are adding extra padding to his ankle-foot orthotic to offload the IPJ of the right great toe. He understands that this could go backwards but that we are trying to help the ankle as well. We are going to try this out upon the patients request even though he understands the risks and we also will encourage that he look into getting thigh-high 30-40 mm Hg compression stockings instead of the ones that dont quite reach the knees. He has a significant amount of edema at the proximal aspect of the lower leg on the right side that his compression stockings are not getting rid of and he needs some thigh-highs. The patient understands this and a prescription was written and we will call over to [facility] to encourage that to happen. The patient has no further questions or concerns and we will have him return to the clinic to see me in a week from this on 05/21/2019. Grady will continue to see him this week on and then on Saturday, and again see me on 05/21/2019. The patient has no other questions or concerns. We have no further information from Dr. Hernandez office except that the surgery was postponed. I believe at this point we are pretty much on our own to try and offload this and get things better. If we can get things to heal up and improve then we will see if we can get an adjustment or new ankle-foot orthotic that somehow have an offloading option for the IPJ area of the right great toe. We will see the patient in a week and a half. Dustin Diaz D.P.M. [place] Job#: [id number] MTDD
== END 2019-05-11 11:56 ==
LOC: POD 11:26
PROVIDERS: ATTEND Podiatrist Foot & Ankle Surgery
DX: E11.621 Type 2 diabetes mellitus with foot ulcer (principal); L97.919 Non-pressure chronic ulcer of unspecified part of right lower leg with unspecified severity; E11.42 Type 2 diabetes mellitus with diabetic polyneuropathy; E11.22 Type 2 diabetes mellitus with diabetic chronic kidney disease; N18.9 Chronic kidney disease, unspecified; I42.9 Cardiomyopathy, unspecified
CPT/HCPCS: A4554

== ENCOUNTER 2019-05-21 08:31 | Outpatient (CLI) | payer OTHER ==
--- NOTE | 2019-05-22 15:56 | OP Clinic Progress Note ---
DATE OF VISIT: 05/21/2019 SUBJECTIVE: Chris Kinney is a 63-year-old diabetic male who presents today for clinic for followup of a right great toe ulcer. The patient states that he switched back to his surgical shoe, as his ankle-foot orthotic with the size 15 shoe does not allow him to drive because it is too much space occupying area where he is driving and puts his feet. He prefers to just do the compression socks and surgical shoe. He states that he has the same pain in the toes, as he has previously. He also states that the pain in the ankle is about the same with the brace or without. The patient does not admit to any fevers, chills, nausea, vomiting, shortness of breath or chest pain. He denies hearing anything from Dr. Mcnamara. OBJECTIVE: Vitals: Temperature 97.4 degrees Fahrenheit, heart rate 73, respiration rate 20, blood pressure 116/66. O2 saturation is 93% on room air. Vascular: 2+ DP and PT pulses, bilaterally. Capillary refill time is less than 3 seconds to the toes bilaterally. There is fairly moderate edema still noted in the right foot, as well as in the upper portion of the right lower leg. The ankle is the best compressed area. Dermatologic: The right great toe still has some hyperkeratotic tissue and peeling skin that was removed today to reveal still an open wound measuring 0.3 x 0.5 x 0.3 cm deep. This is without any erythema or purulence or malodor or abnormal drainage noted. There are no other open lesions noted. There is some mild maceration with no open wounds yet between the toes one through five on the right foot. The left foot is free of any wounds or erythema or ecchymosis or signs of abrasions or any signs of maceration between the toes. There is appropriately controlled swelling in the left lower extremity with the compression stocking he is using. The wound measurement above seems to be slightly worse than last time when it measured 0.15 x 0.2 x 0.15 cm deep. Musculoskeletal: There is no pain to palpation, but mild pain with debridement of the right great toe ulcer. There is still consistent polyneuropathy bilaterally and posterior tibial tendon dysfunction bilaterally with some rearfoot valgus deformity bilaterally, right worse than the left. The patient also has an abducted forefoot deformity more on the right than the left. Neurologic: Light touch sensation is diminished to the toes, bilaterally. ASSESSMENT AND PLAN: 1. Right hallux diabetic foot ulcer. 2. Diabetes mellitus type 2 with peripheral polyneuropathy. 3. Chronic kidney disease. 4. Cardiomyopathy. 5. Bilateral ankle/subtalar joint pain. PROCEDURE #1: Sharp debridement of the right great toe ulcer less than 20 sq cm down to and including the subcutaneous tissue layer with a #15 blade was performed today. The site was rinsed with copious amounts of normal saline, dried and had dressing consisting of Triple Antibiotic Ointment, Adaptic, 4x4 gauze, Hemostasis was obtained with pressure. Dressings were applied today consisting of Triple Antibiotic Ointment, Adaptic, 4x4 gauze, 2-inch Nicki and one-inch Coban beginning on the great toe and ending on the distal forefoot to help holding on the toe. PROCEDURE #2: Trimming of the toenails one through five of the left foot was performed today, as the right foot was done recently and the left foot needed it and the patient requested it today. A bottle of iodine was sent home with the patient and the patient was encouraged to apply iodine between the toes on the right foot twice daily. The patient understands that we are limited in how much more we can do besides local wound care, as he is needing surgery on the toe, as well as the ankle on the right side, but is unable to do so because of his health status. We will continue local wound care and I believe that if we could just get the pressure off this area, it would heal. We did an MRI several months ago, but maybe we will consider another MRI soon if this continues to struggle to heal. I am not sure that this patient is a good candidate for a graft as pressure seems to be the biggest struggle to keep pressure off this wound. The patient has good surgical shoe that has good off-loading to keep pressure off the best we can. We will have the patient return to clinic in two weeks. He will have home health care, see him on Saturday, and then the following Saturday. I am out of town this next week, which the patient was notified of today. If there are any emergencies or concerns, he needs to go to see the emergency room. Dustin Diaz D.P.M. /[employer] [id number] /mab JONATHAN
== END 2019-05-21 09:05 ==
LOC: POD 08:31
PROVIDERS: ATTEND Podiatrist Foot & Ankle Surgery
DX: E11.621 Type 2 diabetes mellitus with foot ulcer (principal); L97.519 Non-pressure chronic ulcer of other part of right foot with unspecified severity; E11.42 Type 2 diabetes mellitus with diabetic polyneuropathy; N18.9 Chronic kidney disease, unspecified; I42.9 Cardiomyopathy, unspecified; M25.572 Pain in left ankle and joints of left foot; M25.571 Pain in right ankle and joints of right foot
CPT/HCPCS: 11042; 11719; 99213; A4554